=== PATIENT | female | born 1980 | race Caucasian/White ===

== ENCOUNTER 2017-02-05 18:00 | Inpatient (IN) | payer SELFPAY ==
[2017-02-05] MEDS ORDERED: Sodium Chloride 0.9% 1,000 ML PRIMARY IV ONE (18:05)
[2017-02-05] MEDS ORDERED: NORMAL SALINE 10 ML SYRINGE FLUSH IVP PRN (18:05)
[2017-02-05] MEDS ORDERED: ONDANSETRON 4 MG/2 ML VIAL IVP ONE (18:05)
[2017-02-05] MEDS ORDERED: Pantoprazole Inj 40 MG in Normal Saline Flush 10 ML IVP ONE (18:06)
[2017-02-05] MEDS ORDERED: Sodium Chloride 0.9% 1,000 ML, Magnesium Sulfate 2gm (Premix) 50 ML with Multivitamin I... IV ONE ×5 (18:06)
[2017-02-05 18:33] LABS: BASOPHILS # (AUTO) 0.03 10*3/UL; BASOPHILS % (AUTO) 0.7 % (0-1); EOSINOPHILS # (AUTO) 0.06 10*3/UL; EOSINOPHILS % (AUTO) 1.3 % (0-8); HEMATOCRIT 25.8 % (37.0-47.0); HEMOGLOBIN 7.4 g/dL (12.0-16.0); LYMPHOCYTES # (AUTO) 0.35 10*3/uL; MEAN CORPUSCULAR HEMOGLOBIN 22.8 PG (27-31); MEAN CORPUSCULAR HGB CONC 28.7 g/dL (33-37); MEAN CORPUSCULAR VOLUME 79.4 FL (81-99); MEAN PLATELET VOLUME 9.2 FL (7.4-12.2); MONOCYTES % (AUTO) 6.7 % (5-15); NEUTROPHILS # (AUTO) 3.74 10*3/UL; NEUTROPHILS % (AUTO) 83.3 % (50-80); RED BLOOD COUNT 3.25 10^6/uL (4.20-5.40)
[2017-02-05 18:46] LABS: BLOOD UREA NITROGEN 5 mg/dL (7-22); BUN/CREATININE RATIO 7.14 (6-20); CALCIUM 8.8 mg/dL (8.7-10.7); EST GLOMERULAR FILTRATION > 60 (>60 ml/min/1.73m(2)); MAGNESIUM 1.6 mg/dL (1.6-2.4); SERUM ALBUMIN 4.4 g/dL (3.5-4.8)
[2017-02-05 18:48] LABS: PLATELET MORPHOLOGY COMMENT NORMAL MORPHOLOGY (NORM); WBC MORPHOLOGY COMMENT NORMAL MORPHOLOGY (NORM)
[2017-02-05 18:53] LABS: RBC MORPHOLOGY COMMENT SEE COMMENTS (NORM)
[2017-02-05 18:54] LABS: C-REACTIVE PROTEIN < 0.5 mg/dL (0.0-0.9)
[2017-02-05] MEDS ORDERED: LORazepam 2 MG/1 ML VIAL IVP ONE (19:19)
[2017-02-05] MEDS ORDERED: Potassium Chloride 20 mEq 100 ML IV ONE (19:30)
[2017-02-05 19:36] LABS: LIPASE 995 IU/L (23-300)
[2017-02-05] MEDS ORDERED: POTASSIUM CHLORIDE IV ONE (19:44)
--- NOTE | 2017-02-05 20:12 | DI ---
CLINICAL HISTORY: Abdominal pain and rectal bleeding. PREVIOUS EXAM: None available. FINDINGS/TECHNIQUE: Multiple helically acquired CT images are obtained through the abdomen and pelvis following the intravenous administration of contrast media. Images are delayed. There is diffuse fatty infiltration of the liver. Patient is status post cholecystectomy. The appendix is within normal limits. The adrenals, spleen and pancreas are unremarkable. The uterus is within normal limits as are the adnexa, but these are not well evaluated on this exam. The descending colon is within normal limits. There is near complete decompression of the entire colo n. There is no pericolonic fat stranding. IMPRESSION: 1. No findings to explain rectal bleeding. Colon is largely decompressed throughout its entire length .
--- NOTE | 2017-02-05 20:19 | PDOC ---
History and Physical - History of Present Illness Date and Time of Service: 02/05/2017 9:08 PM Chief Complaint: Rectal bleeding of 3-4 days duration, vomiting for the last 3- 4 days also. History of Present Illness: This is a 36 years old female with medical history significant for history of anemia with history of previous transfusion about 7 years ago and no other medical issues who came into the hospital because of rectal bleeding. Symptoms First started with constipation she said she was straining hard to have a bowel movement after that started to have bright red blood which continued over the last 3 days. There is some abdominal discomfort and nausea and vomiting. The pain is mainly in the upper part of the abdomen. She drinks she said 2-3 drinks a day. She came into the ER, and evaluation in the ER showed anemia with hemoglobin of 7.4 , severe hypokalemia, potassium was 1.9, and lipase was also elevated she was given potassium , multivitamins and she was admitted. She did admit to using Naprosyn for some abdominal discomfort the last 3 days she's been taking 3-4 pills a day. There is no chest pain, no shortness of breath but she did report dizziness. She said she is unable to keep anything down and not eating well. Past Medical History Medical History: 1. History of anemia with previous admission to the hospital that was 7 years ago she needed blood transfusion then and she had upper and lower endoscopy she had hemorrhoid at that time. 2. History of agoraphobia Surgical History: History of cholecystectomy Pertinent Family History: Grandfather had bleeding peptic ulcer Past Social History: She drinks to 3 drinks according to her day, sometimes she goes into shakes if she quit drinking No drugs. She smokes half a pack a day she's been smoking since 13 years old. She has agoraphobia so she stays mostly at home. Tobacco Use: Current Some Day Smoker Substance Use Type: None Alcohol Use: Other (She said she drinks 2-3 drinks a day.) Medication / Allergies Home Medications: Home Medications Medication Instructions Recorded Confirmed Type Naproxen [Naprosyn] 250 mg PO BID PRN 02/05/17 02/05/17 History Allergies/Adverse Reactions: Allergies Allergy/AdvReac Type Severity Reaction Status Date / Time aspirin Allergy Severe NOT Verified 02/05/17 18:50 APPLICABLE Review of Systems - Review of Systems All Systems: Reviewed & No Additional Complaints Except as Stated Exam - General General Appearance: POSITIVE: No Acute Distress, Thin - Head Head Exam: POSITIVE: Normal Inspection - Eye Additional Eye Exam Details: Pale conjunctiva - ENT ENT Exam: POSITIVE: Normal Exam - Neck Neck Exam: POSITIVE: Normal Inspection - Respiratory Respiratory Exam: POSITIVE: Clear to Auscultation - Bilaterally - Cardiovascular Cardiovascular Exam: POSITIVE: RRR - GI/Abdominal GI/Abdominal Exam: POSITIVE: Normal Bowel Sounds, Non Distended, Soft Additional GI/Abdominal Exam Details: Minimal tenderness in the epigastrium - Rectal Rectal Exam: POSITIVE: Deferred - External Exam: POSITIVE: Deferred - Extremities Extremities Exam: POSITIVE: Normal Inspection - Back Back Exam: POSITIVE: Normal Inspection Additional Back Exam Details: Tattoos noted - Neurological Neurological Exam: POSITIVE: Alert, Oriented x 3, CN II-XII Intact, Speech Intact / Clear, Moves All Extremities Equally - Psychiatric Psychiatric Exam: POSITIVE: Normal Affect - Integumentary Integumentary Exam: POSITIVE: Pallor Results - Labs CBC and BMP: 02/06/17 06:29 02/06/17 06:29 Labs - Last 24 Hours: Laboratory Results 02/05/17 Range/Units 19:20 Amylase 144 H (30-110) U/L Lipase 995 H (23-300) IU/L - Imaging Status: Report Reviewed by Me (CT abdomen and and pelvis showed diffuse fatty infiltration of the liver, patient is status post cholecystectomy, colon is largely decompressed throughout its entire length. No findings to explain rectal bleeding.) Assessment and Plan - Patient Problems (1) Rectal bleeding Current Visit: Yes Status: Acute Comment: ER did do a rectal examination and Dr. Batres thought that she had an anal fissure. She has symptomatic anemia so we'll give her blood transfusion. Will Repeat her labs in the morning. Will put her also on Protonix as she take Naprosyn and she drinks. Will speak with surgery in the morning and see whether she need have scopes again (2) Hypokalemia Current Visit: Yes Status: Acute Comment: Potassium is very low will give her potassium replacement. And repeat her potassium. This may be secondary to the vomiting and also alcoholism. (3) Pancreatitis Current Visit: Yes Status: Acute Comment: Lipase is elevated and has some abdominal discomfort and vomiting so she may have pancreatitis this may be secondary also to alcohol. We'll try clear liquid if she doesn't tolerate that will puts her on nothing by mouth. Will Put her on fluid , pain medication and antiemetic as needed. (4) Elevated LFTs Current Visit: Yes Status: Acute Comment: Likely secondary to alcohol will check for hepatitis screen in the morning. (5) Alcohol abuse Current Visit: Yes Status: Acute Comment: She drinks daily and maybe more than what she is telling me, will put her on CIWA scale in case she developed a alcohol withdrawal symptoms. Will put her also on multivitamins.
--- NOTE | 2017-02-05 20:28 | PDOC ---
General Adult HPI - General Chief Complaint: GI Bleed / Rectal Pain Stated Complaint: RECTAL BLEEDING, SHAKY,VOMITING Date Seen by Provider: 02/05/17 Time Seen by Provider: 18:05 Source: POSITIVE: Patient Exam Limitations: POSITIVE: No limitations Nurse's Notes Reviewed & Considered: Yes - History of Present Illness Initial Comment: The patient is a 36-year-old female who presents to the emergency department with primary complaint of rectal bleeding. She reports that about 3 days ago she was having some issues with constipation and was straining fairly hard to have a bowel movement. She subsequently developed bright red bleeding from the rectum which has continued over the past 3 days. She states that she has a history of similar bleeding 6 or 7 years ago at which time she actually required a blood transfusion. She states that she had endoscopy both upper and lower at that time and all they ever found was hemorrhoids as a source of the bleeding. She does report some associated abdominal pain and she has had nausea and vomiting. Most of her abdominal pain is upper. She does admit to drinking "3 drinks a day" regularly. She states that she had only a small amount to drink earlier today. She does not have any history of alcohol withdrawal when she has quit drinking in the past. She has had previous cholecystectomy and denies any other intra-abdominal surgeries. Have you received a tetanus shot in the past 10 years?: Unknown - Patient Home Medications Home Medications: Home Medications Naproxen [Naprosyn] 250 mg PO BID PRN 02/05/17 - Patient Allergies Allergies/Adverse Reactions: Allergies Allergy/AdvReac Type Severity Reaction Status Date / Time aspirin Allergy Severe NOT Verified 02/05/17 18:50 APPLICABLE Past Medical History Past Medical History Reviewed: Other (please comment) (Written documentation reviewed) ROS - Limitations ROS Limitations: No Limitations Constitution: DENIES: Chills, Fever Cardiovascular: REPORTS: Denies Cardiac Symptoms Respiratory: REPORTS: Denies Resp Symptoms Neurological: REPORTS: Denies Neuro Symptoms, Other (She does feel shaky) Gastrointestinal: REPORTS: Abdominal Pain, Nausea, Vomitting (No hematemesis), Bloody Stools (Bright red blood per rectum), Constipation. DENIES: Black Stools Musculoskeletal: REPORTS: Denies MS Symptoms Genitourinary: REPORTS: Denies Symptoms Eyes: REPORTS: Denies Symptoms ENT: REPORTS: Denies Symptoms Skin: DENIES: Rash General Adult Exam - General Appearance General Appearance: POSITIVE: Alert, Cooperative, No Acute Distress - HEENT HEENT: POSITIVE: Head Inspection Nml, Eyes Inspection Nml, Ears Inspection Nml, Pharynx Inspect. Nml, Other (Pale mucous membranes) - Neck Neck: POSITIVE: Normal Inspection. NEGATIVE: Lymphadenopathy - Respiratory Respiratory: POSITIVE: No Respiratory Distress, Breath Sounds Normal - Cardiovascular Cardiovascular: POSITIVE: Regular Rate & Rhythm, No Murmur Peripheral Pulses: Dorsalis-pedis (R): 2+, Dorsalis-pedis (L): 2+ - Abdomen Abdomen: Soft: (All Quadrants), Normal Bowel Sounds: (All Quadrants), No Guarding: (All Quadrants), No Rebound: (All Quadrants) Additional Abdominal Details: Some generalized abdominal tenderness, most prominent in the upper quadrants - Rectal Rectal: POSITIVE: Other (Rectal exam reveals external hemorrhoids one of which appears to have an excoriation on it, no active bleeding, she also has a fissure noted, no palpable mass, stool was brownish in color however heme positive) - Back Back: POSITIVE: Other (She does have some bruising noted in the flank region on the left side). NEGATIVE: CVA Tenderness - Skin Skin: POSITIVE: Normal Color, No Rash - Extremities Extremity: Normal ROM: (All Extremities), Normal Inspection: (All Extremities) - Neurological / Psychological Neurological: POSITIVE: Oriented X3, Motor Normal, Sensation Normal General Adult Progress - Results Reviewed by me Xrays/CTs/US Reviewed by me: Yes Discussed with Radiologist: Yes Radiology Findings: CT scan of the abdomen and pelvis reveals no acute intra- abdominal pathology per radiologist. Lab Results Reviewed: Yes Lab Results:: Laboratory Results 02/05/17 02/05/17 Range/Units 18:20 19:05 WBC 4.49 L (4.8-10.8) 10^3/uL RBC 3.25 L (4.20-5.40) 10^6/uL Hgb 7.4 L (12.0-16.0) g/dL Hct 25.8 L (37.0-47.0) % MCV 79.4 L (81-99) FL MCH 22.8 L (27-31) PG MCHC 28.7 L (33-37) g/dL RDW Std Deviation 54.0 H (39-50) fL RDW Coeff of [place]lin 19.6 H (11.5-14.5) % Plt Count 226 (140-350) 10*3/uL MPV 9.2 (7.4-12.2) FL Immature Gran % (Auto) 0.2 (0-5) % Neut % (Auto) 83.3 H (50-80) % Lymph % (Auto) 7.8 L (10-50) % [place] % (Auto) 6.7 (5-15) % Eos % (Auto) 1.3 (0-8) % Baso % (Auto) 0.7 (0-1) % Immature Gran # (Auto) 0.01 10*3/UL Neut # (Auto) 3.74 10*3/UL Lymph # (Auto) 0.35 10*3/uL [place] # (Auto) 0.30 (0.3-0.8) 10*3/UL Eos # (Auto) 0.06 10*3/UL Baso # (Auto) 0.03 10*3/UL WBC Morphology Comment Normal morphology (NORM) Plt Morphology Comment Normal morphology (NORM) RBC Morph Comment See comments (NORM) PT 10.0 (9.7-11.4) secs INR 0.97 (0.00-5.90) N/A Sodium 134 L (135-145) meq/L Potassium 1.9 L* (3.8-5.2) meq/L Chloride 87 L (98-112) meq/L Carbon Dioxide 30 (23-33) meq/L Anion Gap 17 (5-20) BUN 5 L (7-22) mg/dL Creatinine 0.7 (0.50-1.20) mg/dL Estimated GFR > 60 (>60 ml/min/1.73m(2)) BUN/Creatinine Ratio 7.14 (6-20) Glucose 103 (78-110) mg/dL Calculated Osmolality 274.0 (267-292) mOsm/kg Calcium 8.8 (8.7-10.7) mg/dL Magnesium 1.6 (1.6-2.4) mg/dL Total Bilirubin 0.8 (0.3-1.2) mg/dL AST 178 H (8-39) IU/L ALT 75 H (9-52) IU/L Alkaline Phosphatase 175 H (38-126) IU/L C-Reactive Protein < 0.5 (0.0-0.9) mg/dL Total Protein 7.5 (6.1-8.0) g/dL Albumin 4.4 (3.5-4.8) g/dL Globulin 3.1 (2.50-4.10) g/dL Albumin/Globulin Ratio 1.40 (1.3-2.0) mg/g Serum HCG, Qual Negative Serum Alcohol < 10 (0-10) mg/dL Blood Type O POSITIVE Antibody Screen Negative Crossmatch See Detail - Patient's Progress MDM / ED Course: Shortly after arrival an IV was established and the patient received a banana bag as well as Protonix 40 mg IV and Zofran 4 mg IV. Her blood work revealed significant abnormalities including a hemoglobin of 7.4, a potassium of 1.9 and a lipase of over 900. 40 mEq of potassium was added to her banana bag for infusion. She remained hemodynamically stable here in the emergency room. Her blood alcohol is less than 10 and she does appear somewhat shaky and likely has some mild alcohol withdrawal. She was given Ativan 1 mg IV. She was typed and crossed for 2 units of packed red blood cells secondary to her low hemoglobin and rectal bleeding. CT scan of her abdomen and pelvis was done and shows no acute abnormalities. Findings were discussed with the patient and it was recommended that she be admitted to the hospital for treatment. She is in agreement with this plan and Dr. Canchola has agreed to admit the patient. - Consult Counseled: POSITIVE: Patient, Family, RE: Lab Results, RE: Radiology Results, RE : DX Patient Care Time - Estimated PCT Patient Care Time (In Minutes): 40 Vital Signs - VS Reviewed Vital Signs Reviewed: Yes (written documentation reviewed) Discharge Clinical Impression: Rectal hemorrhage, External hemorrhoids, Anal fissure, Anemia, Pancreatitis, Alcohol abuse, Hypokalemia Discharge Disposition: Admit to Inpatient Condition: Stable Date Decision to Admit to Inpatient: 02/05/17 Time Decision to Admit to Inpatient: 20:00
[2017-02-05] MEDS ORDERED: Loperamide Tab 2 MG TABLET PO PRN (20:54)
[2017-02-05] MEDS ORDERED: MAGNESIUM 400 MG/5 ML - 30 ML (MILK OF MAGNESIA) PO PRN (20:54)
[2017-02-05] MEDS ORDERED: LIDOCAINE W/ SODIUM BICARB 0.5 ML SYR SUBD PRN (20:54)
[2017-02-05] MEDS ORDERED: MAG HYDROX/AL HYDROX/SIMETH 30 ML SUSP PO PRN (20:54)
[2017-02-05] MEDS ORDERED: MAGNESIUM OXIDE 400 MG TABLET PO SCH (21:00)
[2017-02-05] MEDS ORDERED: Sodium Chloride 0.9% 500 ML PRIMARY IV ONE (21:01)
[2017-02-05] MEDS: LORazepam Inj(ETOH withdrawal) 2 MG/ML VIAL IVP PRN (21:33)
[2017-02-05] MEDS: MORPHINE SULFATE 2 MG/1 ML IVP PRN (23:12)
[2017-02-05] MEDS: Pantoprazole Inj 40 MG in Normal Saline Flush 10 ML IVP SCH (23:13)
[2017-02-05] MEDS: ONDANSETRON 4 MG/2 ML VIAL IV PRN (23:14)
[2017-02-05] MEDS: POTASSIUM CHLORIDE 20 MEQ TAB PO SCH (23:14)
[2017-02-06] MEDS: LORazepam Inj(ETOH withdrawal) 2 MG/ML VIAL IVP PRN ×2 (00:11→22:14)
[2017-02-06 06:50] LABS: BASOPHILS # (AUTO) 0.02 10*3/UL; BASOPHILS % (AUTO) 0.5 % (0-1); EOSINOPHILS # (AUTO) 0.19 10*3/UL; EOSINOPHILS % (AUTO) 4.9 % (0-8); HEMATOCRIT 28.7 % (37.0-47.0); HEMOGLOBIN 8.7 g/dL (12.0-16.0); LYMPHOCYTES # (AUTO) 0.91 10*3/uL; MEAN CORPUSCULAR HGB CONC 30.3 g/dL (33-37); MEAN CORPUSCULAR VOLUME 82.5 FL (81-99); MEAN PLATELET VOLUME 9.9 FL (7.4-12.2); MONOCYTES # (AUTO) 0.28 10*3/UL (0.3-0.8); MONOCYTES % (AUTO) 7.2 % (5-15); NEUTROPHILS # (AUTO) 2.47 10*3/UL; NEUTROPHILS % (AUTO) 63.6 % (50-80); RED BLOOD COUNT 3.48 10^6/uL (4.20-5.40)
[2017-02-06 06:51] LABS: PLATELET MORPHOLOGY COMMENT NORMAL MORPHOLOGY (NORM); RBC MORPHOLOGY COMMENT NORMAL MORPHOLOGY (NORM); WBC MORPHOLOGY COMMENT NORMAL MORPHOLOGY (NORM)
[2017-02-06] MEDS: POTASSIUM CHLORIDE 20 MEQ TAB PO SCH ×3 (06:53→16:59)
[2017-02-06 06:59] LABS: BLOOD UREA NITROGEN 4 mg/dL (7-22); BUN/CREATININE RATIO 6.66 (6-20); CALCIUM 7.1 mg/dL (8.7-10.7); EST GLOMERULAR FILTRATION > 60 (>60 ml/min/1.73m(2)); LIPASE 576 IU/L (23-300); MAGNESIUM 2.5 mg/dL (1.6-2.4); SERUM ALBUMIN 3.4 g/dL (3.5-4.8)
[2017-02-06] MEDS ORDERED: Potassium Chloride 20 mEq 20 MEQ in Premix 1 BAG IV ONE (07:46)
--- NOTE | 2017-02-06 07:49 | PDOC(PROG) ---
Date and Time of Service: 02/06/2017 7:51 AM Interval History: Subjective She said she did not sleep well, she didn't vomit though since she's been here and she is tolerating clear liquid. She had minimal rectal bleed at 3 AM she said. Abdominal pain is improving. Still sometimes feel lightheaded or dizzy when she turns her head. Objective : Data - Labs CBC and BMP: 02/06/17 06:29 02/06/17 06:29 Labs - Last 24 Hours: Laboratory Results 02/05/17 02/06/17 Range/Units 19:20 06:29 WBC 3.88 L (4.8-10.8) 10^3/uL RBC 3.48 L (4.20-5.40) 10^6/uL Hgb 8.7 L (12.0-16.0) g/dL Hct 28.7 L (37.0-47.0) % MCV 82.5 (81-99) FL MCH 25.0 L (27-31) PG MCHC 30.3 L (33-37) g/dL RDW Std Deviation 53.5 H (39-50) fL RDW Coeff of Kaylin 18.5 H (11.5-14.5) % Plt Count 160 (140-350) 10*3/uL MPV 9.9 (7.4-12.2) FL Immature Gran % (Auto) 0.3 (0-5) % Neut % (Auto) 63.6 (50-80) % Lymph % (Auto) 23.5 (10-50) % [place] % (Auto) 7.2 (5-15) % Eos % (Auto) 4.9 (0-8) % Baso % (Auto) 0.5 (0-1) % Immature Gran # (Auto) 0.01 10*3/UL Neut # (Auto) 2.47 10*3/UL Lymph # (Auto) 0.91 10*3/uL [place] # (Auto) 0.28 L (0.3-0.8) 10*3/UL Eos # (Auto) 0.19 10*3/UL Baso # (Auto) 0.02 10*3/UL WBC Morphology Comment Normal morphology (NORM) Plt Morphology Comment Normal morphology (NORM) RBC Morph Comment Normal morphology (NORM) Sodium 138 (135-145) meq/L Potassium 2.8 L (3.8-5.2) meq/L Chloride 100 (98-112) meq/L Carbon Dioxide 26 (23-33) meq/L Anion Gap 12 (5-20) BUN 4 L (7-22) mg/dL Creatinine 0.6 (0.50-1.20) mg/dL Estimated GFR > 60 (>60 ml/min/1.73m(2)) BUN/Creatinine Ratio 6.66 (6-20) Glucose 64 L (78-110) mg/dL Calculated Osmolality 280.0 (267-292) mOsm/kg Calcium 7.1 L (8.7-10.7) mg/dL Magnesium 2.5 H (1.6-2.4) mg/dL Total Bilirubin 0.8 (0.3-1.2) mg/dL AST 116 H (8-39) IU/L ALT 60 H (9-52) IU/L Alkaline Phosphatase 123 (38-126) IU/L Total Protein 5.8 L (6.1-8.0) g/dL Albumin 3.4 L (3.5-4.8) g/dL Globulin 2.4 L (2.50-4.10) g/dL Albumin/Globulin Ratio 1.40 (1.3-2.0) mg/g Amylase 144 H (30-110) U/L Lipase 995 H 576 H (23-300) IU/L Objective : Exam - General General Appearance: No Acute Distress, Cooperative - Head Head Exam: Normal Inspection, Atraumatic - Eye Eye Exam: Normal Appearance - ENT ENT Exam: Normal Exam - Neck Neck Exam: Normal Inspection - Respiratory Respiratory Exam: Clear to Auscultation - Bilaterally - Cardiovascular Cardiovascular Exam: RRR, Systolic Murmur - GI/Abdominal GI/Abdominal Exam: Normal Bowel Sounds, Non Distended, Soft Additional GI/Abdominal Exam Details: Minimal tenderness in the epigastrium was then yesterday - Rectal Rectal Exam: Deferred - External Exam: Deferred - Extremities Extremities Exam: Normal Inspection - Back Back Exam: Normal Inspection - Neurological Neurological Exam: Alert, Oriented x 3, CN II-XII Intact, No Facial Droop, Speech Intact / Clear - Psychiatric Psychiatric Exam: Flat Affect - Integumentary Integumentary Exam: Pallor Assessment and Plan - Patient Problems (1) Rectal bleeding Current Visit: Yes Status: Acute Comment: Seem to be resolving, she is status post 2 units of blood her hemoglobin is 8.7 I think will watch it put her on some iron. Anemia is iron deficiency anemia as expected. (2) Hypokalemia Current Visit: Yes Status: Acute Comment: Potassium is coming up but still low will give her more IV and oral potassium. (3) Pancreatitis Current Visit: Yes Status: Acute Comment: Lipase is down continue clear liquid consider advancing it if no scopes. (4) Elevated LFTs Current Visit: Yes Status: Acute Comment: likely secondary to alcohol. Improving (5) Alcohol abuse Current Visit: Yes Status: Acute Comment: She is on CIWA scale continue. She is on multivitamins continue. Talked to her about referral for [facility] she is not interested. She is not committed fully yet to quitting alcohol per my discussion with her.
[2017-02-06] MEDS: FOLIC ACID 1 MG TABLET PO SCH (08:51)
[2017-02-06] MEDS: FERROUS SULFATE 325 MG TABLET PO SCH (08:51)
[2017-02-06] MEDS: Pantoprazole Inj 40 MG in Normal Saline Flush 10 ML IVP SCH ×2 (08:51→20:16)
[2017-02-06] MEDS ORDERED: Sodium Chloride 0.9% 100 ML IV ONE (08:57)
--- NOTE | 2017-02-06 13:02 | CONSULT ---
Consult Note - Consult Consult Date: 02/06/17 Reason for Consult: PreOp Consulation : General Surgery Requesting Physician: Dr. Canchola Primary Care Provider: NONE NONE - History of Present Illness History of Present Illness: Patient is a 36-year-old female who was admitted last night with a history of some bright red blood per rectum and mild pancreatitis. She drinks a moderate amount of alcohol by report had been on Naprosyn. She also has reflux. I'm asked to see her in consultation. Patient's story seems to change quite a bit. At any rate she reports for the last several days she's had some bright red blood per rectum. She was constipated and straining at the stool when the blood started. She reports for the last several days has been a significant amount of bright red blood per rectum. It's on the toilet paper and in the water. It is not mixed in with the stool. She has not had melanotic stools. She's had small amounts since admission to the hospital. She had some at 3 AM and some at 9 AM. Patiently is chronically anemic. On admission her hemoglobin was 7.4 and her hematocrit was 25.8. Her coagulation studies were normal. Her lipase was elevated but is decreasing. Her potassium was quite low but is being replaced. She got 2 units of blood and her hemoglobin increased to 8.7 and her hematocrit to 28.7. Patient admits to 3-4 drinks a day. She was taking Naprosyn and excess regularly. She does report heartburn and indigestion. She is status post cholecystectomy. CT scan was done which is unremarkable. No evidence of pancreatitis. Patient reports she had upper and lower endoscopy about 7 years ago. I can find no record of that in the hospital or in the office records. Her AST and ALT are elevated. Her alkaline phosphatase and bilirubin are normal. She reports some abdominal throbbing. She feels like her heart is beating in her stomach. She denies any abdominal pain. Review of Systems - Gastrointestinal Gastrointestinal / Abdominal: REPORTS: Constipation, Heartburn, Bright Red Blood Per Rectum, See HPI Past Medical History Medical History: 1. History of anemia with previous admission to the hospital that was 7 years ago she needed blood transfusion then and she had upper and lower endoscopy she had hemorrhoid at that time. 2. History of agoraphobia Surgical History: History of cholecystectomy Pertinent Family History: Grandfather had bleeding peptic ulcer Past Social History: She drinks to 3 drinks according to her day, sometimes she goes into shakes if she quit drinking No drugs. She smokes half a pack a day she's been smoking since 13 years old. She has agoraphobia so she stays mostly at home. Tobacco Use: Current Some Day Smoker Do you dip or chew tobacco: No Substance Use Type: None Alcohol Use: Other (She said she drinks 2-3 drinks a day.) Medication / Allergies Home Medications: Home Medications Medication Instructions Recorded Confirmed Type Naproxen [Naprosyn] 250 mg PO BID PRN 02/05/17 02/05/17 History Allergies/Adverse Reactions: Allergies Allergy/AdvReac Type Severity Reaction Status Date / Time aspirin Allergy Severe NOT Verified 02/05/17 18:50 APPLICABLE Exam - Vitals Vital Signs: Vital Signs Temperature 97.9 F Temperature Source Temporal Artery Scan Pulse Rate [Pulse Oximeter] 91 Pulse Rate [Apical] 114 Pulse Rate 86 Respiratory Rate 20 Blood Pressure [Left Arm] 101/67 Blood Pressure [Right Arm] 114/77 Blood Pressure 110/69 Pulse Ox 95 Oxygen Delivery Method Room Air Height 5 ft 5 in Weight 59.33 kg - General General Appearance: POSITIVE: No Acute Distress, Cooperative - Respiratory Respiratory Exam: POSITIVE: Clear to Auscultation - Bilaterally, Breathing Non Labored - Cardiovascular Cardiovascular Exam: POSITIVE: RRR, No Murmur - GI/Abdominal GI/Abdominal Exam: POSITIVE: Non Tender, Non Distended, Soft - Rectal Rectal Exam: POSITIVE: Normal Inspection (Externally. Digital rectal exam not performed. I do not see evidence of a fissure.) Results - Labs CBC and BMP: 02/06/17 06:29 02/06/17 06:29 Labs - Last 24 Hours: Laboratory Results 02/05/17 02/06/17 Range/Units 19:20 06:29 WBC 3.88 L (4.8-10.8) 10^3/uL RBC 3.48 L (4.20-5.40) 10^6/uL Hgb 8.7 L (12.0-16.0) g/dL Hct 28.7 L (37.0-47.0) % MCV 82.5 (81-99) FL MCH 25.0 L (27-31) PG MCHC 30.3 L (33-37) g/dL RDW Std Deviation 53.5 H (39-50) fL RDW Coeff of Kaylin 18.5 H (11.5-14.5) % Plt Count 160 (140-350) 10*3/uL MPV 9.9 (7.4-12.2) FL Immature Gran % (Auto) 0.3 (0-5) % Neut % (Auto) 63.6 (50-80) % Lymph % (Auto) 23.5 (10-50) % [place] % (Auto) 7.2 (5-15) % Eos % (Auto) 4.9 (0-8) % Baso % (Auto) 0.5 (0-1) % Immature Gran # (Auto) 0.01 10*3/UL Neut # (Auto) 2.47 10*3/UL Lymph # (Auto) 0.91 10*3/uL [place] # (Auto) 0.28 L (0.3-0.8) 10*3/UL Eos # (Auto) 0.19 10*3/UL Baso # (Auto) 0.02 10*3/UL WBC Morphology Comment Normal morphology (NORM) Plt Morphology Comment Normal morphology (NORM) RBC Morph Comment Normal morphology (NORM) Sodium 138 (135-145) meq/L Potassium 2.8 L (3.8-5.2) meq/L Chloride 100 (98-112) meq/L Carbon Dioxide 26 (23-33) meq/L Anion Gap 12 (5-20) BUN 4 L (7-22) mg/dL Creatinine 0.6 (0.50-1.20) mg/dL Estimated GFR > 60 (>60 ml/min/1.73m(2)) BUN/Creatinine Ratio 6.66 (6-20) Glucose 64 L (78-110) mg/dL Calculated Osmolality 280.0 (267-292) mOsm/kg Calcium 7.1 L (8.7-10.7) mg/dL Magnesium 2.5 H (1.6-2.4) mg/dL Total Bilirubin 0.8 (0.3-1.2) mg/dL AST 116 H (8-39) IU/L ALT 60 H (9-52) IU/L Alkaline Phosphatase 123 (38-126) IU/L Total Protein 5.8 L (6.1-8.0) g/dL Albumin 3.4 L (3.5-4.8) g/dL Globulin 2.4 L (2.50-4.10) g/dL Albumin/Globulin Ratio 1.40 (1.3-2.0) mg/g Amylase 144 H (30-110) U/L Lipase 995 H 576 H (23-300) IU/L Assessment and Plan - Patient Problems (1) BRBPR (bright red blood per rectum) Current Visit: Yes Status: Acute Priority: Medium Diagnosis Date: 02/05/17 Comment: This is been going on for several days. Does not sound like it's upper GI. Sounds like to bleeding is from the distal colon and most likely hemorrhoids which she has a history of. I think is most appropriate to stabilize her medical problems. She can then be seen in the office in about a week and we can schedule her for upper and lower endoscopy. Should she continue to bleed please call and we'll make arrangements for upper and lower endoscopy while in the hospital. Her potassium will need to be corrected prior to proceeding. It would be best to let her pancreatitis resolves prior to proceeding. Please call if I can be of further assistance this admission. Otherwise we'll plan to see her in the office post discharge to schedule upper and lower endoscopy.
[2017-02-06] MEDS: MORPHINE SULFATE 2 MG/1 ML IVP PRN (19:07)
[2017-02-06] MEDS: NORMAL SALINE 10 ML SYRINGE FLUSH IVP PRN (20:17)
[2017-02-06 21:21] LABS: CALCIUM 7.3 mg/dL (8.7-10.7); EST GLOMERULAR FILTRATION > 60 (>60 ml/min/1.73m(2))
[2017-02-06 21:24] LABS: BLOOD UREA NITROGEN 2 mg/dL (7-22)
[2017-02-07] MEDS: LORazepam Inj(ETOH withdrawal) 2 MG/ML VIAL IVP PRN ×2 (00:35→07:46)
[2017-02-07] MEDS: LORazepam 1 mg tab (ETOH withdrawal) PO PRN ×2 (04:29→19:26)
[2017-02-07 05:19] LABS: BASOPHILS # (AUTO) 0.03 10*3/UL; EOSINOPHILS # (AUTO) 0.17 10*3/UL; EOSINOPHILS % (AUTO) 5.9 % (0-8); HEMATOCRIT 26.8 % (37.0-47.0); LYMPHOCYTES # (AUTO) 0.99 10*3/uL; MEAN CORPUSCULAR HGB CONC 29.9 g/dL (33-37); MEAN CORPUSCULAR VOLUME 83.8 FL (81-99); MEAN PLATELET VOLUME 10.1 FL (7.4-12.2); MONOCYTES # (AUTO) 0.22 10*3/UL (0.3-0.8); MONOCYTES % (AUTO) 7.6 % (5-15); NEUTROPHILS # (AUTO) 1.47 10*3/UL; NEUTROPHILS % (AUTO) 50.9 % (50-80)
[2017-02-07 05:33] LABS: CALCIUM 7.4 mg/dL (8.7-10.7); EST GLOMERULAR FILTRATION > 60 (>60 ml/min/1.73m(2)); SERUM ALBUMIN 2.9 g/dL (3.5-4.8)
[2017-02-07 05:34] LABS: PLATELET MORPHOLOGY COMMENT NORMAL MORPHOLOGY (NORM); RBC MORPHOLOGY COMMENT SEE COMMENTS (NORM); WBC MORPHOLOGY COMMENT NORMAL MORPHOLOGY (NORM)
[2017-02-07 05:35] LABS: BLOOD UREA NITROGEN 2 mg/dL (7-22)
[2017-02-07] MEDS: POTASSIUM CHLORIDE 20 MEQ TAB PO SCH ×3 (07:31→17:47)
[2017-02-07] MEDS: MORPHINE SULFATE 2 MG/1 ML IVP PRN ×3 (07:46→19:26)
--- NOTE | 2017-02-07 08:07 | PDOC(PROG) ---
Date and Time of Service: 02/07/2017 8:11 AM Interval History: Subjective She said she continued to have some rectal bleed last time was this morning. Last night she wanted to go home apparently was hallucinating but she was convinced to stay in by the nursing staff she was giving Ativan and that's helping with her withdrawal. Objective : Data - Labs CBC and BMP: 02/07/17 04:29 02/07/17 04:29 Labs - Last 24 Hours: Laboratory Results 02/06/17 02/07/17 Range/Units 21:07 04:29 WBC 2.89 L (4.8-10.8) 10^3/uL RBC 3.20 L (4.20-5.40) 10^6/uL Hgb 8.0 L (12.0-16.0) g/dL Hct 26.8 L (37.0-47.0) % MCV 83.8 (81-99) FL MCH 25.0 L (27-31) PG MCHC 29.9 L (33-37) g/dL RDW Std Deviation 56.1 H (39-50) fL RDW Coeff of Kaylin 18.7 H (11.5-14.5) % Plt Count 135 L (140-350) 10*3/uL MPV 10.1 (7.4-12.2) FL Immature Gran % (Auto) 0.3 (0-5) % Neut % (Auto) 50.9 (50-80) % Lymph % (Auto) 34.3 (10-50) % [place] % (Auto) 7.6 (5-15) % Eos % (Auto) 5.9 (0-8) % Baso % (Auto) 1.0 (0-1) % Immature Gran # (Auto) 0.01 10*3/UL Neut # (Auto) 1.47 10*3/UL Lymph # (Auto) 0.99 10*3/uL [place] # (Auto) 0.22 L (0.3-0.8) 10*3/UL Eos # (Auto) 0.17 10*3/UL Baso # (Auto) 0.03 10*3/UL WBC Morphology Comment Normal morphology (NORM) Plt Morphology Comment Normal morphology (NORM) RBC Morph Comment See comments (NORM) Sodium 135 139 (135-145) meq/L Potassium 3.6 L 3.7 L (3.8-5.2) meq/L Chloride 104 108 (98-112) meq/L Carbon Dioxide 25 23 (23-33) meq/L Anion Gap 6 8 (5-20) BUN 2 L 2 L (7-22) mg/dL Creatinine 0.5 0.5 (0.50-1.20) mg/dL Estimated GFR > 60 > 60 (>60 ml/min/1.73m(2)) BUN/Creatinine Ratio 4.00 L 4.00 L (6-20) Glucose 85 66 L (78-110) mg/dL Calculated Osmolality 274.0 281.0 (267-292) mOsm/kg Calcium 7.3 L 7.4 L (8.7-10.7) mg/dL Total Bilirubin 0.5 (0.3-1.2) mg/dL AST 110 H (8-39) IU/L ALT 52 (9-52) IU/L Alkaline Phosphatase 103 (38-126) IU/L Total Protein 5.1 L (6.1-8.0) g/dL Albumin 2.9 L (3.5-4.8) g/dL Globulin 2.2 L (2.50-4.10) g/dL Albumin/Globulin Ratio 1.30 (1.3-2.0) mg/g Lipase 313 H (23-300) IU/L Objective : Exam - General General Appearance: No Acute Distress, Cooperative Additional General Exam Details: conti facies - Head Head Exam: Normal Inspection - Eye Eye Exam: Normal Appearance - ENT ENT Exam: Normal Exam - Neck Neck Exam: Normal Inspection - Respiratory Respiratory Exam: Clear to Auscultation - Bilaterally - Cardiovascular Cardiovascular Exam: RRR - GI/Abdominal GI/Abdominal Exam: Normal Bowel Sounds, Non Tender, Non Distended, Soft - Rectal Rectal Exam: Deferred - External Exam: Deferred - Extremities Extremities Exam: Normal Inspection - Back Back Exam: Normal Inspection - Neurological Neurological Exam: Alert, Oriented x 3, CN II-XII Intact - Integumentary Integumentary Exam: Pallor Assessment and Plan - Patient Problems (1) Rectal bleeding Current Visit: Yes Status: Acute Comment: Her hemoglobin dropped a total keep her another day in the hospital, she continued to have bleeding will speak with Dr. Urena again as she may need to have an inpatient scopes instead of outpatient. (2) Hypokalemia Current Visit: Yes Status: Acute Comment: This is the much improved continue replacement (3) Pancreatitis Current Visit: Yes Status: Acute Comment: This is also improving I think we'll advance her diet (4) Elevated LFTs Current Visit: Yes Status: Acute Comment: Likely secondary to alcohol improving (5) Alcohol abuse Current Visit: Yes Status: Acute Comment: She is on CIWA scale and she is requiring more Ativan now. Of note is her facial features is cushingoid I think maybe secondary to alcohol. I think at one point in time an outpatient to have a 24-hour urine cortisol measurement or dexamethasone suppression test, she may have the pseudo-cushingoid features as a result of the alcohol.
[2017-02-07] MEDS: Calcium/Vit D 600mg/400u Tab 1 TAB TABLET PO SCH (10:06)
[2017-02-07] MEDS: FOLIC ACID 1 MG TABLET PO SCH (10:06)
[2017-02-07] MEDS: FERROUS SULFATE 325 MG TABLET PO SCH (10:06)
[2017-02-07] MEDS ORDERED: Fleet Enema 133ml RECTAL ONE ×2 (11:04→12:00)
[2017-02-07] MEDS: Pantoprazole Inj 40 MG in Normal Saline Flush 10 ML IVP SCH ×3 (11:10→20:34)
--- NOTE | 2017-02-07 12:43 | PDOC(PROG) ---
Date and Time of Service: 02/07/2017 12:30 PM Interval History: Had some more bloody stools yesterday afternoon and a little bit during the night. Has started her menstrual cycle. Hemoglobin dropped slightly to 8. Complains of no significant abdominal pain other than some thumping. She has gotten 2 fleets enemas this morning per my instructions. We will proceed with esophagogastroduodenoscopy with biopsy and sigmoidoscopy/ colonoscopy as possible. Patient's potassium has been corrected. Her amylase is almost back to normal. Objective : Data - Labs CBC and BMP: 02/07/17 04:29 02/07/17 04:29 Labs - Last 24 Hours: Laboratory Results 02/06/17 02/07/17 Range/Units 21:07 04:29 WBC 2.89 L (4.8-10.8) 10^3/uL RBC 3.20 L (4.20-5.40) 10^6/uL Hgb 8.0 L (12.0-16.0) g/dL Hct 26.8 L (37.0-47.0) % MCV 83.8 (81-99) FL MCH 25.0 L (27-31) PG MCHC 29.9 L (33-37) g/dL RDW Std Deviation 56.1 H (39-50) fL RDW Coeff of Kaylin 18.7 H (11.5-14.5) % Plt Count 135 L (140-350) 10*3/uL MPV 10.1 (7.4-12.2) FL Immature Gran % (Auto) 0.3 (0-5) % Neut % (Auto) 50.9 (50-80) % Lymph % (Auto) 34.3 (10-50) % [place] % (Auto) 7.6 (5-15) % Eos % (Auto) 5.9 (0-8) % Baso % (Auto) 1.0 (0-1) % Immature Gran # (Auto) 0.01 10*3/UL Neut # (Auto) 1.47 10*3/UL Lymph # (Auto) 0.99 10*3/uL [place] # (Auto) 0.22 L (0.3-0.8) 10*3/UL Eos # (Auto) 0.17 10*3/UL Baso # (Auto) 0.03 10*3/UL WBC Morphology Comment Normal morphology (NORM) Plt Morphology Comment Normal morphology (NORM) RBC Morph Comment See comments (NORM) Sodium 135 139 (135-145) meq/L Potassium 3.6 L 3.7 L (3.8-5.2) meq/L Chloride 104 108 (98-112) meq/L Carbon Dioxide 25 23 (23-33) meq/L Anion Gap 6 8 (5-20) BUN 2 L 2 L (7-22) mg/dL Creatinine 0.5 0.5 (0.50-1.20) mg/dL Estimated GFR > 60 > 60 (>60 ml/min/1.73m(2)) BUN/Creatinine Ratio 4.00 L 4.00 L (6-20) Glucose 85 66 L (78-110) mg/dL Calculated Osmolality 274.0 281.0 (267-292) mOsm/kg Calcium 7.3 L 7.4 L (8.7-10.7) mg/dL Total Bilirubin 0.5 (0.3-1.2) mg/dL AST 110 H (8-39) IU/L ALT 52 (9-52) IU/L Alkaline Phosphatase 103 (38-126) IU/L Total Protein 5.1 L (6.1-8.0) g/dL Albumin 2.9 L (3.5-4.8) g/dL Globulin 2.2 L (2.50-4.10) g/dL Albumin/Globulin Ratio 1.30 (1.3-2.0) mg/g Lipase 313 H (23-300) IU/L - Vital Signs Vital Signs and I&O: Vital Signs - Last Taken Temperature 97.8 F 02/07/17 12:23 Pulse Rate 90 02/07/17 12:23 Respiratory Rate 20 02/07/17 12:23 Blood Pressure 113/72 02/07/17 12:23 Pulse Ox 96 02/07/17 12:23 Intake and Output (24hr x 4 totals) 02/05/17 02/06/17 02/07/17 02/08/17 05:59 05:59 05:59 05:59 Intake Total 3804 5192 480 Output Total 750 1900 550 Balance 3054 3292 -70 Objective : Exam - General General Appearance: No Acute Distress, Cooperative - Respiratory Respiratory Exam: Clear to Auscultation - Bilaterally, Breathing Non Labored - Cardiovascular Cardiovascular Exam: RRR, No Murmur - GI/Abdominal GI/Abdominal Exam: Normal Bowel Sounds, Non Tender, Non Distended, Soft - Rectal Rectal Exam: Deferred Assessment and Plan - Patient Problems (1) BRBPR (bright red blood per rectum) Current Visit: Yes Status: Acute Priority: Medium Diagnosis Date: 02/05/17 Comment: As she has had continued bright red blood per rectum we will proceed with upper endoscopy with biopsies and with sigmoidoscopy/colonoscopy as possible.The procedure has been discussed with the patient in complete yet simple terms including benefits, risks, and alternatives. All questions have been answered. Informed consent has been obtained. The possibility of local treatment of hemorrhoids has also been discussed.
[2017-02-07] MEDS ORDERED: Lactated Ringers 1,000 ML PRIMARY IV ONE (13:04)
[2017-02-07] MEDS ORDERED: fentaNYL Inj 100 MCG/2 ML VIAL ONE (13:10)
[2017-02-07] MEDS ORDERED: LIDOCAINE 2% VISCOUS(20 MG/1 ML) - 15 ML UD CUP PO ONE (13:10)
--- NOTE | 2017-02-07 14:09 | GEN.OPNOTE ---
EGD / Colonoscopy Report Surgery Date: 02/07/17 Preoperative Diagnosis: GERD. Bright red blood per rectum. Anemia. Postoperative Diagnosis: Same. Bleeding internal hemorrhoids. Procedure: #1 esophagogastroduodenoscopy with biopsy. #2 complete colonoscopy including intubation of the terminal ileum. #3 infrared coagulation of internal hemorrhoids. Surgeon: Ceasar Urena MD Anesthesia Provider: Raman Deutsch CRNA Anesthesia Type: MAC Indications: See preoperative diagnosis. EGD Findings: Esophagus: [Normal] GE Junction : [Mild inflammation] Fundus : [Normal] Body : [Normal] Prepyloric : [Erythema and mild inflammation] Small Intestine : [Normal] A lubricated flexible upper endoscope was inserted and passed through the esophagus and stomach into the duodenum. The duodenum and duodenal bulb were inspected. I was unable to pass the scope into the second portion of the duodenum. The pyloric channel was widely patent. The scope was withdrawn into the stomach. There was antral erythema. Multiple biopsies were taken. Hemostasis was assured. The scope was retroflexed. The upper body and fundus of the stomach were unremarkable. The scope was withdrawn into the distal esophagus. There was mild inflammation at the Z line. Multiple biopsies were taken. Hemostasis was assured. The scope was withdrawn through the remainder of a normal-appearing esophagus and brought through the hypopharynx under suction completing that portion of the procedure. Colonoscopy Findings: Prep : [Adequate] Cecum : [Some retained stool on the wall of the colon] Ascending : [Normal] Transverse : [Normal] Sigmoid : [Normal] Rectum : [Normal] Digital Rectal Exam : [Combined internal and external hemorrhoids] Anoscopy:[Bleeding internal hemorrhoids] Terminal ileum:[Normal visually] A lubricated flexible colonoscope was inserted and passed to the blind end of the cecum. The terminal ileum was intubated and the mucosa was normal. The scope was withdrawn into the cecum. Air was aspirated as the scope was withdrawn. The entire colonoscopy was normal without polyp, tumor, neoplastic mass, infectious or inflammatory process. The scope was withdrawn completing that portion of the procedure. A bivalved anoscope was inserted. There was some bleeding from an anterior internal hemorrhoid. Infrared were coagulation was used to cauterize that. Several other friable internal hemorrhoids were cauterized with infrared chief engineer research as well. The bivalved anoscope was withdrawn completing the procedure. Patient tolerated the entire procedure well without complication. She was taken back to the [facility] unit in stable condition. We will call the results of the stomach biopsies when available. We'll start patient on either Proctofoam or hydrocortisone suppositories depending on what' s available. Patient does not need to follow-up in my office and let us problems occur.
[2017-02-07] MEDS: ONDANSETRON 4 MG/2 ML VIAL IV PRN (16:55)
[2017-02-07] MEDS: NORMAL SALINE 10 ML SYRINGE FLUSH IVP PRN (16:57)
[2017-02-07] MEDS: HYDROCORTISONE 25 MG SUPPOSITORY RECTAL SCH ×2 (19:26→20:33)
[2017-02-08] MEDS: LORazepam 1 mg tab (ETOH withdrawal) PO PRN ×2 (00:24→05:18)
[2017-02-08 05:04] VITALS: RESP 18
[2017-02-08 05:08] LABS: BASOPHILS # (AUTO) 0.02 10*3/UL; BASOPHILS % (AUTO) 0.6 % (0-1); EOSINOPHILS # (AUTO) 0.11 10*3/UL; EOSINOPHILS % (AUTO) 3.4 % (0-8); HEMATOCRIT 26.9 % (37.0-47.0); LYMPHOCYTES # (AUTO) 0.84 10*3/uL; MEAN CORPUSCULAR HEMOGLOBIN 25.2 PG (27-31); MEAN CORPUSCULAR HGB CONC 29.7 g/dL (33-37); MEAN CORPUSCULAR VOLUME 84.6 FL (81-99); MEAN PLATELET VOLUME 9.8 FL (7.4-12.2); MONOCYTES # (AUTO) 0.24 10*3/UL (0.3-0.8); MONOCYTES % (AUTO) 7.4 % (5-15); NEUTROPHILS # (AUTO) 2.05 10*3/UL; NEUTROPHILS % (AUTO) 62.8 % (50-80); RED BLOOD COUNT 3.18 10^6/uL (4.20-5.40)
[2017-02-08 05:09] LABS: PLATELET MORPHOLOGY COMMENT NORMAL MORPHOLOGY (NORM); RBC MORPHOLOGY COMMENT NORMAL MORPHOLOGY (NORM); WBC MORPHOLOGY COMMENT NORMAL MORPHOLOGY (NORM)
[2017-02-08 05:16] LABS: CALCIUM 7.6 mg/dL (8.7-10.7); EST GLOMERULAR FILTRATION > 60 (>60 ml/min/1.73m(2))
[2017-02-08 05:17] LABS: BLOOD UREA NITROGEN 2 mg/dL (7-22)
[2017-02-08] MEDS: ONDANSETRON 4 MG/2 ML VIAL IV PRN (05:19)
[2017-02-08] MEDS: POTASSIUM CHLORIDE 20 MEQ TAB PO SCH (08:05)
[2017-02-08] MEDS: Calcium/Vit D 600mg/400u Tab 1 TAB TABLET PO SCH (08:05)
[2017-02-08] MEDS: FERROUS SULFATE 325 MG TABLET PO SCH (08:05)
[2017-02-08] MEDS: HYDROCORTISONE 25 MG SUPPOSITORY RECTAL SCH (08:05)
[2017-02-08] MEDS: FOLIC ACID 1 MG TABLET PO SCH (08:05)
[2017-02-08 08:07] VITALS: TEMP 97.5
[2017-02-08] MEDS: Pantoprazole Inj 40 MG in Normal Saline Flush 10 ML IVP SCH (08:15)
[2017-02-08] MEDS ORDERED: Multivitamin Tab 1 TAB PO SCH (09:00)
[2017-02-08] MEDS: MORPHINE SULFATE 2 MG/1 ML IVP PRN (09:30)
[2017-02-08] MEDS: NORMAL SALINE 10 ML SYRINGE FLUSH IVP PRN (09:30)
--- NOTE | 2017-02-08 11:35 | DCSUMMARY ---
Hospitalization Summary Hospital Course: Final Discharge Diagnosis: Current Visit Problems Problem Status Priority Diagnosed Code BRBPR (bright red blood per rectum) Acute Medium 02/05/17 K62.5 Alcohol abuse Acute F10.10 Anal fissure Acute K60.2 Anemia Acute D64.9 Elevated LFTs Acute R94.5 External hemorrhoids Acute K64.4 Hypokalemia Acute E87.6 Pancreatitis Acute K85.90 Rectal bleeding Acute K62.5 Diagnostic Data, Laboratory Data, and Procedures of Signifigance: Laboratory Results 02/05/17 02/05/17 02/05/17 Range/Units 18:10 18:20 19:05 WBC 4.49 L (4.8-10.8) 10^3/uL RBC 3.25 L (4.20-5.40) 10^6/uL Hgb 7.4 L (12.0-16.0) g/dL Hct 25.8 L (37.0-47.0) % MCV 79.4 L (81-99) FL MCH 22.8 L (27-31) PG MCHC 28.7 L (33-37) g/dL RDW Std Deviation 54.0 H (39-50) fL RDW Coeff of Kaylin 19.6 H (11.5-14.5) % Plt Count 226 (140-350) 10*3/uL MPV 9.2 (7.4-12.2) FL Immature Gran % (Auto) 0.2 (0-5) % Neut % (Auto) 83.3 H (50-80) % Lymph % (Auto) 7.8 L (10-50) % [place] % (Auto) 6.7 (5-15) % Eos % (Auto) 1.3 (0-8) % Baso % (Auto) 0.7 (0-1) % Immature Gran # (Auto) 0.01 10*3/UL Neut # (Auto) 3.74 10*3/UL Lymph # (Auto) 0.35 10*3/uL [place] # (Auto) 0.30 (0.3-0.8) 10*3/UL Eos # (Auto) 0.06 10*3/UL Baso # (Auto) 0.03 10*3/UL WBC Morphology Comment Normal morphology (NORM) Plt Morphology Comment Normal morphology (NORM) RBC Morph Comment See comments (NORM) PT 10.0 (9.7-11.4) secs INR 0.97 (0.00-5.90) N/A Sodium 134 L (135-145) meq/L Potassium 1.9 L* (3.8-5.2) meq/L Chloride 87 L (98-112) meq/L Carbon Dioxide 30 (23-33) meq/L Anion Gap 17 (5-20) BUN 5 L (7-22) mg/dL Creatinine 0.7 (0.50-1.20) mg/dL Estimated GFR > 60 (>60 ml/min/1.73m(2)) BUN/Creatinine Ratio 7.14 (6-20) Glucose 103 (78-110) mg/dL Calculated Osmolality 274.0 (267-292) mOsm/kg Calcium 8.8 (8.7-10.7) mg/dL Magnesium 1.6 (1.6-2.4) mg/dL Iron 16 L (37-170) UG/DL TIBC 338 (265-497) ug/dL % Saturation 4.73 L (14-50) % Ferritin 9.76 L (12.00-336.70) ng/mL Total Bilirubin 0.8 (0.3-1.2) mg/dL AST 178 H (8-39) IU/L ALT 75 H (9-52) IU/L Alkaline Phosphatase 175 H (38-126) IU/L C-Reactive Protein < 0.5 (0.0-0.9) mg/dL Total Protein 7.5 (6.1-8.0) g/dL Albumin 4.4 (3.5-4.8) g/dL Globulin 3.1 (2.50-4.10) g/dL Albumin/Globulin Ratio 1.40 (1.3-2.0) mg/g Amylase (30-110) U/L Lipase (23-300) IU/L Vitamin B12 > 1000 H (239-931) pg/mL Serum Folate 5.07 (2.76-20.0) NG/ML Serum HCG, Qual Negative Serum Alcohol < 10 (0-10) mg/dL Hepatitis C Ab Screen (Negative) HCV RNA Quant (PCR) Blood Type O POSITIVE Antibody Screen Negative Crossmatch See Detail 02/05/17 02/06/17 02/06/17 Range/Units 19:20 06:29 21:07 WBC 3.88 L (4.8-10.8) 10^3/uL RBC 3.48 L (4.20-5.40) 10^6/uL Hgb 8.7 L (12.0-16.0) g/dL Hct 28.7 L (37.0-47.0) % MCV 82.5 (81-99) FL MCH 25.0 L (27-31) PG MCHC 30.3 L (33-37) g/dL RDW Std Deviation 53.5 H (39-50) fL RDW Coeff of Kaylin 18.5 H (11.5-14.5) % Plt Count 160 (140-350) 10*3/uL MPV 9.9 (7.4-12.2) FL Immature Gran % (Auto) 0.3 (0-5) % Neut % (Auto) 63.6 (50-80) % Lymph % (Auto) 23.5 (10-50) % [place] % (Auto) 7.2 (5-15) % Eos % (Auto) 4.9 (0-8) % Baso % (Auto) 0.5 (0-1) % Immature Gran # (Auto) 0.01 10*3/UL Neut # (Auto) 2.47 10*3/UL Lymph # (Auto) 0.91 10*3/uL [place] # (Auto) 0.28 L (0.3-0.8) 10*3/UL Eos # (Auto) 0.19 10*3/UL Baso # (Auto) 0.02 10*3/UL WBC Morphology Comment Normal morphology (NORM) Plt Morphology Comment Normal morphology (NORM) RBC Morph Comment Normal morphology (NORM) PT (9.7-11.4) secs INR (0.00-5.90) N/A Sodium 138 135 (135-145) meq/L Potassium 2.8 L 3.6 L (3.8-5.2) meq/L Chloride 100 104 (98-112) meq/L Carbon Dioxide 26 25 (23-33) meq/L Anion Gap 12 6 (5-20) BUN 4 L 2 L (7-22) mg/dL Creatinine 0.6 0.5 (0.50-1.20) mg/dL Estimated GFR > 60 > 60 (>60 ml/min/1.73m(2)) BUN/Creatinine Ratio 6.66 4.00 L (6-20) Glucose 64 L 85 (78-110) mg/dL Calculated Osmolality 280.0 274.0 (267-292) mOsm/kg Calcium 7.1 L 7.3 L (8.7-10.7) mg/dL Magnesium 2.5 H (1.6-2.4) mg/dL Iron (37-170) UG/DL TIBC (265-497) ug/dL % Saturation (14-50) % Ferritin (12.00-336.70) ng/mL Total Bilirubin 0.8 (0.3-1.2) mg/dL AST 116 H (8-39) IU/L ALT 60 H (9-52) IU/L Alkaline Phosphatase 123 (38-126) IU/L C-Reactive Protein (0.0-0.9) mg/dL Total Protein 5.8 L (6.1-8.0) g/dL Albumin 3.4 L (3.5-4.8) g/dL Globulin 2.4 L (2.50-4.10) g/dL Albumin/Globulin Ratio 1.40 (1.3-2.0) mg/g Amylase 144 H (30-110) U/L Lipase 995 H 576 H (23-300) IU/L Vitamin B12 (239-931) pg/mL Serum Folate (2.76-20.0) NG/ML Serum HCG, Qual Serum Alcohol (0-10) mg/dL Hepatitis C Ab Screen Negative (Negative) HCV RNA Quant (PCR) Pending Blood Type Antibody Screen Crossmatch 02/07/17 02/08/17 Range/Units 04:29 05:00 WBC 2.89 L 3.26 L (4.8-10.8) 10^3/uL RBC 3.20 L 3.18 L (4.20-5.40) 10^6/uL Hgb 8.0 L 8.0 L (12.0-16.0) g/dL Hct 26.8 L 26.9 L (37.0-47.0) % MCV 83.8 84.6 (81-99) FL MCH 25.0 L 25.2 L (27-31) PG MCHC 29.9 L 29.7 L (33-37) g/dL RDW Std Deviation 56.1 H 56.6 H (39-50) fL RDW Coeff of Kaylin 18.7 H 18.9 H (11.5-14.5) % Plt Count 135 L 164 (140-350) 10*3/uL MPV 10.1 9.8 (7.4-12.2) FL Immature Gran % (Auto) 0.3 0 (0-5) % Neut % (Auto) 50.9 62.8 (50-80) % Lymph % (Auto) 34.3 25.8 (10-50) % [place] % (Auto) 7.6 7.4 (5-15) % Eos % (Auto) 5.9 3.4 (0-8) % Baso % (Auto) 1.0 0.6 (0-1) % Immature Gran # (Auto) 0.01 0 10*3/UL Neut # (Auto) 1.47 2.05 10*3/UL Lymph # (Auto) 0.99 0.84 10*3/uL [place] # (Auto) 0.22 L 0.24 L (0.3-0.8) 10*3/UL Eos # (Auto) 0.17 0.11 10*3/UL Baso # (Auto) 0.03 0.02 10*3/UL WBC Morphology Comment Normal morphology Normal morphology (NORM) Plt Morphology Comment Normal morphology Normal morphology (NORM) RBC Morph Comment See comments Normal morphology (NORM) PT (9.7-11.4) secs INR (0.00-5.90) N/A Sodium 139 139 (135-145) meq/L Potassium 3.7 L 3.7 L (3.8-5.2) meq/L Chloride 108 110 (98-112) meq/L Carbon Dioxide 23 26 (23-33) meq/L Anion Gap 8 3 L (5-20) BUN 2 L 2 L (7-22) mg/dL Creatinine 0.5 0.5 (0.50-1.20) mg/dL Estimated GFR > 60 > 60 (>60 ml/min/1.73m(2)) BUN/Creatinine Ratio 4.00 L 4.00 L (6-20) Glucose 66 L 91 (78-110) mg/dL Calculated Osmolality 281.0 283.0 (267-292) mOsm/kg Calcium 7.4 L 7.6 L (8.7-10.7) mg/dL Magnesium (1.6-2.4) mg/dL Iron (37-170) UG/DL TIBC (265-497) ug/dL % Saturation (14-50) % Ferritin (12.00-336.70) ng/mL Total Bilirubin 0.5 (0.3-1.2) mg/dL AST 110 H (8-39) IU/L ALT 52 (9-52) IU/L Alkaline Phosphatase 103 (38-126) IU/L C-Reactive Protein (0.0-0.9) mg/dL Total Protein 5.1 L (6.1-8.0) g/dL Albumin 2.9 L (3.5-4.8) g/dL Globulin 2.2 L (2.50-4.10) g/dL Albumin/Globulin Ratio 1.30 (1.3-2.0) mg/g Amylase (30-110) U/L Lipase 313 H (23-300) IU/L Vitamin B12 (239-931) pg/mL Serum Folate (2.76-20.0) NG/ML Serum HCG, Qual Serum Alcohol (0-10) mg/dL Hepatitis C Ab Screen (Negative) HCV RNA Quant (PCR) Blood Type Antibody Screen Crossmatch History and Physical pertinent to Admission: T Medical History: 1. History of anemia with previous admission to the hospital that was 7 years ago she needed blood transfusion then and she had upper and lower endoscopy she had hemorrhoid at that time. 2. History of agoraphobia Surgical History: History of cholecystectomy Pertinent Family History: Grandfather had bleeding peptic ulcer Past Social History: She drinks to 3 drinks according to her day, sometimes she goes into shakes if she quit drinking No drugs. She smokes half a pack a day she's been smoking since 13 years old. She has agoraphobia so she stays mostly at home. Tobacco Use: Current Some Day Smoker Substance Use Type: None Alcohol Use: Other (She said she drinks 2-3 drinks a day.) Course of Hospitalization: This very nice 36-year-old female with the past medical history significant for chronic anemia at previous transfusion about 7 years ago secondary to rectal bleeding. Patient had the same episode this time after straining to have a bowel movement saw some bright red blood for the over the last 2 or 3 days patient also consumes 2-3 drinks of alcohol a day also had some abdominal pain that is now resolved. She has been using then Naprosyn for this pain over the last 3 days about 3 or 4 pills a day. She had an EGD colonoscopy here in the hospital which revealed mild gastritis and internal bleeding hemorrhoids and Dr. Urena general surgery I believe the did some type of intervention on the hemorrhoids. She is free of pain no nausea no vomiting tolerated her food abdomen is benign she says she is ready to be discharged home she is in stable improved condition I told her not to take anymore Naprosyn this could be creating her gastritis. I also gave her a prescription for Protonix 40 mg daily with 1 refill. She also has rectal hemorrhoidal suppositories. If the bleeding continues or resumes at home she will follow up with Dr. Urena for further intervention. I discussed this with her mother at the bedside as well also discussed with nursing in detail. On the date of discharge, the patient was examined: Gen.: No acute distress, alert, nontoxic Heart: Regular rate and rhythm, no murmurs, clicks, gallops, or rubs Lungs: Clear to auscultation bilaterally, breathing is nonlabored Abdomen/GI: Normal tones on auscultation, soft, nontender, nondistended Musculoskeletal/extremities: No clubbing, cyanosis, or edema Vitals reviewed and are listed below Vital Signs (24 hrs) Temp Pulse Pulse Pulse Resp BP BP 02/08/17 08:06 97.5 F 93 18 106/70 02/08/17 05:00 98.4 F 92 18 108/76 02/08/17 03:19 02/08/17 00:00 98.2 F 94 20 107/70 02/07/17 23:42 98.7 F 87 20 105/75 02/07/17 19:23 97.1 F 100 22 100/72 02/07/17 19:00 114 H 02/07/17 17:00 97.5 F 80 20 121/82 02/07/17 15:00 97.1 F 59 L 16 115/77 02/07/17 14:40 97.5 F 61 14 95/57 02/07/17 14:15 97.2 F 64 16 94/61 02/07/17 14:01 97.3 F 82 12 81/48 02/07/17 12:23 97.8 F 90 20 113/72 Pulse Ox 02/08/17 08:06 93 02/08/17 05:00 02/08/17 03:19 95 02/08/17 00:00 02/07/17 23:42 02/07/17 19:23 02/07/17 19:00 02/07/17 17:00 98 02/07/17 15:00 92 02/07/17 14:40 96 02/07/17 14:15 96 02/07/17 14:01 02/07/17 12:23 96 Assessment and Plan: 1. As per discharge assessments above 2. Disposition: 3. Condition on discharge, stable and improved. 4. Diet: regular diet 5. Activities: resume normal activities 6. Follow-Up: 1. PCP 2. 7. Medications at the Time of Discharge: Home Medications Medication Instructions Recorded Confirmed Type Ferrous Sulfate [Feosol] 325 mg PO DAILY #30 tab 02/08/17 Rx Hydrocortisone Acetate Supp 25 mg RECTAL BID #7 supp 02/08/17 Rx [Anucort-HC Supp] Pantoprazole Sodium [Protonix] 40 mg PO DAILY #30 tablet. 02/08/17 Rx 8. Time, care, counseling and coordination of care for this discharge is greater than 30 minutes. Exam - Vitals Vital Signs: Vital Signs Temperature 97.5 F Temperature Source Temporal Artery Scan Pulse Rate [Pulse Oximeter] 93 Pulse Rate [Pulse Oximeter] 80 Pulse Rate [Apical] 114 Pulse Rate 92 Respiratory Rate 18 Blood Pressure [Left Arm] 106/70 Blood Pressure [Right Arm] 115/77 Blood Pressure 108/76 Pulse Ox 93 Oxygen Flow Rate 1 Oxygen Flow Rate 6 Oxygen Delivery Method Room Air Height 5 ft 5 in Weight 60.237 kg
[2017-02-10] MEDS ORDERED: Thiamine Tab 100 MG TAB PO SCH (20:56)
== END 2017-02-08 12:16 | disposition home or self-care (01) | DRG 981 ==
LOC: ER 18:00 → MED/SURG 19:18 → OPS 02-07 12:54 → MED/SURG 02-07 14:05
PROVIDERS: ADMIT Internal Medicine; ATTEND Internal Medicine
PROC: 30233N1 Transfusion of Nonautologous Red Blood Cells into Peripheral Vein, Percutaneous Approach (ICD-10-PCS; principal; 2017-02-05)
PROC: 0DB58ZX Excision of Esophagus, Via Natural or Artificial Opening Endoscopic, Diagnostic (ICD-10-PCS; 2017-02-07)
PROC: 0DB68ZX Excision of Stomach, Via Natural or Artificial Opening Endoscopic, Diagnostic (ICD-10-PCS; 2017-02-07)
PROC: 0DJD8ZZ Inspection of Lower Intestinal Tract, Via Natural or Artificial Opening Endoscopic (ICD-10-PCS; 2017-02-07)
PROC: 3E033TZ Introduction of Destructive Agent into Peripheral Vein, Percutaneous Approach (ICD-10-PCS; 2017-02-07 13:00)
DX: K64.8 Other hemorrhoids (principal); K85.90 Acute pancreatitis without necrosis or infection, unspecified; D64.9 Anemia, unspecified; F10.10 Alcohol abuse, uncomplicated; K60.2 Anal fissure, unspecified; R79.89 Other specified abnormal findings of blood chemistry; E87.6 Hypokalemia
CPT/HCPCS: 36415; 36430; 74177; 80048; 80053; 80320; 82150; 82607; 82728; 82746; 83540; 83550; 83690; 83735; 84703; 85025; 85610; 86140; 86803; 86850; 86900; 86901; 86922; 94761; 96365; 96366; 96375; 99284; J2060; J2270; J2405; J3010; J3411; J3475; J3480; J3490; J7030; J7040; J7050; J7120; P9016

== ENCOUNTER 2017-02-20 05:17 | Inpatient (IN) | payer SELFPAY ==
[2017-02-20] MEDS ORDERED: ONDANSETRON 4 MG/2 ML VIAL IVP ONE (05:45)
[2017-02-20] MEDS ORDERED: NORMAL SALINE 10 ML SYRINGE FLUSH IVP PRN (05:45)
[2017-02-20] MEDS ORDERED: Famotidine Inj 20 MG in Normal Saline Flush 10 ML IVP ONE (05:45)
[2017-02-20] MEDS ORDERED: Sodium Chloride 0.9% 1,000 ML PRIMARY IV ONE (05:45)
[2017-02-20] MEDS ORDERED: LORazepam 2 MG/1 ML VIAL IVP ONE (05:48)
--- NOTE | 2017-02-20 05:50 | EKG ---
[address] [address] Measurements Intervals [place] Rate: 100 P: 65 TX: 130 QRS: 82 QRSD: 82 T: -28 QT: 296 QTc: 353 Interpretive Statements SINUS TACHYCARDIA NONSPECIFIC ST & T-WAVE ABNORMALITY No previous ECG available for comparison Electronically Signed On 02-20-17 10:17:23 MDT by Gabriel Altamirano [email or web address]
[2017-02-20 06:00] LABS: BASOPHILS # (AUTO) 0.07 10*3/UL; BASOPHILS % (AUTO) 1.3 % (0-1); EOSINOPHILS # (AUTO) 0.04 10*3/UL; EOSINOPHILS % (AUTO) 0.7 % (0-8); HEMATOCRIT 31.5 % (37.0-47.0); HEMOGLOBIN 9.7 g/dL (12.0-16.0); MEAN CORPUSCULAR HEMOGLOBIN 25.1 PG (27-31); MEAN CORPUSCULAR HGB CONC 30.8 g/dL (33-37); MEAN CORPUSCULAR VOLUME 81.6 FL (81-99); MEAN PLATELET VOLUME 9.8 FL (7.4-12.2); MONOCYTES # (AUTO) 0.27 10*3/UL (0.3-0.8); NEUTROPHILS % (AUTO) 81.5 % (50-80); RED BLOOD COUNT 3.86 10^6/uL (4.20-5.40)
[2017-02-20 06:01] LABS: PLATELET MORPHOLOGY COMMENT NORMAL MORPHOLOGY (NORM); RBC MORPHOLOGY COMMENT NORMAL MORPHOLOGY (NORM); WBC MORPHOLOGY COMMENT NORMAL MORPHOLOGY (NORM)
[2017-02-20 06:08] LABS: BLOOD UREA NITROGEN 6 mg/dL (7-22); CALCIUM 8.5 mg/dL (8.7-10.7); EST GLOMERULAR FILTRATION > 60 (>60 ml/min/1.73m(2)); LIPASE 785 IU/L (23-300); SERUM ALBUMIN 3.6 g/dL (3.5-4.8)
[2017-02-20 07:03] LABS: BILIRUBIN,URINE NEGATIVE (NEG); CLARITY,URINE CLOUDY (CLEAR); COLOR,URINE YELLOW; GLUCOSE, URINE (UA) NEGATIVE (NEG); NITRATE,URINE NEGATIVE (NEG); OCCULT BLOOD,URINE NEGATIVE (NEG); PH,URINE 7.5 (5.0-8.5); PROTEIN,URINE NEGATIVE (NEG); URINE SAMPLE TYPE CLEAN CATCH URINE; UROBILINOGEN,URINE 0.2 EU/dL (0.2)
[2017-02-20 07:06] LABS: SQUAMOUS EPITHELIAL CELL,UR MANY; URINE CRYSTALS MANY
--- NOTE | 2017-02-20 07:11 | DI ---
HISTORY: Abdominal pain. COMPARISON: None available. FINDINGS: The heart is within normal limits. The lung kc are essentially clear. IMPRESSION: 1. No acute cardiopulmonary abnormalities.
--- NOTE | 2017-02-20 07:53 | DI ---
HISTORY: Abdominal pain. COMPARISON: None available. TECHNIQUE: Serial axial images of the abdomen and pelvis were obtained with coronal and sagittal ref ormats. FINDINGS: The heart size is normal and the lung bases are clear. There is a 1.1 cm stone in the left renal pelvis without significant hydronephrosis. There is a 1cm left renal cyst. There is fatty infiltration in the liver. The liver and spleen are otherwise normal in size and contour and demonstrate no focal abnormalities. Patient is status post gallbladder removal. There is no intra- or extrahepatic biliary ductal dila tation identified. The pancreas and adrenal glands are normal. The kidneys are in anatomic position. The visualized bowel, mesentery and omentum are unremarkable with no evidence of obstruction or perfo ration. IMPRESSION: 1. There is a 1.1 cm stone in the left renal pelvis without significant hydronephrosis. There is a 1 cm left renal cyst. 2. Evidence of fatty infiltration in the liver.
[2017-02-20] MEDS ORDERED: MORPHINE SULFATE 4 MG/1 ML IVP ONE (08:13)
--- NOTE | 2017-02-20 08:44 | PDOC ---
Abdomen/Flank HPI - General Chief Complaint: Abdomen Pain Stated Complaint: MID EPIGASTRIC PAIN THAT STARTED 2 HRS AGO Date Seen by Provider: 02/20/17 Time Seen by Provider: 05:30 Source: POSITIVE: Patient, Other (Mother) Exam Limitations: POSITIVE: No limitations Nurse's Notes Reviewed & Considered: Yes - History of Present Illness Initial Comments: Patient is a 36-year-old female who was brought to the emergency room by her mother. 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 She's also had some vomiting. No fevers. No melena, hematochezia, hematemesis, dysuria or hematuria. Patient has had a cholecystectomy. Patient has a history of GERD and alcohol abuse. She states she has a history of "panic disorder". Body Location Affected: REPORTS: Abdomen Timing: REPORTS: Gradual, Getting Worse Duration: 4-6 hours Severity: Moderate (3-4 hours [employer]Y CLERK) Quality: REPORTS: "Pain" Abdominal Pain Onset Location: REPORTS: RUQ, LUQ, Epigastric Abdominal Pain Radiation: REPORTS: No radiation Context: REPORTS: None Modifying Factors: improves with: Nothing Associated Symptoms: REPORTS: Nausea, Vomiting Similar Symptoms Previously: No Recent Care Received: REPORTS: Denies Any Prior Injuries Related to Current Complaint?: No - Patient Home Medications Home Medications: Home Medications Ferrous Sulfate [Feosol] 325 mg PO DAILY #30 tab 02/08/17 Pantoprazole Sodium 1 tab PO DAILY #90 tab 02/16/17 - Patient Allergies Allergies/Adverse Reactions: Allergies Allergy/AdvReac Type Severity Reaction Status Date / Time aspirin Allergy Severe NOT Verified 02/20/17 05:32 APPLICABLE Past Medical History - heen HEENT History: Denies History Additional HEENT History: Seasonal alleriges Cardiovascular History: Other (please comment) Additional Cardiovasular History: murmur Respiratory History: Denies History Gastrointestinal History: GERD Additional Gastrointestinal History: glabbladder removed in 2009 Genitourinary History: Denies History Endocrine History: Denies History Musculoskeletal History: Denies History Prosthesis or Implant: No Neurological History: Denies History Blood Disorders: Anemia Psychiatric History: Anxiety Disorders, Eating Disorders, Other (please comment) Additional Psychiatric History: Agoraphobia. Anorexia and Bolemia (treated for in 2009) History of Sexually Transmitted Diseases: No Cancer History: Denies History In Past Year Been Physically Harmed or Verbally Threatened: No History of MDRO: No History of Other Communicable Diseases: No Tobacco Use: Current Every Day Smoker Alcohol Use: Heavy Type of alcohol normally used: Hard Liquor How much alcohol do you normally drink a day?: Daily Substance Use Type: None Previous Surgical History: Yes Type / Date of Surgery: 2010 gallbladder removed. EGD Anesthesia Reactions: No Malignant Hyperthermia: No Significant Family History: Cancer, Other (please comment) Additional Family History: Anemia Past Medical History Reviewed: Reviewed - No Changes ROS - Limitations ROS Limitations: No Limitations Constitution: REPORTS: Denies Symptoms Cardiovascular: REPORTS: Denies Cardiac Symptoms Respiratory: REPORTS: Denies Resp Symptoms Neurological: REPORTS: Denies Neuro Symptoms Gastrointestinal: REPORTS: Abdominal Pain, Nausea, Vomitting Endocrine: REPORTS: Denies Symptoms Musculoskeletal: REPORTS: Denies MS Symptoms Genitourinary: REPORTS: Denies Symptoms Eyes: REPORTS: Denies Symptoms ENT: REPORTS: Denies Symptoms Skin: REPORTS: Denies Skin Symptoms Lympathic: REPORTS: Denies Lympathic Symptoms Immunologic: POSITIVE: Denies Symptoms Psychiatric: POSITIVE: Denies Psych Symptoms Abdominal/Flank Pain PE - General Appearance General Appearance: POSITIVE: Alert, Cooperative, No Evidence of Trauma. NEGATIVE: No Acute Distress, Moderate Distress - HEENT HEENT: POSITIVE: Head Inspection Nml, Eyes Inspection Nml, Ears Inspection Nml, Nose Inspection Nml, Oral/Dental Inspect. Nml, Pharynx Inspect. Nml, PERRL, EOMI - Neck Neck: POSITIVE: Normal Inspection, No Apparent Injury - Respiratory Respiratory: POSITIVE: No Respiratory Distress, Breath Sounds Normal, Chest Non- Tender - Cardiovascular Cardiovascular: POSITIVE: Regular Rate and Rhythm, Heart Sounds Normal, Equal Pulses, Strong Pulses Peripheral Pulses: Radial (R): 2+, Radial (L): 2+ - Chest Chest: POSITIVE: Non Tender - Abdomen Abdomen: Soft: (All Quadrants), Normal Bowel Sounds: (All Quadrants), Denies Tenderness: (LLQ), (RLQ), No Splenomegaly: (All Quadrants), No Hepatomegaly: ( All Quadrants), No Guarding: (All Quadrants), No Rebound: (All Quadrants), No Palpable Pulse: (All Quadrants), No Palpabale Mass: (All Quadrants), No Distention: (All Quadrants), No Rigidity: (All Quadrants), Tenderness Noted: ( RUQ), (LUQ) Additional Abdominal Details: Abdominal examination shows bowel sounds be present. Patient has poorly localized abdominal pain on palpation over the upper abdomen, most prominently over the epigastrium. No masses, organomegaly or rebound. - Back Back: POSITIVE: Normal Inspection. NEGATIVE: CVA Tenderness (R), CVA Tenderness (L) - Skin Skin: POSITIVE: Intact, Normal For Race, Warm, Dry, No Rash - Extremities Extremity: Non-Tender: (All Extremities), Normal ROM: (All Extremities), Normal Inspection: (All Extremities) - Neurological Neurological: POSITIVE: Oriented X3, registered nurse cardiac Normal As Tested, Motor Normal, Sensation Normal, 5, 6 - Psychological Psychiatric: POSITIVE: Affect Appropriate, Mood Appropriate Images - Complete Complete: 1 - Pain on palpation Abdomen Progress - Results Reviewed by me Xrays/CTs/US Reviewed by me: Yes Discussed with Radiologist: Yes Radiology Findings: Chest x-ray normal. CT scan abdomen and pelvis read by radiologist as normal. Lab Results Reviewed: Yes (amylase, lipase and liver functions elevated) Lab Results:: Laboratory Results 02/20/17 02/20/17 Range/Units 05:40 06:55 WBC 5.40 (4.8-10.8) 10^3/uL RBC 3.86 L (4.20-5.40) 10^6/uL Hgb 9.7 L (12.0-16.0) g/dL Hct 31.5 L (37.0-47.0) % MCV 81.6 (81-99) FL MCH 25.1 L (27-31) PG MCHC 30.8 L (33-37) g/dL RDW Std Deviation 59.3 H (39-50) fL RDW Coeff of Kaylin 21.1 H (11.5-14.5) % Plt Count 298 (140-350) 10*3/uL MPV 9.8 (7.4-12.2) FL Immature Gran % (Auto) 0.4 (0-5) % Neut % (Auto) 81.5 H (50-80) % Lymph % (Auto) 11.1 (10-50) % [place] % (Auto) 5.0 (5-15) % Eos % (Auto) 0.7 (0-8) % Baso % (Auto) 1.3 H (0-1) % Immature Gran # (Auto) 0.02 10*3/UL Neut # (Auto) 4.40 10*3/UL Lymph # (Auto) 0.60 10*3/uL [place] # (Auto) 0.27 L (0.3-0.8) 10*3/UL Eos # (Auto) 0.04 10*3/UL Baso # (Auto) 0.07 10*3/UL WBC Morphology Comment Normal morphology (NORM) Plt Morphology Comment Normal morphology (NORM) RBC Morph Comment Normal morphology (NORM) Sodium 143 (135-145) meq/L Potassium 2.8 L (3.8-5.2) meq/L Chloride 103 (98-112) meq/L Carbon Dioxide 20 L (23-33) meq/L Anion Gap 20 (5-20) BUN 6 L (7-22) mg/dL Creatinine 0.6 (0.50-1.20) mg/dL Estimated GFR > 60 (>60 ml/min/1.73m(2)) BUN/Creatinine Ratio 10.00 (6-20) Glucose 81 (78-110) mg/dL Calculated Osmolality 292.0 (267-292) mOsm/kg Calcium 8.5 L (8.7-10.7) mg/dL Total Bilirubin 0.6 (0.3-1.2) mg/dL AST 432 H (8-39) IU/L ALT 92 H (9-52) IU/L Alkaline Phosphatase 179 H (38-126) IU/L Total Protein 6.6 (6.1-8.0) g/dL Albumin 3.6 (3.5-4.8) g/dL Globulin 3.0 (2.50-4.10) g/dL Albumin/Globulin Ratio 1.20 L (1.3-2.0) mg/g Amylase 146 H (30-110) U/L Lipase 785 H (23-300) IU/L Serum HCG, Qual Negative Ur Collection Type Clean catch urine Urine Color Yellow Urine Clarity Cloudy (CLEAR) Urine pH 7.5 (5.0-8.5) Ur Specific [place] 1.010 (1.005-1.030) Urine Protein Negative (NEG) mg/dl Urine Glucose (UA) Negative (NEG) mg/dL Urine Ketones 80 (NEG) Urine Occult Blood Negative (NEG) Urine Nitrate Negative (NEG) Urine Bilirubin Negative (NEG) Urine Urobilinogen 0.2 (0.2) EU/dL Ur Leukocyte Esterase Negative (NEG) Urine RBC None (NONE) /hpf Urine WBC None (NONE) Ur Squamous Epith Cells Many (NONE) Ur Renal Epithelial Cell None (NONE) Urine Crystals Many Urine Bacteria None (NONE) Urine Casts None (NONE) Urine Mucus None (NONE) Urine Trichomonas None (NONE) Urine Yeast None (NONE) Ur Culture Indicated? Culture not set Serum Alcohol 108 H (0-10) mg/dL EKG Interpreted/Reviewed By Me:: Yes EKG Interpretation:: POSITIVE: Normal Sinus Rhythm, Normal Intervals, Normal [place], Normal QRS, Normal ST/T (Sinus tachycardia the 100/m). NEGATIVE: Normal Rate - Patient's Progress Pain Medication Addressed: POSITIVE: Yes (Morphine sulfate, 2 mg IV) School/Work Release Addressed: POSITIVE: Not Applicable Re-examine Time: 08:30 Re-Examine Comment: Diagnosis discussed with patient and her mother. Patient given a liter of normal saline, 4 mg morphine sulfate and Zofran 4 mg IV. Patient states her nausea is less than she's not had any further vomiting; still has abdominal pain. Status: POSITIVE: Improved, Re-Examined - Consult Consult (If Yes, Name of Consulting MD & Time Called): Yes (Dr. Canchola, hospitalist, 8:35 AM) Consulting MD will see pt:: POSITIVE: [facility] [place]mit Counseled: POSITIVE: Patient, Family, RE: Lab Results, RE: Radiology Results, RE : DX, RE: Need for F/U Patient Care Time - Estimated PCT Patient Care Time (In Minutes): 55 Vital Signs - Recent Vital Signs Vital Signs: Vital Signs (Last 8 hours) Temp Pulse Resp BP BP Pulse Ox 02/20/17 08:08 91 16 107/66 92 02/20/17 05:19 96.9 F 111 H 18 99/77 117/81 96 - VS Reviewed Vital Signs Reviewed: Yes Discharge Clinical Impression: Nausea and vomiting, Alcohol-induced acute pancreatitis Discharge Disposition: Admit to Inpatient Condition: Good Date Decision to Admit to Inpatient: 02/20/17 Time Decision to Admit to Inpatient: 08:00
--- NOTE | 2017-02-20 09:28 | PDOC ---
History and Physical - History of Present Illness Date and Time of Service: 02/20/2017 10:15 AM Chief Complaint: Abdominal pain and vomiting that started today History of Present Illness: This is a 36 years old female with medical history significant for recent admission to our hospital for anemia that was secondary to bleeding from hemorrhoid, alcoholism and agoraphobia who presented to the hospital because of abdominal pain and vomiting that started this morning around 4 AM. She says she woke up feeling nauseated and she vomited once. She felt more like a pressure sensation in the epigastric area that went to the back pain was severe initially because of that they brought her to the hospital evaluation revealed pancreatitis secondary to alcoholism and hence the admission. The pain in her abdomen is gone but she still feels nauseated. Still have some pain in her back she rated it 4 out of 10. She said the bleeding from a hemorrhoid is much improved compared to what it was before. She has a history of reflux and she takes Protonix. She continued to drinks but she said less than before the last time she had a drink was according to her 7 PM yesterday. Past Medical History Medical History: 1. History of anemia with previous admission to the hospital that was 7 years ago she needed blood transfusion then and she had upper and lower endoscopy she had hemorrhoid at that time. 2. History of agoraphobia Surgical History: History of cholecystectomy Pertinent Family History: Grandfather had bleeding peptic ulcer Past Social History: She drinks to 3 drinks according to her day, sometimes she goes into shakes if she quit drinking No drugs. She smokes half a pack a day she's been smoking since 13 years old. She has agoraphobia so she stays mostly at home. Tobacco Use: Current Every Day Smoker Substance Use Type: None Alcohol Use: Other (She drinks every day last time she has a regular last night. She said that she is taking less than before.) Medication / Allergies Home Medications: Home Medications Medication Instructions Recorded Confirmed Type Ferrous Sulfate [Feosol] 325 mg PO DAILY #30 tab 02/08/17 02/20/17 Rx Pantoprazole Sodium 1 tab PO DAILY #90 tab 02/16/17 02/20/17 Clinic Allergies/Adverse Reactions: Allergies Allergy/AdvReac Type Severity Reaction Status Date / Time aspirin Allergy Severe NOT Verified 02/20/17 05:32 APPLICABLE Review of Systems - Review of Systems All Systems: Reviewed & No Additional Complaints Except as Stated Exam - General General Appearance: POSITIVE: No Acute Distress, Cooperative Additional General Exam Details: Cushingoid features - Head Head Exam: POSITIVE: Normal Inspection - Eye Eye Exam: POSITIVE: Normal Appearance - ENT ENT Exam: POSITIVE: Normal Exam - Neck Neck Exam: POSITIVE: Normal Inspection - Respiratory Respiratory Exam: POSITIVE: Clear to Auscultation - Bilaterally - Cardiovascular Cardiovascular Exam: POSITIVE: RRR - GI/Abdominal GI/Abdominal Exam: POSITIVE: Normal Bowel Sounds, Non Distended, Soft, No Organomegaly Additional GI/Abdominal Exam Details: Some tenderness in the epigastrium noted - Rectal Rectal Exam: POSITIVE: Deferred - External Exam: POSITIVE: Deferred Exam: POSITIVE: Deferred - Extremities Extremities Exam: POSITIVE: Normal Inspection - Back Back Exam: POSITIVE: Normal Inspection - Neurological Neurological Exam: POSITIVE: Alert, Oriented x 3, CN II-XII Intact, Moves All Extremities Equally - Psychiatric Psychiatric Exam: POSITIVE: Normal Affect - Integumentary Integumentary Exam: POSITIVE: Normal Color Results - Labs CBC and BMP: 02/20/17 05:40 02/20/17 05:40 - EKG Data -: EKG Interpreted by Me Rate: Tachycardia - EKG Data Additional EKG Details: Nonspecific ST changes noted - Imaging Status: Report Reviewed by Me (CT of the abdomen showed 1.1 cm stone in the left renal pelvis without significant hydronephrosis there is fatty infiltration of the liver. The pancreas looks normal Chest x-ray was normal) Assessment and Plan - Patient Problems (1) Pancreatitis, alcoholic, acute Current Visit: Yes Status: Acute Comment: Seems to be mild we'll put her on pain medication, fluids and antiemetics. Will put also on Protonix. This is secondary to alcohol. She said she plan to quit alcohol. will Repeat her labs tomorrow, I think we can try clear liquid in her case if she doesn't tolerate that and start vomiting will put her on nothing by mouth. (2) Alcohol abuse Current Visit: No Status: Acute Comment: We'll put her on multivitamins and CIWA scale (3) Elevated LFTs Current Visit: No Status: Acute Comment: This is secondary to alcohol will repeat it tomorrow. (4) Hypokalemia Current Visit: No Status: Acute Comment: Will puts her on potassium replacement
[2017-02-20] MEDS ORDERED: LORazepam Inj(ETOH withdrawal) 2 MG/ML VIAL IVP PRN (09:59)
[2017-02-20] MEDS ORDERED: Loperamide Tab 2 MG TABLET PO PRN (09:59)
[2017-02-20] MEDS ORDERED: LIDOCAINE W/ SODIUM BICARB 0.5 ML SYR SUBD PRN (09:59)
[2017-02-20] MEDS ORDERED: MAG HYDROX/AL HYDROX/SIMETH 30 ML SUSP PO PRN (09:59)
[2017-02-20] MEDS ORDERED: MAGNESIUM 400 MG/5 ML - 30 ML (MILK OF MAGNESIA) PO PRN (09:59)
[2017-02-20] MEDS ORDERED: Potassium Chloride 20 mEq 20 MEQ in Premix 1 BAG IV ONE (10:04)
[2017-02-20] MEDS: ONDANSETRON 4 MG/2 ML VIAL IV PRN (14:03)
[2017-02-20] MEDS: MORPHINE SULFATE 2 MG/1 ML IVP PRN ×3 (14:04→22:39)
[2017-02-21] MEDS: MORPHINE SULFATE 2 MG/1 ML IVP PRN ×3 (03:24→17:09)
[2017-02-21 05:03] LABS: BASOPHILS # (AUTO) 0.03 10*3/UL; EOSINOPHILS # (AUTO) 0.11 10*3/UL; EOSINOPHILS % (AUTO) 3.6 % (0-8); HEMATOCRIT 27.8 % (37.0-47.0); HEMOGLOBIN 8.2 g/dL (12.0-16.0); LYMPHOCYTES # (AUTO) 0.74 10*3/uL; MEAN CORPUSCULAR HEMOGLOBIN 24.6 PG (27-31); MEAN CORPUSCULAR HGB CONC 29.5 g/dL (33-37); MEAN CORPUSCULAR VOLUME 83.5 FL (81-99); MEAN PLATELET VOLUME 10.4 FL (7.4-12.2); MONOCYTES # (AUTO) 0.13 10*3/UL (0.3-0.8); MONOCYTES % (AUTO) 4.2 % (5-15); NEUTROPHILS # (AUTO) 2.07 10*3/UL; NEUTROPHILS % (AUTO) 67.2 % (50-80); RED BLOOD COUNT 3.33 10^6/uL (4.20-5.40)
[2017-02-21 05:08] LABS: BLOOD UREA NITROGEN 3 mg/dL (7-22); CALCIUM 8.1 mg/dL (8.7-10.7); EST GLOMERULAR FILTRATION > 60 (>60 ml/min/1.73m(2)); SERUM ALBUMIN 2.9 g/dL (3.5-4.8)
[2017-02-21 05:11] LABS: PLATELET MORPHOLOGY COMMENT NORMAL MORPHOLOGY (NORM); RBC MORPHOLOGY COMMENT NORMAL MORPHOLOGY (NORM); WBC MORPHOLOGY COMMENT NORMAL MORPHOLOGY (NORM)
[2017-02-21] MEDS: ONDANSETRON 4 MG/2 ML VIAL IV PRN (08:09)
[2017-02-21] MEDS: NORMAL SALINE 10 ML SYRINGE FLUSH IVP PRN (08:09)
--- NOTE | 2017-02-21 08:34 | PDOC(PROG) ---
Date and Time of Service: 02/21/2017 8:32 AM Interval History: Subjective Patient feels better compared to yesterday. Pain in her abdomen is controlled with the pain medication she is getting. No other symptoms. Objective : Data - Labs CBC and BMP: 02/21/17 04:53 02/21/17 04:53 Labs - Last 24 Hours: Laboratory Results 02/21/17 Range/Units 04:53 WBC 3.08 L (4.8-10.8) 10^3/uL RBC 3.33 L (4.20-5.40) 10^6/uL Hgb 8.2 L (12.0-16.0) g/dL Hct 27.8 L (37.0-47.0) % MCV 83.5 (81-99) FL MCH 24.6 L (27-31) PG MCHC 29.5 L (33-37) g/dL RDW Std Deviation 61.6 H (39-50) fL RDW Coeff of Kaylin 21.2 H (11.5-14.5) % Plt Count 225 (140-350) 10*3/uL MPV 10.4 (7.4-12.2) FL Immature Gran % (Auto) 0 (0-5) % Neut % (Auto) 67.2 (50-80) % Lymph % (Auto) 24.0 (10-50) % [place] % (Auto) 4.2 L (5-15) % Eos % (Auto) 3.6 (0-8) % Baso % (Auto) 1.0 (0-1) % Immature Gran # (Auto) 0 10*3/UL Neut # (Auto) 2.07 10*3/UL Lymph # (Auto) 0.74 10*3/uL [place] # (Auto) 0.13 L (0.3-0.8) 10*3/UL Eos # (Auto) 0.11 10*3/UL Baso # (Auto) 0.03 10*3/UL WBC Morphology Comment Normal morphology (NORM) Plt Morphology Comment Normal morphology (NORM) RBC Morph Comment Normal morphology (NORM) Sodium 134 L D (135-145) meq/L Potassium 3.4 L (3.8-5.2) meq/L Chloride 104 (98-112) meq/L Carbon Dioxide 23 (23-33) meq/L Anion Gap 7 (5-20) BUN 3 L (7-22) mg/dL Creatinine 0.5 (0.50-1.20) mg/dL Estimated GFR > 60 (>60 ml/min/1.73m(2)) BUN/Creatinine Ratio 6.00 (6-20) Glucose 74 L (78-110) mg/dL Calculated Osmolality 273.0 (267-292) mOsm/kg Calcium 8.1 L (8.7-10.7) mg/dL Total Bilirubin 1.1 D (0.3-1.2) mg/dL AST 596 H (8-39) IU/L ALT 108 H (9-52) IU/L Alkaline Phosphatase 171 H (38-126) IU/L Total Protein 5.5 L (6.1-8.0) g/dL Albumin 2.9 L (3.5-4.8) g/dL Globulin 2.6 (2.50-4.10) g/dL Albumin/Globulin Ratio 1.10 L (1.3-2.0) mg/g Lipase 650 H (23-300) IU/L Objective : Exam - General General Appearance: No Acute Distress, Cooperative - Head Head Exam: Normal Inspection, Atraumatic - Eye Eye Exam: Normal Appearance - ENT ENT Exam: Normal Exam - Neck Neck Exam: Normal Inspection - Respiratory Respiratory Exam: Clear to Auscultation - Bilaterally - Cardiovascular Cardiovascular Exam: RRR - GI/Abdominal GI/Abdominal Exam: Normal Bowel Sounds, Non Distended, Soft Additional GI/Abdominal Exam Details: Tenderness in the epigastrium still present. - Rectal Rectal Exam: Deferred - External Exam: Deferred Exam: Deferred - Extremities Extremities Exam: Normal Inspection - Back Back Exam: Normal Inspection - Neurological Neurological Exam: Alert, Oriented x 3, CN II-XII Intact, Moves All Extremities Equally - Psychiatric Psychiatric Exam: Normal Affect Assessment and Plan - Patient Problems (1) Pancreatitis, alcoholic, acute Current Visit: Yes Status: Acute Comment: She is tolerating clear liquid I think we will advance her diet to low fat liquid diet. We'll cut back on her fluid. Will add oxycodone to see whether we can control her pain only with pills. (2) Alcohol abuse Current Visit: No Status: Acute Comment: She is on multivitamin. she plans on quitting alcohol. (3) Elevated LFTs Current Visit: No Status: Acute Comment: Her LFTs are worse today compared to yesterday will repeat it tomorrow. (4) Hypokalemia Current Visit: No Status: Acute Comment: Potassium is better continue replacement
[2017-02-21] MEDS: Pantoprazole Inj 40 MG in Normal Saline Flush 10 ML IVP SCH (09:25)
[2017-02-21] MEDS: FERROUS SULFATE 325 MG TABLET PO SCH (10:43)
[2017-02-21] MEDS: Potassium Chloride Tab 10 MEQ TAB PO SCH ×2 (10:44→20:48)
[2017-02-21] MEDS: oxyCODONE IR Tab 5 MG TAB PO PRN ×2 (10:44→15:20)
[2017-02-21] MEDS: NICOTINE 14 MG /DAY PATCH TRANSDERM SCH (11:09)
[2017-02-21] MEDS: LORazepam 1 mg tab (ETOH withdrawal) PO PRN ×2 (17:08→20:47)
[2017-02-22] MEDS: oxyCODONE IR Tab 5 MG TAB PO PRN ×2 (03:51→07:40)
[2017-02-22] MEDS: NORMAL SALINE 10 ML SYRINGE FLUSH IVP PRN (04:31)
[2017-02-22] MEDS: ONDANSETRON 4 MG/2 ML VIAL IV PRN (04:31)
[2017-02-22 05:38] LABS: BASOPHILS # (AUTO) 0.02 10*3/UL; BASOPHILS % (AUTO) 0.6 % (0-1); EOSINOPHILS # (AUTO) 0.17 10*3/UL; EOSINOPHILS % (AUTO) 5.2 % (0-8); HEMATOCRIT 28.5 % (37.0-47.0); HEMOGLOBIN 8.3 g/dL (12.0-16.0); MEAN CORPUSCULAR HEMOGLOBIN 24.7 PG (27-31); MEAN CORPUSCULAR HGB CONC 29.1 g/dL (33-37); MEAN CORPUSCULAR VOLUME 84.8 FL (81-99); MEAN PLATELET VOLUME 11.1 FL (7.4-12.2); MONOCYTES # (AUTO) 0.14 10*3/UL (0.3-0.8); MONOCYTES % (AUTO) 4.3 % (5-15); NEUTROPHILS # (AUTO) 2.33 10*3/UL; NEUTROPHILS % (AUTO) 71.3 % (50-80); RED BLOOD COUNT 3.36 10^6/uL (4.20-5.40)
[2017-02-22 05:47] LABS: CALCIUM 7.9 mg/dL (8.7-10.7); EST GLOMERULAR FILTRATION > 60 (>60 ml/min/1.73m(2)); LIPASE 481 IU/L (23-300); SERUM ALBUMIN 2.8 g/dL (3.5-4.8)
[2017-02-22 05:54] LABS: BLOOD UREA NITROGEN < 2 mg/dL (7-22)
[2017-02-22 07:09] LABS: PLATELET MORPHOLOGY COMMENT NORMAL MORPHOLOGY (NORM); RBC MORPHOLOGY COMMENT NORMAL MORPHOLOGY (NORM); WBC MORPHOLOGY COMMENT NORMAL MORPHOLOGY (NORM)
[2017-02-22] MEDS: LORazepam 1 mg tab (ETOH withdrawal) PO PRN (07:44)
[2017-02-22 07:59] VITALS: RESP 16; TEMP 97.8
--- NOTE | 2017-02-22 09:14 | PDOC(PROG) ---
Date and Time of Service: 02/22/2017 9:11 AM Interval History: Subjective She feels better, she tolerated diet no more vomiting. Pain seemed to be improved. Objective : Data - Labs CBC and BMP: 02/22/17 05:32 02/22/17 05:32 Labs - Last 24 Hours: Laboratory Results 02/22/17 Range/Units 05:32 WBC 3.27 L (4.8-10.8) 10^3/uL RBC 3.36 L (4.20-5.40) 10^6/uL Hgb 8.3 L (12.0-16.0) g/dL Hct 28.5 L (37.0-47.0) % MCV 84.8 (81-99) FL MCH 24.7 L (27-31) PG MCHC 29.1 L (33-37) g/dL RDW Std Deviation 62.5 H (39-50) fL RDW Coeff of Kaylin 21.3 H (11.5-14.5) % Plt Count 198 (140-350) 10*3/uL MPV 11.1 (7.4-12.2) FL Immature Gran % (Auto) 0.3 (0-5) % Neut % (Auto) 71.3 (50-80) % Lymph % (Auto) 18.3 (10-50) % [place] % (Auto) 4.3 L (5-15) % Eos % (Auto) 5.2 (0-8) % Baso % (Auto) 0.6 (0-1) % Immature Gran # (Auto) 0.01 10*3/UL Neut # (Auto) 2.33 10*3/UL Lymph # (Auto) 0.60 10*3/uL [place] # (Auto) 0.14 L (0.3-0.8) 10*3/UL Eos # (Auto) 0.17 10*3/UL Baso # (Auto) 0.02 10*3/UL WBC Morphology Comment Normal morphology (NORM) Plt Morphology Comment Normal morphology (NORM) RBC Morph Comment Normal morphology (NORM) Sodium 137 (135-145) meq/L Potassium 4.0 (3.8-5.2) meq/L Chloride 107 (98-112) meq/L Carbon Dioxide 22 L (23-33) meq/L Anion Gap 8 (5-20) BUN < 2 L (7-22) mg/dL Creatinine 0.5 (0.50-1.20) mg/dL Estimated GFR > 60 (>60 ml/min/1.73m(2)) BUN/Creatinine Ratio 4.00 L (6-20) Glucose 83 (78-110) mg/dL Calculated Osmolality 278.7142 (267-292) mOsm/kg Calcium 7.9 L (8.7-10.7) mg/dL Total Bilirubin 1.1 (0.3-1.2) mg/dL AST 198 H (8-39) IU/L ALT 73 H (9-52) IU/L Alkaline Phosphatase 148 H (38-126) IU/L Total Protein 5.5 L (6.1-8.0) g/dL Albumin 2.8 L (3.5-4.8) g/dL Globulin 2.7 (2.50-4.10) g/dL Albumin/Globulin Ratio 1.00 L (1.3-2.0) mg/g Lipase 481 H (23-300) IU/L Objective : Exam - General General Appearance: No Acute Distress, Cooperative, Thin - Head Head Exam: Normal Inspection, Atraumatic - Eye Eye Exam: Normal Appearance - ENT ENT Exam: Normal Exam - Neck Neck Exam: Normal Inspection - Respiratory Respiratory Exam: Clear to Auscultation - Bilaterally - Cardiovascular Cardiovascular Exam: RRR - GI/Abdominal GI/Abdominal Exam: Normal Bowel Sounds, Non Distended, Soft Additional GI/Abdominal Exam Details: There is minimal tenderness in the epigastrium - External Exam: Deferred - Extremities Extremities Exam: Normal Inspection - Back Back Exam: Normal Inspection - Neurological Neurological Exam: Alert, Oriented x 3, CN II-XII Intact, Moves All Extremities Equally - Psychiatric Psychiatric Exam: Anxious - Integumentary Integumentary Exam: Pallor Assessment and Plan - Patient Problems (1) Pancreatitis, alcoholic, acute Current Visit: Yes Status: Acute Comment: I think she improved, she is tolerating diet pain seemed to be improved. No more vomiting I think we can send her home. She is planning on quitting alcohol. (2) Alcohol abuse Current Visit: No Status: Acute Comment: Continue multivitamins, her plan is to quit alcohol. (3) Elevated LFTs Current Visit: No Status: Acute Comment: Those are improving likely secondary to alcohol (4) Hypokalemia Current Visit: No Status: Acute Comment: Resolved (5) Anxiety Current Visit: Yes Status: Acute Comment: She is requesting some medication for her anxiety she thinks the Ativan is helping her. I told her we discharge her on a few pills of Xanax which she will need follow-up with her physician as an outpatient. I did warn her about mixing alcohol with Xanax as this may lead to respiratory depression and . She said she tried Paxil and Zoloft in the past but found the Klonopin helped most. I told her to follow-up with a primary post discharge then he can take over her care. She plans follow-up with Dr. Reaves as an outpatient.
[2017-02-22] MEDS: FERROUS SULFATE 325 MG TABLET PO SCH (09:33)
[2017-02-22] MEDS: Potassium Chloride Tab 10 MEQ TAB PO SCH (09:33)
--- NOTE | 2017-02-22 09:47 | DCSUMMARY ---
Hospitalization Summary Admit Date: 02/20/17 Discharge Date: 02/22/17 Hospital Course: Discharge diagnoses 1. Acute alcoholic pancreatitis 2. Anxiety 3. History of agoraphobia 4. Anemia secondary secondary to the recent bleed from hemorrhoid 5. Alcohol abuse 6. Fatty infiltration of the liver 7. 1.1 cm stone in the left renal pelvis without significant hydronephrosis. 8. There is 1 cm left renal cyst 9. Hypokalemia improved Hospital course This is a 36 years old female with medical history significant for history of recent admission to our hospital for anemia that was secondary to bleeding from hemorrhoid, alcoholism and agoraphobia who presented to the hospital because of abdominal pain and vomiting that started the morning of admission around 4 AM. She said she woke up feeling nauseated and she vomited once. She felt more like a pressure sensation in the epigastric area that went to the back. The pain was severe initially because of that she came into the ER, evaluation there revealed pancreatitis secondary to alcoholism and hence the admission. Her lipase was more than 700. By time I saw her , the pain in the abdomen was mostly gone but she was still feeling nauseated. Still had some pain in her back which she rated about 4 out of 10. Exam was remarkable for cushingoid facies, hilar and abdominal tenderness in the epigastrium. CT of the abdomen did not show abnormalities in the pancreas but did show 1.1 cm on the left renal pelvis without significant hydronephrosis there was also left renal cyst and there is evidence of fatty infiltration of the liver. Patient was admitted to the hospital she was put on CIWA protocol, fluids, initially on clear liquid and pain medication and Protonix. Gradually with treatment her pain seem to be better controlled and her lipase came down she had a low potassium when she came in and that's was replaced. on the day of discharge she was tolerating diet and her LFTs came down and also her lipase came down we thought that she could be discharged home and follow-up with her primary as an outpatient. She did give a history of anxiety and agoraphobia and found the Ativan that she was getting for CIWA protocol helping her anxiety symptoms. We Did discharge her on some Xanax until she follow-up with her primary as an outpatient. I did warn her not to mix it with alcohol. As this may lead to her from respiratory depression. She understand that and Her plan is to quit drinking alcohol. Laboratory Results 02/20/17 02/20/17 02/21/17 Range/Units 05:40 06:55 04:53 WBC 5.40 3.08 L (4.8-10.8) 10^3/uL RBC 3.86 L 3.33 L (4.20-5.40) 10^6/uL Hgb 9.7 L 8.2 L (12.0-16.0) g/dL Hct 31.5 L 27.8 L (37.0-47.0) % MCV 81.6 83.5 (81-99) FL MCH 25.1 L 24.6 L (27-31) PG MCHC 30.8 L 29.5 L (33-37) g/dL RDW Std Deviation 59.3 H 61.6 H (39-50) fL RDW Coeff of Kaylin 21.1 H 21.2 H (11.5-14.5) % Plt Count 298 225 (140-350) 10*3/uL MPV 9.8 10.4 (7.4-12.2) FL Immature Gran % (Auto) 0.4 0 (0-5) % Neut % (Auto) 81.5 H 67.2 (50-80) % Lymph % (Auto) 11.1 24.0 (10-50) % Milam % (Auto) 5.0 4.2 L (5-15) % Eos % (Auto) 0.7 3.6 (0-8) % Baso % (Auto) 1.3 H 1.0 (0-1) % Immature Gran # (Auto) 0.02 0 10*3/UL Neut # (Auto) 4.40 2.07 10*3/UL Lymph # (Auto) 0.60 0.74 10*3/uL Milam # (Auto) 0.27 L 0.13 L (0.3-0.8) 10*3/UL Eos # (Auto) 0.04 0.11 10*3/UL Baso # (Auto) 0.07 0.03 10*3/UL WBC Morphology Comment Normal morphology Normal morphology (NORM) Plt Morphology Comment Normal morphology Normal morphology (NORM) RBC Morph Comment Normal morphology Normal morphology (NORM) Sodium 143 134 L D (135-145) meq/L Potassium 2.8 L 3.4 L (3.8-5.2) meq/L Chloride 103 104 (98-112) meq/L Carbon Dioxide 20 L 23 (23-33) meq/L Anion Gap 20 7 (5-20) BUN 6 L 3 L (7-22) mg/dL Creatinine 0.6 0.5 (0.50-1.20) mg/dL Estimated GFR > 60 > 60 (>60 ml/min/1.73m(2)) BUN/Creatinine Ratio 10.00 6.00 (6-20) Glucose 81 74 L (78-110) mg/dL Calculated Osmolality 292.0 273.0 (267-292) mOsm/kg Calcium 8.5 L 8.1 L (8.7-10.7) mg/dL Total Bilirubin 0.6 1.1 D (0.3-1.2) mg/dL AST 432 H 596 H (8-39) IU/L ALT 92 H 108 H (9-52) IU/L Alkaline Phosphatase 179 H 171 H (38-126) IU/L Total Protein 6.6 5.5 L (6.1-8.0) g/dL Albumin 3.6 2.9 L (3.5-4.8) g/dL Globulin 3.0 2.6 (2.50-4.10) g/dL Albumin/Globulin Ratio 1.20 L 1.10 L (1.3-2.0) mg/g Amylase 146 H (30-110) U/L Lipase 785 H 650 H (23-300) IU/L Serum HCG, Qual Negative Ur Collection Type Clean catch urine Urine Color Yellow Urine Clarity Cloudy (CLEAR) Urine pH 7.5 (5.0-8.5) Ur Specific [place] 1.010 (1.005-1.030) Urine Protein Negative (NEG) mg/dl Urine Glucose (UA) Negative (NEG) mg/dL Urine Ketones 80 (NEG) Urine Occult Blood Negative (NEG) Urine Nitrate Negative (NEG) Urine Bilirubin Negative (NEG) Urine Urobilinogen 0.2 (0.2) EU/dL Ur Leukocyte Esterase Negative (NEG) Urine RBC None (NONE) /hpf Urine WBC None (NONE) Ur Squamous Epith Cells Many (NONE) Ur Renal Epithelial Cell None (NONE) Urine Crystals Many Urine Bacteria None (NONE) Urine Casts None (NONE) Urine Mucus None (NONE) Urine Trichomonas None (NONE) Urine Yeast None (NONE) Ur Culture Indicated? Culture not set Serum Alcohol 108 H (0-10) mg/dL 02/22/17 Range/Units 05:32 WBC 3.27 L (4.8-10.8) 10^3/uL RBC 3.36 L (4.20-5.40) 10^6/uL Hgb 8.3 L (12.0-16.0) g/dL Hct 28.5 L (37.0-47.0) % MCV 84.8 (81-99) FL MCH 24.7 L (27-31) PG MCHC 29.1 L (33-37) g/dL RDW Std Deviation 62.5 H (39-50) fL RDW Coeff of Kaylin 21.3 H (11.5-14.5) % Plt Count 198 (140-350) 10*3/uL MPV 11.1 (7.4-12.2) FL Immature Gran % (Auto) 0.3 (0-5) % Neut % (Auto) 71.3 (50-80) % Lymph % (Auto) 18.3 (10-50) % Milam % (Auto) 4.3 L (5-15) % Eos % (Auto) 5.2 (0-8) % Baso % (Auto) 0.6 (0-1) % Immature Gran # (Auto) 0.01 10*3/UL Neut # (Auto) 2.33 10*3/UL Lymph # (Auto) 0.60 10*3/uL Milam # (Auto) 0.14 L (0.3-0.8) 10*3/UL Eos # (Auto) 0.17 10*3/UL Baso # (Auto) 0.02 10*3/UL WBC Morphology Comment Normal morphology (NORM) Plt Morphology Comment Normal morphology (NORM) RBC Morph Comment Normal morphology (NORM) Sodium 137 (135-145) meq/L Potassium 4.0 (3.8-5.2) meq/L Chloride 107 (98-112) meq/L Carbon Dioxide 22 L (23-33) meq/L Anion Gap 8 (5-20) BUN < 2 L (7-22) mg/dL Creatinine 0.5 (0.50-1.20) mg/dL Estimated GFR > 60 (>60 ml/min/1.73m(2)) BUN/Creatinine Ratio 4.00 L (6-20) Glucose 83 (78-110) mg/dL Calculated Osmolality 278.7142 (267-292) mOsm/kg Calcium 7.9 L (8.7-10.7) mg/dL Total Bilirubin 1.1 (0.3-1.2) mg/dL AST 198 H (8-39) IU/L ALT 73 H (9-52) IU/L Alkaline Phosphatase 148 H (38-126) IU/L Total Protein 5.5 L (6.1-8.0) g/dL Albumin 2.8 L (3.5-4.8) g/dL Globulin 2.7 (2.50-4.10) g/dL Albumin/Globulin Ratio 1.00 L (1.3-2.0) mg/g Amylase (30-110) U/L Lipase 481 H (23-300) IU/L Serum HCG, Qual Ur Collection Type Urine Color Urine Clarity (CLEAR) Urine pH (5.0-8.5) Ur Specific [place] (1.005-1.030) Urine Protein (NEG) mg/dl Urine Glucose (UA) (NEG) mg/dL Urine Ketones (NEG) Urine Occult Blood (NEG) Urine Nitrate (NEG) Urine Bilirubin (NEG) Urine Urobilinogen (0.2) EU/dL Ur Leukocyte Esterase (NEG) Urine RBC (NONE) /hpf Urine WBC (NONE) Ur Squamous Epith Cells (NONE) Ur Renal Epithelial Cell (NONE) Urine Crystals Urine Bacteria (NONE) Urine Casts (NONE) Urine Mucus (NONE) Urine Trichomonas (NONE) Urine Yeast (NONE) Ur Culture Indicated? Serum Alcohol (0-10) mg/dL Discharge instruction Diet regular Activity as started Medications Home Medications Pantoprazole Sodium 1 tab PO DAILY #90 tab 02/16/17 [Clinic Confirmed 02/20/17] ALPRAZolam Tab [Xanax Tab] 0.25 mg PO BID #20 tab 02/22/17 [Rx] Ferrous Sulfate [Feosol] 325 mg PO DAILY #30 tab 02/22/17 [Rx] Multivitamin Tab [Thera Tab] 1 tab PO DAILY tab 02/22/17 [Rx] Follow-up with PCP in 1-2 weeks Condition at discharge was stable for discharge Exam - Vitals Vital Signs: Vital Signs Temperature 97.8 F Temperature Source Temporal Artery Scan Pulse Rate [Apical] 92 Pulse Rate [Pulse Oximeter] 83 Pulse Rate 83 Respiratory Rate 16 Blood Pressure [Left Arm] 109/83 Blood Pressure [Right Arm] 100/76 Blood Pressure 100/76 Pulse Ox 98 Oxygen Delivery Method Room Air Height 5 ft 5 in Weight 123 lb 12.8 oz Patient Problems - Patient Problem List (1) Pancreatitis, alcoholic, acute Status: Acute (2) Alcohol abuse Status: Acute (3) Elevated LFTs Status: Acute (4) Hypokalemia Status: Acute (5) Anxiety Status: Acute
[2017-02-22] MEDS: NICOTINE 14 MG /DAY PATCH TRANSDERM SCH (09:52)
[2017-02-22] MEDS: Pantoprazole Inj 40 MG in Normal Saline Flush 10 ML IVP SCH (09:52)
[2017-02-23] MEDS ORDERED: Multivitamin Tab 1 TAB PO SCH (09:00)
== END 2017-02-22 09:52 | disposition home or self-care (01) | DRG 440 ==
LOC: ER 05:17 → MED/SURG 08:38
PROVIDERS: ADMIT Internal Medicine; ATTEND Internal Medicine
DX: K85.20 Alcohol induced acute pancreatitis without necrosis or infection (principal); F41.9 Anxiety disorder, unspecified; K64.8 Other hemorrhoids; D64.9 Anemia, unspecified; K76.0 Fatty (change of) liver, not elsewhere classified; N20.0 Calculus of kidney; E87.6 Hypokalemia
CPT/HCPCS: 36415; 71020; 74177; 80053; 80320; 81001; 81003; 82150; 82948; 83690; 84703; 85025; 93005; 93010; 94761; 96361; 96374; 96375; 99285; J2060; J2270; J2405; J3480; J3490; J7030

== ENCOUNTER 2017-09-16 11:40 | Inpatient (IN) ==
[2017-09-16] MEDS ORDERED: LIDOCAINE W/ SODIUM BICARB 0.5 ML SYR SUBD PRN (12:15)
[2017-09-16] MEDS ORDERED: CALCIUM CARBONATE 500 MG (TUMS) CHEWABLE TABLET PO PRN (12:15)
[2017-09-16] MEDS ORDERED: DOCUSATE 100 MG CAPSULE PO PRN (12:15)
[2017-09-16] MEDS ORDERED: ONDANSETRON 4 MG/2 ML VIAL IVP PRN (12:15)
[2017-09-16] MEDS ORDERED: ACETAMINOPHEN 325 MG TABLET PO PRN (12:15)
[2017-09-16] MEDS ORDERED: CLONAZEPAM 0.5 MG PO PRN (12:17)
--- NOTE | 2017-09-16 12:21 | EKG ---
[address] [place] [address] Measurements Intervals [place] Rate: 88 P: 64 SC: 125 QRS: 85 QRSD: 81 T: -78 QT: 373 QTc: 418 Interpretive Statements SINUS RHYTHM WITH OCCASIONAL SUPRAVENTRICULAR PREMATURE COMPLEXES ST DEVIATION AND MODERATE T-WAVE ABNORMALITY, CONSIDER INFERIOR ISCHEMIA Compared to ECG 02/20/2017 05:24:07 Possible ischemia now present Sinus tachycardia no longer present T-wave abnormality still present Electronically Signed On 09-17-17 15:00:46 [facility] by Gabriel Altamirano [email or web address]
--- NOTE | 2017-09-16 14:44 | PDOC ---
HPI - History of Present Illness Date of Service: 09/16/17 Time of Service: 18:40 Chief Complaint: Pain from rash History of Present Illness: This very pleasant 37-year-old female with agoraphobia, recent acute alcoholic hepatitis, chronic alcohol abuse although now abstinent for 6 weeks, tobacco abuse, malnutrition, hypokalemia, and recent skin rash, who presents with her mother today after seeing Dr. May in the clinic. He saw that the patient was jaundiced and felt that she needed further workup and evaluation. We admitted her directly here. The patient's story started back at the end of July and first part of August. She developed total body rash of unclear etiology, was deemed as eczema at [facility] in [place] in my review of their medical records. The patient went to [facility], and was placed on steroids for this rash. Ultimately, the skin sloughed off and she eats per the patient and she developed several ulcers all over her body, including her extremities, buttocks and sacral area, and upper extremities. She denies any fevers or chills. She states that the rash is very painful, but ultimately there is no erythema or surrounding signs of infection. She's been using some vitamin D and vitamin E lotion on them. She has not been on any systemic therapy for the rash. To my knowledge no biopsy and she's never had any rash like this before. This all started prior to Lasix and spironolactone that were administered for what appears to be ascites diagnosed at [facility]. She is jaundice, and she does have pruritus. Several lab abnormalities were noted today in the clinic that revealed that her liver function is worse. She has no IV access and despite multiple times we have not been able to place it. I felt the first thing to do in setting of her jaundice was to rule out any sort of common bile duct obstruction and although she had a cholecystectomy in the past I still felt that that was the best thing to do. An MRCP thus far is negative for any common bile duct blockage. She has worsening ascites and diffuse fatty infiltration of the liver although I suspect ultimately, based on her labs and presentation that this is beyond acute alcoholic hepatitis and is truly a cirrhotic liver. Probably alcoholic related. She's not had any autoimmune liver workup to my knowledge. Past Medical History Medical History: 1. Chronic anemia, probably related to cirrhosis and malnutrition. Status post EGD and colonoscopy in the past with infrared treatment of her hemorrhoids. 2. History of agoraphobia. 3. Ascites. 4. Skin rash of unclear etiology. 5. Tobacco abuse Surgical History: 1. History of cholecystectomy. 2. EGD and colonoscopy as mentioned above she had some inflammatory changes on EGD but no ulcers, and had hemorrhoids on her colonoscopy. Pertinent Family History: Mother describes herself as healthy. Grandfather had peptic ulcer. Father may have had some thyroid problems Past Social History: Patient stopped drinking in the first part of August. She smokes about a cigarette per day. She has agoraphobia so she stays mostly at home. She had one son but gave him up for adoption. Tobacco Use: Current Some Day Smoker In the Past 12 Months, Have Used or Abuse Any of the Following Substance: None Alcohol Use: Other (Quit about 6 weeks ago) Medication / Allergies Home Medications: Home Medications Medication Instructions Recorded Confirmed Type Pantoprazole Sodium 1 tab PO DAILY #90 tab 02/16/17 09/16/17 Rx Multivitamin Tab [Thera Tab] 1 tab PO DAILY tab 02/22/17 09/16/17 Rx Cholecalciferol [Vitamin D] 1,000 unit PO DAILY 08/07/17 09/16/17 History Docusate Sodium [Stool Softener] 50 mg PO DAILY 08/07/17 09/16/17 History clonazepam 0.5 mg tablet 0.5 mg PO QID PRN #120 tab 08/18/17 09/16/17 Rx furosemide 20 mg tablet 20 mg PO BID #60 tab 08/18/17 09/16/17 Rx oxycodone 5 mg tablet 5 mg PO Q6H PRN #120 tab 08/18/17 09/16/17 Rx spironolactone 50 mg tablet 50 mg PO BID #60 tab 08/18/17 09/16/17 Rx Allergies/Adverse Reactions: Allergies 3 Allergy/AdvReac Type Severity Reaction Status Date / Time aspirin Allergy Severe NOT Verified 08/18/17 15:05 APPLICABLE Penicillins AdvReac RASH Verified 09/16/17 12:25 Review of Systems - Review of Systems All Systems: Reviewed & No Additional Complaints Except as Stated (I did a 12 point review systems and it is negative other than that discussed in history present illness and that noted below.) - Constitutional Constitutional: REPORTS: Weight Loss (Lost 5 pounds in the last 6 weeks), Fever / Chills (Chills but no fever), Malaise - Respiratory Respiratory: REPORTS: Negative System Review - Cardiovascular Cardiovascular: REPORTS: Negative System Review - Gastrointestinal Gastrointestinal / Abdominal: REPORTS: Nausea, Vomiting - Genitourinary Genitourinary: REPORTS: Negative System Review - Musculoskeletal Musculoskeletal: REPORTS: Negative System Review - Hematlogic / Lymphatic Hematologic / Lymphatic: REPORTS: Easy Bleeding/Bruising - Neurological Neurologic: REPORTS: Negative System Review - Psychiatric Psychiatric: REPORTS: Anxiety, Depressed Exam - Vitals Vital Signs: Vital Signs Temperature 96.8 F Pulse Rate [Pulse Oximeter] 98 Respiratory Rate 16 Blood Pressure [Left Arm] 81/52 Pulse Ox 97 Oxygen Delivery Method Room Air Height 5 ft 6 in Weight 109 lb 12.8 oz - General General Appearance: No Acute Distress, Cooperative - Head Head Exam: Normal Inspection, Normocephalic, Atraumatic Additional Head Exam Details: temporal wasting - Eye Eye Exam: POSITIVE: Scleral Icterus - ENT ENT Exam: POSITIVE: Mucous Membranes Dry - Neck Neck Exam: Normal Inspection, No Tenderness, No Lymphadenopathy, No Thyromegaly - Respiratory Respiratory Exam: POSITIVE: Clear to Auscultation - Bilaterally, Breathing Non Labored, Normal to Percussion and Palpation - Cardiovascular Cardiovascular Exam: POSITIVE: RRR, No Murmur, No Clicks, No Gallops, No Rubs, No JVD - GI/Abdominal GI/Abdominal Exam: POSITIVE: Normal Bowel Sounds, Non Tender, Soft, Positive for Ascites Additional GI/Abdominal Exam Details: rogers on skin from chronic heating pad use - Rectal Rectal Exam: POSITIVE: Deferred - External Exam: POSITIVE: Deferred Exam: POSITIVE: Deferred - Extremities Extremities Exam: POSITIVE: No Clubbing Present, No Edema Present, No Cyanosis Present Additional Extremities Exam Details: weak - Back Back Exam: POSITIVE: No CVA Tenderness - Neurological Neurological Exam: POSITIVE: Alert, Oriented x 3, No Facial Droop, Speech Intact / Clear, Moves All Extremities Equally - Psychiatric Psychiatric Exam: POSITIVE: Flat Affect, Anxious - Integumentary Additional Integumentary Exam Details: multiple stage 3 ulcers, no surrounding erythemas, on flexor surface, buttocks, arms and legs no sign of infection - Central Line Examination Central Line Present on Admission: No Results - Labs Additional Lab Results: 02/05/17 02/06/17 02/06/17 18:10 06:29 06:29 WBC RBC Hgb Hct MCV MCH MCHC RDW Std Deviation RDW Coeff of Kaylin Plt Count Sodium Potassium Chloride Carbon Dioxide Anion Gap BUN Creatinine Estimated GFR BUN/Creatinine Ratio Glucose Calculated Osmolality Calcium Iron 16 L % Saturation 4.73 L Total Bilirubin AST ALT Alkaline Phosphatase Ammonia Hep Bs Antigen < 1.0 H Hepatitis C Ab Screen Negative HCV RNA Quant (PCR) Not Reportable 09/16/17 09/16/17 09/16/17 11:23 11:23 11:23 WBC 9.74 RBC 2.33 L Hgb 7.6 L Hct 24.9 L MCV 106.9 H MCH 32.6 H MCHC 30.5 L RDW Std Deviation 57.9 H RDW Coeff of Kaylin 15.7 H Plt Count 107 L Sodium 140 Potassium 2.6 L Chloride 106 Carbon Dioxide 20 L Anion Gap 14 BUN 8 Creatinine 2.0 H Estimated GFR 28 BUN/Creatinine Ratio 4.00 L Glucose 100 Calculated Osmolality 287.0 Calcium 7.7 L Iron % Saturation Total Bilirubin 7.0 H AST 50 H ALT 42 Alkaline Phosphatase 185 H Ammonia 53 H Hep Bs Antigen Hepatitis C Ab Screen HCV RNA Quant (PCR) 09/16/17 09/16/17 11:23 11:23 Total Bilirubin 7.0 H Alkaline Phosphatase 185 H Ammonia 53 H Total Protein 5.1 L Albumin 2.2 L Globulin 2.9 Albumin/Globulin Ratio 0.70 L Lipase 21 L - EKG Data -: EKG Interpreted by Me Rate: Normal EKG Shows Normal: Sinus Rhythm - EKG Data EKG Interpretation: Nonspecific ST-T Wave Changes (T-wave inversions in V2 and V3.) - Imaging Status: Report Reviewed by Me (MRCP reporte negative for CBD obstruction.) Assessment and Plan - Patient Problems (1) Cirrhosis Current Visit: Yes Status: Acute Code(s): K74.60 - Unspecified cirrhosis of liver Qualifiers: Hepatic cirrhosis type: alcoholic cirrhosis Ascites presence: with ascites Qualified Code(s): K70.31 - Alcoholic cirrhosis of liver with ascites (2) Hypokalemia Current Visit: Yes Status: Acute Code(s): E87.6 - Hypokalemia (3) Iron deficiency anemia Current Visit: Yes Status: Acute Code(s): D50.9 - Iron deficiency anemia, unspecified Qualifiers: Iron deficiency anemia type: chronic blood loss Qualified Code(s): D50.0 - Iron deficiency anemia secondary to blood loss (chronic) (4) Failure to thrive Current Visit: Yes Status: Acute (5) Jaundice Current Visit: Yes Status: Acute Code(s): R17 - Unspecified jaundice (6) Ascites Current Visit: Yes Status: Acute Code(s): R18.8 - Other ascites Qualifiers: Ascites type: due to alcoholic cirrhosis Qualified Code(s): K70.31 - Alcoholic cirrhosis of liver with ascites (7) Decubitus ulcer Current Visit: Yes Status: Acute Code(s): L89.90 - Pressure ulcer of unspecified site, unspecified stage Qualifiers: Pressure ulcer location: sacral region Pressure ulcer stage: unstageable Qualified Code(s): L89.150 - Pressure ulcer of sacral region, unstageable - Assessment / Plan Additional Assessment/Plan Details: Ultimately, I think this patient is cirrhotic. Her acute renal failure could be a hepatorenal syndrome, and she really needs IV fluids, hold off on any further diuretic therapy, and given hydration to see how this kidney function looks. Will need IV access and we tried multiple times peripherally here. Probably needs a central line, and I have offered that. In terms of her ascites, she could have spontaneous bacterial peritonitis, although afebrile, and given that reality that could certainly make liver function and kidney function worse. She probably would benefit from a diagnostic paracentesis. I offered her that. Nutrition is initiated, and ultimately she may benefit from a PEG tube long- term. I do not believe this patient will be able to sustain oral calories giving her multiple eating disorders of the past. In terms of her skin, it may be helpful to do a skin biopsy, discussed surgery and they may take a look at the patient and the next day or 2 to do a punch biopsy if necessary. They've also recommended consideration for sales CT scanning based on failure to thrive. I'm not opposed to just cannot use contrast at this time. If we can stabilize acute issues of renal failure, hypokalemia, malaise, and see how she responds to initial therapy, she may benefit from evaluation at a tertiary center such as [facility]. Overall her meld score is 23, and her overall prognosis is extremely poor for 6 months survival. I discussed this with the patient and her mother, present at bedside, and we will have to see where Darlin feels these initial therapy scope. She is willing to consent to a central line for IV access, blood draws, fluid administration, probable albumin administration, paracentesis, workup of potential SBP, and see where she is by tomorrow. She is not sure how aggressive she wants to get beyond this. She wants to think things over from that perspective. Continue alcohol cessation, I'm happy that she's been without alcohol for 6 weeks, but we'll have to see how this helps in terms of liver improvement overall. I put in scores for her acute alcoholic hepatitis, and I do not believe that she would've been a good candidate for prednisolone, and her prognosis from acute alcoholic hepatitis of 30 days has already been noted. She is not a candidate for prednisolone therapy at this time. Check labs tomorrow Full code. Gradual replacement of electrolytes. Dietary consult and evaluation. Again prognosis very guarded.
[2017-09-16] MEDS ORDERED: oxyCODONE ER 10 MG TAB PO ONE (15:33)
[2017-09-16] MEDS ORDERED: oxyCODONE IR Tab 5 MG TAB PO ONE (15:38)
--- NOTE | 2017-09-16 17:41 | DI ---
MRI CHOLANGIOPANCREATOGRAM, 09/16/2017 12:18 PM: Clinical History: Jaundice. Previous Exam: None at this facility. MRCP T1 breath hold in phase and out of phase axial images are supplemented with breath-hold 3D HR T2 weighted volume acquired coronal scans through the region of the biliary tree and the pancreas. Axia l T2 weighted and T2 fat saturated breath-hold and coronal breath hold T2 weighted fat saturated sequ ences are performed. The patient did not hold her breath optimally during several sequences. There is moderate ascites. Th ere is hepatomegaly and the liver appears hypointense on the fat-saturated sequences consistent with diffuse fatty infiltration. There is no intrahepatic biliary dilatation. The common hepatic duct and the common bile duct measure 3 mm. There are no common duct stones seen. The pancreas and the pancre atic duct are normal. Both adrenal glands, both kidneys, and the spleen are also normal. Readin. There is hepatomegaly with diffuse fatty infiltration and without evidence of intrahepatic or ext rahepatic biliary dilatation. No gallstones are seen in the bladder or common duct. 2. Ascites. The study is compared with a CT scan of the abdomen and pelvis from 08/07/2017, at which time a small amount of ascites was present. 3. The pancreas, adrenal glands, kidneys, and the spleen are normal.
[2017-09-16] MEDS ORDERED: HEPARIN 500 UNIT/5 ML SYRINGE FOR CENTRAL LINE IVP ONE (18:42)
[2017-09-16] MEDS ORDERED: Albumin Human Soln 25% 50 GM/200 ML IV.SOLN IV ONE (19:59)
--- NOTE | 2017-09-16 20:13 | DI ---
EXAM: XR Chest, 1 View CLINICAL HISTORY: Central line placement. TECHNIQUE: Frontal view of the chest. COMPARISON: Chest x-ray 02/20/17 FINDINGS: Lungs: No consolidation. Pleural space: Right IJ central line in the SVC. No pneumothorax. Heart: Unremarkable. No cardiomegaly. Mediastinum: Unremarkable. Bones/joints: No acute fracture. IMPRESSION: Right IJ central line in the SVC. No pneumothorax.
[2017-09-16] MEDS ORDERED: LIDOCAINE HCL 2 % 10 ML JELLY URO-JECT TOPICAL PRN (20:14)
--- NOTE | 2017-09-16 20:21 | PROCEDURE1 ---
Procedure - - Procedure Performed: Central Line : Non Tunneled (Right internal jugular central venous catheter placement) Procedure Note: Procedure performed: Right Internal jugular central venous catheter placement Indication for procedure: cirrhosis with renal failure, hypokalemia, no venous access despite multiple attempts, with risks discussed as possible arterial puncture, pneumothorax, and localized pain. Benefits for medication administration, blood draws, hemodynamic monitoring, and management of clinical condition. Description of procedure: The patient was prepped and draped in the usual fashion with a full body drape. Ultrasound guidance was used to identify the right IJ vein. The area was cleansed with chlorhexidine. Lidocaine was used for local anesthesia. Using an introducer needle attached to a 5 mL syringe, this was inserted and angled towards the ipsilateral nipple, with ultrasound guidance as well. There was a flash of venous blood as the internal jugular vein was cannulated via the introducer needle. A guidewire was inserted through the needle into the internal jugular vein and the needle was removed over the wire. A 10 blade was then used to perform a small dermatotomy at the needle insertion site. The venous dilator was then placed over the guidewire using Seldinger technique, and then removed. 4 port central venous catheter was then placed over the guidewire inserted into the internal jugular vein to 15 cm and the guidewire was removed. All ports were flushed with normal saline. All ports had draw back. The catheter was sutured into place, and the skin was cleansed with chlorhexidine and the catheter was dressed. A postprocedure x-ray showed central venous catheter in the SVC, correct location, and no pneumothorax on my view. I personally reviewed the chest X-ray. Complications: none Disposition: remains admitted for work up of cirrhosis, renal failure, electrolyte replacement. On medical floor.
[2017-09-16] MEDS ORDERED: Magnesium Sulfate 2gm (Premix) 2 GM/50 ML BAG IV ONE (20:33)
[2017-09-16] MEDS: oxyCODONE IR Tab 5 MG TAB PO PRN (20:57)
[2017-09-16] MEDS: Sodium Chloride 0.9% 1,000 ML PRIMARY IV SCH ×2 (22:17→22:21)
[2017-09-16] MEDS ORDERED: ClonazePAM Tab 1 MG TABLET PO ONE (22:50)
[2017-09-16] MEDS: ClonazePAM Tab 1 MG TABLET PO PRN (22:50)
[2017-09-16 23:08] LABS: BILIRUBIN,URINE MODERATE (NEG); CLARITY,URINE CLOUDY (CLEAR); COLOR,URINE BROWN (Y); GLUCOSE, URINE (UA) NEGATIVE (NEG); OCCULT BLOOD,URINE LARGE (NEG); PROTEIN,URINE 100 mg/dl (NEG)
[2017-09-16 23:17] LABS: BACTERIA,URINE RARE; RBC,URINE 80-100 /hpf; URINE CRYSTALS MODERATE; WBC,URINE 80-100
[2017-09-16 23:18] LABS: URINE CASTS MANY
[2017-09-17] MEDS: oxyCODONE IR Tab 5 MG TAB PO PRN ×6 (00:11→23:00)
[2017-09-17] MEDS ORDERED: HEPARIN 500 UNIT/5 ML SYRINGE FOR CENTRAL LINE IVP PRN (00:50)
[2017-09-17] MEDS ORDERED: LIDOCAINE HCL 1%/EPI 1:100,000 - 20 ML VIAL SUBCUT ONE (00:50)
[2017-09-17] MEDS ORDERED: Sodium Chloride 0.9% 1,000 ML IV ONE ×2 (01:01→04:34)
[2017-09-17] MEDS: NORMAL SALINE 10 ML SYRINGE FLUSH IVP PRN ×2 (01:11→08:21)
--- NOTE | 2017-09-17 01:15 | EKG ---
[address] [place] [address] [place] [address] Measurements Intervals [place] Rate: 86 P: 54 AL: 140 QRS: 81 QRSD: 90 T: -65 QT: 392 QTc: 435 Interpretive Statements SINUS RHYTHM WITH SINUS ARRHYTHMIA] NONSPECIFIC ST-T WAVE CHANGES, CONSIDER MYOCARDIAL ISCHEMIA Compared to ECG 09/16/2017 11:16:59 No significant changes Electronically Signed On 09-17-17 14:57:18 MST by Gabriel Altamirano [email or web address]
[2017-09-17] MEDS ORDERED: LIDOCAINE HCL 1%/EPI 1:100,000 - 20 ML VIAL ONE (01:35)
[2017-09-17 06:21] LABS: BASOPHILS # (AUTO) 0.03 10*3/UL; BASOPHILS % (AUTO) 0.4 % (0-1); EOSINOPHILS # (AUTO) 0.13 10*3/UL; EOSINOPHILS % (AUTO) 1.7 % (0-8); LYMPHOCYTES # (AUTO) 2.35 10*3/uL; MEAN CORPUSCULAR HEMOGLOBIN 32.1 PG (27-31); MEAN CORPUSCULAR HGB CONC 29.9 g/dL (33-37); MEAN CORPUSCULAR VOLUME 107.3 FL (81-99); MONOCYTES # (AUTO) 0.54 10*3/UL (0.3-0.8); NEUTROPHILS # (AUTO) 4.62 10*3/UL; RED BLOOD COUNT 1.37 10^6/uL (4.20-5.40)
[2017-09-17 06:31] LABS: BUN/CREATININE RATIO 4.66 (6-20); Hematocrit [HCT] 14.7 % (37.0-47.0); Hemoglobin [HGB] 4.4 g/dL (12.0-16.0); PLATELET MORPHOLOGY COMMENT NORMAL MORPHOLOGY (NORM); RBC MORPHOLOGY COMMENT NORMAL MORPHOLOGY (NORM); SERUM ALBUMIN 2.2 g/dL (3.5-4.8); WBC MORPHOLOGY COMMENT NORMAL MORPHOLOGY (NORM)
[2017-09-17] MEDS ORDERED: Sodium Chloride 0.9% 500 ML PRIMARY IV ONE ×2 (06:31→14:03)
--- NOTE | 2017-09-17 07:50 | PDOC(PROG) ---
Date and Time of Service: 09/17/2017 7:30 AM Interval History: Subjective Patient was sent yesterday from the clinic for direct admission. Patient said back in August she developed a rash, she was having nausea and vomiting was sent to [facility] [place] stayed for 3 days was discharged home. She started to have those lesions in addition she is being very weak and not eating well she said she quit drinking 4 months ago. she went to the clinic to get her medications refilled and was sent directly to the hospital. Yesterday they had difficulty finding a peripheral line and she had a central line. He said she having reflux, she is short of breath, she is very weak. No abdominal pain. Objective : Data - Labs CBC and BMP: 09/17/17 04:30 09/17/17 04:30 Objective : Exam - General Additional General Exam Details: Looks chronically ill. jaundiced. Pale. - Eye Additional Eye Exam Details: Jaundice noted. Conjunctiva. - Neck Neck Exam: Normal Inspection - Respiratory Respiratory Exam: Clear to Auscultation - Bilaterally - Cardiovascular Cardiovascular Exam: RRR, Systolic Murmur - GI/Abdominal GI/Abdominal Exam: Normal Bowel Sounds, Non Tender, Non Distended, Soft - Rectal Rectal Exam: Deferred - External Exam: Deferred - Extremities Additional Extremities Exam Details: Multiple bedsores noted predominantly on the right side where pressure points. The hip area also on the knee area. But there is also a lesion on the punched- out lesion in the left elbow on the flexor surface. - Neurological Neurological Exam: Alert, Oriented x 3, No Facial Droop, Speech Intact / Clear - Psychiatric Psychiatric Exam: Flat Affect - Integumentary Integumentary Exam: Pallor Assessment and Plan - Patient Problems (1) Decubitus ulcer Current Visit: Yes Status: Acute Comment: Will ask for wound care by PT. She is malnourished will put her on multivitamins. Will speak with pharmacy about maybe starting TPN. We'll ask also for dietitian evaluation. Code(s): L89.90 - Pressure ulcer of unspecified site, unspecified stage Qualifiers: Pressure ulcer location: sacral region Pressure ulcer stage: unstageable Qualified Code(s): L89.150 - Pressure ulcer of sacral region, unstageable (2) Cirrhosis Current Visit: Yes Status: Acute Comment: There may be also alcoholic hepatitis. Her bilirubin is lower her discrimnation score is lower will repeat her INR tomorrow. Code(s): K74.60 - Unspecified cirrhosis of liver Qualifiers: Hepatic cirrhosis type: alcoholic cirrhosis Ascites presence: with ascites Qualified Code(s): K70.31 - Alcoholic cirrhosis of liver with ascites (3) Hypokalemia Current Visit: Yes Status: Acute Comment: will Give her more IV and oral potassium. Code(s): E87.6 - Hypokalemia (4) Failure to thrive Current Visit: Yes Status: Acute Comment: We'll ask for dietitian evaluation and will discuss with pharmacy about starting TPN (5) Jaundice Current Visit: Yes Status: Acute Comment: Secondary to liver disease. Code(s): R17 - Unspecified jaundice (6) Ascites Current Visit: Yes Status: Acute Comment: The amounts is too small for a tap. This is secondary to her liver disease. Code(s): R18.8 - Other ascites Qualifiers: Ascites type: due to alcoholic cirrhosis Qualified Code(s): K70.31 - Alcoholic cirrhosis of liver with ascites (7) Abnormal urinalysis Current Visit: Yes Status: Acute Comment: Her UA is abnormal, I think will start on antibiotics until we have culture results including blood culture result. Code(s): R82.90 - Unspecified abnormal findings in urine (8) Anemia Current Visit: Yes Status: Acute Comment: Severe anemia, not sure whether she has some fresh blood per rectum or not but will give her blood transfusion. Code(s): D64.9 - Anemia, unspecified
[2017-09-17] MEDS: Pantoprazole Inj 40 MG in Normal Saline Flush 10 ML IVP SCH (08:21)
[2017-09-17] MEDS: ClonazePAM Tab 1 MG TABLET PO PRN ×2 (08:58→18:11)
[2017-09-17] MEDS: Calcium/Vit D 600mg/400u Tab 1 TAB TABLET PO SCH ×3 (09:58→20:30)
[2017-09-17] MEDS: Thiamine Tab 100 MG TAB PO SCH ×2 (09:58→10:12)
[2017-09-17] MEDS: Multivitamin Tab 1 TAB PO SCH ×2 (09:58→10:11)
[2017-09-17] MEDS: POTASSIUM CHLORIDE 20 MEQ TAB PO SCH ×2 (09:58→10:11)
[2017-09-17] MEDS: CHOLECALCIFEROL 1000 IU TABLET PO SCH ×2 (09:58→10:12)
[2017-09-17] MEDS: Ertapenem Inj 1 GM in Sodium Chloride 0.9% 100 ML IV SCH (10:06)
[2017-09-17] MEDS: Potassium Chloride 20mEq Packet PO SCH ×2 (12:57→20:30)
[2017-09-17 13:04] LABS: BASOPHILS # (AUTO) 0.03 10*3/UL; BASOPHILS % (AUTO) 0.4 % (0-1); EOSINOPHILS # (AUTO) 0.11 10*3/UL; EOSINOPHILS % (AUTO) 1.3 % (0-8); Hematocrit [HCT] 25.5 % (37.0-47.0); Hemoglobin [HGB] 8.2 g/dL (12.0-16.0); LYMPHOCYTES # (AUTO) 1.49 10*3/uL; MEAN CORPUSCULAR HEMOGLOBIN 31.4 PG (27-31); MEAN CORPUSCULAR HGB CONC 32.2 g/dL (33-37); MEAN CORPUSCULAR VOLUME 97.7 FL (81-99); MONOCYTES # (AUTO) 0.54 10*3/UL (0.3-0.8); MONOCYTES % (AUTO) 6.3 % (5-15); NEUTROPHILS # (AUTO) 6.34 10*3/UL; NEUTROPHILS % (AUTO) 73.9 % (50-80); RED BLOOD COUNT 2.61 10^6/uL (4.20-5.40)
[2017-09-17 13:07] LABS: PLATELET MORPHOLOGY COMMENT NORMAL MORPHOLOGY (NORM); RBC MORPHOLOGY COMMENT NORMAL MORPHOLOGY (NORM); WBC MORPHOLOGY COMMENT NORMAL MORPHOLOGY (NORM)
--- NOTE | 2017-09-17 13:11 | DI ---
QUE, 09/17/2017 11:39 AM: Clinical History: Malnourished. Ascites. Previous Exam: 08/07/2017. There is anasarca. The patient is quite thin and yet the abdomen is dense and the loops of bowel in t he stomach are centrally located consistent with ascites. There is hepatomegaly. The nasogastric tube is coiled in the fundus of the stomach. There is no free air or fluid. There is a 6 mm calcification that was present on the last film and this is located in a lower pole calyx consistent with a renal calculus. There is left lower lobe atelectasis versus early pneumonia. Readin. Ascites. Anasarca. 2. Hepatomegaly. 3. Left lower lobe atelectasis versus an early pneumonia.
[2017-09-17 13:14] LABS: BUN/CREATININE RATIO 4.61 (6-20)
[2017-09-17] MEDS: ASCORBIC ACID 500 MG TABLET PO SCH (15:04)
[2017-09-17] MEDS ORDERED: Levofloxacin (Premix) 750 MG/150 ML PIGGYBACK IV SCH (15:30)
[2017-09-18] MEDS: ClonazePAM Tab 1 MG TABLET PO PRN ×3 (02:48→15:59)
[2017-09-18] MEDS: oxyCODONE IR Tab 5 MG TAB PO PRN ×3 (02:49→15:58)
[2017-09-18 05:00] LABS: BASOPHILS # (AUTO) 0.05 10*3/UL; BASOPHILS % (AUTO) 0.5 % (0-1); EOSINOPHILS # (AUTO) 0.11 10*3/UL; Hematocrit [HCT] 28.5 % (37.0-47.0); Hemoglobin [HGB] 9.3 g/dL (12.0-16.0); LYMPHOCYTES # (AUTO) 1.59 10*3/uL; MEAN CORPUSCULAR HEMOGLOBIN 31.1 PG (27-31); MEAN CORPUSCULAR HGB CONC 32.6 g/dL (33-37); MEAN CORPUSCULAR VOLUME 95.3 FL (81-99); MONOCYTES # (AUTO) 0.66 10*3/UL (0.3-0.8); MONOCYTES % (AUTO) 6.1 % (5-15); NEUTROPHILS # (AUTO) 8.42 10*3/UL; NEUTROPHILS % (AUTO) 77.2 % (50-80); RED BLOOD COUNT 2.99 10^6/uL (4.20-5.40)
[2017-09-18 06:02] LABS: BUN/CREATININE RATIO 4.54 (6-20)
[2017-09-18 06:09] LABS: PLATELET MORPHOLOGY COMMENT SEE COMMENTS (NORM); RBC MORPHOLOGY COMMENT NORMAL MORPHOLOGY (NORM); WBC MORPHOLOGY COMMENT NORMAL MORPHOLOGY (NORM)
[2017-09-18 06:33] LABS: HIV ANTIBODY NEGATIVE (N); HIV-1 P24 ANTIGEN NEGATIVE (N)
[2017-09-18] MEDS: ASCORBIC ACID 500 MG TABLET PO SCH (08:53)
[2017-09-18] MEDS: Calcium/Vit D 600mg/400u Tab 1 TAB TABLET PO SCH (08:53)
[2017-09-18] MEDS: Multivitamin Tab 1 TAB PO SCH (08:53)
[2017-09-18] MEDS: Pantoprazole Inj 40 MG in Normal Saline Flush 10 ML IVP SCH (08:54)
[2017-09-18] MEDS: Potassium Chloride 20mEq Packet PO SCH (08:54)
[2017-09-18] MEDS: Ertapenem Inj 1 GM in Sodium Chloride 0.9% 100 ML IV SCH (09:48)
[2017-09-18] MEDS ORDERED: Albumin Human Soln 25% 25 GM/100 ML IV.SOLN IV ONE (10:55)
--- NOTE | 2017-09-18 11:03 | PDOC(PROG) ---
Date and Time of Service: 09/18/2017 12 PM Interval History: Subjective She is coughing now. She is irritated by the NG tube in place. Some shortness of breath. She is still very weak. She said she wants to be comfortable. Objective : Data - Labs CBC and BMP: 09/18/17 04:40 09/18/17 04:40 Objective : Exam - General Additional General Exam Details: Looks chronically ill. - Head Additional Head Exam Details: Jaundice noted - Eye Additional Eye Exam Details: Jaundice noted. - ENT Additonal ENT Exam Details: NG in place - Neck Neck Exam: Normal Inspection - Respiratory Additional Respiratory Exam Details: Crackles heard mostly on the left side anteriorly - Cardiovascular Cardiovascular Exam: RRR - GI/Abdominal GI/Abdominal Exam: Normal Bowel Sounds, Non Tender, Soft, Hepatomegaly Additional GI/Abdominal Exam Details: Abdomen is more distended today compared to yesterday. I think there is hepatomegaly and ascites present - Rectal Rectal Exam: Deferred - External Exam: Deferred - Extremities Additional Extremities Exam Details: Some edema noted. - Neurological Neurological Exam: Alert, Oriented x 3, CN II-XII Intact, Speech Intact / Clear , Moves All Extremities Equally - Psychiatric Psychiatric Exam: Flat Affect - Integumentary Additional Integumentary Exam Details: Jaundice. Dressing applied to the sores that she had in different places that included elbow on the left and left popliteal Assessment and Plan - Patient Problems (1) Decubitus ulcer Current Visit: Yes Status: Acute Comment: Continue PT and OT. Code(s): L89.90 - Pressure ulcer of unspecified site, unspecified stage Qualifiers: Pressure ulcer location: sacral region Pressure ulcer stage: unstageable Qualified Code(s): L89.150 - Pressure ulcer of sacral region, unstageable (2) Cirrhosis Current Visit: Yes Status: Acute Comment: Continue supportive care. Code(s): K74.60 - Unspecified cirrhosis of liver Qualifiers: Hepatic cirrhosis type: alcoholic cirrhosis Ascites presence: with ascites Qualified Code(s): K70.31 - Alcoholic cirrhosis of liver with ascites (3) Hypokalemia Current Visit: Yes Status: Acute Comment: This is being replaced Code(s): E87.6 - Hypokalemia (4) Failure to thrive Current Visit: Yes Status: Acute Comment: After discussion with her yesterday she accepted NG placement restart her on enteral feeding. (5) Jaundice Current Visit: Yes Status: Acute Comment: Her bilirubin is down to 4 today. Her hepatitis discriminatory function is 31. Code(s): R17 - Unspecified jaundice (6) Ascites Current Visit: Yes Status: Acute Comment: We'll do a repeat of her abdominal CT as there more ascites at think clinically. The problem is the blood pressure is borderline so I'm not sure able to start her on the diuretics yet. I think I'll try to stop the fluid and use albumin as a resuscitation as needed. If blood pressure remains low may move her to the ICU. Code(s): R18.8 - Other ascites Qualifiers: Ascites type: due to alcoholic cirrhosis Qualified Code(s): K70.31 - Alcoholic cirrhosis of liver with ascites (7) Abnormal urinalysis Current Visit: Yes Status: Acute Comment: She is covered with antibiotics Code(s): R82.90 - Unspecified abnormal findings in urine (8) Anemia Current Visit: Yes Status: Acute Comment: She status post 3 units of blood transfusions Code(s): D64.9 - Anemia, unspecified (9) Pneumonia Current Visit: Yes Status: Acute Comment: Yesterday after we put an NG the x-ray suggested maybe early pneumonia so I put her on antibiotics with Invanz and Levaquin. Today I hear more crackles that I did not hear yesterday so I will repeat a CT of the chest. I did discuss with her and her mother the gravity of her disease currently I offered them transfer elsewhere they wanted to stay here. I did discuss with them resuscitation status I told them that there is a possibility of respiratory failure and she may need to be on a ventilator and they agreed on being on a ventilator. I did tell them the prognosis is grim. If she is intubated then I did tell them that she will be transferred somewhere else they agreed. For now they want to stay here. Code(s): J18.9 - Pneumonia, unspecified organism (10) Acute renal failure Current Visit: Yes Status: Acute Comment: Kidney function seemed to be improved. Code(s): N17.9 - Acute kidney failure, unspecified (11) Thrombocytopenia Current Visit: Yes Status: Acute Comment: Likely secondary to bone marrow toxicity from alcohol Code(s): D69.6 - Thrombocytopenia, unspecified
[2017-09-18] MEDS ORDERED: Levofloxacin (Premix) 750 MG/150 ML PIGGYBACK IV SCH (13:45)
--- NOTE | 2017-09-18 15:00 | DI ---
CT CHEST SCAN WITHOUT IV CONTRAST, 09/18/2017 10:03 AM : Clinical History: Crackles in the left lung. Low-grade fever. This history was confirmed to me by the attending hospitalist. Previous Exam: None at this facility. Comparison is made with the most recent chest x-ray from 018. Scans are performed from the base of the neck to the lower lung bases without IV contrast. Sagittal a nd coronal images using non MIPS and MIPS technique are generated. The base of the neck and thoracic inlet are normal. There are no abnormal axillary, supraclavicular, mediastinal, or hilar nodes. The heart is normal. The patient has developed small to moderate size bi lateral pleural effusions that are new since the recent chest x-ray. Bilateral lower lobe atelectasis versus pneumonia is present. In the left upper lobe as well as the right upper lobe and right middle lobe are multiple almost spherical infiltrates some of which extend to the pleural surfaces. These a re not the typical appearance of pulmonary infarcts secondary to pulmonary embolism, but are more rem iniscent of "cotton-wool" infiltrates typically associated with septic emboli secondary to right-side d subacute bacterial endocarditis. What is somewhat unusual is that the lower lobes are almost spared of these infiltrates that have developed since the chest x-ray from 09/16/2017. The right internal ju gular catheter is in the distal superior vena cava. There is diffuse fatty infiltration of the liver with hepatomegaly. READIN. Interval development of small to moderate bilateral pleural effusions and either bilateral lower lobe atelectasis or early pneumonia. 2. There are bilateral patchy infiltrates involving the left upper lobe and lingular segment as well as the right upper lobe and right middle lobe. The pattern and appearance are suggestive for right-s ided SBE. 3. Hepatomegaly and diffuse fatty infiltration.
--- NOTE | 2017-09-18 15:05 | DI ---
CT ABDOMEN SCAN WITHOUT IV CONTRAST, 09/18/2017 10:04 AM : Clinical History: Abdominal distention. Liver disease. Previous Exam: 08/07/2017. Comparison is also made with the MRCP study performed on 06/14/2018. Scans are performed from the lower lung bases through the liver and kidneys without IV contrast. Sagi ttal and coronal reformatted images are generated. Moderate bilateral pleural effusions with bilateral lower lobe atelectasis versus pneumonia are prese nt. There is marked hepatomegaly with severe diffuse fatty infiltration. The patient is status post c holecystectomy. The common bile duct cannot be identified but there is no evidence of intrahepatic bi liary dilatation. There is no abnormality of the spleen, pancreas, and adrenal glands. Both kidneys a re normal in size, shape, position and contour. There is no hydronephrosis or hydroureter. No right r enal or ureteral calculi are present. There is a 10 mm nonobstructing left renal calculus in a lower pole calyx. No left ureteral calculus is seen. There are no abnormal retrocrural or periaortic nodes. There is ascites, approximately the same amount seen on the recent MRCP study. Diffuse anasarca is p resent. READIN. Hepatomegaly with diffuse fatty infiltration and moderate ascites. 2. 10 mm nonobstructing lower pole left renal calculus. 3. Diffuse anasarca. CT PELVIS SCAN WITHOUT IV CONTRAST, 09/18/2017 10:04 AM : Clinical History: See above. Previous Exam: None. Scans are performed from the inferior margin of the liver and kidneys to the symphysis pubis without IV contrast. There is no free fluid collection and there is no adenopathy. The appendix is normal. The small bowel , terminal ileum, and ileocecal valve are normal. The colon is also normal. There are no hernias. READING: Normal CT pelvis scan.
[2017-09-18] MEDS ORDERED: Vancomycin-PHA to Dose IV PRN (15:06)
[2017-09-18] MEDS: NORMAL SALINE 10 ML SYRINGE FLUSH IVP PRN (15:59)
[2017-09-18] MEDS ORDERED: Lactated Ringers 1,000 ML PRIMARY IV SCH (16:00)
--- NOTE | 2017-09-18 16:12 | OTI REPORT ---
Thank you for the referral of Darlin Orona. She was seen on 09/17/17 for an occupational therapy inpatient evaluation. SUBJECTIVE: The patient is a 37-year-old female who is being seen secondary to multiple issues. The patient lives at home with her mom. She suffers from agoraphobia. She has multiple wounds all over her body. She has a lot of liver issues from alcoholism. The patient reports over the last six weeks she has not had a drink of alcohol; however, per nursing reports, her levels are not looking well for her liver function and they are very concerned for her at this point in time. The patient states she just wants to work on her basic skills and getting slightly stronger. PAST MEDICAL HISTORY: Past medical history can be found in the patient's medical record. OBJECTIVE FINDINGS: General observations: Today the patient was laying in bed upon the therapist's arrival. Her mom was present during the session. The patient did refuse to get out of bed because her wounds were sticking to all of the bed padding. This is going to be further addressed with her doctor as well as with physical therapy. Activities of daily living: Per the patient's report as well as her mom's, the patient requires max assist for getting dressed. She is needing assistance to get up and to move around her home. The patient recently had a massive decline in her ability to care for herself. The patient requires max assist for lower and upper extremity dressing. Transfers: The patient requires max assist for functional transfers. Range of motion: Upper extremity range of motion is within normal limits for the shoulders and elbows; however, she is not able to extend her wrist past neutral. Strength: Strength in the shoulders was 3+/5 for shoulder flexion, 3/5 for shoulder abduction, elbow flexion/extension was 3/5, wrist extension was 2+/5, and wrist flexion was 3/5. Endurance: The patient demonstrates a lot of fatigue and weakness. She needs frequent rest breaks. ASSESSMENT: Psychologically the patient is having a lot of difficulties with coping. A couple times throughout the session the patient reported she felt very overwhelmed and needed a minute to think about the questions that were being asked. The patient is having a lot of medical difficulties at this point in time as well as physical and psychological difficulties. Nursing staff asked that we report to them before we attempt any therapy type activities as they are very concerned about her liver function and levels. Problem List: Decreased strength Short-Term Goals: To be met by discharge from inpatient: Patient will be able to sit edge of bed x5 minutes to complete simple ADL tasks. Patient will be able to participate in simple ADLs while sitting in bed with min assist. Patient will be able to shower with mod assist. Patient will be able to transfer to the commode with min assist. Patient will be able to dress self with min assist. Long-Term Goals: To be met following discharge from inpatient: Patient will be able to return home with her mom. TREATMENT PLAN: Patient will be seen PRN for the time being. At this time nursing is asking us to perform treatment as the patient is able to tolerate. They would like to get her more medically stable before we push her too much. INITIAL TREATMENT: Treatment today consisted of the initial evaluation. We worked on active range of motion of her upper extremities x10 repetitions for shoulder flexion, elbow flexion/extension, and wrist flexion/extension. The patient was very fatigued just completing these activities today. SHANELL
--- NOTE | 2017-09-18 16:17 | PT.PROG ---
Progress Note Progress Note: s. Patient agreed to have her wounds redresses. O. Patients wounds were cleaned with wound cleanser and gauze, her right knee, right foot and left elbow were dressed with medi honey, adaptic, kirlex and jerson-tube. Her hip was dressed with medi honey, adaptic and mepilex. Patient was left in bed with alarm and call light. A. patient's wounds have a serosanguineous drainage, punched out with clear borders. P. continue POC.
[2017-09-18 16:24] VITALS: RESP 24
--- NOTE | 2017-09-18 16:31 | PTI REPORT ---
Thank you for the referral of Darlin Orona. She was seen on 09/17/17 for an inpatient evaluation for wound care. SUBJECTIVE: The patient is a 37-year-old female. At the time of the evaluation the patient was very hesitant to speak with the physical therapist. According to the nursing staff, she feels very uncomfortable around people she does not know. They state she went to a doctor's appointment yesterday to fruit or nut picker a prescription and from the doctor's office she was sent to the emergency room to be admitted. The patient presented hardly being able to ambulate with an antalgic un-uniformed gait. According to the patient, she states her wounds started about a month ago with an insidious onset and burn consistently. PAST MEDICAL HISTORY: Past medical history can be found in the patient's medical record. OBJECTIVE FINDINGS: The patient was seen in her room in her hospital bed. The patient was unwilling to attempt to get up or stand due to the sores on her feet. Please refer to nursing notes for photographic evidence of all the wounds that she has. The wounds that were addressed by physical therapy were on her right hip, right popliteal fossa, and left elbow. Upon inspection, they almost appear self inflicted by the therapist's observation due to scratching and picking. They are all with irregular borders and difficult to measure. Again, please refer to nursing notes. The patient reports she has pain but was unable to rate it on the verbal analog scale (0=no pain, 10=worst pain). ASSESSMENT: Problem List: Open sores Risk of infection Physical Therapy Goals: To be met by discharge from inpatient: Patient will promote clean wound healing. TREATMENT PLAN: Patient will be seen on a PRN basis for wound care as needed. INITIAL TREATMENT: Treatment today consisted of the initial evaluation followed by cleansing the areas on her right hip, right popliteal fossa, and left elbow with wound cleanser and 4X4s and dressing the right knee and left elbow with Multidex on Adaptec over the wound site followed by wrapping with Kerlix and holding that in place with Surginet. On the right hip, Multidex was placed on an Adaptec and held in place with a Mepilex. The patient's observable sores on her sacrum and between her gluteal folds were not addressed at this time due to the patient wearing a brief and for fear of placing bandages in this area, promoting further skin irritation. SHANELL
[2017-09-18] MEDS ORDERED: Sodium Chloride 0.9% 250 ML IV ONE (16:32)
[2017-09-18 17:05] VITALS: BP 90/57; TEMP 98.7; O2SAT 97
[2017-09-18] MEDS ORDERED: Sodium Chloride 0.9% 1,000 ML ONE (17:06)
--- NOTE | 2017-09-18 17:13 | DCSUMMARY ---
Hospitalization Summary Admit Date: 09/16/2017 Discharge Date: 09/18/17 Hospital Course: Transfer diagnoses 1. Respiratory failure secondary to pneumonia 2. Bilateral pulmonary infiltrates 3. Alcoholic hepatitis 4. Agoraphobia 5. Anemia status post post 3 units of blood transfusion 6. Hypokalemia improved 7. Thrombocytopenia probably secondary to alcohol toxicity 8. Multiple skin ulcers some look like decubiti 9. Ascites 10. Bilateral pleural effusions 11. Chronic malnourishment 12. Acute renal failure improved 13. Gram-negative bacilli growing in the urine ID to follow. Hospital course This is a 37 years old female with medical history significant for history of alcoholic hepatitis, chronic alcohol abuse, history of previous anemia that needed blood transfusion in the past, who presented to Dr. [facility] to fill prescription she looked ill she was jaundice she had multiple sores of the skin and because of that she was referred directly to the hospital to be admitted. She was admitted by Dr. Rivera please see his notes. Because of the jaundice she did have an MRI to look for obstruction and there was no evidence of obstruction. She did have hypokalemia, renal failure, thrombocytopenia, and anemia. Because of a difficult IV access she had a central line. She was started on IV fluids and potassium replacement. Overnight her blood pressure dropped and she was given multiple fluid boluses her hemoglobin the next day was 4.4. I saw her and at that time we started blood transfusion she got 3 units of blood. We continued with potassium replacement. Because of her chronic malnourished state we started enteral feeding. Because of the hypotension blood culture was taken and I did start her on the Invanz. As we checked the position of the NG there was suggestion of early infiltrate or atelectasis at the left lower lobe so we added Levaquin. She needed 4 L of oxygen and her blood pressure did improve but stayed low in the low 90s. Today it was noted that she had more crackles than yesterday. So I did a CT of the chest and abdomen. That showed bilateral infiltrates. In addition to hepatomegaly I did speak with the tax professional at [facility] and he suggested to continue current treatment consider adding Vancomycin.. I did talk to the patient about transfer earlier today and also after the CT she wanted to stay here. later on her oxygen need did increase she needed to be on a BiPAP. In addition her blood pressure did drop again, we gave her fluid boluses. Because of the worsening respiratory failure, hypotension I did speak again with the [facility] [place] spoke with the hospitalist with Dr. Buck and also spoke with the ER physician Dr. Bar they both accepted the patient and patient will be transferred at one point. I did speak with the patient and her mother and they're agreeable to transfer now. Laboratory Results 09/18/17 09/18/17 09/18/17 Range/Units 04:40 04:40 04:40 WBC 10.90 H (4.8-10.8) 10^3/uL RBC 2.99 L (4.20-5.40) 10^6/uL Hgb 9.3 L (12.0-16.0) g/dL Hct 28.5 L (37.0-47.0) % MCV 95.3 (81-99) FL MCH 31.1 H (27-31) PG MCHC 32.6 L (33-37) g/dL RDW Std Deviation 61.5 H (39-50) fL RDW Coeff of Kaylin 19.6 H (11.5-14.5) % Plt Count 50 L (140-350) 10*3/uL Immature Gran % (Auto) 0.6 (0-5) % Neut % (Auto) 77.2 (50-80) % Lymph % (Auto) 14.6 (10-50) % Tillman % (Auto) 6.1 (5-15) % Eos % (Auto) 1.0 (0-8) % Baso % (Auto) 0.5 (0-1) % Immature Gran # (Auto) 0.07 10*3/UL Neut # (Auto) 8.42 10*3/UL Lymph # (Auto) 1.59 10*3/uL Tillman # (Auto) 0.66 (0.3-0.8) 10*3/UL Eos # (Auto) 0.11 10*3/UL Baso # (Auto) 0.05 10*3/UL WBC Morphology Comment Normal morphology (NORM) Plt Morphology Comment See comments (NORM) RBC Morph Comment Normal morphology (NORM) PT (9.7-11.4) secs INR (0.00-5.90) N/A ABG pH (7.35-7.45) ABG pCO2 (34-38) MMHG ABG pO2 (65-75) MMHG ABG HCO3 (22-26) ABG Total CO2 (23-27) MMOL/L ABG O2 Saturation (90-100) % ABG Base Excess (-2-2) MMOL/L Cade Test FiO2 Sodium 145 (135-145) meq/L Potassium 3.7 L (3.8-5.2) meq/L Chloride 115 H (98-112) meq/L Carbon Dioxide 18 L (23-33) meq/L Anion Gap 12 (5-20) BUN 5 L (7-22) mg/dL Creatinine 1.1 (0.50-1.20) mg/dL Estimated GFR 56 (>60 ml/min/1.73m(2)) BUN/Creatinine Ratio 4.54 L (6-20) Glucose 94 (78-110) mg/dL Calculated Osmolality 296.0 H (267-292) mOsm/kg Calcium 7.3 L (8.7-10.7) mg/dL Total Bilirubin 4.0 H (0.3-1.2) mg/dL AST 39 (8-39) IU/L ALT 25 (9-52) IU/L Alkaline Phosphatase 117 (38-126) IU/L Total Protein 4.4 L (6.1-8.0) g/dL Albumin 2.0 L (3.5-4.8) g/dL Globulin 2.4 L (2.50-4.10) g/dL Albumin/Globulin Ratio 0.80 L (1.3-2.0) mg/g HIV 1&2 Antibody Rapid Negative (N) HIV P24 Antigen Negative (N) 09/18/17 09/18/17 Range/Units 04:40 17:04 WBC (4.8-10.8) 10^3/uL RBC (4.20-5.40) 10^6/uL Hgb (12.0-16.0) g/dL Hct (37.0-47.0) % MCV (81-99) FL MCH (27-31) PG MCHC (33-37) g/dL RDW Std Deviation (39-50) fL RDW Coeff of Kaylin (11.5-14.5) % Plt Count (140-350) 10*3/uL Immature Gran % (Auto) (0-5) % Neut % (Auto) (50-80) % Lymph % (Auto) (10-50) % Tillman % (Auto) (5-15) % Eos % (Auto) (0-8) % Baso % (Auto) (0-1) % Immature Gran # (Auto) 10*3/UL Neut # (Auto) 10*3/UL Lymph # (Auto) 10*3/uL Tillman # (Auto) (0.3-0.8) 10*3/UL Eos # (Auto) 10*3/UL Baso # (Auto) 10*3/UL WBC Morphology Comment (NORM) Plt Morphology Comment (NORM) RBC Morph Comment (NORM) PT 17.8 H (9.7-11.4) secs INR 1.67 (0.00-5.90) N/A ABG pH 7.33 L (7.35-7.45) ABG pCO2 34 (34-38) MMHG ABG pO2 94 H (65-75) MMHG ABG HCO3 18 L (22-26) ABG Total CO2 19 L (23-27) MMOL/L ABG O2 Saturation 97 (90-100) % ABG Base Excess -8 L (-2-2) MMOL/L Cade Test Yes FiO2 100% bipap Sodium (135-145) meq/L Potassium (3.8-5.2) meq/L Chloride (98-112) meq/L Carbon Dioxide (23-33) meq/L Anion Gap (5-20) BUN (7-22) mg/dL Creatinine (0.50-1.20) mg/dL Estimated GFR (>60 ml/min/1.73m(2)) BUN/Creatinine Ratio (6-20) Glucose (78-110) mg/dL Calculated Osmolality (267-292) mOsm/kg Calcium (8.7-10.7) mg/dL Total Bilirubin (0.3-1.2) mg/dL AST (8-39) IU/L ALT (9-52) IU/L Alkaline Phosphatase (38-126) IU/L Total Protein (6.1-8.0) g/dL Albumin (3.5-4.8) g/dL Globulin (2.50-4.10) g/dL Albumin/Globulin Ratio (1.3-2.0) mg/g HIV 1&2 Antibody Rapid (N) HIV P24 Antigen (N) Exam - Vitals Vital Signs: Vital Signs Temperature 98.7 F Temperature Source Temporal Artery Scan Pulse Rate [Apical] 111 Pulse Rate [Pulse Oximeter] 93 Pulse Rate 107 Respiratory Rate 24 Blood Pressure [Right Arm] 90/57 Blood Pressure [Left Arm] 81/49 Blood Pressure 96/62 Pulse Ox 97 Oxygen Flow Rate 15 Oxygen Delivery Method Bi-PAP Height 5 ft 6 in Weight 109 lb 12.784 oz Patient Problems - Patient Problem List (1) Decubitus ulcer Status: Acute Code(s): L89.90 - Pressure ulcer of unspecified site, unspecified stage Qualifiers: Pressure ulcer location: sacral region Pressure ulcer stage: unstageable Qualified Code(s): L89.150 - Pressure ulcer of sacral region, unstageable Category: Medical (2) Cirrhosis Status: Acute Code(s): K74.60 - Unspecified cirrhosis of liver Qualifiers: Hepatic cirrhosis type: alcoholic cirrhosis Ascites presence: with ascites Qualified Code(s): K70.31 - Alcoholic cirrhosis of liver with ascites Category: Medical (3) Hypokalemia Status: Acute Code(s): E87.6 - Hypokalemia Category: Medical (4) Failure to thrive Status: Acute Category: Medical (5) Jaundice Status: Acute Code(s): R17 - Unspecified jaundice Category: Medical (6) Ascites Status: Acute Code(s): R18.8 - Other ascites Qualifiers: Ascites type: due to alcoholic cirrhosis Qualified Code(s): K70.31 - Alcoholic cirrhosis of liver with ascites Category: Medical (7) Abnormal urinalysis Status: Acute Code(s): R82.90 - Unspecified abnormal findings in urine Category: Medical (8) Anemia Status: Acute Code(s): D64.9 - Anemia, unspecified Category: Medical (9) Pneumonia Status: Acute Code(s): J18.9 - Pneumonia, unspecified organism Category: Medical (10) Acute renal failure Status: Acute Code(s): N17.9 - Acute kidney failure, unspecified Category: Medical (11) Thrombocytopenia Status: Acute Code(s): D69.6 - Thrombocytopenia, unspecified Category: Medical
[2017-09-18 17:15] LABS: ABG BASE EXCESS -8 MMOL/L (-2-2); ABG OXYGEN SATURATION 97 % (90-100); ABG PCO2 34 MMHG (34-38); ABG PH 7.33 (7.35-7.45); ABG PO2 94 MMHG (65-75); COLLECTION SITE LEFT RADIAL
[2017-09-18 17:16] LABS: ALLEN TEST YES
[2017-09-18 22:11] LABS: URINE SAMPLE TYPE CATH SPECIMEN
== END 2017-09-18 18:05 | disposition short-term general hospital (02) | DRG 193 ==
LOC: MED/SURG 12:09
PROVIDERS: ADMIT Family Medicine; ATTEND Family Medicine

== ENCOUNTER 2018-07-13 11:58 | Inpatient (IN) ==
[2018-07-13] MEDS ORDERED: LORazepam 2 MG/1 ML VIAL IVP ONE (12:04)
[2018-07-13] MEDS ORDERED: Sodium Chloride 0.9% 1,000 ML PRIMARY IV ONE (12:04)
[2018-07-13] MEDS ORDERED: ONDANSETRON 4 MG/2 ML VIAL IVP ONE (12:04)
--- NOTE | 2018-07-13 12:08 | PDOC ---
Abdomen/Flank HPI - General Chief Complaint: Neck / Back Complaint Stated Complaint: ASCITES Date Seen by Provider: 07/13/18 Time Seen by Provider: 11:55 Source: POSITIVE: Patient, EMS Exam Limitations: POSITIVE: No limitations Nurse's Notes Reviewed & Considered: Yes EMS Report Reviewed & Considered: Verbal - History of Present Illness Initial Comments: This is a well-developed, malnourished and cachectic appearing 37-year-old female who presents with left upper quadrant abdominal pain, abdominal distention, a fluid wave, and malnutrition. Patient was seen by her primary care provider's nurse at home yesterday, directed to the provider's office this morning. Primary care provider then directed her to the emergency room. Patient has been recently hospitalized at [facility] for approximately a week for TPN and was discharged after 6 days. Patient states she is here today so that she can get healthy. Timing: REPORTS: Unknown Duration: Unknown Severity: Severe Quality: REPORTS: "Pain" Abdominal Pain Onset Location: REPORTS: LUQ Abdominal Pain Radiation: REPORTS: LUQ Context: REPORTS: Other (Severe malnutrition) Modifying Factors: improves with: Nothing Associated Symptoms: REPORTS: Fatigue Similar Symptoms Previously: Yes Recent Care Received: REPORTS: Hospitalized Any Prior Injuries Related to Current Complaint?: No - Patient Home Medications Home Medications: Home Medications Multivitamin Tab [Thera Tab] 1 tab PO DAILY tab 02/22/17 Cholecalciferol [Vitamin D] 1,000 unit PO DAILY 08/07/17 pantoprazole 40 mg tablet,delayed release 40 mg PO DAILY #90 tab 02/12/18 hydrocortisone 2.5 % topical cream 1 applic TOPICAL BID #453.6 g 05/17/18 clonazepam 0.5 mg tablet 0.5 mg PO TID PRN #90 tab 06/29/18 oxycodone 10 mg tablet 10 mg PO TID PRN tab 06/29/18 cholecalciferol (vitamin D3) 400 unit capsule 400 unit PO QDAY #30 cap 06/30/18 docusate sodium 100 mg capsule 100 mg PO QDAY #30 cap 06/30/18 hydroxyzine HCl 25 mg tablet 25 mg PO BID #60 tab 06/30/18 mirtazapine 15 mg tablet 15 mg PO QHS #30 tab 06/30/18 ondansetron 4 mg disintegrating tablet 4 mg SL PRN PRN #30 tab 06/30/18 polyethylene glycol 3350 17 gram/dose oral powder 238 g PO ONCE #119 g 06/30/18 thiamine HCl (vitamin B1) 100 mg tablet 100 mg PO QDAY #30 tab 06/30/18 zinc oxide (bulk) powder 1 ea PO DAILY #500 g 06/30/18 spironolactone 50 mg tablet 50 mg PO DAILY #30 tab 07/02/18 Furosemide [Lasix] 10 mg PO BID 07/13/18 - Patient Allergies Allergies/Adverse Reactions: Allergies 3 Allergy/AdvReac Type Severity Reaction Status Date / Time aspirin Allergy Severe NOT Verified 07/13/18 12:09 APPLICABLE Penicillins AdvReac RASH Verified 07/13/18 12:09 Past Medical History - heen HEENT History: Other (please comment) Additional HEENT History: Seasonal alleriges, blurred vision and gets "cross- eyed" a lot. Cardiovascular History: Other (please comment) Additional Cardiovasular History: HEART MURMUR Respiratory History: Denies History Gastrointestinal History: GERD, Peptic Ulcer Disease, Pancreatitis Additional Gastrointestinal History: glabbladder removed in 2009 Genitourinary History: Denies History Endocrine History: Denies History Musculoskeletal History: Muscle Weakness Prosthesis or Implant: No Additional Musculoskeletal History: Increasing weakness in the last month. Neurological History: Denies History Blood Disorders: Anemia Psychiatric History: Anxiety Disorders, Eating Disorders, Other (please comment) Additional Psychiatric History: Agoraphobia. Anorexia and Bolemia (treated for in 2009) History of Sexually Transmitted Diseases: No Cancer History: Denies History History of MDRO: No History of Other Communicable Diseases: No Alcohol Use: Heavy In the Past 12 Months, Have Used or Abuse Any Substance: None Previous Surgical History: Yes Type / Date of Surgery: 2009 gallbladder removed. EGD Anesthesia Reactions: No Malignant Hyperthermia: No Significant Family History: Cancer, Other (please comment) Additional Family History: Anemia ROS - Limitations ROS Limitations: No Limitations Constitution: REPORTS: Chills Cardiovascular: REPORTS: Denies Cardiac Symptoms Respiratory: REPORTS: Denies Resp Symptoms Neurological: REPORTS: Denies Neuro Symptoms Gastrointestinal: REPORTS: Abdominal Pain Endocrine: REPORTS: Denies Symptoms Musculoskeletal: REPORTS: Denies MS Symptoms Genitourinary: REPORTS: Denies Symptoms Eyes: REPORTS: Denies Symptoms ENT: REPORTS: Denies Symptoms Skin: REPORTS: Denies Skin Symptoms Lympathic: REPORTS: Denies Lympathic Symptoms Immunologic: POSITIVE: Denies Symptoms Psychiatric: POSITIVE: Denies Psych Symptoms Abdominal/Flank Pain PE - General Appearance General Appearance: POSITIVE: Alert, Cooperative, No Acute Distress, No Evidence of Trauma - HEENT HEENT: POSITIVE: Head Inspection Nml, Eyes Inspection Nml, Ears Inspection Nml, Nose Inspection Nml, Oral/Dental Inspect. Nml, Pharynx Inspect. Nml, PERRL, EOMI - Neck Neck: POSITIVE: Normal Inspection, No Apparent Injury - Respiratory Respiratory: POSITIVE: No Respiratory Distress, Breath Sounds Normal, Chest Non- Tender - Cardiovascular Cardiovascular: POSITIVE: Regular Rate and Rhythm, Heart Sounds Normal, Strong Pulses Peripheral Pulses: Radial (L): 4+ - Chest Chest: POSITIVE: Non Tender - Abdomen Abdomen: Normal Bowel Sounds: (All Quadrants), Denies Tenderness: (RLQ), (RUQ), No Splenomegaly: (All Quadrants), No Hepatomegaly: (All Quadrants), No Guarding : (RLQ), (RUQ), No Rebound: (All Quadrants), No Palpable Pulse: (All Quadrants) , No Palpabale Mass: (All Quadrants), Tenderness Noted: (LUQ), (LLQ), Distention : (All Quadrants) - Back Back: POSITIVE: Normal Inspection - Skin Skin: POSITIVE: Intact, Normal For Race, Warm, Dry, No Rash - Extremities Extremity: Non-Tender: (All Extremities), Normal ROM: (All Extremities), Normal Inspection: (All Extremities), Pelvis Stable: (All Extremities) - Neurological Neurological: POSITIVE: Affect Apporpriate, Oriented X3, Motor Normal, Sensation Normal - Psychological Psychiatric: POSITIVE: Affect Appropriate, Mood Appropriate Abdomen Progress - Results Reviewed by me Xrays/CTs/US Reviewed by me: Yes Discussed with Radiologist: Yes Lab Results Reviewed by Me: Yes CBC and BMP: 07/13/18 12:57 07/13/18 12:57 - Patient's Progress Pain Medication Addressed: POSITIVE: Not Applicable Re-examine Time: 16:35 Status: POSITIVE: Improved - Consult Consult (If Yes, Name of Consulting MD & Time Called): Yes (Dr. Hoyt, 1630 hrs) Counseled: POSITIVE: Patient, Family, RE: Lab Results, RE: Radiology Results, RE : DX, RE: Need for F/U Patient Care Time - Estimated PCT Patient Care Time (In Minutes): 45 Vital Signs - VS Reviewed Vital Signs Reviewed: Yes Discharge Clinical Impression: Anemia, Ascites, Hypokalemia, Abdominal pain, Hypocalcemia Discharge Disposition: Admit to Inpatient Condition: Stable Patient Instructions Given at Discharge: Abdominal Pain (ED) Follow Up With: ROXANA GOMEZ [Primary Care Provider] - Date Decision to Admit to Inpatient: 07/13/18 Time Decision to Admit to Inpatient: 16:38
[2018-07-13 13:03] LABS: BASOPHILS # (AUTO) 0.02 10*3/UL; BASOPHILS % (AUTO) 0.3 % (0-1); EOSINOPHILS # (AUTO) 0.04 10*3/UL; EOSINOPHILS % (AUTO) 0.7 % (0-8); Hematocrit [HCT] 29.2 % (37.0-47.0); Hemoglobin [HGB] 10.2 g/dL (12.0-16.0); LYMPHOCYTES # (AUTO) 1.09 10*3/uL; MEAN CORPUSCULAR HEMOGLOBIN 37.5 PG (27-31); MEAN CORPUSCULAR HGB CONC 34.9 g/dL (33-37); MEAN CORPUSCULAR VOLUME 107.4 FL (81-99); MEAN PLATELET VOLUME 11.9 FL (7.4-12.2); MONOCYTES # (AUTO) 0.59 10*3/UL (0.3-0.8); MONOCYTES % (AUTO) 9.6 % (5-15); NEUTROPHILS % (AUTO) 71.5 % (50-80); RED BLOOD COUNT 2.72 10^6/uL (4.20-5.40)
[2018-07-13 13:21] LABS: PLATELET MORPHOLOGY COMMENT NORMAL MORPHOLOGY (NORM); RBC MORPHOLOGY COMMENT NORMAL MORPHOLOGY (NORM); WBC MORPHOLOGY COMMENT NORMAL MORPHOLOGY (NORM)
[2018-07-13 13:26] LABS: BUN/CREATININE RATIO 9.16 (6-20); SERUM ALBUMIN 2.1 g/dL (3.5-4.8)
[2018-07-13] MEDS ORDERED: D5-1/2NS + 40mEq KCL 1,000 ML, Magnesium Sulfate 2gm (Premix) 50 ML with Multivitamin I... IV ONE ×10 (13:37→16:56)
[2018-07-13] MEDS: Sodium Chloride 0.9% 1,000 ML with Multivitamin Inj 10 ML, Thiamine Inj 100 MG, Folic A... IV ONE ×12 (14:30→15:10)
--- NOTE | 2018-07-13 15:12 | DI ---
CT ABDOMEN SCAN WITHOUT IV CONTRAST, 07/13/2018 12:04 PM : Clinical History: Left upper quadrant pain. Abdominal distention with a fluid wave. Previous Exam: 09/18/2017. Scans are performed from the lower lung bases through the liver and kidneys without IV contrast. Sagi ttal and coronal reformatted images are generated. No oral or rectal contrast was ordered. There is discoid atelectasis in the right lower lobe. The patient is markedly cachectic and has lost substantial subcutaneous fat when compared to the previous study. There is hepatomegaly with diffuse fatty infiltration. The liver density is almost isodense with the surrounding ascites making assessme nt of nodularity of the liver capsule impossible. The patient is status post cholecystectomy and the common bile duct is isodense with respect to the surrounding tissues still very measurement is not po ssible. Both adrenal glands and the spleen are normal. The pancreas is atrophic but normal. Both kidn eys are normal in size, shape, position and contour. There is no hydronephrosis or hydroureter. There is mild pelviectasis of the left kidney without true hydronephrosis. There is a 10 mm nonobstructing left lower pole renal calculus. There is no calculus in the right kidney or in either ureter. There are no abnormal retrocrural or periaortic nodes. Massive ascites is present. READIN. Massive ascites. 2. Diffuse fatty infiltration of the liver with hepatomegaly. The spleen is normal in size. 3. Nonobstructing 10 mm left lower pole renal calculus. 4. Marked cachexia. The patient has lost extensive subcutaneous fat since the previous CT scan. CT PELVIS SCAN WITHOUT IV CONTRAST, 07/13/2018 12:04 PM : Clinical History: See above. Previous Exam: 09/18/2017. Scans are performed from the inferior margin of the liver and kidneys to the symphysis pubis without IV contrast. Scans through the lower abdomen and pelvis show massive ascites. No pelvic mass is present. There is no adenopathy. The appendix is not visualized. The colon from the cecum to the distal descending colo n shows marked thickening of the mucosa , and this may represent colitis. The redundant sigmoid colon and rectum are normal. The uterus and both ovaries are suspended in the ascites and/or diminutive in size but are otherwise normal. There are no hernias. READIN. Massive ascites. 2. Mucosal thickening of the colon from the cecum to the distal descending colon probably representi ng colitis.
[2018-07-13 16:59] LABS: BILIRUBIN,URINE MODERATE (NEG); CLARITY,URINE CLEAR (CLEAR); COLOR,URINE YELLOW (Y); GLUCOSE, URINE (UA) NEGATIVE (NEG); OCCULT BLOOD,URINE NEGATIVE (NEG); PH,URINE 6.5 (5.0-8.5); PROTEIN,URINE NEGATIVE (NEG)
[2018-07-13 17:03] LABS: URINE SAMPLE TYPE CLEAN CATCH URINE
[2018-07-13] MEDS ORDERED: MAGNESIUM SULFATE IV ONE (17:08)
[2018-07-13] MEDS ORDERED: LIDOCAINE HCL 2 % 10 ML JELLY URO-JECT TOPICAL PRN (17:08)
[2018-07-13] MEDS ORDERED: SODIUM CHLORIDE 0.9% IV ONE (17:08)
[2018-07-13] MEDS ORDERED: MORPHINE SULFATE 2 MG/1 ML IVP PRN (17:08)
[2018-07-13] MEDS ORDERED: LIDOCAINE W/ SODIUM BICARB 0.5 ML SYR SUBD PRN (17:08)
--- NOTE | 2018-07-13 17:10 | PDOC ---
HPI - History of Present Illness History of Present Illness: This very nice 37-year-old female with a history of cirrhosis alcohol abuse and anorexia very malnourished and cachectic was sent to the ER from by her primary care physician. Patient has been recently hospitalized in [facility] for week for TPN and after 6-7 days. Apparently according to the primary care physician patient has a bed in the hospital in [place] for her CR and anorexia but she does not have apayer source so they will not take her there. Family glasses involved trying to help her with the enrolling her in the [place] Medicaid. In the meanwhile I was asked to admit her here I did talk to the family and her mother and the patient and the primary care physician I recommended as well as the ER doctor did David Coughlin that she will belong to the [facility] patient does not want to go there once to be kept here in [place] with the understanding that I will do the best I can with my expertise and resources. They both understand. We need a critical-care gastroenterology which we do not have here and they both understand with that my best effort and therapy patient could still have a negative alcohol, and could result in . I talked to the patient and her mother with Dr. Ewing present ER physician and the nurse in the ER. Central line was placed in the ER I did discuss the case with the eICU which rapidly with this case we will be replacing potassium and magnesium calcium and nutrition I don't think I'm able to get TPN until tomorrow Past Medical History Medical History: 1. Chronic anemia, probably related to cirrhosis and malnutrition. Status post EGD and colonoscopy in the past with infrared treatment of her hemorrhoids. 2. History of agoraphobia. 3. Ascites. 4. Skin rash of unclear etiology. 5. Tobacco abuse Surgical History: 1. History of cholecystectomy. 2. EGD and colonoscopy as mentioned above she had some inflammatory changes on EGD but no ulcers, and had hemorrhoids on her colonoscopy. Pertinent Family History: Mother describes herself as healthy. Grandfather had peptic ulcer. Father may have had some thyroid problems Past Social History: Patient stopped drinking in the first part of August. She smokes about a cigarette per day. She has agoraphobia so she stays mostly at home. She had one son but gave him up for adoption. Tobacco Use: Current Every Day Smoker Do you dip or chew tobacco: No In the Past 12 Months, Have Used or Abuse Any of the Following Substance: None Medication / Allergies Home Medications: Home Medications 3 Medication Instructions Recorded Confirmed Type Multivitamin Tab [Thera Tab] 1 tab PO DAILY tab 02/22/17 07/13/18 Rx Cholecalciferol [Vitamin D] 1,000 unit PO DAILY 08/07/17 07/13/18 History pantoprazole 40 mg tablet,delayed 40 mg PO DAILY #90 tab 02/12/18 07/13/18 Rx release hydrocortisone 2.5 % topical cream 1 applic TOPICAL BID #453.6 g 05/17/18 Rx clonazepam 0.5 mg tablet 0.5 mg PO TID PRN #90 tab 06/29/18 07/13/18 Rx oxycodone 10 mg tablet 10 mg PO TID PRN tab 06/29/18 07/13/18 History cholecalciferol (vitamin D3) 400 400 unit PO QDAY #30 cap 06/30/18 07/13/18 Rx unit capsule docusate sodium 100 mg capsule 100 mg PO QDAY #30 cap 06/30/18 07/13/18 Rx hydroxyzine HCl 25 mg tablet 25 mg PO BID #60 tab 06/30/18 07/13/18 Rx mirtazapine 15 mg tablet 15 mg PO QHS #30 tab 06/30/18 07/13/18 Rx ondansetron 4 mg disintegrating 4 mg SL PRN PRN #30 tab 06/30/18 07/13/18 Rx tablet polyethylene glycol 3350 17 238 g PO ONCE #119 g 06/30/18 07/13/18 Rx gram/dose oral powder thiamine HCl (vitamin B1) 100 mg 100 mg PO QDAY #30 tab 06/30/18 07/13/18 Rx tablet zinc oxide (bulk) powder 1 ea PO DAILY #500 g 06/30/18 07/13/18 Rx spironolactone 50 mg tablet 50 mg PO DAILY #30 tab 07/02/18 07/13/18 Rx Furosemide [Lasix] 10 mg PO BID 07/13/18 07/13/18 History Allergies/Adverse Reactions: Allergies 3 Allergy/AdvReac Type Severity Reaction Status Date / Time aspirin Allergy Severe NOT Verified 07/13/18 12:09 APPLICABLE Penicillins AdvReac RASH Verified 07/13/18 12:09 Review of Systems - Review of Systems All Systems: Reviewed & No Additional Complaints Except as Stated - Respiratory Respiratory: DENIES: Negative System Review, Cough, Sputum, Dyspnea At Rest, Dyspnea with Exertion, Pleuritic Pain, Hemoptysis, Wheezing, Other, See HPI - Cardiovascular Cardiovascular: DENIES: Negative System Review, Chest Pain, Edema, Syncope, Palpitations, Orthopnea, Paroxysmal Nocturnal Dyspnea, Other, See HPI - Gastrointestinal Gastrointestinal / Abdominal: REPORTS: Nausea, Bloating Exam - Vitals Vital Signs: Vital Signs Temperature 97.0 F Temperature Source Temporal Artery Scan Pulse Rate [Pulse Oximeter 99 Right] Respiratory Rate 14 Blood Pressure [Left Arm] 81/60 Pulse Ox 96 Oxygen Delivery Method Room Air Height 5 ft 6 in Weight 97 lb - General General Appearance: No Acute Distress, Cooperative - Eye Eye Exam: POSITIVE: Normal Appearance, PERRL, EOMI, No Scleral Icterus - Neck Neck Exam: Normal Inspection, Full ROM, No Tenderness, No Lymphadenopathy, No Thyromegaly, JVP is not Raised - Respiratory Respiratory Exam: POSITIVE: Clear to Auscultation - Bilaterally, Breathing Non Labored, Normal To Percussion, Normal to Percussion and Palpation - Cardiovascular Cardiovascular Exam: POSITIVE: RRR, No Murmur, No Clicks, No Gallops, No Rubs, PMI Non-Displaced - GI/Abdominal GI/Abdominal Exam: POSITIVE: Positive for Ascites - Extremities Extremities Exam: POSITIVE: No Clubbing Present, No Edema Present Results - Labs CBC and BMP: 07/13/18 12:57 07/13/18 12:57 Assessment and Plan - Patient Problems (1) Anemia Current Visit: Yes Status: Acute Code(s): D64.9 - Anemia, unspecified (2) Ascites Current Visit: Yes Status: Acute Code(s): R18.8 - Other ascites Qualifiers: (3) Hypocalcemia Current Visit: Yes Status: Acute Code(s): E83.51 - Hypocalcemia (4) Hypokalemia Current Visit: Yes Status: Acute Code(s): E87.6 - Hypokalemia (5) Alcohol abuse Current Visit: No Status: Acute Code(s): F10.10 - Alcohol abuse, uncomplicated (6) Cirrhosis Current Visit: No Status: Acute Code(s): K74.60 - Unspecified cirrhosis of liver Qualifiers: Hepatic cirrhosis type: alcoholic cirrhosis Ascites presence: with ascites Qualified Code(s): K70.31 - Alcoholic cirrhosis of liver with ascites (7) Elevated LFTs Current Visit: No Status: Acute Code(s): R94.5 - Abnormal results of liver function studies (8) Iron deficiency anemia Current Visit: No Status: Acute Code(s): D50.9 - Iron deficiency anemia, unspecified Qualifiers: Iron deficiency anemia type: chronic blood loss Qualified Code(s): D50.0 - Iron deficiency anemia secondary to blood loss (chronic) (9) Malnourished Current Visit: No Status: Chronic Code(s): E46 - Unspecified protein- calorie malnutrition Qualifiers: - Assessment / Plan Additional Assessment/Plan Details: Patient is admitted to the ICU initiate electrolyte replacement and IV fluids with banana bags potassium riders magnesium infusions calcium patient might need to be tapped tomorrow morning we will determine that later stress case with nursing and ER physician
[2018-07-13] MEDS ORDERED: Magnesium Sulfate 2gm (Premix) 2 GM/50 ML BAG IV ONE (17:15)
[2018-07-13] MEDS ORDERED: MORPHINE SULFATE 2 MG/1 ML IV PRN (17:17)
[2018-07-13] MEDS ORDERED: MORPHINE SULFATE 4 MG/1 ML IV PRN (17:17)
[2018-07-13] MEDS ORDERED: MORPHINE SULFATE 10 MG/1 ML IV PRN (17:17)
[2018-07-13] MEDS ORDERED: Calcium Gluconate Inj 1,000 MG in Sodium Chloride 0.9% 100 ML IV ONE (17:45)
[2018-07-13] MEDS: Spironolactone Tab 50 MG TAB PO SCH (17:54)
[2018-07-13] MEDS ORDERED: Magnesium Sulfate 4gm (Premix) 4 GM/100 ML BAG IV ONE (17:55)
[2018-07-13] MEDS ORDERED: PHYTONADIONE 10 MG/1 ML AMPULE PO ONE (17:57)
[2018-07-13] MEDS ORDERED: CALCIUM CHLORIDE 10% (100 MG/1 ML) - 10 ML SYRINGE IVP ONE (17:57)
[2018-07-13] MEDS ORDERED: CYANOCOBALAMIN 1000 MCG/1 ML VIAL IM ONE (17:58)
[2018-07-13] MEDS ORDERED: Fat Emulsions Inj 20% 250 ML IV SCH (18:00)
--- NOTE | 2018-07-13 18:10 | DI ---
AP CHEST X-RAY, 07/13/2018 4:10 PM : Clinical History: Marked cachexia. The patient will require hyperalimentation. Verification of cathet er tip location. Previous Exam: 06/15/2018. Soft Tissues: No acute soft tissue or bony abnormality. The patient is markedly cachectic and actuall y has lost weight since the prior exam. Heart: Normal heart. Lungs: No infiltrate or effusion. The catheter is inserted from the left internal jugular approach an d the catheter tip is in the distal superior vena cava. There is no pneumothorax. Left lower lobe ate lectasis is present. Mediastinum: Normal mediastinum. Nodules: No pulmonary nodules. Readin. Left lower lobe atelectasis. There is no pneumothorax. 2. Catheter tip is in the distal superior vena cava.
[2018-07-13 18:32] LABS: SERUM ALBUMIN 1.9 g/dL (3.5-4.8)
[2018-07-13] MEDS: oxyCODONE IR Tab 5 MG TAB PO PRN (18:40)
[2018-07-13] MEDS: ClonazePAM Tab 1 MG TABLET PO PRN (18:40)
[2018-07-13] MEDS: HEPARIN 5000 UNIT/1 ML SUBCUT SCH (18:41)
[2018-07-13] MEDS: POTASSIUM CHLORIDE 20 MEQ TAB PO SCH (19:11)
[2018-07-13] MEDS ORDERED: Aa 3%/Electrolyte-Tpn/Gly 1,000 ML PRIMARY IV SCH (20:00)
[2018-07-13] MEDS: Mirtazapine Tab 15 MG TAB PO SCH (20:55)
[2018-07-13] MEDS: NICOTINE 21 MG /DAY PATCH TRANSDERM SCH (20:55)
[2018-07-13] MEDS: FUROSEMIDE 20 MG TABLET PO SCH (20:55)
[2018-07-13 22:39] LABS: BUN/CREATININE RATIO 7.85 (6-20)
[2018-07-14] MEDS: HEPARIN 5000 UNIT/1 ML SUBCUT SCH ×3 (01:58→16:30)
[2018-07-14] MEDS: oxyCODONE IR Tab 5 MG TAB PO PRN ×3 (02:14→18:23)
[2018-07-14 02:56] LABS: BUN/CREATININE RATIO 7.85 (6-20)
[2018-07-14 05:29] LABS: BUN/CREATININE RATIO 7.85 (6-20); SERUM ALBUMIN 1.9 g/dL (3.5-4.8)
[2018-07-14 05:32] LABS: BASOPHILS # (AUTO) 0.02 10*3/UL; BASOPHILS % (AUTO) 0.4 % (0-1); EOSINOPHILS # (AUTO) 0.04 10*3/UL; EOSINOPHILS % (AUTO) 0.7 % (0-8); Hematocrit [HCT] 24.2 % (37.0-47.0); Hemoglobin [HGB] 8.3 g/dL (12.0-16.0); LYMPHOCYTES # (AUTO) 1.32 10*3/uL; MEAN CORPUSCULAR HEMOGLOBIN 37.2 PG (27-31); MEAN CORPUSCULAR HGB CONC 34.3 g/dL (33-37); MEAN CORPUSCULAR VOLUME 108.5 FL (81-99); MEAN PLATELET VOLUME 12.3 FL (7.4-12.2); MONOCYTES # (AUTO) 0.55 10*3/UL (0.3-0.8); NEUTROPHILS # (AUTO) 3.59 10*3/UL; RED BLOOD COUNT 2.23 10^6/uL (4.20-5.40)
[2018-07-14 06:00] LABS: PLATELET MORPHOLOGY COMMENT NORMAL MORPHOLOGY (NORM); WBC MORPHOLOGY COMMENT NORMAL MORPHOLOGY (NORM)
[2018-07-14 06:01] LABS: RBC MORPHOLOGY COMMENT SEE COMMENTS (NORM)
[2018-07-14] MEDS: ClonazePAM Tab 1 MG TABLET PO PRN ×2 (07:33→17:29)
[2018-07-14] MEDS: MAGNESIUM OXIDE 400 MG TABLET PO SCH (07:33)
[2018-07-14] MEDS: ONDANSETRON 4 MG/2 ML VIAL IV PRN ×2 (07:47→16:30)
[2018-07-14] MEDS: PANTOPRAZOLE IV 40 MG VIAL IVP SCH (08:45)
[2018-07-14] MEDS: CHOLECALCIFEROL 1000 IU TABLET PO SCH (08:45)
[2018-07-14] MEDS: Thiamine Tab 100 MG TAB PO SCH (08:45)
[2018-07-14] MEDS: Spironolactone Tab 50 MG TAB PO SCH (08:45)
[2018-07-14] MEDS: FUROSEMIDE 20 MG TABLET PO SCH (08:46)
[2018-07-14] MEDS: POTASSIUM CHLORIDE 20 MEQ TAB PO SCH ×3 (08:46→20:06)
[2018-07-14] MEDS ORDERED: MINERAL OIL TOPICAL PRN (10:15)
[2018-07-14] MEDS ORDERED: PETROLATUM TOPICAL PRN (10:15)
[2018-07-14] MEDS: HYDROXYZINE PAMOATE 25 MG CAPSULE PO SCH ×2 (10:25→20:04)
[2018-07-14] MEDS: DOCUSATE 100 MG CAPSULE PO SCH (10:26)
[2018-07-14] MEDS: AA-Dext 5%-20%/Calcium/Lytes 1,000 ML PRIMARY IV SCH (10:27)
--- NOTE | 2018-07-14 11:04 | PDOC(PROG) ---
Interval History: Patient feels a little better less tired. No chest pain nausea or vomiting no fever continue TPN and electrolyte replacement Objective : Data - Labs CBC and BMP: 07/14/18 05:02 07/14/18 05:02 Objective : Exam - General General Appearance: Cooperative - Respiratory Respiratory Exam: Clear to Auscultation - Bilaterally, Breathing Non Labored, Normal To Percussion, Normal to Percussion and Palpation - Cardiovascular Cardiovascular Exam: RRR, No Murmur, No Clicks, No Gallops, No Rubs, PMI Non- Displaced - GI/Abdominal GI/Abdominal Exam: Normal Bowel Sounds, Non Tender, Soft, Positive for Ascites - Extremities Extremities Exam: No Clubbing Present, No Edema Present Assessment and Plan - Patient Problems (1) Anemia Current Visit: Yes Status: Acute Comment: Chronic malnourished continue TPN Code(s): D64.9 - Anemia, unspecified Qualifiers: Anemia type: iron deficiency (2) Ascites Current Visit: Yes Status: Acute Comment: No fever or pain abdominal pain at present time continue TPN and nutrition IV Lasix and Aldactone Code(s): R18.8 - Other ascites Qualifiers: (3) Hypocalcemia Current Visit: Yes Status: Acute Comment: Continue to replenish Code(s): E83.51 - Hypocalcemia (4) Hypokalemia Current Visit: Yes Status: Acute Comment: Being replaced Code(s): E87.6 - Hypokalemia (5) Alcohol abuse Current Visit: No Status: Acute Code(s): F10.10 - Alcohol abuse, uncomplicated (6) Cirrhosis Current Visit: No Status: Acute Code(s): K74.60 - Unspecified cirrhosis of liver Qualifiers: Hepatic cirrhosis type: alcoholic cirrhosis Ascites presence: with ascites Qualified Code(s): K70.31 - Alcoholic cirrhosis of liver with ascites (7) Elevated LFTs Current Visit: No Status: Acute Code(s): R94.5 - Abnormal results of liver function studies (8) Iron deficiency anemia Current Visit: No Status: Acute Code(s): D50.9 - Iron deficiency anemia, unspecified Qualifiers: Iron deficiency anemia type: chronic blood loss Qualified Code(s): D50.0 - Iron deficiency anemia secondary to blood loss (chronic) (9) Malnourished Current Visit: No Status: Chronic Code(s): E46 - Unspecified protein- calorie malnutrition Qualifiers:
[2018-07-14 13:16] LABS: BUN/CREATININE RATIO 8.46 (6-20); SERUM ALBUMIN 1.8 g/dL (3.5-4.8)
[2018-07-14] MEDS ORDERED: Fat Emulsions Inj 20% 250 ML IV SCH (16:15)
[2018-07-14 16:25] LABS: BUN/CREATININE RATIO 7.14 (6-20); SERUM ALBUMIN 1.9 g/dL (3.5-4.8)
[2018-07-14] MEDS ORDERED: ONDANSETRON 4 MG/2 ML VIAL IVP ONE (17:44)
[2018-07-14] MEDS ORDERED: Albumin Human Soln 25% 25 GM/100 ML IV.SOLN IV ONE ×2 (17:53→21:36)
[2018-07-14] MEDS: Mirtazapine Tab 15 MG TAB PO SCH (20:03)
[2018-07-14] MEDS: NICOTINE 21 MG /DAY PATCH TRANSDERM SCH (20:04)
[2018-07-14 20:14] LABS: BUN/CREATININE RATIO 7.14 (6-20); SERUM ALBUMIN 2.4 g/dL (3.5-4.8)
[2018-07-14 21:47] LABS: Hematocrit [HCT] 23.9 % (37.0-47.0); Hemoglobin [HGB] 7.5 g/dL (12.0-16.0)
[2018-07-15] MEDS: HEPARIN 5000 UNIT/1 ML SUBCUT SCH ×4 (00:05→17:06)
[2018-07-15 00:10] LABS: BUN/CREATININE RATIO 7.14 (6-20); SERUM ALBUMIN 2.8 g/dL (3.5-4.8)
[2018-07-15 05:18] LABS: BASOPHILS # (AUTO) 0.02 10*3/UL; BASOPHILS % (AUTO) 0.4 % (0-1); EOSINOPHILS # (AUTO) 0.01 10*3/UL; EOSINOPHILS % (AUTO) 0.2 % (0-8); LYMPHOCYTES # (AUTO) 1.84 10*3/uL; MEAN CORPUSCULAR HEMOGLOBIN 35.5 PG (27-31); MEAN CORPUSCULAR HGB CONC 31.7 g/dL (33-37); MEAN CORPUSCULAR VOLUME 111.8 FL (81-99); MEAN PLATELET VOLUME 12.2 FL (7.4-12.2); MONOCYTES # (AUTO) 0.57 10*3/UL (0.3-0.8); MONOCYTES % (AUTO) 11.9 % (5-15); NEUTROPHILS # (AUTO) 2.35 10*3/UL; RED BLOOD COUNT 1.86 10^6/uL (4.20-5.40)
[2018-07-15 05:21] LABS: BUN/CREATININE RATIO 7.85 (6-20); SERUM ALBUMIN 2.4 g/dL (3.5-4.8)
[2018-07-15 05:31] LABS: Hemoglobin [HGB] 6.6 g/dL (12.0-16.0)
[2018-07-15 05:32] LABS: Hematocrit [HCT] 20.8 % (37.0-47.0); PLATELET MORPHOLOGY COMMENT NORMAL MORPHOLOGY (NORM); RBC MORPHOLOGY COMMENT SEE COMMENTS (NORM); WBC MORPHOLOGY COMMENT NORMAL MORPHOLOGY (NORM)
[2018-07-15] MEDS ORDERED: Sodium Chloride 0.9% 500 ML PRIMARY IV ONE (05:42)
--- NOTE | 2018-07-15 06:58 | DI ---
EXAM: CT Abdomen and Pelvis Without Intravenous Contrast CLINICAL HISTORY: ITS.REASON eval for bleeding Physician Notes: Tech Comments: TECHNIQUE: Axial computed tomography images of the abdomen and pelvis without intravenous contrast. COMPARISON: 07/13/18 FINDINGS: Lung bases: Interval worsening bibasilar airspace disease/atelectasis. Pleural space: Interval development of small bilateral pleural effusions, left greater than right. ABDOMEN: Liver: Enlarged liver. Gallbladder and bile ducts: Status post cholecystectomy. No ductal dilation. Pancreas: Unremarkable. No ductal dilation. Spleen: Unremarkable. No splenomegaly. Adrenals: Unremarkable. No mass. Kidneys and ureters: Left renal calcification, unchanged. No hydronephrosis. Stomach and bowel: Redemonstration of diffuse thickening of the colonic wall. Scattered air-fluid levels within small bowel loops, worse compared to the prior study which may reflect ileus. No obstruction. PELVIS: Appendix: No findings to suggest acute appendicitis. Bladder: Unremarkable. No stones. Reproductive: Unremarkable as visualized. ABDOMEN and PELVIS: Intraperitoneal space: Redemonstration of large volume ascites, slightly increased. No free air. Streaky density in the intra-abdominal fat and along the mesentery, unchanged. Retroperitoneal space: No retroperitoneal hemorrhage. Bones/joints: No acute fracture. No dislocation. Soft tissues: Unremarkable. Vasculature: Unremarkable. No abdominal aortic aneurysm. Lymph nodes: Unremarkable. No enlarged lymph nodes. IMPRESSION: No retroperitoneal hematoma. Redemonstration of large ascites, slightly increased. Interval development of small bilateral pleural effusions and worsening bibasilar airspace disease/atelectasis. Redemonstration of colitis. Diffuse ileus, slightly worse.
[2018-07-15] MEDS: MIDODRINE 10 MG PO SCH ×3 (08:01→16:26)
[2018-07-15] MEDS: MAGNESIUM OXIDE 400 MG TABLET PO SCH (08:01)
[2018-07-15] MEDS ORDERED: LIDOCAINE 2% 20 MG/ML - 20 ML VIAL SUBCUT PRN (08:27)
[2018-07-15] MEDS ORDERED: Lidocaine 1% 10 MG/ML - 20 ML VIAL SUBCUT PRN (08:27)
[2018-07-15 08:31] LABS: BUN/CREATININE RATIO 7.14 (6-20); SERUM ALBUMIN 2.3 g/dL (3.5-4.8)
[2018-07-15] MEDS: HYDROXYZINE PAMOATE 25 MG CAPSULE PO SCH ×2 (09:07→20:21)
[2018-07-15] MEDS: PANTOPRAZOLE IV 40 MG VIAL IVP SCH (09:08)
[2018-07-15] MEDS: POTASSIUM CHLORIDE 20 MEQ TAB PO SCH ×2 (09:08→20:20)
[2018-07-15] MEDS: Thiamine Tab 100 MG TAB PO SCH (09:08)
[2018-07-15] MEDS: DOCUSATE 100 MG CAPSULE PO SCH (09:08)
[2018-07-15] MEDS: Spironolactone Tab 50 MG TAB PO SCH (09:08)
[2018-07-15] MEDS: CHOLECALCIFEROL 1000 IU TABLET PO SCH (09:08)
[2018-07-15] MEDS: oxyCODONE IR Tab 5 MG TAB PO PRN ×3 (09:17→18:18)
[2018-07-15] MEDS: HEPARIN 500 UNIT/5 ML SYRINGE FOR CENTRAL LINE IVP PRN (09:18)
[2018-07-15] MEDS: ClonazePAM Tab 1 MG TABLET PO PRN ×2 (09:36→18:18)
[2018-07-15] MEDS: ONDANSETRON 4 MG/2 ML VIAL IV PRN ×2 (09:38→18:26)
[2018-07-15] MEDS: AA-Dext 5%-20%/Calcium/Lytes 1,000 ML PRIMARY IV SCH (11:48)
--- NOTE | 2018-07-15 12:10 | DI ---
AP CHEST X-RAY, 07/15/2018 8:27 AM : Clinical History: Anemia. Malnutrition. Needs long-term IV access for hyperalimentation. Verification of PICC line catheter position. Previous Exam: 07/13/2018. Soft Tissues: No acute soft tissue or bony abnormality. Marked cachexia. Heart: Normal heart. Lungs: No infiltrate or effusion. Mediastinum: Normal mediastinum. Nodules: No pulmonary nodules. Catheter Tip: The final film shows the PICC line to be in the distal superior vena cava. Reading: Normal chest x-ray. PICC line catheter tip is in the distal superior vena cava.
--- NOTE | 2018-07-15 12:12 | DI ---
ULTRASOUND GUIDED VENOUS ACCESS, 07/15/2018 8:27 AM Clinical History: Anemia. Malnutrition. The patient requires long-term IV access for hyperalimentatio n. Previous Exam: None at this facility. 2D ultrasound was used to identify the right brachial vein for venous access to place a PICC line. Th e puncture site was prepped with ChloraPrep with Tint and draped in the usual sterile fashion. This v ein was successfully cannulated using realtime ultrasound guidance. The introducer sheath was advance d and positioned without difficulty. Reading: Successful and uncomplicated cannulation of the right brachial vein.
--- NOTE | 2018-07-15 12:14 | DI ---
INSERTION OF PICC LINE, 07/15/2018 8:27 AM: Clinical History: Anemia. Malnutrition. The patient requires long-term IV access for hyperalimentatio n. Technique: A "time out" session was performed to verify the patient's name and date of prior to obtaining informed signed consent prior for this procedure. The right arm was prepped with ChloraPre p with Tint. Venipuncture was achieved under sterile conditions as already described in the ultrasoun d report. A 5 [place] double lumen Bard Power Picc Solo PICC catheter was inserted without difficulty. The tip position was initially identified with an AP portable chest x-ray and then adjusted as polo herbert. The standard dry sterile dressing kit was used to secure the catheter. The patient tolerated th e procedure well and was discharged in stable condition. Standard orders for wound care and dressing changes were written. Financial Coach: Christian Schneider MD Nurse Coordinator: None. Complications/Medications: None. Reading: PICC line placement as above.
[2018-07-15 12:43] LABS: Hematocrit [HCT] 22.9 % (37.0-47.0); Hemoglobin [HGB] 7.3 g/dL (12.0-16.0)
[2018-07-15 12:54] LABS: BUN/CREATININE RATIO 6.66 (6-20); SERUM ALBUMIN 2.5 g/dL (3.5-4.8)
[2018-07-15] MEDS ORDERED: LIDOCAINE 2% 20 MG/ML - 20 ML VIAL ONE (13:59)
[2018-07-15] MEDS ORDERED: Albumin Human Soln 25% 25 GM/100 ML IV.SOLN IV ONE (16:02)
[2018-07-15 16:19] LABS: WBC, BODY FLUID 2.667 10*3/uL
[2018-07-15] MEDS ORDERED: cefTRIAXone Inj 2 GM in Sodium Chloride 0.9% 100 ML IV SCH (18:00)
--- NOTE | 2018-07-15 18:05 | PDOC(PROG) ---
Date of Service: 07/15/18 Time of Service: 18:00 Interval History: Patient seen throughout day. Had some abdominal tenderness on exam. Could not sit up very well because ascites. Not short of breath. Denied chest pain. States she is eating, but apparently only chicken broths and my discussion with dietary. Minimal urine output today very concerning given known ascites and cirrhosis from alcohol use. Objective : Data - Labs CBC and BMP: 07/15/18 12:00 07/15/18 12:00 Additional Lab Results: 07/15/18 07/15/18 07/15/18 04:18 12:00 15:44 Hgb 6.6 L* Hct 20.8 L* Calcium 7.1 L Total Bilirubin 3.6 H AST 37 ALT 35 Alkaline Phosphatase 250 H Total Protein 5.6 L Albumin 2.5 L Globulin 3.1 Albumin/Globulin Ratio 0.80 L Fluid WBC 2.667 Fluid RBC 0.001 Fluid Polynuclear WBCs 78.9 Fluid Mononuclear WBCs 21.1 Peritoneal Color Yellow Peritoneal Appearance Cloudy Peritoneal Volume 10 Objective : Exam - General General Appearance: No Acute Distress, Cooperative, Thin Additional General Exam Details: Vital Signs - Last Taken Temperature 98.4 F 07/15/18 17:00 Pulse Rate 94 07/15/18 17:58 Respiratory Rate 16 07/15/18 17:58 Blood Pressure 83/61 07/15/18 17:58 Pulse Ox 94 07/15/18 17:58 Patient and mother state to me that they normally note hypotension at home with systolics ranging in the 70s to 80s. Patient appears ill, nontoxic - Head Head Exam: Atraumatic Additional Head Exam Details: Temporal wasting - Eye Eye Exam: Scleral Icterus (Mild) - Respiratory Respiratory Exam: Clear to Auscultation - Bilaterally, Breathing Non Labored - Cardiovascular Cardiovascular Exam: RRR, No Murmur, No Clicks, No Gallops, No Rubs, No JVD - GI/Abdominal GI/Abdominal Exam: Normal Bowel Sounds, Positive for Ascites (Tense ascites noted) Additional GI/Abdominal Exam Details: Mild tenderness to palpation significantly improved post paracentesis - Extremities Extremities Exam: No Clubbing Present, No Cyanosis Present, +2 Edema (2+ pedal and ankle edema) - Neurological Neurological Exam: Alert, Oriented x 3, No Facial Droop, Speech Intact / Clear, Moves All Extremities Equally - Psychiatric Psychiatric Exam: Flat Affect - Integumentary Integumentary Exam: Rash (Mild rash present but not overly erythematous.) Assessment and Plan - Patient Problems (1) Spontaneous bacterial peritonitis Current Visit: Yes Status: Acute Code(s): K65.2 - Spontaneous bacterial peritonitis (2) Cirrhosis Current Visit: No Status: Acute Code(s): K74.60 - Unspecified cirrhosis of liver Qualifiers: Hepatic cirrhosis type: alcoholic cirrhosis Ascites presence: with ascites Qualified Code(s): K70.31 - Alcoholic cirrhosis of liver with ascites (3) Hypokalemia Current Visit: Yes Status: Acute Code(s): E87.6 - Hypokalemia (4) Iron deficiency anemia Current Visit: Yes Status: Acute Code(s): D50.9 - Iron deficiency anemia, unspecified Qualifiers: Iron deficiency anemia type: inadequate dietary iron intake Qualified Code( s): D50.8 - Other iron deficiency anemias (5) Ascites Current Visit: Yes Status: Acute Code(s): R18.8 - Other ascites Qualifiers: Ascites type: due to alcoholic cirrhosis (6) Anemia Current Visit: Yes Status: Acute Code(s): D64.9 - Anemia, unspecified Qualifiers: Anemia type: iron deficiency (7) Malnourished Current Visit: Yes Status: Chronic Code(s): E46 - Unspecified protein- calorie malnutrition Qualifiers: Malnutrition type: protein-calorie malnutrition Protein-calorie malnutrition severity: severe Qualified Code(s): E43 - Unspecified severe protein-calorie malnutrition (8) Hypocalcemia Current Visit: Yes Status: Acute Code(s): E83.51 - Hypocalcemia (9) Acute renal failure Current Visit: Yes Status: Acute Code(s): N17.9 - Acute kidney failure, unspecified Qualifiers: Acute renal failure type: unspecified Qualified Code(s): N17.9 - Acute kidney failure, unspecified - Assessment / Plan Additional Assessment/Plan Details: Overall, with tense ascites, increasing creatinine, I felt that paracentesis was in order to make sure that there was no evidence of spontaneous bacterial peritonitis. The patient was consented, agreed to the procedure, felt better afterwards, see the procedure note separately this dictation. Unfortunately, the studies duplicate that the patient has spontaneous bacterial peritonitis. This needs to be treated and all start Rocephin tonight. Check labs tomorrow. Hopefully, the creatinine will improve and urine output will improve. If it does not despite treatment of spontaneous bacterial peritonitis it could be that we are seeing this patient developed pedal renal syndrome which could prove to me significantly high mortality for this patient. Place PICC line today and we'll continue her IV nutrition with TPN. Discussed with patient and mother at bedside with RN present that patient may be in a very bad situation from a health perspective and we will know more tomorrow seeing labs, particularly now in the setting of possible SBP. Given that the patient does have SBP, again , this does not farooq well for her overall outcome and prognosis. MELD-Na score is 23, 14-15% 90 day mortality. strict I and O's again, prognosis guarded. greatly appreciate e-ICU support.
--- NOTE | 2018-07-15 18:16 | PROCEDURE1 ---
Procedure - - Procedure Performed: Paracentesis : With Imaging Procedure Note: Procedure performed: Paracentesis Consent was obtained from the patien. Indication for procedure was the following: Indication for procedure: Ascites/cirrhosis comments, concern for SBP Description of procedure: The patient was prepped and draped in the usual fashion after ultrasound guidance helped us isolate the largest ascites pocket we could find. In this case it was located at left lower quadrant region. Exiting was used to cleanse the skin. Lidocaine was used for local anesthesia. A #10 blade was then used perform a small dermatotomy. A fenestrated catheter with a surrounding large- bore blunt tipped needle was then inserted using a Z-line approach with a 60 mL syringe then attached. A total of 60 mL was drawn up and then removed along with the large bore blunt tipped needle. The catheter was left in peritoneal space. Peritoneal fluid in the syringe was sent for analysis in a purple top, green top, and red top tube. The fluid appeared cloudy and yellow greenish on my view. A total of or thousand 750 mL was withdrawn via Vacutainer bottles. The catheter was then withdrawn. The insertion site was dressed with gauze and Tegaderm, with no evidence of peritoneal leak or blood loss. Anesthesia: Local with lidocaine. Estimated blood loss: None Disposition: Patient is admitted to the hospital in serious condition.[id number] Complications: None apparent at time of procedure.
[2018-07-15] MEDS: NICOTINE 21 MG /DAY PATCH TRANSDERM SCH (20:21)
[2018-07-15] MEDS: Mirtazapine Tab 15 MG TAB PO SCH (20:23)
[2018-07-15] MEDS ORDERED: Fat Emulsions Inj 20% 250 ML IV SCH (21:00)
[2018-07-16] MEDS: HEPARIN 5000 UNIT/1 ML SUBCUT SCH ×3 (01:11→19:15)
[2018-07-16 05:10] LABS: BASOPHILS # (AUTO) 0.02 10*3/UL; BASOPHILS % (AUTO) 0.3 % (0-1); EOSINOPHILS # (AUTO) 0.06 10*3/UL; Hematocrit [HCT] 29.8 % (37.0-47.0); Hemoglobin [HGB] 9.9 g/dL (12.0-16.0); LYMPHOCYTES # (AUTO) 1.83 10*3/uL; MEAN CORPUSCULAR HEMOGLOBIN 33.4 PG (27-31); MEAN CORPUSCULAR HGB CONC 33.2 g/dL (33-37); MEAN CORPUSCULAR VOLUME 100.7 FL (81-99); MEAN PLATELET VOLUME 12.8 FL (7.4-12.2); MONOCYTES # (AUTO) 0.65 10*3/UL (0.3-0.8); MONOCYTES % (AUTO) 10.8 % (5-15); NEUTROPHILS # (AUTO) 3.44 10*3/UL; NEUTROPHILS % (AUTO) 57.3 % (50-80); RED BLOOD COUNT 2.96 10^6/uL (4.20-5.40)
[2018-07-16 05:36] LABS: SERUM ALBUMIN 2.5 g/dL (3.5-4.8)
[2018-07-16 06:00] LABS: WBC MORPHOLOGY COMMENT NORMAL MORPHOLOGY (NORM)
[2018-07-16 06:01] LABS: RBC MORPHOLOGY COMMENT SEE COMMENTS (NORM)
[2018-07-16 06:15] LABS: PLATELET MORPHOLOGY COMMENT SEE COMMENTS (NORM)
[2018-07-16] MEDS: MIDODRINE 10 MG PO SCH ×3 (07:10→15:52)
[2018-07-16] MEDS: MAGNESIUM OXIDE 400 MG TABLET PO SCH (07:10)
[2018-07-16] MEDS: oxyCODONE IR Tab 5 MG TAB PO PRN ×3 (07:20→19:14)
[2018-07-16] MEDS: ClonazePAM Tab 1 MG TABLET PO PRN ×3 (07:21→19:14)
[2018-07-16] MEDS: POTASSIUM CHLORIDE 20 MEQ TAB PO SCH ×2 (08:44→20:36)
[2018-07-16] MEDS: Thiamine Tab 100 MG TAB PO SCH (08:44)
[2018-07-16] MEDS: HEPARIN 500 UNIT/5 ML SYRINGE FOR CENTRAL LINE IVP PRN (08:44)
[2018-07-16] MEDS: HYDROXYZINE PAMOATE 25 MG CAPSULE PO SCH ×2 (08:44→20:36)
[2018-07-16] MEDS: Spironolactone Tab 50 MG TAB PO SCH (08:44)
[2018-07-16] MEDS: CHOLECALCIFEROL 1000 IU TABLET PO SCH (08:44)
[2018-07-16] MEDS: PANTOPRAZOLE IV 40 MG VIAL IVP SCH (08:44)
[2018-07-16] MEDS: ONDANSETRON 4 MG/2 ML VIAL IV PRN (08:55)
[2018-07-16] MEDS: DOCUSATE 100 MG CAPSULE PO SCH (09:04)
[2018-07-16] MEDS: AA-Dext 5%-20%/Calcium/Lytes 1,000 ML PRIMARY IV SCH ×2 (10:22→11:15)
[2018-07-16] MEDS ORDERED: Multivitamin Tab 1 TAB PO ONE ×2 (12:34→13:34)
[2018-07-16] MEDS ORDERED: Albumin Human Soln 25% 25 GM/100 ML IV.SOLN IV SCH ×2 (12:36→13:36)
[2018-07-16] MEDS ORDERED: POTASSIUM PHOSHATE IV ONE (12:40)
[2018-07-16] MEDS ORDERED: D5W IV ONE (12:40)
[2018-07-16] MEDS ORDERED: AA-Dext 5%-20%/Calcium/Lytes 1,000 ML PRIMARY IV SCH (13:00)
--- NOTE | 2018-07-16 13:17 | PDOC(PROG) ---
Date of Service: 07/16/18 Time of Service: 13:11 (over 90 minutes spent in direct and indirect care) Interval History: no complaints of chest pain no shortness of breath no nausea or vomiting. [employer] reported diarrhea today. Objective : Data - Labs CBC and BMP: 07/16/18 04:30 07/16/18 04:30 Additional Lab Results: 07/16/18 07/16/18 07/16/18 04:30 04:30 10:16 PT 13.4 H INR 1.30 Calcium 7.3 L Phosphorus 2.2 L Magnesium 2.7 H Total Bilirubin 2.6 H AST 29 ALT 31 Alkaline Phosphatase 200 H Total Protein 5.3 L Albumin 2.5 L Globulin 2.8 Albumin/Globulin Ratio 0.80 L Objective : Exam - General General Appearance: No Acute Distress, Cooperative Additional General Exam Details: Vital Signs - Last Taken Temperature 97.9 F 07/16/18 12:00 Pulse Rate 87 07/16/18 13:00 Respiratory Rate 18 07/16/18 13:00 Blood Pressure 84/60 07/16/18 13:00 Pulse Ox 97 07/16/18 13:00 - Eye Eye Exam: No Scleral Icterus - ENT ENT Exam: Mucous Membranes Moist - Neck Neck Exam: JVP is not Raised - Respiratory Respiratory Exam: Clear to Auscultation - Bilaterally, Breathing Non Labored - Cardiovascular Cardiovascular Exam: RRR, No Murmur, No Clicks, No Gallops, No Rubs, No JVD - GI/Abdominal GI/Abdominal Exam: Normal Bowel Sounds, Non Tender, Positive for Ascites - Extremities Extremities Exam: No Clubbing Present, No Cyanosis Present, Pedal Edema, +2 Edema - Neurological Neurological Exam: Alert, Oriented x 3, No Facial Droop, Speech Intact / Clear, Moves All Extremities Equally - Psychiatric Psychiatric Exam: Flat Affect - Central Line Examination Central Line Present on Admission: Yes Central Line Type: PICC Line (no erythema.) Assessment and Plan - Patient Problems (1) Kwashiorkor Current Visit: Yes Status: Acute Code(s): E40 - [place] (2) Spontaneous bacterial peritonitis Current Visit: Yes Status: Acute Code(s): K65.2 - Spontaneous bacterial peritonitis (3) Hypokalemia Current Visit: Yes Status: Acute Code(s): E87.6 - Hypokalemia (4) Iron deficiency anemia Current Visit: Yes Status: Acute Code(s): D50.9 - Iron deficiency anemia, unspecified Qualifiers: Iron deficiency anemia type: inadequate dietary iron intake Qualified Code( s): D50.8 - Other iron deficiency anemias (5) Ascites Current Visit: Yes Status: Acute Code(s): R18.8 - Other ascites Qualifiers: Ascites type: other type Qualified Code(s): R18.8 - Other ascites (6) Malnourished Current Visit: Yes Status: Chronic Code(s): E46 - Unspecified protein- calorie malnutrition Qualifiers: Malnutrition type: protein-calorie malnutrition Protein-calorie malnutrition severity: severe Qualified Code(s): E43 - Unspecified severe protein-calorie malnutrition (7) Electrolyte abnormality Current Visit: Yes Status: Acute Code(s): E87.8 - Other disorders of electrolyte and fluid balance, not elsewhere classified (8) Body dysmorphic disorder Current Visit: Yes Status: Acute Code(s): F45.22 - Body dysmorphic disorder (9) Anorexia Current Visit: Yes Status: Acute Code(s): R63.0 - Anorexia - Assessment / Plan Additional Assessment/Plan Details: after reviewing recent abdominal CT scan, the patient does not have cirrhosis. The patient actually has fatty liver disease from kwashiorkor and severe protein calorie malnutrition. The ascites and pedal and lower extremity edema, skin rash, flat affect, are all related to kwashiorkor. The best plan is to continue replacement of electrolytes, improve nutrition, and get patient to a center for treatment of body dysmorphic disorder and anorexia. trying to explore transfer options. treat SBP, watch cultures, and consider prophylactic therapy. awaiting culture results--reincubated for growth check vitamin levels increase thiamine to BID for at least two weeks, then daily therafter. MVI electrolyte replacement labs in AM try to get fluid albumin for SAAG today vs waiting for send out if possible.
[2018-07-16] MEDS ORDERED: MINERAL OIL TOPICAL PRN (13:34)
[2018-07-16] MEDS ORDERED: PETROLATUM TOPICAL PRN (13:34)
[2018-07-16] MEDS: cefTRIAXone Inj 2 GM in Sodium Chloride 0.9% 100 ML IV SCH (19:15)
[2018-07-16] MEDS: Vancomycin Oral Soln 125 MG/5 ML (7500MG/300ML) BOTTLE PO SCH (19:15)
[2018-07-16] MEDS: NICOTINE 21 MG /DAY PATCH TRANSDERM SCH (19:15)
[2018-07-16] MEDS: Mirtazapine Tab 15 MG TAB PO SCH (20:36)
[2018-07-16] MEDS ORDERED: metroNIDAZOLE Tab 500 MG TAB PO SCH (21:00)
[2018-07-17] MEDS: Vancomycin Oral Soln 125 MG/5 ML (7500MG/300ML) BOTTLE PO SCH ×4 (00:07→19:10)
[2018-07-17] MEDS: HEPARIN 5000 UNIT/1 ML SUBCUT SCH ×3 (03:56→19:10)
[2018-07-17 05:00] LABS: BASOPHILS # (AUTO) 0.04 10*3/UL; BASOPHILS % (AUTO) 0.6 % (0-1); EOSINOPHILS # (AUTO) 0.06 10*3/UL; EOSINOPHILS % (AUTO) 0.9 % (0-8); Hematocrit [HCT] 29.3 % (37.0-47.0); Hemoglobin [HGB] 9.5 g/dL (12.0-16.0); LYMPHOCYTES # (AUTO) 1.68 10*3/uL; MEAN CORPUSCULAR HEMOGLOBIN 33.2 PG (27-31); MEAN CORPUSCULAR HGB CONC 32.4 g/dL (33-37); MEAN CORPUSCULAR VOLUME 102.4 FL (81-99); MEAN PLATELET VOLUME 12.3 FL (7.4-12.2); MONOCYTES # (AUTO) 0.77 10*3/UL (0.3-0.8); MONOCYTES % (AUTO) 12.1 % (5-15); NEUTROPHILS # (AUTO) 3.82 10*3/UL; NEUTROPHILS % (AUTO) 59.9 % (50-80); RED BLOOD COUNT 2.86 10^6/uL (4.20-5.40)
[2018-07-17 05:19] LABS: BUN/CREATININE RATIO 6.92 (6-20); CHOL/HDL RATIO 5.19 RATIO (0-4.0); SERUM ALBUMIN 2.9 g/dL (3.5-4.8)
[2018-07-17 05:56] LABS: PLATELET MORPHOLOGY COMMENT NORMAL MORPHOLOGY (NORM); RBC MORPHOLOGY COMMENT NORMAL MORPHOLOGY (NORM); WBC MORPHOLOGY COMMENT NORMAL MORPHOLOGY (NORM)
[2018-07-17] MEDS: MIDODRINE 10 MG PO SCH ×3 (07:44→15:01)
[2018-07-17] MEDS: MAGNESIUM OXIDE 400 MG TABLET PO SCH (07:44)
[2018-07-17] MEDS: ClonazePAM Tab 1 MG TABLET PO PRN ×2 (07:58→15:01)
[2018-07-17] MEDS: oxyCODONE IR Tab 5 MG TAB PO PRN ×3 (07:58→21:00)
[2018-07-17] MEDS ORDERED: Multivitamin Tab 1 TAB PO SCH (09:00)
[2018-07-17] MEDS: HYDROXYZINE PAMOATE 25 MG CAPSULE PO SCH ×2 (09:38→21:00)
[2018-07-17] MEDS: Multivitamin Tab 1 TAB PO SCH (09:38)
[2018-07-17] MEDS: CHOLECALCIFEROL 1000 IU TABLET PO SCH (09:39)
[2018-07-17] MEDS: Thiamine Tab 100 MG TAB PO SCH (09:39)
[2018-07-17] MEDS ORDERED: Potassium Chloride 20mEq Packet PO SCH (10:45)
--- NOTE | 2018-07-17 10:46 | PDOC(PROG) ---
Date of Service: 07/17/18 Time of Service: 10:41 Interval History: Had a little shoulder pain that is completely resolved now. Complains of some cramping but diarrhea has eased up some. She would like to try probiotic and I think that makes some sense. Sometimes the microbiome in kwashiorkor can cause significant issues with persistent malnutrition. No nausea or vomiting. No chest pain and no shortness of breath. Objective : Data - Labs CBC and BMP: 07/17/18 04:58 07/17/18 04:58 Additional Lab Results: 07/16/18 07/16/18 07/17/18 13:54 13:54 04:58 Calcium 7.9 L Phosphorus 3.2 Magnesium 2.3 Total Bilirubin 2.4 H AST 29 ALT 30 Alkaline Phosphatase 162 H Total Protein 5.7 L Albumin 2.9 L Globulin 2.8 Albumin/Globulin Ratio 1.00 L Triglycerides 138 Cholesterol 109 L LDL Cholesterol, Calc 60.400 VLDL Cholesterol 27 HDL Cholesterol 21 L Cholesterol/HDL Ratio 5.19 H Vitamin B12 > 1000 H Vitamin D 25-Hydroxy 88.2 Objective : Exam - General General Appearance: No Acute Distress, Cooperative - Eye Eye Exam: No Scleral Icterus - ENT ENT Exam: Mucous Membranes Moist - Neck Neck Exam: JVP is not Raised - Respiratory Respiratory Exam: Clear to Auscultation - Bilaterally, Breathing Non Labored - Cardiovascular Cardiovascular Exam: No Murmur, No Clicks, No Gallops, No Rubs, Tachycardia, No JVD - GI/Abdominal GI/Abdominal Exam: Normal Bowel Sounds, Non Tender, Soft, Positive for Ascites - Extremities Extremities Exam: No Clubbing Present, No Cyanosis Present, Pedal Edema - Neurological Neurological Exam: Alert, Oriented x 3, No Facial Droop, Speech Intact / Clear, Moves All Extremities Equally - Psychiatric Psychiatric Exam: Flat Affect Assessment and Plan - Patient Problems (1) [place]or Current Visit: Yes Status: Acute Code(s): E40 - [place] (2) C. difficile diarrhea Current Visit: Yes Status: Acute Code(s): A04.72 - Enterocolitis due to Clostridium difficile, not specified as recurrent (3) Spontaneous bacterial peritonitis Current Visit: Yes Status: Acute Code(s): K65.2 - Spontaneous bacterial peritonitis (4) Hypokalemia Current Visit: Yes Status: Acute Code(s): E87.6 - Hypokalemia (5) Iron deficiency anemia Current Visit: Yes Status: Acute Code(s): D50.9 - Iron deficiency anemia, unspecified Qualifiers: Iron deficiency anemia type: inadequate dietary iron intake Qualified Code( s): D50.8 - Other iron deficiency anemias (6) Ascites Current Visit: Yes Status: Acute Code(s): R18.8 - Other ascites Qualifiers: Ascites type: other type Qualified Code(s): R18.8 - Other ascites (7) Malnourished Current Visit: Yes Status: Chronic Code(s): E46 - Unspecified protein- calorie malnutrition Qualifiers: Malnutrition type: protein-calorie malnutrition Protein-calorie malnutrition severity: severe Qualified Code(s): E43 - Unspecified severe protein-calorie malnutrition (8) Electrolyte abnormality Current Visit: Yes Status: Acute Code(s): E87.8 - Other disorders of electrolyte and fluid balance, not elsewhere classified (9) Body dysmorphic disorder Current Visit: Yes Status: Acute Code(s): F45.22 - Body dysmorphic disorder (10) Anorexia Current Visit: Yes Status: Acute Code(s): R63.0 - Anorexia - Assessment / Plan Additional Assessment/Plan Details: Really encouraged patient to increase some good nutrition content food in her diet. We'll try some beets today and some other vegetables. Continue TPN. Add probiotic. Vancomycin by mouth for C. difficile colitis. Today is day 3 of Rocephin therapy. This is for spontaneous bacterial peritonitis. I like to continue that for at least another 2 days and then potentially go to something prophylactically to prevent spontaneous bacterial peritonitis from recurring. Still awaiting culture results. We should hopefully know this next week on potential for Medicaid, which may play into final disposition. Ultimately, the patient would benefit from a comprehensive treatment Center for severe protein malnutrition, kwashiorkor, body dysmorphic disorder, and anorexia. I'm going to give the patient a lab holiday tomorrow.
[2018-07-17] MEDS: POTASSIUM CHLORIDE 20 MEQ TAB PO SCH (12:12)
[2018-07-17] MEDS: AA-Dext 5%-20%/Calcium/Lytes 1,000 ML PRIMARY IV SCH (12:58)
[2018-07-17] MEDS: ACIDOPHILUS/BULGARICUS 1 EACH GRAN.PACK PO SCH ×2 (15:00→20:59)
[2018-07-17] MEDS: NICOTINE 21 MG /DAY PATCH TRANSDERM SCH (19:10)
[2018-07-17] MEDS: cefTRIAXone Inj 2 GM in Sodium Chloride 0.9% 100 ML IV SCH (19:10)
[2018-07-17] MEDS: Mirtazapine Tab 15 MG TAB PO SCH (21:01)
[2018-07-18] MEDS: Vancomycin Oral Soln 125 MG/5 ML (7500MG/300ML) BOTTLE PO SCH ×4 (00:18→19:15)
[2018-07-18] MEDS: oxyCODONE IR Tab 5 MG TAB PO PRN ×4 (00:29→20:54)
[2018-07-18] MEDS: HEPARIN 5000 UNIT/1 ML SUBCUT SCH ×3 (03:52→19:14)
[2018-07-18] MEDS: MIDODRINE 10 MG PO SCH ×3 (06:48→15:28)
[2018-07-18] MEDS: MAGNESIUM OXIDE 400 MG TABLET PO SCH (06:48)
[2018-07-18] MEDS: ClonazePAM Tab 1 MG TABLET PO PRN ×3 (06:49→20:54)
[2018-07-18] MEDS: ONDANSETRON 4 MG/2 ML VIAL IV PRN (07:08)
[2018-07-18] MEDS: HEPARIN 500 UNIT/5 ML SYRINGE FOR CENTRAL LINE IVP PRN ×3 (07:16→13:59)
[2018-07-18] MEDS: CHOLECALCIFEROL 1000 IU TABLET PO SCH (09:21)
[2018-07-18] MEDS: ACIDOPHILUS/BULGARICUS 1 EACH GRAN.PACK PO SCH ×3 (09:21→20:53)
[2018-07-18] MEDS: Multivitamin Tab 1 TAB PO SCH (09:21)
[2018-07-18] MEDS: Potassium Chloride 20mEq Packet PO SCH (09:21)
[2018-07-18] MEDS: HYDROXYZINE PAMOATE 25 MG CAPSULE PO SCH ×2 (09:21→20:53)
[2018-07-18] MEDS: Thiamine Tab 100 MG TAB PO SCH (09:21)
--- NOTE | 2018-07-18 11:05 | PDOC(PROG) ---
Date of Service: 07/18/18 Time of Service: 11:00 Interval History: No chest pain. No shortness breath. Does complain of some nausea with no vomiting. States that it tends to get a little worse when she challenges her abdomen with more food. Despite diarrhea she's been asking RN for stool softener. Itching is little worse on skin rash today. Objective : Data - Labs CBC and BMP: 07/17/18 04:58 07/17/18 04:58 Objective : Exam - General General Appearance: No Acute Distress, Cooperative, Thin Additional General Exam Details: Vital Signs - Last Taken Temperature 98.3 F 07/18/18 06:27 Pulse Rate 105 H 07/18/18 07:00 Respiratory Rate 18 07/18/18 07:00 Blood Pressure 94/70 07/18/18 06:27 Pulse Ox 90 07/18/18 06:27 Cachectic - Eye Eye Exam: No Scleral Icterus (Scleral icterus is improved this week) - ENT ENT Exam: Mucous Membranes Moist - Respiratory Respiratory Exam: Clear to Auscultation - Bilaterally, Breathing Non Labored - Cardiovascular Cardiovascular Exam: No Murmur, No Clicks, No Gallops, No Rubs, Tachycardia, No JVD - GI/Abdominal GI/Abdominal Exam: Normal Bowel Sounds, Non Tender (Preps minimally improved. Some bruising at paracentesis site but no drainage.), Non Distended, Positive for Ascites - Extremities Extremities Exam: No Clubbing Present, No Edema Present, No Cyanosis Present - Neurological Neurological Exam: Alert, Oriented x 3, No Facial Droop, Speech Intact / Clear, Moves All Extremities Equally - Psychiatric Psychiatric Exam: Flat Affect - Central Line Examination Central Line Type: PICC Line (Right upper extremity, no erythema.) Assessment and Plan - Patient Problems (1) [place] Current Visit: Yes Status: Acute Code(s): E40 - [place] (2) C. difficile diarrhea Current Visit: Yes Status: Acute Code(s): A04.72 - Enterocolitis due to Clostridium difficile, not specified as recurrent (3) Spontaneous bacterial peritonitis Current Visit: Yes Status: Acute Code(s): K65.2 - Spontaneous bacterial peritonitis (4) Hypokalemia Current Visit: Yes Status: Acute Code(s): E87.6 - Hypokalemia (5) Iron deficiency anemia Current Visit: Yes Status: Acute Code(s): D50.9 - Iron deficiency anemia, unspecified Qualifiers: Iron deficiency anemia type: inadequate dietary iron intake Qualified Code( s): D50.8 - Other iron deficiency anemias (6) Ascites Current Visit: Yes Status: Acute Code(s): R18.8 - Other ascites Qualifiers: Ascites type: other type Qualified Code(s): R18.8 - Other ascites (7) Malnourished Current Visit: Yes Status: Chronic Code(s): E46 - Unspecified protein- calorie malnutrition Qualifiers: Malnutrition type: protein-calorie malnutrition Protein-calorie malnutrition severity: severe Qualified Code(s): E43 - Unspecified severe protein-calorie malnutrition (8) Electrolyte abnormality Current Visit: Yes Status: Acute Code(s): E87.8 - Other disorders of electrolyte and fluid balance, not elsewhere classified (9) Body dysmorphic disorder Current Visit: Yes Status: Acute Code(s): F45.22 - Body dysmorphic disorder (10) Anorexia Current Visit: Yes Status: Acute Code(s): R63.0 - Anorexia - Assessment / Plan Additional Assessment/Plan Details: culture-negative neutrocytic ascites (CNNA) this with the patient has. I reviewed the literature and this is a variant of spontaneous bacterial peritonitis. Unfortunately, there is no significant literature speaking to prophylaxis in these patients, but patient would be high risk as she essentially had spontaneous bacterial peritonitis--patients with culture- negative neutrocytic ascites (CNNA) typically have better mortality when being treated for spontaneous bacterial peritonitis and treatment is warranted. We' ll put the patient at risk for recurrent case of culture-negative neutrocytic ascites (CNNA) or SBP would be persistent ascites, low albumin which was less than 1 and she should remain on prophylaxis until ascites resolves. I think the benefit of continuing prophylactic antibiotics and the situation may outweigh the risk. Aquaphor for skin itching seems to work at home so we'll continue that here. Labs in a.m. Awaiting decision on medication. Continue to try and encourage by mouth intake. Treat C. difficile with vancomycin by mouth. Continue probiotic. Replacement of thiamine. Continue vitamin D. Awaiting vitamin levels to see what else we need to replace. Continue multivitamin. With severe malnutrition, long-term outlook is poor, but if we didn't get the patient to a center where there is psychiatric support for body is dysmorphic disorder and anorexia, that may be our best option to help treat this patient. Placement pending.
[2018-07-18] MEDS: AA-Dext 5%-20%/Calcium/Lytes 1,000 ML PRIMARY IV SCH (13:22)
[2018-07-18] MEDS: Petrolatum,White 10 APPLIC/10 GM TUBE TOPICAL SCH (13:51)
[2018-07-18] MEDS: Metoclopramide Inj 10 MG/2 ML VIAL IVP PRN (13:59)
[2018-07-18] MEDS: NICOTINE 21 MG /DAY PATCH TRANSDERM SCH (19:14)
[2018-07-18] MEDS: cefTRIAXone Inj 2 GM in Sodium Chloride 0.9% 100 ML IV SCH (19:14)
[2018-07-18] MEDS: Mirtazapine Tab 15 MG TAB PO SCH (20:53)
[2018-07-19] MEDS: Vancomycin Oral Soln 125 MG/5 ML (7500MG/300ML) BOTTLE PO SCH ×4 (01:07→19:27)
[2018-07-19] MEDS: HEPARIN 5000 UNIT/1 ML SUBCUT SCH ×3 (03:31→19:27)
[2018-07-19 05:15] LABS: BASOPHILS # (AUTO) 0.06 10*3/UL; BASOPHILS % (AUTO) 1.1 % (0-1); EOSINOPHILS # (AUTO) 0.08 10*3/UL; EOSINOPHILS % (AUTO) 1.4 % (0-8); Hematocrit [HCT] 32.1 % (37.0-47.0); Hemoglobin [HGB] 10.1 g/dL (12.0-16.0); MEAN CORPUSCULAR HEMOGLOBIN 33.3 PG (27-31); MEAN CORPUSCULAR HGB CONC 31.5 g/dL (33-37); MEAN CORPUSCULAR VOLUME 105.9 FL (81-99); MEAN PLATELET VOLUME 12.3 FL (7.4-12.2); MONOCYTES # (AUTO) 1.09 10*3/UL (0.3-0.8); MONOCYTES % (AUTO) 19.4 % (5-15); NEUTROPHILS # (AUTO) 2.47 10*3/UL; NEUTROPHILS % (AUTO) 43.9 % (50-80); RED BLOOD COUNT 3.03 10^6/uL (4.20-5.40)
[2018-07-19 05:26] LABS: BUN/CREATININE RATIO 8.18 (6-20); SERUM ALBUMIN 2.8 g/dL (3.5-4.8)
[2018-07-19 06:26] LABS: PLATELET MORPHOLOGY COMMENT NORMAL MORPHOLOGY (NORM); WBC MORPHOLOGY COMMENT NORMAL MORPHOLOGY (NORM)
[2018-07-19 06:27] LABS: RBC MORPHOLOGY COMMENT NORMAL MORPHOLOGY (NORM)
[2018-07-19] MEDS: ClonazePAM Tab 1 MG TABLET PO PRN ×3 (07:04→21:04)
[2018-07-19] MEDS: oxyCODONE IR Tab 5 MG TAB PO PRN ×2 (07:05→19:33)
[2018-07-19] MEDS: MAGNESIUM OXIDE 400 MG TABLET PO SCH (07:06)
[2018-07-19] MEDS: MIDODRINE 10 MG PO SCH ×3 (07:06→14:25)
[2018-07-19] MEDS: ONDANSETRON 4 MG/2 ML VIAL IV PRN ×2 (07:48→18:20)
[2018-07-19] MEDS: Potassium Chloride 20mEq Packet PO SCH (08:44)
[2018-07-19] MEDS: Thiamine Tab 100 MG TAB PO SCH (08:44)
[2018-07-19] MEDS: HYDROXYZINE PAMOATE 25 MG CAPSULE PO SCH ×2 (08:44→21:04)
[2018-07-19] MEDS: ACIDOPHILUS/BULGARICUS 1 EACH GRAN.PACK PO SCH ×3 (08:44→21:04)
[2018-07-19] MEDS: Multivitamin Tab 1 TAB PO SCH (08:50)
[2018-07-19] MEDS: CHOLECALCIFEROL 1000 IU TABLET PO SCH (08:50)
[2018-07-19] MEDS ORDERED: Ciprofloxacin 500 MG TAB PO SCH ×2 (09:00→12:00)
[2018-07-19] MEDS: HEPARIN 500 UNIT/5 ML SYRINGE FOR CENTRAL LINE IVP PRN ×2 (10:12→14:59)
[2018-07-19] MEDS: Petrolatum,White 10 APPLIC/10 GM TUBE TOPICAL SCH (11:14)
[2018-07-19] MEDS ORDERED: SIMETHICONE 80 MG TABLET PO PRN (11:14)
--- NOTE | 2018-07-19 11:55 | PDOC(PROG) ---
Date of Service: 07/19/18 Time of Service: 11:49 Interval History: no chest pain, no nausea or vomiting. diarrhea continues to improve. we discussed prophylaxis for SBP and patient agrees with antibiotics. medicaid status still pending, but mother to follow with [facility] who is assisting. Objective : Data - Labs CBC and BMP: 07/19/18 04:45 07/19/18 04:45 Additional Lab Results: 07/19/18 04:45 Calcium 8.1 L Phosphorus 4.1 Magnesium 1.8 Total Bilirubin 2.2 H AST 46 H ALT 30 Alkaline Phosphatase 169 H Total Protein 5.7 L Albumin 2.8 L Globulin 2.9 Albumin/Globulin Ratio 0.90 L 07/19/18 04:45 PT 11.4 INR 1.11 Objective : Exam - General General Appearance: No Acute Distress, Cooperative Additional General Exam Details: Vital Signs - Last Taken Temperature 99 F 07/19/18 10:55 Pulse Rate 86 07/19/18 10:55 Respiratory Rate 17 07/19/18 10:55 Blood Pressure 95/69 07/19/18 10:55 Pulse Ox 96 07/19/18 10:55 Selected Entries 07/19/18 06:41 Temperature 100.2 F H - Eye Eye Exam: No Scleral Icterus - ENT ENT Exam: Mucous Membranes Moist - Respiratory Respiratory Exam: Clear to Auscultation - Bilaterally, Breathing Non Labored - Cardiovascular Cardiovascular Exam: RRR, No Murmur, No Clicks, No Gallops, No Rubs, No JVD - GI/Abdominal GI/Abdominal Exam: Normal Bowel Sounds, Non Tender, Non Distended, Positive for Ascites - Extremities Extremities Exam: No Clubbing Present, No Cyanosis Present, Pedal Edema - Neurological Neurological Exam: Alert, Oriented x 3, No Facial Droop, Speech Intact / Clear, Moves All Extremities Equally - Psychiatric Psychiatric Exam: Flat Affect Assessment and Plan - Patient Problems (1) [place] Current Visit: Yes Status: Acute Code(s): E40 - [place] (2) C. difficile diarrhea Current Visit: Yes Status: Acute Code(s): A04.72 - Enterocolitis due to Clostridium difficile, not specified as recurrent (3) Spontaneous bacterial peritonitis Current Visit: Yes Status: Acute Code(s): K65.2 - Spontaneous bacterial peritonitis (4) Hypokalemia Current Visit: Yes Status: Acute Code(s): E87.6 - Hypokalemia (5) Iron deficiency anemia Current Visit: Yes Status: Acute Code(s): D50.9 - Iron deficiency anemia, unspecified Qualifiers: Iron deficiency anemia type: inadequate dietary iron intake Qualified Code( s): D50.8 - Other iron deficiency anemias (6) Ascites Current Visit: Yes Status: Acute Code(s): R18.8 - Other ascites Qualifiers: Ascites type: other type Qualified Code(s): R18.8 - Other ascites (7) Malnourished Current Visit: Yes Status: Chronic Code(s): E46 - Unspecified protein- calorie malnutrition Qualifiers: Malnutrition type: protein-calorie malnutrition Protein-calorie malnutrition severity: severe Qualified Code(s): E43 - Unspecified severe protein-calorie malnutrition (8) Electrolyte abnormality Current Visit: Yes Status: Acute Code(s): E87.8 - Other disorders of electrolyte and fluid balance, not elsewhere classified (9) Body dysmorphic disorder Current Visit: Yes Status: Acute Code(s): F45.22 - Body dysmorphic disorder (10) Anorexia Current Visit: Yes Status: Acute Code(s): R63.0 - Anorexia - Assessment / Plan Additional Assessment/Plan Details: replace magnesium, right on edge, 1.8 continue TPN vanco PO for c. diff diarrhea cipro for SBP prophylaxis (evidence suggests even with culture negative ascites with increased WBC and PMN's, high likelihood of SBP to recur until ascites resolves.) Medicaid status pending. Once we know what that is, we should be able to develop a disposition. Patient would benefit greatly from facility that can treat anorexia, body dysmorphic disorder, as well as kwashiorkor. 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 Concerned about fevers. Was not notified of 100.2 fever. I have ordered blood cultures in case it could be a PICC line or bacteremia type picture here. I'm hoping that is not the case and that the fevers are nonspecific and related to malnutrition.
[2018-07-19] MEDS ORDERED: Magnesium Sulfate 2gm (Premix) 2 GM/50 ML BAG IV ONE (11:56)
[2018-07-19] MEDS: AA-Dext 5%-20%/Calcium/Lytes 1,000 ML PRIMARY IV SCH (12:35)
[2018-07-19] MEDS: CIPROFLOXACIN 500 MG TABLET PO SCH (14:25)
[2018-07-19] MEDS: NICOTINE 21 MG /DAY PATCH TRANSDERM SCH (19:27)
[2018-07-19] MEDS: Mirtazapine Tab 15 MG TAB PO SCH (21:07)
[2018-07-20] MEDS: Vancomycin Oral Soln 125 MG/5 ML (7500MG/300ML) BOTTLE PO SCH ×4 (01:57→19:15)
[2018-07-20] MEDS: HEPARIN 5000 UNIT/1 ML SUBCUT SCH ×3 (02:00→19:15)
[2018-07-20 05:20] LABS: BASOPHILS # (AUTO) 0.04 10*3/UL; BASOPHILS % (AUTO) 0.9 % (0-1); EOSINOPHILS % (AUTO) 2.3 % (0-8); Hemoglobin [HGB] 8.9 g/dL (12.0-16.0); LYMPHOCYTES # (AUTO) 1.27 10*3/uL; MEAN CORPUSCULAR HGB CONC 30.7 g/dL (33-37); MEAN CORPUSCULAR VOLUME 107.4 FL (81-99); MEAN PLATELET VOLUME 11.6 FL (7.4-12.2); MONOCYTES # (AUTO) 0.96 10*3/UL (0.3-0.8); MONOCYTES % (AUTO) 22.5 % (5-15); NEUTROPHILS # (AUTO) 1.88 10*3/UL; NEUTROPHILS % (AUTO) 44.1 % (50-80)
[2018-07-20 05:34] LABS: BLOOD UREA NITROGEN 10 mg/dL (7-22); SERUM ALBUMIN 2.5 g/dL (3.5-4.8)
[2018-07-20 05:55] LABS: PLATELET MORPHOLOGY COMMENT NORMAL MORPHOLOGY (NORM); RBC MORPHOLOGY COMMENT NORMAL MORPHOLOGY (NORM); WBC MORPHOLOGY COMMENT NORMAL MORPHOLOGY (NORM)
[2018-07-20] MEDS: oxyCODONE IR Tab 5 MG TAB PO PRN ×2 (07:42→19:15)
[2018-07-20] MEDS: ClonazePAM Tab 1 MG TABLET PO PRN ×3 (07:42→21:20)
[2018-07-20] MEDS: MAGNESIUM OXIDE 400 MG TABLET PO SCH (07:43)
[2018-07-20] MEDS: MIDODRINE 10 MG PO SCH ×3 (07:43→14:38)
[2018-07-20 08:23] LABS: Vitamin C (Ascorbic Acid) 0.3 mg/dL (0.4 - 2.0); Vitamin K 1.38 ng/mL (0.10-2.20)
[2018-07-20] MEDS: CHOLECALCIFEROL 1000 IU TABLET PO SCH (09:10)
[2018-07-20] MEDS: Potassium Chloride 20mEq Packet PO SCH (09:10)
[2018-07-20] MEDS: ACIDOPHILUS/BULGARICUS 1 EACH GRAN.PACK PO SCH ×3 (09:10→21:21)
[2018-07-20] MEDS: Multivitamin Tab 1 TAB PO SCH (09:10)
[2018-07-20] MEDS: HYDROXYZINE PAMOATE 25 MG CAPSULE PO SCH ×2 (09:10→21:20)
[2018-07-20] MEDS: ONDANSETRON 4 MG/2 ML VIAL IV PRN ×3 (09:27→18:49)
[2018-07-20] MEDS: HEPARIN 500 UNIT/5 ML SYRINGE FOR CENTRAL LINE IVP PRN (11:05)
--- NOTE | 2018-07-20 11:22 | PDOC(PROG) ---
Date of Service: 07/20/18 Time of Service: 11:30 Interval History: Subjective Her diarrhea seemed to be improved. Still has small bowel movements. No abdominal pain. Denying new symptoms. Objective : Data - Labs CBC and BMP: 07/20/18 04:45 07/20/18 04:45 Objective : Exam - General General Appearance: No Acute Distress Additional General Exam Details: Cachectic. Sitting in bed flexing her legs. - Head Head Exam: Normal Inspection - Eye Eye Exam: Normal Appearance - ENT ENT Exam: Normal Exam - Neck Neck Exam: Normal Inspection - Respiratory Respiratory Exam: Clear to Auscultation - Bilaterally - Cardiovascular Cardiovascular Exam: RRR - GI/Abdominal GI/Abdominal Exam: Normal Bowel Sounds, Non Tender, Non Distended, Soft, No Organomegaly - Rectal Rectal Exam: Deferred - External Exam: Deferred - Extremities Additional Extremities Exam Details: Has some edema in her feet. - Back Back Exam: Normal Inspection - Neurological Neurological Exam: Alert, Oriented x 3, CN II-XII Intact, No Facial Droop, Speech Intact / Clear - Psychiatric Psychiatric Exam: Flat Affect - Integumentary Integumentary Exam: Dry Assessment and Plan - Patient Problems (1) C. difficile diarrhea Current Visit: Yes Status: Acute Comment: She is on treatment for C. difficile continue with vancomycin. Code(s): A04.72 - Enterocolitis due to Clostridium difficile, not specified as recurrent (2) Hypokalemia Current Visit: Yes Status: Acute Comment: This is replaced Code(s): E87.6 - Hypokalemia (3) Iron deficiency anemia Current Visit: Yes Status: Acute Comment: Continue watching her hemoglobin. She did receive 2 units of blood Code(s): D50.9 - Iron deficiency anemia, unspecified Qualifiers: Iron deficiency anemia type: inadequate dietary iron intake Qualified Code( s): D50.8 - Other iron deficiency anemias (4) Ascites Current Visit: Yes Status: Acute Comment: Status post drainage. Code(s): R18.8 - Other ascites Qualifiers: Ascites type: other type Qualified Code(s): R18.8 - Other ascites (5) Malnourished Current Visit: Yes Status: Chronic Comment: She is on TPN continue. Will speak with the dietitian about maybe adding supplement. She just started eating small apple sauce Code(s): E46 - Unspecified protein-calorie malnutrition Qualifiers: Malnutrition type: protein-calorie malnutrition Protein-calorie malnutrition severity: severe Qualified Code(s): E43 - Unspecified severe protein-calorie malnutrition (6) Spontaneous bacterial peritonitis Current Visit: Yes Status: Acute Comment: This was treated. Was culture-negative. Code(s): K65.2 - Spontaneous bacterial peritonitis (7) [place] Current Visit: Yes Status: Acute Comment: Multifactorial part of it is liver disease and part of it is secondary to her poor intake Code(s): E40 - [place]or (8) Body dysmorphic disorder Current Visit: Yes Status: Acute Comment: We'll consult [facility], and see their recommendation about her needing intensive inpatient treatment. if That is the case then we may think once she gets her Medicaid and if she accepts to contacting the [facility] and see whether they will take her for intensive treatment including medical care and psychiatric care. Code(s): F45.22 - Body dysmorphic disorder
[2018-07-20] MEDS ORDERED: CIPROFLOXACIN 500 MG TABLET PO SCH (12:00)
[2018-07-20] MEDS: Petrolatum,White 10 APPLIC/10 GM TUBE TOPICAL SCH (12:27)
[2018-07-20] MEDS: CIPROFLOXACIN 500 MG TABLET PO SCH (14:38)
[2018-07-20] MEDS: AA-Dext 5%-20%/Calcium/Lytes 1,000 ML PRIMARY IV SCH (14:39)
[2018-07-20] MEDS: NICOTINE 21 MG /DAY PATCH TRANSDERM SCH (19:16)
[2018-07-20] MEDS: Mirtazapine Tab 15 MG TAB PO SCH (21:20)
[2018-07-21] MEDS: Vancomycin Oral Soln 125 MG/5 ML (7500MG/300ML) BOTTLE PO SCH ×4 (01:54→20:33)
[2018-07-21] MEDS: HEPARIN 5000 UNIT/1 ML SUBCUT SCH ×3 (02:00→20:33)
[2018-07-21 05:35] LABS: BASOPHILS # (AUTO) 0.03 10*3/UL; BASOPHILS % (AUTO) 0.8 % (0-1); EOSINOPHILS # (AUTO) 0.08 10*3/UL; EOSINOPHILS % (AUTO) 2.2 % (0-8); Hematocrit [HCT] 28.4 % (37.0-47.0); Hemoglobin [HGB] 8.6 g/dL (12.0-16.0); MEAN CORPUSCULAR HGB CONC 30.3 g/dL (33-37); MEAN CORPUSCULAR VOLUME 108.8 FL (81-99); MEAN PLATELET VOLUME 11.8 FL (7.4-12.2); MONOCYTES # (AUTO) 0.74 10*3/UL (0.3-0.8); NEUTROPHILS # (AUTO) 1.63 10*3/UL; NEUTROPHILS % (AUTO) 44.1 % (50-80); RED BLOOD COUNT 2.61 10^6/uL (4.20-5.40)
[2018-07-21 05:53] LABS: BLOOD UREA NITROGEN 11 mg/dL (7-22); BUN/CREATININE RATIO 12.22 (6-20); SERUM ALBUMIN 2.5 g/dL (3.5-4.8)
[2018-07-21 06:27] LABS: PLATELET MORPHOLOGY COMMENT NORMAL MORPHOLOGY (NORM); RBC MORPHOLOGY COMMENT NORMAL MORPHOLOGY (NORM); WBC MORPHOLOGY COMMENT NORMAL MORPHOLOGY (NORM)
[2018-07-21] MEDS: MAGNESIUM OXIDE 400 MG TABLET PO SCH (07:30)
[2018-07-21] MEDS: MIDODRINE 10 MG PO SCH ×3 (07:30→15:17)
[2018-07-21] MEDS: ACIDOPHILUS/BULGARICUS 1 EACH GRAN.PACK PO SCH ×3 (08:55→20:33)
[2018-07-21] MEDS: Potassium Chloride 20mEq Packet PO SCH (08:56)
[2018-07-21] MEDS: ClonazePAM Tab 1 MG TABLET PO PRN ×3 (08:56→20:37)
[2018-07-21] MEDS: Multivitamin Tab 1 TAB PO SCH (08:57)
[2018-07-21] MEDS: FOLIC ACID 1 MG TABLET PO SCH (08:57)
[2018-07-21] MEDS: oxyCODONE IR Tab 5 MG TAB PO PRN ×3 (08:57→21:12)
[2018-07-21] MEDS: CHOLECALCIFEROL 1000 IU TABLET PO SCH (08:57)
[2018-07-21] MEDS: HYDROXYZINE PAMOATE 25 MG CAPSULE PO SCH ×2 (08:57→20:30)
[2018-07-21 09:06] LABS: Vitamin A (Retinol) 10.9 mcg/dL (32.5-78.0)
--- NOTE | 2018-07-21 09:31 | PDOC(PROG) ---
Date of Service: 07/21/18 Time of Service: 09:15 Interval History: Subjective Patient complaining from pain at the tailbone but otherwise no significant abdominal pain. No nausea. Her intake still minimal. She is on TPN. Denying shortness of breath. Objective : Data - Labs CBC and BMP: 07/21/18 04:45 07/21/18 04:45 Objective : Exam - General General Appearance: Cooperative Additional General Exam Details: Cachectic - Head Head Exam: Normal Inspection - ENT ENT Exam: Normal Exam - Neck Neck Exam: Normal Inspection - Respiratory Respiratory Exam: Clear to Auscultation - Bilaterally - Cardiovascular Cardiovascular Exam: RRR - GI/Abdominal GI/Abdominal Exam: Normal Bowel Sounds, Non Tender, Non Distended, Soft, No Organomegaly - Rectal Rectal Exam: Deferred - External Exam: Deferred - Extremities Additional Extremities Exam Details: No significant edema. - Neurological Neurological Exam: Alert, CN II-XII Intact, No Facial Droop, Speech Intact / Clear, Moves All Extremities Equally - Psychiatric Psychiatric Exam: Flat Affect - Integumentary Integumentary Exam: Dry Assessment and Plan - Patient Problems (1) C. difficile diarrhea Current Visit: Yes Status: Acute Comment: Continue current vancomycin treatment Code(s): A04.72 - Enterocolitis due to Clostridium difficile, not specified as recurrent (2) Hypokalemia Current Visit: Yes Status: Acute Comment: This is replaced Code(s): E87.6 - Hypokalemia (3) Iron deficiency anemia Current Visit: Yes Status: Acute Comment: She status post 2 units of blood. Hemoglobin is dropping we'll keep an eye on it. Code(s): D50.9 - Iron deficiency anemia, unspecified Qualifiers: Iron deficiency anemia type: inadequate dietary iron intake Qualified Code( s): D50.8 - Other iron deficiency anemias (4) Ascites Current Visit: Yes Status: Acute Comment: Status post drainage. Distention is still acceptable. Code(s): R18.8 - Other ascites Qualifiers: Ascites type: other type Qualified Code(s): R18.8 - Other ascites (5) Malnourished Current Visit: Yes Status: Chronic Comment: Continue TPN I'll speak with the dietitian to see whether it need to be increased. Code(s): E46 - Unspecified protein-calorie malnutrition Qualifiers: Malnutrition type: protein-calorie malnutrition Protein-calorie malnutrition severity: severe Qualified Code(s): E43 - Unspecified severe protein-calorie malnutrition (6) Spontaneous bacterial peritonitis Current Visit: Yes Status: Acute Comment: She's been treated for the infection. And she is on prophylaxis also. Code(s): K65.2 - Spontaneous bacterial peritonitis (7) Body dysmorphic disorder Current Visit: Yes Status: Acute Comment: She's been seen by [facility] and they recommended inpatient treatment. This all depends on her application for Medicaid if it is accepted then will see whether [facility] will take her. Code(s): F45.22 - Body dysmorphic disorder (8) Pancytopenia Current Visit: Yes Status: Acute Comment: Probably secondary to her poor nutrition. We'll continue to watch. Code(s): D61.818 - Other pancytopenia
--- NOTE | 2018-07-21 09:49 | PTI REPORT ---
Thank you for the referral of Darlin Orona. She was seen on 07/20/18 for an inpatient evaluation secondary to weakness. SUBJECTIVE: The patient is a 37-year-old female who states that she presented to the hospital secondary to weakness. The patient states she is trying to get on Medicaid for an insurance payment source as she does not have any insurance at this time. The patient states that she does have a wound along her sacral region that is covered with a Mepilex bandage. She states that that has been there since September of this year. The patient also struggles with an eating disorder and alcohol abuse. The patient states that she lives here in [place] with her mom in a bi-level home. She states that she has had one fall over the last six months when she was walking down stairs. Per her mother's report, who was present during the evaluation, she states that the patient has been unsteady on her feet, even just getting up and going to the bathroom. The patient denies any pain and is uncertain about participating in therapy, but is willing to try as long as we stay up in her room. The patient states she is pretty fatigued this afternoon secondary to having an OT evaluation earlier. She also did have a visit with some other people about getting her set up with Medicaid. PAST MEDICAL HISTORY: Past medical history can be found in the patient's medical record. OBJECTIVE FINDINGS: General observations: The patient was alert and oriented to setting upon PT arrival. The patient was laying in bed with head of bed elevated. Bed mobility: The patient was able to independently move from a supine to seated edge of bed position. The patient demonstrated fair seated edge of bed balance. Strength: Manual muscle test was performed in a seated position. The patient demonstrated 3/5 bilateral hip strength and 4/5 bilateral knee and ankle strength. Pain: The patient denied any pain with manual muscle test. Transfers: The patient was able to move from a seated to standing position. The patient demonstrated poor initial standing balance and had a widened base of support. Once she was in a standing position, she was able to stay there for one minute before requiring a rest break. While standing x1 minute there was no swaying noted, but the patient did fatigue within the minute and did need to sit back down. The patient was able to perform a stand to seated transfer. Ambulation: The patient ambulated a short distance to the chair in the room. ASSESSMENT: The patient has fair rehab potential secondary to her medical history and motivation. Problem List: Decreased endurance/activity tolerance Generalized weakness Physical Therapy Goals: To be met by discharge from inpatient: Patient will be able to transfer from bed to stand and on/off toilet safely and independently. Patient will be able to ambulate at least 150 feet in order to maneuver home distances safely and independently. Patient will be able to perform one flight of stairs safely and independently using hand rail in order to be able to perform stairs at home. TREATMENT PLAN: Patient will be seen one time per day during the week and one time per day over the weekend as an inpatient to address the above goals and objectives. INITIAL TREATMENT: Treatment today consisted of the initial evaluation. The patient was instructed on sit to stands x5 and was able to complete these safely with stand by assist x1 in 42 seconds. Following that activity the patient did require a rest break due to her poor endurance and overall weakness. The patient stated that she needed to use the bathroom. She ambulated to the bathroom with stand by assist x1 for safety. She was able to complete toileting activity independently but did require min assist x1 to go from a seated to standing position from the toilet as she was unable to push herself up from the height of the toilet. The patient ambulated back to her bed. The patient was left with [employer] who was in the room. SHANELL
[2018-07-21] MEDS: ONDANSETRON 4 MG/2 ML VIAL IV PRN ×3 (09:53→21:11)
--- NOTE | 2018-07-21 10:12 | OTI REPORT ---
Thank you for the referral of Darlin Orona. She was seen on 07/20/18 for an occupational therapy inpatient evaluation secondary to weakness. SUBJECTIVE: The patient is a 37-year-old female who has multiple medical issues. She has a history of agoraphobia, anorexia, failure to thrive, extreme weight loss, and anxiety. The patient's mom was present during the session today. Mom reports that Darlin has been to [place]; she stayed for six days and then they sent her back home. They are trying to get Darlin on Medicaid as she is trying to get into treatment for her anorexia and other issues. She does have a wound on her bottom area as well as her feet. The patient reports that she does not like to do anything; she just likes to sit in her house. She reports that she does not have a lot of goals at this time, but wants to get back home. PAST MEDICAL HISTORY: Past medical history can be found in the patient's medical record. OBJECTIVE FINDINGS: General observations: The patient was sitting in bed upon the therapist's arrival. She was in a very flexed position with her hips and knees. Bed mobility: The patient was able to come from supine to sit independently. Transfers: The patient requires contact guard to mod assist to transfer from sit to stand, depending on the surface height. Ambulation: The patient was able to ambulate to the bathroom with contact guard to min assist for balance. You can tell she is weak with her ambulation. Activities of daily living: The patient was able to sit on the toilet and complete toilet hygiene independently. She had a very loose stool. The patient refused to wash her hands after toileting. She needed mod assist to come from sit to stand from the toilet. Range of motion: Active range of motion in her upper extremities is within normal limits for shoulder flexion, abduction, elbow flexion/extension, and wrist flexion/extension. Strength: Strength for shoulder flexion was 3+/5, abduction was 3+/5, elbow flexion/extension was 3+/5, and wrist flexion/extension was 3+/5. Endurance: The patient was able to sit upright in a chair for approximately 5 minutes. ASSESSMENT: Problem List: Moderate to severe fatigue Patient is very thin Psychological issues Decreased motivation levels Decreased coping skills Decreased strength Decreased activity tolerance Short-Term Goals: To be met by discharge from inpatient: Patient will participate in and address 2-3 positive coping skills that she can use on a daily basis. Patient will participate in strengthening for 10-15 minutes to improve her overall physical abilities and strength. Patient will be able to dress self independently. Patient will be able to stand x3 minutes while participating in ADLs. Long-Term Goals: To be met following discharge from inpatient: Patient will get on Medicaid and will be able to receive treatment for anorexia. TREATMENT PLAN: Patient will be seen one time per day during the week and one time per day over the weekend as an inpatient to address the above goals and objectives. INITIAL TREATMENT: Treatment today consisted of the initial evaluation followed by a toilet transfer. The patient sat in chair and was able to participate in some active range of motion exercises for her upper extremity and lower extremities. Following treatment the patient was able to get back into bed. [facility] arrived and the patient was left in bed with bed alarms set and call button within reach. SHANELL
[2018-07-21] MEDS: HEPARIN 500 UNIT/5 ML SYRINGE FOR CENTRAL LINE IVP PRN (10:18)
[2018-07-21] MEDS: CIPROFLOXACIN 500 MG TABLET PO SCH (13:10)
[2018-07-21] MEDS: AA-Dext 5%-20%/Calcium/Lytes 1,000 ML PRIMARY IV SCH (13:10)
--- NOTE | 2018-07-21 15:16 | OT AM DAY ---
Diagnosis : Weakness AM - Occupational Therapy S: Nursing reports that the patient has lost another 4 pounds since yesterday and she is down to 91 lbs. O: The therapist tried to get the patient to participate in a functional activity while working on her sitting balance. The patient has been laying in bed besides performing bathroom transfers. The patient's mom did bring Heelbo pads today for her heels. The patient was willing to transfer from supine to sit and then sit in a chair. She sat in the chair for approximately 10 minutes and we worked on upper extremity and lower extremity range of motion exercises including shoulder flexion, elbow flexion/extension, wrist flexion/extension, hip flexion/extension, knee kick outs, and ankle dorsiflexion/plantarflexion, all x10 repetitions. We then had the patient participate in an activity using colored pencils. The patient wrote with the pencils very light; you can tell she has a lot of hand weakness. The therapist had the patient draw four different pictures to keep her upright and participating in an activity. After this the patient did want to go back to bed. The patient was placed in bed with Heelbo pads on her heels. A: The patient is very limited with her participation, but she did participate in what was asked of her. P: Continue seeing patient BID during the week and one time per day over the weekend for upper extremity strengthening, ADLs, and overall functional mobility. SHANELL
--- NOTE | 2018-07-21 15:51 | PT.PROG ---
Progress Note Progress Note: S: Pt states that she has been nauseous this afternoon but willing to participate in PT. O: Tx consisted of: transfer from bed to chair with SBA x 1, instruction in seated ther ex 2 x 5 of the following with ANTONIO barneyQ (w/3 sec hold), resisted hs curl and hip abd. STS transfer with standing x 1 minute and partial rhomberg x 15 sec on each side with CGA x 1 for safety. STAFF RESPIRATORY THERAPIST x 2 with balance grid activity. Pt ambulated to bathroom with SBA x 1 and min A x 1 to transfer from toilet to stand. Pt returned back to her bed and the bed alarm was set and call light was placed within reach. A: Pt tolerated exercises fair. Pt struggled with standing balance activities and was very hesitant to move from her widened JAYCE. P: Continue per POC.
[2018-07-21] MEDS: Mirtazapine Tab 15 MG TAB PO SCH (20:30)
[2018-07-21] MEDS: NICOTINE 21 MG /DAY PATCH TRANSDERM SCH (20:34)
[2018-07-21] MEDS: FAT EMULSIONS 20% IV SCH (20:45)
[2018-07-22] MEDS: Vancomycin Oral Soln 125 MG/5 ML (7500MG/300ML) BOTTLE PO SCH ×4 (02:01→20:34)
[2018-07-22] MEDS: HEPARIN 5000 UNIT/1 ML SUBCUT SCH ×3 (02:02→20:35)
[2018-07-22 05:15] LABS: BASOPHILS # (AUTO) 0.06 10*3/UL; BASOPHILS % (AUTO) 1.6 % (0-1); EOSINOPHILS # (AUTO) 0.07 10*3/UL; EOSINOPHILS % (AUTO) 1.9 % (0-8); Hematocrit [HCT] 30.6 % (37.0-47.0); Hemoglobin [HGB] 9.5 g/dL (12.0-16.0); LYMPHOCYTES # (AUTO) 1.29 10*3/uL; MEAN CORPUSCULAR HEMOGLOBIN 33.8 PG (27-31); MEAN CORPUSCULAR VOLUME 108.9 FL (81-99); MEAN PLATELET VOLUME 11.5 FL (7.4-12.2); MONOCYTES # (AUTO) 0.47 10*3/UL (0.3-0.8); MONOCYTES % (AUTO) 12.6 % (5-15); NEUTROPHILS # (AUTO) 1.82 10*3/UL; NEUTROPHILS % (AUTO) 48.9 % (50-80); RED BLOOD COUNT 2.81 10^6/uL (4.20-5.40)
[2018-07-22 05:32] LABS: BLOOD UREA NITROGEN 11 mg/dL (7-22); BUN/CREATININE RATIO 12.22 (6-20); SERUM ALBUMIN 2.7 g/dL (3.5-4.8)
[2018-07-22 07:10] LABS: PLATELET MORPHOLOGY COMMENT NORMAL MORPHOLOGY (NORM); RBC MORPHOLOGY COMMENT SEE COMMENTS (NORM); WBC MORPHOLOGY COMMENT NORMAL MORPHOLOGY (NORM)
[2018-07-22] MEDS: MIDODRINE 10 MG PO SCH ×3 (07:17→14:09)
[2018-07-22] MEDS: MAGNESIUM OXIDE 400 MG TABLET PO SCH (07:18)
[2018-07-22] MEDS: oxyCODONE IR Tab 5 MG TAB PO PRN ×3 (07:18→20:33)
[2018-07-22] MEDS: ClonazePAM Tab 1 MG TABLET PO PRN ×3 (07:18→20:32)
[2018-07-22] MEDS: ONDANSETRON 4 MG/2 ML VIAL IV PRN ×3 (07:19→21:01)
[2018-07-22] MEDS: HEPARIN 500 UNIT/5 ML SYRINGE FOR CENTRAL LINE IVP PRN ×2 (07:19→14:09)
[2018-07-22] MEDS: Potassium Chloride 20mEq Packet PO SCH (09:28)
[2018-07-22] MEDS: ACIDOPHILUS/BULGARICUS 1 EACH GRAN.PACK PO SCH ×3 (09:28→20:32)
[2018-07-22] MEDS: Multivitamin Tab 1 TAB PO SCH (09:28)
[2018-07-22] MEDS: FOLIC ACID 1 MG TABLET PO SCH (09:29)
[2018-07-22] MEDS: CHOLECALCIFEROL 1000 IU TABLET PO SCH (09:29)
[2018-07-22] MEDS: HYDROXYZINE PAMOATE 25 MG CAPSULE PO SCH ×2 (09:29→20:34)
--- NOTE | 2018-07-22 09:30 | PDOC(PROG) ---
Date of Service: 07/22/18 Time of Service: 09:30 Interval History: Subjective Patient denying new symptoms. Her bowel movements seems to be improved. Diarrhea is less. No significant abdominal pain. Her pain is mainly in the tailbone she said. Objective : Data - Labs CBC and BMP: 07/22/18 04:50 07/22/18 04:50 Objective : Exam - General General Appearance: No Acute Distress, Cooperative Additional General Exam Details: Cachectic - Head Head Exam: Normal Inspection - Eye Eye Exam: Normal Appearance - ENT ENT Exam: Normal Exam - Neck Neck Exam: Normal Inspection - Respiratory Respiratory Exam: Clear to Auscultation - Bilaterally - Cardiovascular Cardiovascular Exam: RRR - GI/Abdominal GI/Abdominal Exam: Normal Bowel Sounds, Non Tender, Non Distended, Soft - Rectal Rectal Exam: Deferred - External Exam: Deferred - Extremities Extremities Exam: Normal Inspection - Back Back Exam: Normal Inspection - Neurological Neurological Exam: Alert, Oriented x 3, CN II-XII Intact, No Facial Droop, Speech Intact / Clear - Psychiatric Psychiatric Exam: Flat Affect Assessment and Plan - Patient Problems (1) C. difficile diarrhea Current Visit: Yes Status: Acute Comment: Continue current treatment for it. Code(s): A04.72 - Enterocolitis due to Clostridium difficile, not specified as recurrent (2) Hypokalemia Current Visit: Yes Status: Acute Comment: This is resolved Code(s): E87.6 - Hypokalemia (3) Iron deficiency anemia Current Visit: Yes Status: Acute Comment: Her blood count is better today. Code(s): D50.9 - Iron deficiency anemia, unspecified Qualifiers: Iron deficiency anemia type: inadequate dietary iron intake Qualified Code( s): D50.8 - Other iron deficiency anemias (4) Ascites Current Visit: Yes Status: Acute Comment: Seem to be controlled. There is no significant recurrence of ascites yet. We did not put her on diuretic because of borderline blood pressure Code(s): R18.8 - Other ascites Qualifiers: Ascites type: other type Qualified Code(s): R18.8 - Other ascites (5) Malnourished Current Visit: Yes Status: Chronic Comment: Continue TPN and this will be increased today. sHe said she is having more oral intake than before. We need though calori count, nurses will do it starting today. Code(s): E46 - Unspecified protein-calorie malnutrition Qualifiers: Malnutrition type: protein-calorie malnutrition Protein-calorie malnutrition severity: severe Qualified Code(s): E43 - Unspecified severe protein-calorie malnutrition (6) Spontaneous bacterial peritonitis Current Visit: Yes Status: Acute Comment: She had treatment for it. Code(s): K65.2 - Spontaneous bacterial peritonitis (7) Body dysmorphic disorder Current Visit: Yes Status: Acute Comment: [facility] treatment. We Have to wait for Medicaid approval before she can be considered. I'm not sure even whethere she will be willing to go elsewhere. Code(s): F45.22 - Body dysmorphic disorder (8) Pancytopenia Current Visit: Yes Status: Acute Comment: folate level was low and she is on replacement Code(s): D61.818 - Other pancytopenia
[2018-07-22 11:29] LABS: SOURCE, BODY FLUID ALBUMIN ABDOMINAL
[2018-07-22] MEDS: AA-Dext 5%-20%/Calcium/Lytes 1,000 ML PRIMARY IV SCH (12:47)
[2018-07-22] MEDS: CIPROFLOXACIN 500 MG TABLET PO SCH (13:50)
--- NOTE | 2018-07-22 16:46 | OT AM DAY ---
Diagnosis : Weakness AM - Occupational Therapy S: The patient reports she is feeling decent today. She was willing to work with therapy. O: Today we worked on a functional transfer from the bed to the toilet. She needed stand by assist for balance. She was able to sit on the toilet independently and completed toilet hygiene independently. She required mod assist to come from sit to stand from the toilet as it was a low surface. The patient refused to wash her hands. We had her sit in a chair and we worked on upper extremity and lower extremity exercises as well as sit to stands including shoulder flexion/extension, biceps flexion, triceps extension, wrist flexion/extension, hip flexion/extension, knee flexion/extension, and ankle plantarflexion/dorsiflexion. She also performed foam block squeezing x1 minute with bilateral hands. We then attempted a functional activity for coping; however, the patient refused to participate. We did discuss some activities that she would like to do, but this was very minimal. The patient did talk about her dogs. A: The patient was very limited with her participation today when trying to discuss coping mechanisms. P: Continue seeing patient BID during the week and one time per day over the weekend for upper extremity strengthening, ADLs, and overall functional mobility. SHANELL
[2018-07-22] MEDS: Mirtazapine Tab 15 MG TAB PO SCH (20:34)
[2018-07-22] MEDS: NICOTINE 21 MG /DAY PATCH TRANSDERM SCH (20:34)
[2018-07-22] MEDS: FAT EMULSIONS 20% IV SCH (20:35)
[2018-07-23] MEDS: HEPARIN 5000 UNIT/1 ML SUBCUT SCH ×3 (02:00→19:38)
[2018-07-23] MEDS: Vancomycin Oral Soln 125 MG/5 ML (7500MG/300ML) BOTTLE PO SCH ×4 (02:01→19:39)
[2018-07-23] MEDS: MAGNESIUM OXIDE 400 MG TABLET PO SCH (07:25)
[2018-07-23] MEDS: MIDODRINE 10 MG PO SCH ×3 (07:25→15:25)
[2018-07-23] MEDS: ClonazePAM Tab 1 MG TABLET PO PRN ×2 (07:28→16:35)
[2018-07-23] MEDS: oxyCODONE IR Tab 5 MG TAB PO PRN ×2 (07:28→16:35)
[2018-07-23] MEDS: HYDROXYZINE PAMOATE 25 MG CAPSULE PO SCH ×2 (09:30→20:53)
[2018-07-23] MEDS: CHOLECALCIFEROL 1000 IU TABLET PO SCH (09:30)
[2018-07-23] MEDS: FOLIC ACID 1 MG TABLET PO SCH (09:30)
[2018-07-23] MEDS: Multivitamin Tab 1 TAB PO SCH (09:30)
[2018-07-23] MEDS: ACIDOPHILUS/BULGARICUS 1 EACH GRAN.PACK PO SCH ×3 (09:30→20:53)
[2018-07-23] MEDS: Thiamine Tab 100 MG TAB PO SCH (09:30)
[2018-07-23] MEDS: Potassium Chloride 20mEq Packet PO SCH (09:30)
--- NOTE | 2018-07-23 09:58 | PDOC(PROG) ---
Date of Service: 07/23/18 Time of Service: 10:00 Interval History: Subjective Patient is denying new symptoms. Her bowels seem to be more formed. No significant pain maybe some cramping she said. She feels she is getting stronger. Objective : Data - Labs CBC and BMP: 07/22/18 04:50 07/22/18 04:50 Objective : Exam - General General Appearance: No Acute Distress, Cooperative Additional General Exam Details: She is cachectic. - Head Head Exam: Normal Inspection - Eye Eye Exam: Normal Appearance - ENT ENT Exam: Normal Exam - Neck Neck Exam: Normal Inspection - Respiratory Respiratory Exam: Clear to Auscultation - Bilaterally - Cardiovascular Cardiovascular Exam: RRR - GI/Abdominal GI/Abdominal Exam: Normal Bowel Sounds, Non Tender, Non Distended, Soft, No Organomegaly - Rectal Rectal Exam: Deferred - External Exam: Deferred Exam: Deferred - Extremities Extremities Exam: Normal Inspection - Back Back Exam: Normal Inspection - Neurological Neurological Exam: Alert, Oriented x 3, CN II-XII Intact, No Facial Droop, Speech Intact / Clear - Psychiatric Psychiatric Exam: Flat Affect - Integumentary Additional Integumentary Exam Details: Dressing applied to decubitus ulcer that she had when she came in Assessment and Plan - Patient Problems (1) C. difficile diarrhea Current Visit: Yes Status: Acute Comment: Continue vancomycin. will give her 2 weeks. Code(s): A04.72 - Enterocolitis due to Clostridium difficile, not specified as recurrent (2) Hypokalemia Current Visit: Yes Status: Acute Comment: We'll recheck her potassium tomorrow Code(s): E87.6 - Hypokalemia (3) Iron deficiency anemia Current Visit: Yes Status: Acute Comment: We'll recheck her hemoglobin tomorrow. Code(s): D50.9 - Iron deficiency anemia, unspecified Qualifiers: Iron deficiency anemia type: inadequate dietary iron intake Qualified Code( s): D50.8 - Other iron deficiency anemias (4) Ascites Current Visit: Yes Status: Acute Comment: She status post drainage. Clinically I don't see there is significant recurrence of the ascites. Code(s): R18.8 - Other ascites Qualifiers: Ascites type: other type Qualified Code(s): R18.8 - Other ascites (5) Malnourished Current Visit: Yes Status: Chronic Comment: Continue TPN continue to encourage oral intake. The nurses started doing calorie counts. We'll see her intake and then will decide at what point we can switch to completely oral intake. Did talk with the conference planner Lorrie about maybe checking with Medicaid and see if she gets covererd by Medicaid do they cover her treatment in an [id number] facility. Code(s): E46 - Unspecified protein-calorie malnutrition Qualifiers: Malnutrition type: protein-calorie malnutrition Protein-calorie malnutrition severity: severe Qualified Code(s): E43 - Unspecified severe protein-calorie malnutrition (6) Spontaneous bacterial peritonitis Current Visit: Yes Status: Acute Comment: She finished the course of treatment Code(s): K65.2 - Spontaneous bacterial peritonitis (7) Body dysmorphic disorder Current Visit: Yes Status: Acute Comment: [facility] recommended inpatient treatment. However we still waiting for her to get an insurance. Code(s): F45.22 - Body dysmorphic disorder (8) Pancytopenia Current Visit: Yes Status: Acute Comment: We'll recheck a CBC tomorrow. She is on folate replacement and multivitamin. Code(s): D61.818 - Other pancytopenia (9) Vitamin C deficiency Current Visit: Yes Status: Acute Comment: Her vitamin C level is low, I did check with pharmacy about the amount of vitamin C in multivitamin still not the pharmacological replacement dosage, so will add some vitamin C maybe for 4 weeks. Code(s): E54 - Ascorbic acid deficiency
--- NOTE | 2018-07-23 12:12 | PT PM DAY ---
Diagnosis : Weakness PM - Physical Therapy S: The patient states she is very tired this afternoon and does not want to participate in much activity. She states she is willing to do a few things. O: Treatment today consisted of the patient transferring from bed to chair with stand by assist x1 for safety. The patient was instructed in therapeutic exercises consisting of 10x each of the following: resisted marching on the right and the left, long arc quads with 3 second holds x5 bilaterally, resisted hamstring curls bilaterally, resisted hip abduction, and pillow squeezes. The patient then performed three sit to stand transfers and then transferred back into her bed with call light within reach and bed alarm set. A: The patient tolerated exercises fair. She stated at the start of treatment that she was fatigued and not willing to participate in much. She did participate with seated lower extremity strengthening and 3 sit to stand transfers but would not do any further exercises from that point. The patient states that she understands the importance of doing the exercises, but states that due to her fatigue level she is unable to complete anymore exercises for today. P: Continue seeing patient BID during the week and one time per day over the weekend for transfers, ambulation, and range of motion/strengthening exercises. MTDD
--- NOTE | 2018-07-23 12:52 | OT AM DAY ---
Diagnosis : Weakness AM - Occupational Therapy S: The patient reports that she had high anxiety levels this morning. She did not really want to participate with therapy in the beginning, but eventually agreed to. She reports that she was very anxious because the program advocate was in there talking about her diet. O: The patient did sit edge of bed. The patient then sat in a chair and we worked on shoulder, elbow, wrist, and finger range of motion. We also worked on hip, knee, and ankle range of motion followed by heel lifts x10 repetitions each. We then played some balloon volleyball and she was able to hit the ball x10. The patient did some finger squeezing with the foam block x1 minute with bilateral hands and did 5 sit to stands. The patient stated this was enough exercise and she went back to bed. The patient became very teary eyed when talking about trying to eat a few bites of her yogurt. She said that her anxiety level was too high and the only thing that was going to help her right now was Xanax. She stated she typically does not take Xanax. The therapist did talk to nursing and they did state she became very anxious after talking to the program advocate. A: The patient's anxiety levels were a little higher today, but she still participated with therapy. P: Continue seeing patient BID during the week and one time per day over the weekend for upper extremity strengthening, ADLs, and overall functional mobility. SHANELL
[2018-07-23] MEDS: AA-Dext 5%-20%/Calcium/Lytes 1,000 ML PRIMARY IV SCH (13:04)
[2018-07-23] MEDS: CIPROFLOXACIN 500 MG TABLET PO SCH (13:04)
[2018-07-23] MEDS: ONDANSETRON 4 MG/2 ML VIAL IV PRN ×2 (13:05→18:03)
[2018-07-23] MEDS: NICOTINE 21 MG /DAY PATCH TRANSDERM SCH (19:38)
[2018-07-23] MEDS: Mirtazapine Tab 15 MG TAB PO SCH (20:53)
[2018-07-23] MEDS: FAT EMULSIONS 20% IV SCH (20:53)
[2018-07-24] MEDS: Vancomycin Oral Soln 125 MG/5 ML (7500MG/300ML) BOTTLE PO SCH ×4 (00:47→19:08)
[2018-07-24] MEDS: oxyCODONE IR Tab 5 MG TAB PO PRN ×4 (00:47→19:12)
[2018-07-24] MEDS: ClonazePAM Tab 1 MG TABLET PO PRN ×4 (00:48→22:12)
[2018-07-24] MEDS: HEPARIN 5000 UNIT/1 ML SUBCUT SCH ×3 (02:44→19:09)
[2018-07-24] MEDS: Metoclopramide Inj 10 MG/2 ML VIAL IVP PRN ×2 (02:44→08:56)
[2018-07-24 04:49] LABS: BASOPHILS # (AUTO) 0.04 10*3/UL; BASOPHILS % (AUTO) 0.7 % (0-1); EOSINOPHILS # (AUTO) 0.09 10*3/UL; EOSINOPHILS % (AUTO) 1.5 % (0-8); Hematocrit [HCT] 33.1 % (37.0-47.0); Hemoglobin [HGB] 10.4 g/dL (12.0-16.0); LYMPHOCYTES # (AUTO) 1.24 10*3/uL; MEAN CORPUSCULAR HEMOGLOBIN 33.5 PG (27-31); MEAN CORPUSCULAR HGB CONC 31.4 g/dL (33-37); MEAN CORPUSCULAR VOLUME 106.8 FL (81-99); MEAN PLATELET VOLUME 11.5 FL (7.4-12.2); MONOCYTES # (AUTO) 0.63 10*3/UL (0.3-0.8); MONOCYTES % (AUTO) 10.8 % (5-15); NEUTROPHILS # (AUTO) 3.79 10*3/UL; NEUTROPHILS % (AUTO) 65.4 % (50-80)
[2018-07-24 04:57] LABS: BLOOD UREA NITROGEN 15 mg/dL (7-22); SERUM ALBUMIN 3.7 g/dL (3.5-4.8)
[2018-07-24 05:05] LABS: PLATELET MORPHOLOGY COMMENT NORMAL MORPHOLOGY (NORM); RBC MORPHOLOGY COMMENT SEE COMMENTS (NORM); WBC MORPHOLOGY COMMENT NORMAL MORPHOLOGY (NORM)
[2018-07-24] MEDS: MIDODRINE 10 MG PO SCH ×3 (06:55→15:07)
[2018-07-24] MEDS: MAGNESIUM OXIDE 400 MG TABLET PO SCH (06:55)
[2018-07-24] MEDS: HEPARIN 500 UNIT/5 ML SYRINGE FOR CENTRAL LINE IVP PRN (06:56)
[2018-07-24] MEDS: Potassium Chloride 20mEq Packet PO SCH ×2 (08:46→10:58)
[2018-07-24] MEDS: CHOLECALCIFEROL 1000 IU TABLET PO SCH (08:47)
[2018-07-24] MEDS: Thiamine Tab 100 MG TAB PO SCH (08:47)
[2018-07-24] MEDS: ACIDOPHILUS/BULGARICUS 1 EACH GRAN.PACK PO SCH ×3 (08:47→21:51)
[2018-07-24] MEDS: ASCORBIC ACID Chewable 500 MG TABLET PO SCH (08:48)
[2018-07-24] MEDS: HYDROXYZINE PAMOATE 25 MG CAPSULE PO SCH ×2 (08:48→21:50)
[2018-07-24] MEDS: Multivitamin Tab 1 TAB PO SCH (08:48)
[2018-07-24] MEDS: FOLIC ACID 1 MG TABLET PO SCH (09:11)
--- NOTE | 2018-07-24 10:26 | PDOC(PROG) ---
Interval History: Patient is doing much better since the last time I've seen her ascites is virtually disappeared I believe her nutrition is improved including her oral intake she be feels much better about her image does not see herself overweight anymore and she is working and increased oral intake her stools are more formed. Patient was seen with Griselda Posadas and Objective : Data - Labs CBC and BMP: 07/24/18 04:23 07/24/18 04:23 Objective : Exam - General General Appearance: Cooperative - Respiratory Respiratory Exam: Clear to Auscultation - Bilaterally, Breathing Non Labored, Normal To Percussion, Normal to Percussion and Palpation - Cardiovascular Cardiovascular Exam: RRR, No Murmur, No Clicks, No Gallops, No Rubs, PMI Non- Displaced - GI/Abdominal GI/Abdominal Exam: Normal Bowel Sounds, Non Tender, Non Distended, Soft, No Masses, No Hepatomegaly, No Splenomegaly, No Organomegaly - Extremities Extremities Exam: No Clubbing Present, No Edema Present Assessment and Plan - Patient Problems (1) Hypokalemia Current Visit: Yes Status: Acute Comment: Continue to replace will increase to 40 mEq daily Code(s): E87.6 - Hypokalemia (2) Iron deficiency anemia Current Visit: Yes Status: Acute Comment: Continue replacement continue TPN Code(s): D50.9 - Iron deficiency anemia, unspecified Qualifiers: Iron deficiency anemia type: inadequate dietary iron intake Qualified Code( s): D50.8 - Other iron deficiency anemias (3) Ascites Current Visit: Yes Status: Acute Comment: Improved resolved with better nutrition Code(s): R18.8 - Other ascites Qualifiers: Ascites type: other type Qualified Code(s): R18.8 - Other ascites (4) Malnourished Current Visit: Yes Status: Chronic Comment: Continue TPN encourage oral intake continue vitamin replacements and potassium Code(s): E46 - Unspecified protein-calorie malnutrition Qualifiers: Malnutrition type: protein-calorie malnutrition Protein-calorie malnutrition severity: severe Qualified Code(s): E43 - Unspecified severe protein-calorie malnutrition (5) Spontaneous bacterial peritonitis Current Visit: Yes Status: Acute Comment: Patient is on vancomycin for her C. difficile and Cipro as prophylaxis Code(s): K65.2 - Spontaneous bacterial peritonitis (6) Body dysmorphic disorder Current Visit: Yes Status: Acute Code(s): F45.22 - Body dysmorphic disorder (7) C. difficile diarrhea Current Visit: Yes Status: Acute Comment: Continue vancomycin Code(s): A04.72 - Enterocolitis due to Clostridium difficile, not specified as recurrent (8) Pancytopenia Current Visit: Yes Status: Acute Code(s): D61.818 - Other pancytopenia (9) Vitamin C deficiency Current Visit: Yes Status: Acute Comment: Patient on 500 daily Code(s): E54 - Ascorbic acid deficiency
--- NOTE | 2018-07-24 10:37 | PT.PROG ---
Progress Note Progress Note: S: Pt states that she threw up this morning but willing to participate in PT. O: Tx consisted of: transfer from supine to seated EOB with SBA x 1, instruction in seated ther ex 10 repc of the following with red tband - marching , LAQ (w/3 sec hold), resisted hs curl and hip abd. STS transfer with standing x 1 minute and partial rhomberg x 15 sec on each side with CGA x 1 for safety. pt instructed in ATCs x10 reps RTB, scapular retractions w RTB x 10 reps, w's x 10 reps RTB. Pt ambulated to bathroom with SBA x 1 and min A x 1 to transfer from toilet to stand. Pt returned back to her bed and the bed alarm was set and call light was placed within reach. A: Pt tolerated exercises fair. Pt struggled with standing balance activities and was very hesitant to try new exercises and more activity. P: Continue per POC.
[2018-07-24] MEDS ORDERED: MORPHINE SULFATE 2 MG/1 ML IVP ONE (11:02)
[2018-07-24] MEDS: AA-Dext 5%-20%/Calcium/Lytes 1,000 ML PRIMARY IV SCH (12:39)
[2018-07-24] MEDS: CIPROFLOXACIN 500 MG TABLET PO SCH (15:06)
[2018-07-24] MEDS: ONDANSETRON 4 MG/2 ML VIAL IV PRN ×2 (19:09→23:11)
[2018-07-24] MEDS: NICOTINE 21 MG /DAY PATCH TRANSDERM SCH (19:09)
[2018-07-24] MEDS: Mirtazapine Tab 15 MG TAB PO SCH (21:50)
[2018-07-24] MEDS: FAT EMULSIONS 20% IV SCH (21:55)
[2018-07-25] MEDS: Vancomycin Oral Soln 125 MG/5 ML (7500MG/300ML) BOTTLE PO SCH ×4 (01:35→19:02)
[2018-07-25] MEDS: oxyCODONE IR Tab 5 MG TAB PO PRN ×3 (03:21→15:26)
[2018-07-25] MEDS: HEPARIN 5000 UNIT/1 ML SUBCUT SCH ×3 (03:25→19:00)
[2018-07-25 04:43] LABS: SERUM ALBUMIN 4.1 g/dL (3.5-4.8)
[2018-07-25] MEDS: ClonazePAM Tab 1 MG TABLET PO PRN ×2 (07:47→15:25)
[2018-07-25] MEDS: MIDODRINE 10 MG PO SCH ×3 (07:48→15:25)
[2018-07-25] MEDS: MAGNESIUM OXIDE 400 MG TABLET PO SCH (07:48)
[2018-07-25] MEDS: HEPARIN 500 UNIT/5 ML SYRINGE FOR CENTRAL LINE IVP PRN ×2 (08:24→13:20)
[2018-07-25] MEDS: Metoclopramide Inj 10 MG/2 ML VIAL IVP PRN ×2 (09:22→21:48)
[2018-07-25] MEDS: Thiamine Tab 100 MG TAB PO SCH (09:24)
[2018-07-25] MEDS: HYDROXYZINE PAMOATE 25 MG CAPSULE PO SCH ×2 (09:24→21:41)
[2018-07-25] MEDS: ACIDOPHILUS/BULGARICUS 1 EACH GRAN.PACK PO SCH ×3 (09:24→21:41)
[2018-07-25] MEDS: Multivitamin Tab 1 TAB PO SCH (09:24)
[2018-07-25] MEDS: FOLIC ACID 1 MG TABLET PO SCH (09:25)
[2018-07-25] MEDS: CHOLECALCIFEROL 1000 IU TABLET PO SCH (09:25)
[2018-07-25] MEDS: Potassium Chloride 20mEq Packet PO SCH (09:25)
[2018-07-25] MEDS: ASCORBIC ACID Chewable 500 MG TABLET PO SCH (09:25)
--- NOTE | 2018-07-25 09:37 | PDOC(PROG) ---
Interval History: Patient is improving daily her albumin now is 4.2 did have an episode of vomiting she did throw up her pain medication we supplemented with 1 mg of morphine which worked very well for her she says. Objective : Data - Labs CBC and BMP: 07/24/18 04:23 07/25/18 04:15 Objective : Exam - General General Appearance: Cooperative - Respiratory Respiratory Exam: Clear to Auscultation - Bilaterally, Breathing Non Labored, Normal To Percussion, Normal to Percussion and Palpation - Cardiovascular Cardiovascular Exam: RRR, No Murmur, No Clicks, No Gallops, No Rubs, PMI Non- Displaced - GI/Abdominal GI/Abdominal Exam: Normal Bowel Sounds, Non Tender, Non Distended, Soft, No Masses, No Hepatomegaly, No Splenomegaly, No Organomegaly - Extremities Extremities Exam: No Clubbing Present, No Edema Present, No Cyanosis Present Assessment and Plan - Patient Problems (1) Hypokalemia Current Visit: Yes Status: Acute Comment: Continue to replace it is improving Code(s): E87.6 - Hypokalemia (2) Iron deficiency anemia Current Visit: Yes Status: Acute Comment: Continue to replace Code(s): D50.9 - Iron deficiency anemia, unspecified Qualifiers: Iron deficiency anemia type: inadequate dietary iron intake Qualified Code( s): D50.8 - Other iron deficiency anemias (3) Ascites Current Visit: Yes Status: Acute Comment: Improved no evidence on physical exam most likely because of her improved nutrition Code(s): R18.8 - Other ascites Qualifiers: Ascites type: other type Qualified Code(s): R18.8 - Other ascites (4) Malnourished Current Visit: Yes Status: Chronic Comment: Patient on TPN managed by pharmacy and dietary patient will need the daily CMP discussed with nursing Code(s): E46 - Unspecified protein-calorie malnutrition Qualifiers: Malnutrition type: protein-calorie malnutrition Protein-calorie malnutrition severity: severe Qualified Code(s): E43 - Unspecified severe protein-calorie malnutrition (5) Spontaneous bacterial peritonitis Current Visit: Yes Status: Acute Comment: Patient on Cipro for prophylaxis Code(s): K65.2 - Spontaneous bacterial peritonitis (6) Body dysmorphic disorder Current Visit: Yes Status: Acute Comment: Awaiting placement [facility] recommended inpatient treatment Code(s): F45.22 - Body dysmorphic disorder (7) C. difficile diarrhea Current Visit: Yes Status: Acute Comment: Continue Vanco as scheduled this is improving Code(s): A04.72 - Enterocolitis due to Clostridium difficile, not specified as recurrent (8) Pancytopenia Current Visit: Yes Status: Acute Code(s): D61.818 - Other pancytopenia (9) Vitamin C deficiency Current Visit: Yes Status: Acute Comment: Continue to replace Code(s): E54 - Ascorbic acid deficiency
--- NOTE | 2018-07-25 10:10 | PT.PROG ---
Progress Note Progress Note: S: pt reports she is agreeable to participate in " a little" exercises O: nsg okay'd prior to PT. all exercises were performed in pt's room per precautions. pt instructed in seated LAQs RTB x 10 reps bilaterally, seated hamstring curls RTB x 10 reps bilaterally,seated clams x 10 reps RTB, seated hip adduction x 10 reps w 5 second holds. seated UE RTB x 10 reps all the following: IR, ER, rows, lat pull downs, tricep extensions. sit to stand x 5 reps with CGA x 1 for safety. pt instructed in 1 x balance grid w CGA and EARTH MOVER x 1 for safety. pt fatigued post balance grid. pt refused to perform any further exercises today. pt left in her bed with her bed alarm activated and call light within reach. A: pt tolerated therapy fair, very poor activity tolerance and pt refused to participate in any further exercises today due to fatigue. pt continues to benefit from skilled therapy to meet estabilished goals. P: cont per POC
[2018-07-25] MEDS: AA-Dext 5%-20%/Calcium/Lytes 1,000 ML PRIMARY IV SCH (13:06)
[2018-07-25] MEDS: ONDANSETRON 4 MG/2 ML VIAL IV PRN (15:25)
[2018-07-25] MEDS: CIPROFLOXACIN 500 MG TABLET PO SCH (15:25)
[2018-07-25] MEDS: NICOTINE 21 MG /DAY PATCH TRANSDERM SCH (19:01)
[2018-07-25] MEDS: Mirtazapine Tab 15 MG TAB PO SCH (21:41)
[2018-07-25] MEDS: FAT EMULSIONS 20% IV SCH (21:42)
[2018-07-26] MEDS: Vancomycin Oral Soln 125 MG/5 ML (7500MG/300ML) BOTTLE PO SCH ×5 (00:35→20:24)
[2018-07-26] MEDS: ClonazePAM Tab 1 MG TABLET PO PRN ×3 (00:35→17:01)
[2018-07-26] MEDS: oxyCODONE IR Tab 5 MG TAB PO PRN ×3 (00:36→17:01)
[2018-07-26] MEDS: HEPARIN 5000 UNIT/1 ML SUBCUT SCH ×3 (03:56→18:42)
[2018-07-26] MEDS: MAGNESIUM OXIDE 400 MG TABLET PO SCH (07:50)
[2018-07-26] MEDS: MIDODRINE 10 MG PO SCH ×3 (07:50→15:08)
[2018-07-26] MEDS: Multivitamin Tab 1 TAB PO SCH (08:24)
[2018-07-26] MEDS: FOLIC ACID 1 MG TABLET PO SCH (08:24)
[2018-07-26] MEDS: ACIDOPHILUS/BULGARICUS 1 EACH GRAN.PACK PO SCH ×3 (08:24→20:46)
[2018-07-26] MEDS: HYDROXYZINE PAMOATE 25 MG CAPSULE PO SCH ×2 (08:25→20:46)
[2018-07-26] MEDS: ASCORBIC ACID Chewable 500 MG TABLET PO SCH (08:25)
[2018-07-26] MEDS: CHOLECALCIFEROL 1000 IU TABLET PO SCH (08:25)
[2018-07-26] MEDS: Metoclopramide Inj 10 MG/2 ML VIAL IVP PRN (08:25)
[2018-07-26] MEDS: Thiamine Tab 100 MG TAB PO SCH (08:25)
--- NOTE | 2018-07-26 09:25 | PDOC(PROG) ---
Interval History: Patient feels great still has loose stools no other complaint. Objective : Data - Labs CBC and BMP: 07/24/18 04:23 07/25/18 04:15 Objective : Exam - General General Appearance: Cooperative - Respiratory Respiratory Exam: Clear to Auscultation - Bilaterally, Breathing Non Labored, Normal To Percussion, Normal to Percussion and Palpation - Cardiovascular Cardiovascular Exam: RRR, No Murmur, No Clicks, No Gallops, No Rubs, PMI Non- Displaced - GI/Abdominal GI/Abdominal Exam: Normal Bowel Sounds, Non Tender, Non Distended, Soft, No Masses, No Hepatomegaly, No Splenomegaly, No Organomegaly - Extremities Extremities Exam: No Clubbing Present, No Edema Present, No Cyanosis Present - Neurological Neurological Exam: Alert, Oriented x 3, Reflexes Normal, No Facial Droop, Moves All Extremities Equally - Central Line Examination Central Line Present on Admission: Yes Central Line Location: Internal jugular (L) Central Line Site Observations: Asymptomatic, Intact, Patent Assessment and Plan - Patient Problems (1) Hypokalemia Current Visit: Yes Status: Acute Comment: Continue replacement 3.4 today IV patient does not tolerate by mouth as nausea Code(s): E87.6 - Hypokalemia (2) Iron deficiency anemia Current Visit: Yes Status: Acute Code(s): D50.9 - Iron deficiency anemia, unspecified Qualifiers: Iron deficiency anemia type: inadequate dietary iron intake Qualified Code( s): D50.8 - Other iron deficiency anemias (3) Ascites Current Visit: Yes Status: Acute Comment: Resolved Code(s): R18.8 - Other ascites Qualifiers: Ascites type: other type Qualified Code(s): R18.8 - Other ascites (4) Malnourished Current Visit: Yes Status: Chronic Comment: Continue TPN monitor labs and lites Code(s): E46 - Unspecified protein-calorie malnutrition Qualifiers: Malnutrition type: protein-calorie malnutrition Protein-calorie malnutrition severity: severe Qualified Code(s): E43 - Unspecified severe protein-calorie malnutrition (5) Spontaneous bacterial peritonitis Current Visit: Yes Status: Acute Comment: Patient now on Cipro developed C. difficile on vancomycin now we'll stop the Cipro Code(s): K65.2 - Spontaneous bacterial peritonitis (6) Body dysmorphic disorder Current Visit: Yes Status: Acute Comment: Had a meeting with jose jaime in the room patient for update apparently [facility] is recommending inpatient treatment there are also working on appear source and placement not the social economist but [facility] is doing all this patient understands and agrees Code(s): F45.22 - Body dysmorphic disorder (7) C. difficile diarrhea Current Visit: Yes Status: Acute Comment: Continue vancomycin Code(s): A04.72 - Enterocolitis due to Clostridium difficile, not specified as recurrent (8) Pancytopenia Current Visit: Yes Status: Acute Code(s): D61.818 - Other pancytopenia (9) Vitamin C deficiency Current Visit: Yes Status: Acute Code(s): E54 - Ascorbic acid deficiency
--- NOTE | 2018-07-26 09:38 | PT PM DAY ---
Diagnosis : Weakness PM - Physical Therapy S: The patient states she is fatigued this afternoon but is willing to participate in therapy. O: Treatment consisted of the patient transferring from bed to chair with stand by assist x1 for safety. The patient was then instructed in lower extremity strengthening consisting of glut squeezes x10, resisted marching x10, long arc quads x5 with three second hold, resisted hamstring curls x10, resisted hip abduction x10, and pillow squeezes x10. All activities were performed with bilateral lower extremities. The patient then performed sit to stand transfer and she stood within a narrow base of support with stand by assist x1 for 30 seconds. The patient performed balance grid activity to work on weight shifting for bilateral lower extremities with hand hold assist x2. The patient required frequent rest breaks during activities due to her fatigue level. After we were through with her exercises, the patient ambulated to the bathroom. She was able to perform toileting activities independently but did require min assist x1 to stand up from the toilet. The patient then returned to bed where the alarm was set and call light was placed within reach. A: The patient tolerated exercises fair. She did require more frequent rest breaks with our standing activities and she did complain of right sided back pain with prolonged sitting. The patient will continue to benefit from skilled therapy to improve her endurance and strength. P: Continue seeing patient BID during the week and one time per day over the weekend for transfers, ambulation, and range of motion/strengthening exercises. MTDD
[2018-07-26] MEDS: HEPARIN 500 UNIT/5 ML SYRINGE FOR CENTRAL LINE IVP PRN (10:22)
[2018-07-26] MEDS: AA-Dext 5%-20%/Calcium/Lytes 1,000 ML PRIMARY IV SCH (12:45)
[2018-07-26] MEDS: ONDANSETRON 4 MG/2 ML VIAL IV PRN ×2 (15:08→18:51)
--- NOTE | 2018-07-26 15:53 | OT.PROG ---
Progress Note Progress Note: Occupational Therapy: S: Pt. reports that she feels very tired today. She is willing to participate in therapy session, however she does not want to get out out bed. O: Pt. was seen at 0830 for skilled occupational therapy session with a focus on active UE exercise. Pt. completed bilateral hand strengthening for gross grasp 2 X 10 with moderate resistance. Pt. also completed active motion for biceps curls, triceps extension, shoulder flexion, shoulder shrugs, scap. squeezes and shoulder abduction 2 X 10 each. Pt. required a rest break of approximately 30 seconds between sets. Following OT session pt. was left in bed with call light in place. A: Pt. had a flat affect today, however was very friendly. She participated in UE activity with minimal limitations and more rest breaks. Continue to progress with strength and functional skills to meet goals and objectives. P: Continue POC. NETTIE Stewart/Robby
--- NOTE | 2018-07-26 16:19 | PT.PROG ---
Progress Note Progress Note: Patient refused therapy this afternoon, due to having diarrhea and not feeling well.
[2018-07-26] MEDS: NICOTINE 21 MG /DAY PATCH TRANSDERM SCH (18:42)
[2018-07-26] MEDS: ALPRAZolam Tab 0.25 MG TABLET PO PRN (18:43)
[2018-07-26] MEDS: Mirtazapine Tab 15 MG TAB PO SCH (20:46)
[2018-07-26] MEDS: FAT EMULSIONS 20% IV SCH (20:48)
[2018-07-27] MEDS: HEPARIN 5000 UNIT/1 ML SUBCUT SCH ×3 (02:53→18:54)
[2018-07-27] MEDS: ACIDOPHILUS/BULGARICUS 1 EACH GRAN.PACK PO SCH ×3 (09:06→20:15)
[2018-07-27] MEDS: HEPARIN 500 UNIT/5 ML SYRINGE FOR CENTRAL LINE IVP PRN (09:06)
[2018-07-27] MEDS: MAGNESIUM OXIDE 400 MG TABLET PO SCH (09:08)
[2018-07-27] MEDS: ALPRAZolam Tab 0.25 MG TABLET PO PRN ×2 (09:08→14:21)
[2018-07-27] MEDS: HYDROXYZINE PAMOATE 25 MG CAPSULE PO SCH ×2 (09:17→20:16)
[2018-07-27] MEDS: CHOLECALCIFEROL 1000 IU TABLET PO SCH (09:17)
[2018-07-27] MEDS: ASCORBIC ACID Chewable 500 MG TABLET PO SCH (09:17)
[2018-07-27] MEDS: oxyCODONE IR Tab 5 MG TAB PO PRN ×2 (09:17→14:21)
[2018-07-27] MEDS: FOLIC ACID 1 MG TABLET PO SCH (09:17)
[2018-07-27] MEDS: Multivitamin Tab 1 TAB PO SCH (09:18)
[2018-07-27] MEDS: MIDODRINE 10 MG PO SCH ×3 (09:18→14:23)
[2018-07-27] MEDS: Thiamine Tab 100 MG TAB PO SCH (09:18)
[2018-07-27] MEDS: Metoclopramide Inj 10 MG/2 ML VIAL IVP PRN ×2 (09:19→19:18)
[2018-07-27 09:23] LABS: BUN/CREATININE RATIO 24.28 (6-20)
[2018-07-27] MEDS: Vancomycin Oral Soln 125 MG/5 ML (7500MG/300ML) BOTTLE PO SCH ×2 (09:55→20:16)
--- NOTE | 2018-07-27 10:04 | PDOC(PROG) ---
Interval History: Patient has no complaints she states her diarrhea is a little less. Nurse says that she had 3 episodes yesterday. I did tell her that she is having complications from her TPN including dehydration some liver failure and hypokalemia from refeeding syndrome. She will does not like the idea of a NG tube but is open to the idea of a PEG tube while she works in getting inpatient treatment for her anorexia nervosa she is trying to eat a little more. She also has lost 8 pounds in the last 4 days. Objective : Data - Labs CBC and BMP: 07/24/18 04:23 07/27/18 08:45 Objective : Exam - General General Appearance: Cooperative - Respiratory Respiratory Exam: Clear to Auscultation - Bilaterally, Breathing Non Labored, Normal To Percussion, Normal to Percussion and Palpation - Cardiovascular Cardiovascular Exam: RRR, No Murmur, No Clicks, No Gallops, No Rubs, PMI Non- Displaced - GI/Abdominal GI/Abdominal Exam: Normal Bowel Sounds, Non Tender, Non Distended, Soft, No Masses, No Hepatomegaly, No Splenomegaly, No Organomegaly - Extremities Extremities Exam: No Clubbing Present, No Edema Present Assessment and Plan - Patient Problems (1) Malnourished Current Visit: Yes Status: Chronic Comment: Patient is on TPN her LFTs are increasing as well as a BUN and creatinine. Most these are all complications of TPN with dehydration liver failure and hypokalemia. I will start normal saline solution with 20 K to rehydrate the patient. We also had a conversation on possible PEG tube which she is open to while she awaits inpatient placement and treatment from [facility] with her payer source. Nurse Jas is in the room with me, will check labs tomorrow if not improving discussed with pharmacy probably start cutting back on TPN consult surgery for possible PEG tube Code(s): E46 - Unspecified protein-calorie malnutrition Qualifiers: Malnutrition type: protein-calorie malnutrition Protein-calorie malnutrition severity: severe Qualified Code(s): E43 - Unspecified severe protein-calorie malnutrition (2) Hypokalemia Current Visit: Yes Status: Acute Code(s): E87.6 - Hypokalemia (3) Iron deficiency anemia Current Visit: Yes Status: Acute Code(s): D50.9 - Iron deficiency anemia, unspecified Qualifiers: Iron deficiency anemia type: inadequate dietary iron intake Qualified Code( s): D50.8 - Other iron deficiency anemias (4) Ascites Current Visit: Yes Status: Acute Code(s): R18.8 - Other ascites Qualifiers: Ascites type: other type Qualified Code(s): R18.8 - Other ascites (5) Spontaneous bacterial peritonitis Current Visit: Yes Status: Acute Code(s): K65.2 - Spontaneous bacterial peritonitis (6) Body dysmorphic disorder Current Visit: Yes Status: Acute Code(s): F45.22 - Body dysmorphic disorder (7) C. difficile diarrhea Current Visit: Yes Status: Acute Comment: Continue vancomycin I believe she is about to go to twice a day today Code(s): A04.72 - Enterocolitis due to Clostridium difficile, not specified as recurrent (8) Pancytopenia Current Visit: Yes Status: Acute Code(s): D61.818 - Other pancytopenia (9) Vitamin C deficiency Current Visit: Yes Status: Acute Code(s): E54 - Ascorbic acid deficiency
[2018-07-27] MEDS: AA-Dext 5%-20%/Calcium/Lytes 1,000 ML PRIMARY IV SCH (14:31)
[2018-07-27] MEDS: ONDANSETRON 4 MG/2 ML VIAL IV PRN (14:32)
--- NOTE | 2018-07-27 15:47 | PT.PROG ---
Progress Note Progress Note: Attempted to see patient for physical therapy this afternoon. Pt refused to participate with therapy stating that she did not feel well. Discussed with pt about trying therapy in about an hour and once again she refused. Pt did agree to participate with therapy tomorrow.
[2018-07-27] MEDS: NICOTINE 21 MG /DAY PATCH TRANSDERM SCH (20:15)
[2018-07-27] MEDS: Mirtazapine Tab 15 MG TAB PO SCH (20:16)
[2018-07-27] MEDS: FAT EMULSIONS 20% IV SCH (20:17)
[2018-07-28] MEDS: ALPRAZolam Tab 0.25 MG TABLET PO PRN ×4 (00:31→20:31)
[2018-07-28] MEDS: oxyCODONE IR Tab 5 MG TAB PO PRN ×4 (00:31→20:31)
[2018-07-28] MEDS: ONDANSETRON 4 MG/2 ML VIAL IV PRN ×3 (00:31→20:31)
[2018-07-28] MEDS: HEPARIN 5000 UNIT/1 ML SUBCUT SCH ×3 (02:28→20:13)
[2018-07-28] MEDS: Metoclopramide Inj 10 MG/2 ML VIAL IVP PRN ×2 (02:48→08:53)
[2018-07-28 05:01] LABS: BUN/CREATININE RATIO 27.22 (6-20); CHOL/HDL RATIO 5.36 RATIO (0-4.0); SERUM ALBUMIN 3.4 g/dL (3.5-4.8)
[2018-07-28] MEDS: HEPARIN 500 UNIT/5 ML SYRINGE FOR CENTRAL LINE IVP PRN (07:07)
[2018-07-28] MEDS: MIDODRINE 10 MG PO SCH ×3 (07:07→14:54)
[2018-07-28] MEDS: MAGNESIUM OXIDE 400 MG TABLET PO SCH (07:07)
[2018-07-28] MEDS: ACIDOPHILUS/BULGARICUS 1 EACH GRAN.PACK PO SCH ×3 (08:50→20:12)
[2018-07-28] MEDS: ASCORBIC ACID Chewable 500 MG TABLET PO SCH (08:50)
[2018-07-28] MEDS: Vancomycin Oral Soln 125 MG/5 ML (7500MG/300ML) BOTTLE PO SCH ×2 (08:50→20:12)
[2018-07-28] MEDS: CHOLECALCIFEROL 1000 IU TABLET PO SCH (08:51)
[2018-07-28] MEDS: Thiamine Tab 100 MG TAB PO SCH (08:51)
[2018-07-28] MEDS: Multivitamin Tab 1 TAB PO SCH (08:52)
[2018-07-28] MEDS: FOLIC ACID 1 MG TABLET PO SCH (08:53)
[2018-07-28] MEDS: HYDROXYZINE PAMOATE 25 MG CAPSULE PO SCH ×2 (08:54→20:13)
--- NOTE | 2018-07-28 09:31 | PDOC(PROG) ---
Interval History: Patient in good spirits today is her birthday we discussed that I would talk with the Dr. huseyin Damian for possible feeding tube since we are getting into some complications of TPN with the dehydration, hypokalemia, elevated LFTs. And weight loss Patient is almost taken no by mouth intake Objective : Data - Labs CBC and BMP: 07/24/18 04:23 07/28/18 04:25 Objective : Exam - General General Appearance: Cooperative - Respiratory Respiratory Exam: Clear to Auscultation - Bilaterally, Breathing Non Labored, Normal To Percussion, Normal to Percussion and Palpation - Cardiovascular Cardiovascular Exam: RRR, No Murmur, No Clicks, No Gallops, No Rubs, PMI Non- Displaced - GI/Abdominal GI/Abdominal Exam: Normal Bowel Sounds, Non Tender, Non Distended, Soft, No Masses, No Hepatomegaly, No Splenomegaly, No Organomegaly - Extremities Extremities Exam: No Clubbing Present, No Edema Present Assessment and Plan - Patient Problems (1) Malnourished Current Visit: Yes Status: Chronic Comment: I have consulted with Dr. villanueva. He actually dictated this piece into the note himself"The patient needs to be at a higher level of care than we can provide here at [facility] [place] would recommend that the hospitalist transferred to a larger facility therefore they can take care of her with proper nutrition's i.e. PEG tube with tube feedings.". Dr. villanueva. I will let the patient in no Dr. Roa's recommendation. I agree with Dr. huseyin Damian patient needs to be at a higher level of care where they can manage her underlying disease state. [facility] Code(s): E46 - Unspecified protein-calorie malnutrition Qualifiers: Malnutrition type: protein-calorie malnutrition Protein-calorie malnutrition severity: severe Qualified Code(s): E43 - Unspecified severe protein-calorie malnutrition (2) Hypokalemia Current Visit: Yes Status: Acute Comment: Continue replacement Code(s): E87.6 - Hypokalemia (3) Iron deficiency anemia Current Visit: Yes Status: Acute Code(s): D50.9 - Iron deficiency anemia, unspecified Qualifiers: Iron deficiency anemia type: inadequate dietary iron intake Qualified Code( s): D50.8 - Other iron deficiency anemias (4) Ascites Current Visit: Yes Status: Acute Code(s): R18.8 - Other ascites Qualifiers: Ascites type: other type Qualified Code(s): R18.8 - Other ascites (5) Spontaneous bacterial peritonitis Current Visit: Yes Status: Acute Comment: We have stopped the Cipro for now until C. difficile is resolved she still having 5-6 bowel movements per day Code(s): K65.2 - Spontaneous bacterial peritonitis (6) Body dysmorphic disorder Current Visit: Yes Status: Acute Comment: [facility] working on insurance and inpatient treatment facility. Apparently they'll have refused therapy because she has no prior source Code(s): F45.22 - Body dysmorphic disorder (7) C. difficile diarrhea Current Visit: Yes Status: Acute Comment: Continue vancomycin Code(s): A04.72 - Enterocolitis due to Clostridium difficile, not specified as recurrent (8) Vitamin C deficiency Current Visit: Yes Status: Acute Code(s): E54 - Ascorbic acid deficiency
--- NOTE | 2018-07-28 09:51 | OT.PROG ---
Progress Note Progress Note: pt refused skilled OT services today due to back pain and wanting to talk to [facility]. PT will attempt services this afternoon.
[2018-07-28] MEDS: AA-Dext 5%-20%/Calcium/Lytes 1,000 ML PRIMARY IV SCH (13:36)
--- NOTE | 2018-07-28 16:05 | OT AM DAY ---
Diagnosis : Weakness AM - Occupational Therapy S: The patient reports today is her birthday. She did have a few smiles today. The patient also reported that her back was too painful to sit up. O: Today we laid the patient completely supine to stretch her spine. She pushed spine into extension while laying on her back. She performed scapular retraction exercises, shoulder flexion, bridges, short arc quads, straight leg raises, and ankle pumps, x10 repetitions. The patient was instructed to try to do this a couple of times a day to stretch out her spine. A: The patient has little motivation but does participate. P: Continue seeing patient BID during the week and one time per day over the weekend for upper extremity strengthening, ADLs, and overall functional mobility. SHANELL
--- NOTE | 2018-07-28 16:15 | PT.PROG ---
Progress Note Progress Note: S: Pt states that she is unable to sit secondary to pain at her wound site on her backside. Pt is willing to participate in bed exercises and states that she will try to do what she is able. O: Tx consisted of: 10 x glute squeezes, 10 x bilateral heel slides/quad sets, 10 x double knee to chest, 10 x bilateral SAQ, 10 x pillow squeezes. A: Pt was willing to perform 15 minutes of exercise as long as she was in bed. Struggling with pain which is limiting her ability to tolerate sitting. P: Continue per POC.
[2018-07-28] MEDS: NICOTINE 21 MG /DAY PATCH TRANSDERM SCH (20:12)
[2018-07-28] MEDS: Mirtazapine Tab 15 MG TAB PO SCH (20:13)
[2018-07-29] MEDS: HEPARIN 5000 UNIT/1 ML SUBCUT SCH ×3 (02:03→20:50)
[2018-07-29] MEDS: ONDANSETRON 4 MG/2 ML VIAL IV PRN ×3 (02:03→12:46)
[2018-07-29] MEDS: Metoclopramide Inj 10 MG/2 ML VIAL IVP PRN ×2 (04:32→12:59)
[2018-07-29 04:37] LABS: BUN/CREATININE RATIO 25.33 (6-20); SERUM ALBUMIN 3.4 g/dL (3.5-4.8)
[2018-07-29] MEDS: ALPRAZolam Tab 0.25 MG TABLET PO PRN ×3 (04:45→20:49)
[2018-07-29] MEDS: MAGNESIUM OXIDE 400 MG TABLET PO SCH (07:24)
[2018-07-29] MEDS: oxyCODONE IR Tab 5 MG TAB PO PRN ×3 (07:24→20:49)
[2018-07-29] MEDS: MIDODRINE 10 MG PO SCH ×3 (07:24→15:43)
[2018-07-29] MEDS: Vancomycin Oral Soln 125 MG/5 ML (7500MG/300ML) BOTTLE PO SCH ×2 (09:33→20:47)
[2018-07-29] MEDS: Thiamine Tab 100 MG TAB PO SCH (09:34)
[2018-07-29] MEDS: FOLIC ACID 1 MG TABLET PO SCH (09:34)
[2018-07-29] MEDS: HYDROXYZINE PAMOATE 25 MG CAPSULE PO SCH ×2 (09:34→20:49)
[2018-07-29] MEDS: ASCORBIC ACID Chewable 500 MG TABLET PO SCH (09:34)
[2018-07-29] MEDS: Multivitamin Tab 1 TAB PO SCH (09:34)
[2018-07-29] MEDS: ACIDOPHILUS/BULGARICUS 1 EACH GRAN.PACK PO SCH ×3 (09:34→20:50)
[2018-07-29] MEDS: CHOLECALCIFEROL 1000 IU TABLET PO SCH (09:34)
--- NOTE | 2018-07-29 11:00 | PDOC(PROG) ---
Date of Service: 07/29/18 Time of Service: 11:00 Interval History: Subjective She did have diarrhea like 3 times she said. She did vomit twice earlier. Objective : Data - Labs CBC and BMP: 07/24/18 04:23 07/29/18 03:55 Objective : Exam - General General Appearance: No Acute Distress, Cooperative, Thin Additional General Exam Details: cachectic - Head Head Exam: Normal Inspection - Eye Eye Exam: Normal Appearance - ENT ENT Exam: Normal Exam - Neck Neck Exam: Normal Inspection - Respiratory Respiratory Exam: Clear to Auscultation - Bilaterally - Cardiovascular Cardiovascular Exam: RRR - GI/Abdominal GI/Abdominal Exam: Normal Bowel Sounds, Non Distended, Soft, No Organomegaly Additional GI/Abdominal Exam Details: There is minimal tenderness in the midepigastrium. Unchanged from before. - Rectal Rectal Exam: Deferred - External Exam: Deferred - Extremities Extremities Exam: Normal Inspection - Back Back Exam: Normal Inspection - Neurological Neurological Exam: Alert, Oriented x 3, CN II-XII Intact, No Facial Droop - Psychiatric Psychiatric Exam: Normal Affect Assessment and Plan - Patient Problems (1) Hypokalemia Current Visit: Yes Status: Acute Comment: This is replaced. Secondary to the diarrhea. Code(s): E87.6 - Hypokalemia (2) Ascites Current Visit: Yes Status: Acute Comment: Seems to be much improved than before. Code(s): R18.8 - Other ascites Qualifiers: Ascites type: other type Qualified Code(s): R18.8 - Other ascites (3) Malnourished Current Visit: Yes Status: Chronic Comment: Continue TPN. Dr. Crowder recommended against Peg tube here. Suggested transfer somewhere else. Code(s): E46 - Unspecified protein-calorie malnutrition Qualifiers: Malnutrition type: protein-calorie malnutrition Protein-calorie malnutrition severity: severe Qualified Code(s): E43 - Unspecified severe protein-calorie malnutrition (4) Spontaneous bacterial peritonitis Current Visit: Yes Status: Acute Comment: This was treated Code(s): K65.2 - Spontaneous bacterial peritonitis (5) Body dysmorphic disorder Current Visit: Yes Status: Acute Comment: [facility] recommendation was inpatient treatment, still waiting for insurance Code(s): F45.22 - Body dysmorphic disorder (6) C. difficile diarrhea Current Visit: Yes Status: Acute Comment: Continue vancomycin. Code(s): A04.72 - Enterocolitis due to Clostridium difficile, not specified as recurrent (7) Vitamin C deficiency Current Visit: Yes Status: Acute Comment: Continue vitamin C Code(s): E54 - Ascorbic acid deficiency (8) Acute renal failure Current Visit: Yes Status: Acute Comment: May be secondary to dehydration. There is normal anion gap metabolic acidosis may be secondary to the dirrhea but will switch the fluid to lactate see it that would help too. Code(s): N17.9 - Acute kidney failure, unspecified Qualifiers: Acute renal failure type: unspecified Qualified Code(s): N17.9 - Acute kidney failure, unspecified
[2018-07-29] MEDS: Lactated Ringers 1,000 ML PRIMARY IV SCH ×2 (11:26→23:11)
[2018-07-29] MEDS: PANTOPRAZOLE IV 40 MG VIAL IVP SCH (13:30)
[2018-07-29] MEDS: AA-Dext 5%-20%/Calcium/Lytes 1,000 ML PRIMARY IV SCH (13:31)
--- NOTE | 2018-07-29 16:12 | DI ---
EXAM: CT ABDOMEN PELVIS WITHOUT CONTRAST INDICATION: Vomiting TECHNIQUE: Multiple, contiguous 3 mm axial cuts of the abdomen and pelvis are obtained from the lung bases to the ischial tuberosities. Sagittal and coronal reformatted images are available. COMPARISON: CT abdomen pelvis 07/15/18 FINDINGS: Left effusion has resolved. There is a small right pleural effusion slightly increased since prior exam. There is mild compressive atelectasis right lung base. Left lung bases clear. Liver: Hepatomegaly otherwise liver is unremarkable.. Spleen: Unenhanced spleen is unremarkable. Pancreas: Unenhanced pancreas is unremarkable. Gallbladder: Cholecystectomy. No biliary ductal dilatation. Adrenal glands: Unenhanced adrenal glands are unremarkable. Kidneys: Stable 10 mm nonobstructing stone left kidney otherwise unenhanced kidneys are unremarkable. No hydronephrosis or perinephric inflammatory changes. No other urinary tract stones.. GI tract: No bowel obstruction. There are mild to moderate prominent air and fluid-filled loops of small bowel without a transition point compatible with a mild to moderate ileus pattern. There is marked decrease in ascites since prior examination with minimal to mild residual ascites remaining. No free air. No abscess collection. Liquefied stool throughout the colon present. Appendix: Appendix normal caliber. Urinary bladder: Unopacified urinary bladder is unremarkable. Abdominal aorta: Abdominal aorta normal caliber. Retroperitoneum. No adenopathy. Osseous structures: No acute osseous abnormality. Uterus is present unremarkable by CT. No dominant adnexal lesion. IMPRESSION: 1. Resolution of previous left small effusion. There is a minimal to mild right pleural effusion. There is mild right basilar compressive atelectasis. 2. Marked decrease in the previous ascites. There is a residual minimal to mild ascites remaining. No free air or abscess. 3. Mild to moderate ileus pattern of the small bowel. No bowel obstruction picture. Liquefied stool throughout the colon and rectum. 4. 1 cm nonobstructing stone left kidney again noted. Otherwise kidneys are unremarkable. 5. Hepatomegaly. 6. Cholecystectomy. 7. Appendix normal caliber.
[2018-07-29 18:17] LABS: BASOPHILS # (AUTO) 0.04 10*3/UL; BASOPHILS % (AUTO) 0.4 % (0-1); EOSINOPHILS # (AUTO) 0.11 10*3/UL; EOSINOPHILS % (AUTO) 1.2 % (0-8); Hematocrit [HCT] 26.6 % (37.0-47.0); Hemoglobin [HGB] 8.4 g/dL (12.0-16.0); LYMPHOCYTES # (AUTO) 1.14 10*3/uL; MEAN CORPUSCULAR HEMOGLOBIN 33.7 PG (27-31); MEAN CORPUSCULAR HGB CONC 31.6 g/dL (33-37); MEAN CORPUSCULAR VOLUME 106.8 FL (81-99); MEAN PLATELET VOLUME 10.4 FL (7.4-12.2); MONOCYTES # (AUTO) 0.61 10*3/UL (0.3-0.8); MONOCYTES % (AUTO) 6.8 % (5-15); NEUTROPHILS # (AUTO) 7.07 10*3/UL; NEUTROPHILS % (AUTO) 78.4 % (50-80); RED BLOOD COUNT 2.49 10^6/uL (4.20-5.40)
[2018-07-29 18:34] LABS: PLATELET MORPHOLOGY COMMENT NORMAL MORPHOLOGY (NORM); WBC MORPHOLOGY COMMENT NORMAL MORPHOLOGY (NORM)
[2018-07-29 18:35] LABS: RBC MORPHOLOGY COMMENT SEE COMMENTS (NORM)
[2018-07-29 18:42] LABS: BUN/CREATININE RATIO 27.5 (6-20)
[2018-07-29] MEDS: Mirtazapine Tab 15 MG TAB PO SCH (20:48)
[2018-07-29] MEDS: NICOTINE 21 MG /DAY PATCH TRANSDERM SCH (20:49)
[2018-07-29] MEDS: Metoclopramide Inj 10 MG/2 ML VIAL IVP SCH (20:50)
[2018-07-30] MEDS: Metoclopramide Inj 10 MG/2 ML VIAL IVP SCH ×4 (02:04→20:17)
[2018-07-30] MEDS: HEPARIN 5000 UNIT/1 ML SUBCUT SCH ×3 (02:04→20:17)
[2018-07-30 06:15] LABS: BASOPHILS # (AUTO) 0.04 10*3/UL; BASOPHILS % (AUTO) 0.6 % (0-1); EOSINOPHILS # (AUTO) 0.15 10*3/UL; EOSINOPHILS % (AUTO) 2.2 % (0-8); Hemoglobin [HGB] 8.2 g/dL (12.0-16.0); LYMPHOCYTES # (AUTO) 0.98 10*3/uL; MEAN CORPUSCULAR HEMOGLOBIN 33.5 PG (27-31); MEAN CORPUSCULAR HGB CONC 31.5 g/dL (33-37); MEAN CORPUSCULAR VOLUME 106.1 FL (81-99); MEAN PLATELET VOLUME 10.4 FL (7.4-12.2); MONOCYTES # (AUTO) 0.38 10*3/UL (0.3-0.8); MONOCYTES % (AUTO) 5.5 % (5-15); NEUTROPHILS # (AUTO) 5.32 10*3/UL; NEUTROPHILS % (AUTO) 77.4 % (50-80); RED BLOOD COUNT 2.45 10^6/uL (4.20-5.40)
[2018-07-30 06:27] LABS: SERUM ALBUMIN 2.7 g/dL (3.5-4.8)
[2018-07-30 06:28] LABS: PLATELET MORPHOLOGY COMMENT NORMAL MORPHOLOGY (NORM); RBC MORPHOLOGY COMMENT SEE COMMENTS (NORM); WBC MORPHOLOGY COMMENT NORMAL MORPHOLOGY (NORM)
[2018-07-30] MEDS ORDERED: LANSOPRAZOLE 30 MG SOLUTAB PO SCH (07:00)
[2018-07-30] MEDS: MAGNESIUM OXIDE 400 MG TABLET PO SCH (07:17)
[2018-07-30] MEDS: ALPRAZolam Tab 0.25 MG TABLET PO PRN ×3 (07:17→20:15)
[2018-07-30] MEDS: Lactated Ringers 1,000 ML PRIMARY IV SCH ×2 (07:17→21:57)
[2018-07-30] MEDS: MIDODRINE 10 MG PO SCH ×3 (07:18→16:37)
[2018-07-30] MEDS: oxyCODONE IR Tab 5 MG TAB PO PRN ×3 (07:18→20:14)
[2018-07-30] MEDS: HYDROXYZINE PAMOATE 25 MG CAPSULE PO SCH ×2 (09:00→20:16)
[2018-07-30] MEDS: Vancomycin Oral Soln 125 MG/5 ML (7500MG/300ML) BOTTLE PO SCH ×2 (09:00→20:14)
[2018-07-30] MEDS: ASCORBIC ACID Chewable 500 MG TABLET PO SCH (09:00)
[2018-07-30] MEDS: PANTOPRAZOLE IV 40 MG VIAL IVP SCH (09:00)
[2018-07-30] MEDS: CHOLECALCIFEROL 1000 IU TABLET PO SCH (09:01)
[2018-07-30] MEDS: FOLIC ACID 1 MG TABLET PO SCH (09:01)
[2018-07-30] MEDS: Multivitamin Tab 1 TAB PO SCH (09:01)
[2018-07-30] MEDS: ACIDOPHILUS/BULGARICUS 1 EACH GRAN.PACK PO SCH ×3 (09:01→20:13)
[2018-07-30] MEDS: Thiamine Tab 100 MG TAB PO SCH (09:01)
--- NOTE | 2018-07-30 10:41 | OT AM DAY ---
Diagnosis : Weakness AM - Occupational Therapy S: The patient reports she is doing okay. She states she still has a lot of low back pain. O: Today we laid the patient completely supine and performed activities including a back press and shoulder press into the bed. We did horizontal abduction with scapular squeezes, shoulder flexion while supine x10, shoulder retraction/protraction x10, and bench press activities without weight. She also performed short arc quads, long arc quads, and heel pumps while in bed. A: The patient was a good participant. She does not tolerate a lot of activity, but she did participate and was instructed to try to get into more extension to relieve pressure off of her back. She wanted to stay in the supine position when the therapist left. Typically she is always in a hunched over position when the therapist arrived, so it was good to get more stretching on her back. The patient still is not eating much per nursing's reports. P: Continue seeing patient BID during the week and one time per day over the weekend for upper extremity strengthening, ADLs, and overall functional mobility. SHANELL
--- NOTE | 2018-07-30 11:19 | PDOC(PROG) ---
Date of Service: 07/30/18 Time of Service: 11:20 Interval History: Subjective More vomiting since yesterday afternoon. She had one bowel movement this morning and was soft. No abdominal pain. Objective : Data - Labs CBC and BMP: 07/30/18 06:16 07/30/18 06:16 Objective : Exam - General General Appearance: No Acute Distress, Cooperative Additional General Exam Details: Cachectic - Head Head Exam: Normal Inspection - Eye Eye Exam: Normal Appearance - ENT ENT Exam: Normal Exam - Neck Neck Exam: Normal Inspection - Respiratory Respiratory Exam: Clear to Auscultation - Bilaterally - Cardiovascular Cardiovascular Exam: RRR - GI/Abdominal GI/Abdominal Exam: Normal Bowel Sounds, Non Tender, Non Distended, Soft, No Organomegaly - Rectal Rectal Exam: Deferred - External Exam: Deferred Exam: Deferred - Extremities Extremities Exam: Normal Inspection - Back Back Exam: Normal Inspection - Neurological Neurological Exam: Alert, Oriented x 3, CN II-XII Intact, No Facial Droop, Moves All Extremities Equally - Psychiatric Psychiatric Exam: Flat Affect Assessment and Plan - Patient Problems (1) Hypokalemia Current Visit: Yes Status: Acute Comment: This is improved. Continue following the labs Code(s): E87.6 - Hypokalemia (2) Ascites Current Visit: Yes Status: Acute Comment: Much improved based on the CT. Code(s): R18.8 - Other ascites Qualifiers: Ascites type: other type Qualified Code(s): R18.8 - Other ascites (3) Malnourished Current Visit: Yes Status: Chronic Comment: Continue TPN the target is at 50 and will be increased today to 50 mg hour. Code(s): E46 - Unspecified protein-calorie malnutrition Qualifiers: Malnutrition type: protein-calorie malnutrition Protein-calorie malnutrition severity: severe Qualified Code(s): E43 - Unspecified severe protein-calorie malnutrition (4) Spontaneous bacterial peritonitis Current Visit: Yes Status: Acute Comment: This is was treated Code(s): K65.2 - Spontaneous bacterial peritonitis (5) Body dysmorphic disorder Current Visit: Yes Status: Acute Comment: Need inpatient treatment at one point in time. Code(s): F45.22 - Body dysmorphic disorder (6) C. difficile diarrhea Current Visit: Yes Status: Acute Comment: Continue vancomycin. Because of the continuous diarrhea I think will give her additional few days of vancomycin. [facility] Code(s): A04.72 - Enterocolitis due to Clostridium difficile, not specified as recurrent (7) Vitamin C deficiency Current Visit: Yes Status: Acute Comment: Continue vitamin replacement Code(s): E54 - Ascorbic acid deficiency (8) Acute renal failure Current Visit: Yes Status: Acute Comment: This is resolved with hydration will start cutting back on the fluid. Code(s): N17.9 - Acute kidney failure, unspecified Qualifiers: Acute renal failure type: unspecified Qualified Code(s): N17.9 - Acute kidney failure, unspecified (9) Ileus Current Visit: Yes Status: Acute Comment: Probably secondary to electrolyte abnormality that include hypokalemia and she had normal anion gap metabolic acidosis probably secondary to diarrhea and secondary to the normal saline. We switched her to lactate and her chloride is down and bicarbonate is up. Continue scheduled Reglan. Code(s): K56.7 - Ileus, unspecified
[2018-07-30] MEDS: AA-Dext 5%-20%/Calcium/Lytes 1,000 ML PRIMARY IV SCH (12:26)
[2018-07-30] MEDS: CHOLESTYRAMINE/SUCROSE 4 GM PACKET PO SCH (12:27)
[2018-07-30] MEDS: VITAMIN D3 PO SCH (20:13)
[2018-07-30] MEDS: NICOTINE 21 MG /DAY PATCH TRANSDERM SCH (20:14)
[2018-07-30] MEDS: Mirtazapine Tab 15 MG TAB PO SCH (20:14)
[2018-07-30] MEDS: [UNRECOGNIZED DRUG - OTHER] PO SCH (20:14)
[2018-07-31] MEDS: HEPARIN 5000 UNIT/1 ML SUBCUT SCH ×4 (01:47→19:26)
[2018-07-31] MEDS: Metoclopramide Inj 10 MG/2 ML VIAL IVP SCH ×4 (01:48→19:26)
[2018-07-31 05:31] LABS: BLOOD UREA NITROGEN 34 mg/dL (7-22); BUN/CREATININE RATIO 37.77 (6-20); SERUM ALBUMIN 2.4 g/dL (3.5-4.8)
[2018-07-31] MEDS: MIDODRINE 10 MG PO SCH ×3 (07:34→16:30)
[2018-07-31] MEDS: MAGNESIUM OXIDE 400 MG TABLET PO SCH (07:34)
[2018-07-31] MEDS: PANTOPRAZOLE IV 40 MG VIAL IVP SCH (09:16)
[2018-07-31] MEDS: ACIDOPHILUS/BULGARICUS 1 EACH GRAN.PACK PO SCH ×3 (09:16→20:24)
[2018-07-31] MEDS: AA-Dext 5%-20%/Calcium/Lytes 1,000 ML PRIMARY IV SCH (09:16)
[2018-07-31] MEDS: Vancomycin Oral Soln 125 MG/5 ML (7500MG/300ML) BOTTLE PO SCH ×2 (09:17→20:23)
[2018-07-31] MEDS: CHOLECALCIFEROL 1000 IU TABLET PO SCH (09:18)
[2018-07-31] MEDS: Multivitamin Tab 1 TAB PO SCH (09:18)
[2018-07-31] MEDS: ALPRAZolam Tab 0.25 MG TABLET PO PRN ×2 (09:18→16:50)
[2018-07-31] MEDS: HYDROXYZINE PAMOATE 25 MG CAPSULE PO SCH ×2 (09:18→20:24)
[2018-07-31] MEDS: Thiamine Tab 100 MG TAB PO SCH (09:18)
[2018-07-31] MEDS: ASCORBIC ACID Chewable 500 MG TABLET PO SCH (09:19)
[2018-07-31] MEDS: FOLIC ACID 1 MG TABLET PO SCH (09:19)
[2018-07-31] MEDS: oxyCODONE IR Tab 5 MG TAB PO PRN ×2 (09:19→16:50)
[2018-07-31] MEDS: CHOLESTYRAMINE/SUCROSE 4 GM PACKET PO SCH (09:20)
--- NOTE | 2018-07-31 09:22 | PDOC(PROG) ---
Date of Service: 07/31/18 Time of Service: 09:30 Interval History: Subjective Patient feels better. No vomiting today. Although she said she vomited once yesterday after she took the [employer] the nurses are disputing this. Last time she had a bowel movement was yesterday and was more formed. Objective : Data - Labs CBC and BMP: 07/30/18 06:16 07/31/18 04:20 Objective : Exam - General General Appearance: No Acute Distress, Cooperative Additional General Exam Details: Cachectic - Head Head Exam: Normal Inspection - Eye Eye Exam: Normal Appearance - ENT ENT Exam: Normal Exam - Neck Neck Exam: Normal Inspection - Respiratory Respiratory Exam: Clear to Auscultation - Bilaterally - Cardiovascular Cardiovascular Exam: RRR - GI/Abdominal GI/Abdominal Exam: Normal Bowel Sounds, Non Tender, Non Distended, Soft, No Organomegaly - Rectal Rectal Exam: Deferred - External Exam: Deferred Exam: Deferred - Extremities Extremities Exam: Normal Inspection - Neurological Neurological Exam: Alert, Oriented x 3, CN II-XII Intact, No Facial Droop, Speech Intact / Clear, Moves All Extremities Equally - Psychiatric Psychiatric Exam: Flat Affect Assessment and Plan - Patient Problems (1) Hypokalemia Current Visit: Yes Status: Acute Comment: This is normalized Code(s): E87.6 - Hypokalemia (2) Ascites Current Visit: Yes Status: Acute Comment: The CT showed less amount of fluid compared to when she came in. Clinically it looks less than before. Code(s): R18.8 - Other ascites Qualifiers: Ascites type: other type Qualified Code(s): R18.8 - Other ascites (3) Malnourished Current Visit: Yes Status: Chronic Comment: Continue TPN, she is at 50 miles an hour now. Consider restarting the lipid tomorrow. Code(s): E46 - Unspecified protein-calorie malnutrition Qualifiers: Malnutrition type: protein-calorie malnutrition Protein-calorie malnutrition severity: severe Qualified Code(s): E43 - Unspecified severe protein-calorie malnutrition (4) Spontaneous bacterial peritonitis Current Visit: Yes Status: Acute Comment: This was treated Code(s): K65.2 - Spontaneous bacterial peritonitis (5) Body dysmorphic disorder Current Visit: Yes Status: Acute Comment: Need inpatient treatment once she gets insurance. Code(s): F45.22 - Body dysmorphic disorder (6) C. difficile diarrhea Current Visit: Yes Status: Acute Comment: Probably will give her a Week of vancomycin at twice a day dosage. Code(s): A04.72 - Enterocolitis due to Clostridium difficile, not specified as recurrent (7) Vitamin C deficiency Current Visit: Yes Status: Acute Comment: Continue placement Code(s): E54 - Ascorbic acid deficiency (8) Acute renal failure Current Visit: Yes Status: Acute Comment: Kidney function improved I think will stop the fluid. Code(s): N17.9 - Acute kidney failure, unspecified Qualifiers: Acute renal failure type: unspecified Qualified Code(s): N17.9 - Acute kidney failure, unspecified (9) Ileus Current Visit: Yes Status: Acute Comment: Seems to be resolved. I think will put her back on the regular diet. We'll stop the IV fluids. We'll continue though the Reglan for another day or 2 and I would say. The normal and gap acidosis is improving. Chloride is coming down and bicarbonate is up. Code(s): K56.7 - Ileus, unspecified
[2018-07-31] MEDS: Lactated Ringers 1,000 ML PRIMARY IV SCH (09:34)
--- NOTE | 2018-07-31 09:37 | OT.PROG ---
Progress Note Progress Note: Attempted to see pt for skilled Occupational Therapy services today. pt refused therapy services today. Discussed with nursing staff and nursing said she has been refusing just about everything in the last 24 hours or so. will attempt therapy services again tomorrow
[2018-07-31] MEDS: HEPARIN 500 UNIT/5 ML SYRINGE FOR CENTRAL LINE IVP PRN (09:39)
[2018-07-31] MEDS: NICOTINE 21 MG /DAY PATCH TRANSDERM SCH (19:26)
[2018-07-31] MEDS: VITAMIN D3 PO SCH (20:23)
[2018-07-31] MEDS: Mirtazapine Tab 15 MG TAB PO SCH (20:23)
[2018-07-31] MEDS: [UNRECOGNIZED DRUG - OTHER] PO SCH (20:23)
[2018-08-01] MEDS: oxyCODONE IR Tab 5 MG TAB PO PRN ×3 (01:58→15:05)
[2018-08-01] MEDS: Metoclopramide Inj 10 MG/2 ML VIAL IVP SCH ×4 (01:58→19:39)
[2018-08-01] MEDS: HEPARIN 5000 UNIT/1 ML SUBCUT SCH ×3 (01:59→19:39)
[2018-08-01] MEDS: ALPRAZolam Tab 1 MG TABLET PO PRN ×3 (02:25→15:05)
[2018-08-01] MEDS: AA-Dext 5%-20%/Calcium/Lytes 1,000 ML PRIMARY IV SCH (04:18)
[2018-08-01 04:51] LABS: BASOPHILS # (AUTO) 0.04 10*3/UL; BASOPHILS % (AUTO) 0.6 % (0-1); EOSINOPHILS # (AUTO) 0.11 10*3/UL; EOSINOPHILS % (AUTO) 1.7 % (0-8); Hematocrit [HCT] 25.9 % (37.0-47.0); Hemoglobin [HGB] 8.5 g/dL (12.0-16.0); MEAN CORPUSCULAR HEMOGLOBIN 34.1 PG (27-31); MEAN CORPUSCULAR HGB CONC 32.8 g/dL (33-37); MEAN PLATELET VOLUME 10.7 FL (7.4-12.2); MONOCYTES # (AUTO) 0.64 10*3/UL (0.3-0.8); MONOCYTES % (AUTO) 9.9 % (5-15); NEUTROPHILS # (AUTO) 4.48 10*3/UL; NEUTROPHILS % (AUTO) 69.1 % (50-80); RED BLOOD COUNT 2.49 10^6/uL (4.20-5.40)
[2018-08-01 05:03] LABS: BLOOD UREA NITROGEN 33 mg/dL (7-22); BUN/CREATININE RATIO 41.25 (6-20)
[2018-08-01 06:05] LABS: PLATELET MORPHOLOGY COMMENT NORMAL MORPHOLOGY (NORM); RBC MORPHOLOGY COMMENT SEE COMMENTS (NORM); WBC MORPHOLOGY COMMENT NORMAL MORPHOLOGY (NORM)
[2018-08-01] MEDS: MAGNESIUM OXIDE 400 MG TABLET PO SCH (06:39)
[2018-08-01] MEDS: MIDODRINE 10 MG PO SCH ×3 (06:39→15:05)
--- NOTE | 2018-08-01 08:02 | PDOC(PROG) ---
Date of Service: 08/01/18 Time of Service: 08:00 Interval History: Subjective Had some liquid diarrhea this morning according the to nursing staff. No more vomiting. Denying abdominal pain. Objective : Data - Labs CBC and BMP: 08/01/18 04:20 08/01/18 04:20 Objective : Exam - General General Appearance: No Acute Distress Additional General Exam Details: Cachectic - Head Head Exam: Normal Inspection - Eye Eye Exam: Normal Appearance - ENT ENT Exam: Normal Exam - Neck Neck Exam: Normal Inspection - Respiratory Respiratory Exam: Clear to Auscultation - Bilaterally - Cardiovascular Cardiovascular Exam: RRR - GI/Abdominal GI/Abdominal Exam: Normal Bowel Sounds, Non Tender, Non Distended, Soft, No Organomegaly - Rectal Rectal Exam: Deferred - External Exam: Deferred Exam: Deferred - Extremities Extremities Exam: Normal Inspection - Back Back Exam: Normal Inspection - Neurological Neurological Exam: Alert, Oriented x 3, CN II-XII Intact, No Facial Droop, Speech Intact / Clear, Moves All Extremities Equally - Psychiatric Psychiatric Exam: Normal Affect Assessment and Plan - Patient Problems (1) Hypokalemia Current Visit: Yes Status: Acute Comment: Potassium is borderline today will put her on potassium replacement Code(s): E87.6 - Hypokalemia (2) Ascites Current Visit: Yes Status: Acute Comment: As I said this seemed to be stable Code(s): R18.8 - Other ascites Qualifiers: Ascites type: other type Qualified Code(s): R18.8 - Other ascites (3) Malnourished Current Visit: Yes Status: Chronic Comment: Continue TPN. Probably restart the lipids tomorrow. I did tell her that she need to start eating and will make a plan for her every day and write it down stating this is how much she is going to eat and every day should be more than the day before. She expressed understanding reluctantly but not sure whether she will follow-up on it. Code(s): E46 - Unspecified protein-calorie malnutrition Qualifiers: Malnutrition type: protein-calorie malnutrition Protein-calorie malnutrition severity: severe Qualified Code(s): E43 - Unspecified severe protein-calorie malnutrition (4) Spontaneous bacterial peritonitis Current Visit: Yes Status: Acute Comment: This was treated Code(s): K65.2 - Spontaneous bacterial peritonitis (5) Body dysmorphic disorder Current Visit: Yes Status: Acute Comment: She will need inpatient treatment but not sure when and if it can happen with her not having insurance. Code(s): F45.22 - Body dysmorphic disorder (6) C. difficile diarrhea Current Visit: Yes Status: Acute Comment: Continue vancomycin for now. Code(s): A04.72 - Enterocolitis due to Clostridium difficile, not specified as recurrent (7) Vitamin C deficiency Current Visit: Yes Status: Acute Comment: She is on replacement Code(s): E54 - Ascorbic acid deficiency (8) Acute renal failure Current Visit: Yes Status: Acute Comment: This is resolved Code(s): N17.9 - Acute kidney failure, unspecified Qualifiers: Acute renal failure type: unspecified Qualified Code(s): N17.9 - Acute kidney failure, unspecified (9) Ileus Current Visit: Yes Status: Acute Comment: I think it's resolved we'll continue Reglan for another day Code(s): K56.7 - Ileus, unspecified
[2018-08-01] MEDS ORDERED: CHOLESTYRAMINE/SUCROSE 4 GM PACKET PO SCH (09:00)
[2018-08-01] MEDS ORDERED: Potassium Chloride 20mEq Packet PO SCH (09:00)
[2018-08-01] MEDS: ACIDOPHILUS/BULGARICUS 1 EACH GRAN.PACK PO SCH ×3 (09:02→20:36)
[2018-08-01] MEDS: Vancomycin Oral Soln 125 MG/5 ML (7500MG/300ML) BOTTLE PO SCH ×2 (09:02→20:36)
[2018-08-01] MEDS: PANTOPRAZOLE IV 40 MG VIAL IVP SCH (09:02)
[2018-08-01] MEDS: Thiamine Tab 100 MG TAB PO SCH (09:04)
[2018-08-01] MEDS: CHOLECALCIFEROL 1000 IU TABLET PO SCH (09:04)
[2018-08-01] MEDS: Multivitamin Tab 1 TAB PO SCH (09:04)
[2018-08-01] MEDS: HYDROXYZINE PAMOATE 25 MG CAPSULE PO SCH ×2 (09:04→20:37)
[2018-08-01] MEDS: FOLIC ACID 1 MG TABLET PO SCH (09:04)
[2018-08-01] MEDS: ASCORBIC ACID Chewable 500 MG TABLET PO SCH (09:05)
--- NOTE | 2018-08-01 10:27 | OT.PROG ---
Progress Note Progress Note: S: pt agreed to therapy services today. O: tx consisted of AROM exercises in all planes of motion x 10 each, ankle pumps x10, knee flexion and extension x 10 each, bridges x5 each. A: pt tolerated session well. pts activity tolerance is low today and pt c/o back pain and fatigue. P: continue POC
[2018-08-01] MEDS: NICOTINE 21 MG /DAY PATCH TRANSDERM SCH (19:38)
[2018-08-01] MEDS: [UNRECOGNIZED DRUG - OTHER] PO SCH (20:36)
[2018-08-01] MEDS: VITAMIN D3 PO SCH (20:36)
[2018-08-01] MEDS: Mirtazapine Tab 15 MG TAB PO SCH (20:37)
[2018-08-02] MEDS: oxyCODONE IR Tab 5 MG TAB PO PRN ×4 (00:10→20:20)
[2018-08-02] MEDS: AA-Dext 5%-20%/Calcium/Lytes 1,000 ML PRIMARY IV SCH ×2 (00:10→20:21)
[2018-08-02] MEDS: ALPRAZolam Tab 1 MG TABLET PO PRN ×4 (00:10→20:20)
[2018-08-02] MEDS: HEPARIN 5000 UNIT/1 ML SUBCUT SCH ×3 (02:06→20:20)
[2018-08-02] MEDS: Metoclopramide Inj 10 MG/2 ML VIAL IVP SCH ×3 (02:06→14:18)
[2018-08-02] MEDS: MIDODRINE 10 MG PO SCH ×3 (06:35→14:19)
[2018-08-02] MEDS: MAGNESIUM OXIDE 400 MG TABLET PO SCH (06:35)
--- NOTE | 2018-08-02 07:55 | PDOC(PROG) ---
Date of Service: 08/02/18 Time of Service: 07:30 Interval History: Subjective Patient had one bowel movement yesterday and was formed. No vomiting. Objective : Data - Labs CBC and BMP: 08/01/18 04:20 08/01/18 04:20 Objective : Exam - General General Appearance: No Acute Distress Additional General Exam Details: Cachectic - Head Head Exam: Normal Inspection - Eye Eye Exam: Normal Appearance - ENT ENT Exam: Normal Exam - Neck Neck Exam: Normal Inspection - Respiratory Respiratory Exam: Clear to Auscultation - Bilaterally - Cardiovascular Cardiovascular Exam: RRR - GI/Abdominal GI/Abdominal Exam: Normal Bowel Sounds, Non Tender, Non Distended, Soft, No Organomegaly - Rectal Rectal Exam: Deferred - External Exam: Deferred Exam: Deferred - Extremities Extremities Exam: Normal Inspection - Back Back Exam: Normal Inspection - Neurological Neurological Exam: Alert, Oriented x 3, CN II-XII Intact, No Facial Droop, Speech Intact / Clear, Moves All Extremities Equally - Psychiatric Psychiatric Exam: Flat Affect - Integumentary Integumentary Exam: Pallor Assessment and Plan - Patient Problems (1) Hypokalemia Current Visit: Yes Status: Acute Comment: We'll recheck her potassium tomorrow. Hopefully it will be better. She doesn't like the by mouth so we stopped it. Code(s): E87.6 - Hypokalemia (2) Ascites Current Visit: Yes Status: Acute Comment: Seem to be stabilized. Code(s): R18.8 - Other ascites Qualifiers: Ascites type: other type Qualified Code(s): R18.8 - Other ascites (3) Malnourished Current Visit: Yes Status: Chronic Comment: Continue TPN. We'll restart her lipids. She was very close to the goal that we established for her to have in terms of her by mouth intake yesterday. We established another goal for her today. I think we need to work on her having a goal every day to increase her by mouth intake. Code(s): E46 - Unspecified protein-calorie malnutrition Qualifiers: Malnutrition type: protein-calorie malnutrition Protein-calorie malnutrition severity: severe Qualified Code(s): E43 - Unspecified severe protein-calorie malnutrition (4) Spontaneous bacterial peritonitis Current Visit: Yes Status: Acute Comment: This was treated Code(s): K65.2 - Spontaneous bacterial peritonitis (5) Body dysmorphic disorder Current Visit: Yes Status: Acute Comment: May need inpatient treatment but so far with no payment source it's not clear if it's ever goning to happen. So I think that's why we should work on her increasing her intake by mouth while she is here. Code(s): F45.22 - Body dysmorphic disorder (6) C. difficile diarrhea Current Visit: Yes Status: Acute Comment: I think I'll stop the vancomycin tomorrow. Code(s): A04.72 - Enterocolitis due to Clostridium difficile, not specified as recurrent (7) Vitamin C deficiency Current Visit: Yes Status: Acute Comment: Continue vitamin replacement Code(s): E54 - Ascorbic acid deficiency (8) Acute renal failure Current Visit: Yes Status: Acute Comment: This is resolved Code(s): N17.9 - Acute kidney failure, unspecified Qualifiers: Acute renal failure type: unspecified Qualified Code(s): N17.9 - Acute kidney failure, unspecified (9) Ileus Current Visit: Yes Status: Acute Comment: Seem to be resolved. I'll start cutting back on the Reglan gradually. Code(s): K56.7 - Ileus, unspecified
[2018-08-02] MEDS: ACIDOPHILUS/BULGARICUS 1 EACH GRAN.PACK PO SCH ×3 (08:35→20:19)
[2018-08-02] MEDS: Vancomycin Oral Soln 125 MG/5 ML (7500MG/300ML) BOTTLE PO SCH ×2 (08:35→20:19)
[2018-08-02] MEDS: CHOLECALCIFEROL 1000 IU TABLET PO SCH (08:36)
[2018-08-02] MEDS: ASCORBIC ACID Chewable 500 MG TABLET PO SCH (08:36)
[2018-08-02] MEDS: HYDROXYZINE PAMOATE 25 MG CAPSULE PO SCH ×2 (08:36→20:20)
[2018-08-02] MEDS: Multivitamin Tab 1 TAB PO SCH (08:36)
[2018-08-02] MEDS: FOLIC ACID 1 MG TABLET PO SCH (08:36)
[2018-08-02] MEDS: Thiamine Tab 100 MG TAB PO SCH (08:36)
--- NOTE | 2018-08-02 10:22 | OT PM DAY ---
Diagnosis : Weakness PM - Occupational Therapy S: The patient reports she is kind of tired, but she was willing to do exercises in bed. O: Today we worked on scapular retraction, shoulder flexion, back extension , retraction/protraction in a supine position, short arc quads, long arc quads, heel slides, ankle pumps, and bridges x4. A: The patient participated but would only do bed exercises. P: Continue seeing patient BID during the week and one time per day over the weekend for upper extremity strengthening, ADLs, and overall functional mobility. SHANELL
[2018-08-02] MEDS: HEPARIN 500 UNIT/5 ML SYRINGE FOR CENTRAL LINE IVP PRN (14:31)
--- NOTE | 2018-08-02 15:01 | OT AM DAY ---
Diagnosis : Weakness AM - Occupational Therapy S: The patient reports she is willing to do some bed exercises. O: Today the patient laid supine in bed and performed scapular mobilization , shoulder flexion, scapular retraction while her arms were at 90 degrees, bench press motion, bridges x5, hip abduction/adduction with resistance, knee flexion, ankle flexion/extension, heel slides, and quad contractions. A: The patient participated in therapy this morning; however, she is very limited in what she will do. She stated that she was tired and fatigued after today's session. P: Continue seeing patient BID during the week and one time per day over the weekend for upper extremity strengthening, ADLs, and overall functional mobility. SHANELL
--- NOTE | 2018-08-02 16:51 | PT.PROG ---
Progress Note Progress Note: S. Patient stated that she is very tired this afternoon and doesn't feel up to doing much. O. patient performed exercises in bed in the form of; heel slides, quad sets, ankle pumps, short arc quads all x 10 bilaterally, Patient then ambulated 15 feet to the restroom and 15 feet back to her bed where she was left with alarm and call light. A. patient tolerated therapy well, she continues to be very frail and weak, she would continue to benefit from skilled therapy to increase strength and endurance. P. Continue POC.
[2018-08-02] MEDS: [UNRECOGNIZED DRUG - OTHER] PO SCH (20:19)
[2018-08-02] MEDS: NICOTINE 21 MG /DAY PATCH TRANSDERM SCH (20:19)
[2018-08-02] MEDS: VITAMIN D3 PO SCH (20:19)
[2018-08-02] MEDS: Mirtazapine Tab 15 MG TAB PO SCH (20:20)
[2018-08-02] MEDS: FAT EMULSIONS 20% IV SCH (20:21)
[2018-08-03] MEDS: Metoclopramide Inj 10 MG/2 ML VIAL IVP SCH ×2 (00:58→07:10)
[2018-08-03] MEDS: HEPARIN 5000 UNIT/1 ML SUBCUT SCH ×3 (02:04→19:57)
[2018-08-03 04:44] LABS: BASOPHILS # (AUTO) 0.03 10*3/UL; BASOPHILS % (AUTO) 0.5 % (0-1); EOSINOPHILS # (AUTO) 0.16 10*3/UL; EOSINOPHILS % (AUTO) 2.5 % (0-8); Hematocrit [HCT] 26.1 % (37.0-47.0); Hemoglobin [HGB] 8.5 g/dL (12.0-16.0); LYMPHOCYTES # (AUTO) 1.36 10*3/uL; MEAN CORPUSCULAR HEMOGLOBIN 33.6 PG (27-31); MEAN CORPUSCULAR HGB CONC 32.6 g/dL (33-37); MEAN CORPUSCULAR VOLUME 103.2 FL (81-99); MEAN PLATELET VOLUME 10.1 FL (7.4-12.2); MONOCYTES # (AUTO) 0.52 10*3/UL (0.3-0.8); MONOCYTES % (AUTO) 8.2 % (5-15); NEUTROPHILS # (AUTO) 4.27 10*3/UL; NEUTROPHILS % (AUTO) 67.2 % (50-80); RED BLOOD COUNT 2.53 10^6/uL (4.20-5.40)
[2018-08-03 05:47] LABS: BLOOD UREA NITROGEN 29 mg/dL (7-22); BUN/CREATININE RATIO 41.42 (6-20); SERUM ALBUMIN 2.6 g/dL (3.5-4.8)
[2018-08-03 06:28] LABS: PLATELET MORPHOLOGY COMMENT NORMAL MORPHOLOGY (NORM); RBC MORPHOLOGY COMMENT NORMAL MORPHOLOGY (NORM); WBC MORPHOLOGY COMMENT NORMAL MORPHOLOGY (NORM)
[2018-08-03] MEDS: MAGNESIUM OXIDE 400 MG TABLET PO SCH (07:10)
[2018-08-03] MEDS: MIDODRINE 10 MG PO SCH ×3 (07:10→16:40)
[2018-08-03] MEDS: LANSOPRAZOLE 30 MG SOLUTAB PO SCH (07:10)
[2018-08-03] MEDS: HEPARIN 500 UNIT/5 ML SYRINGE FOR CENTRAL LINE IVP PRN (07:11)
[2018-08-03] MEDS: ASCORBIC ACID Chewable 500 MG TABLET PO SCH (09:22)
[2018-08-03] MEDS: FOLIC ACID 1 MG TABLET PO SCH (09:22)
[2018-08-03] MEDS: HYDROXYZINE PAMOATE 25 MG CAPSULE PO SCH ×2 (09:22→20:16)
[2018-08-03] MEDS: oxyCODONE IR Tab 5 MG TAB PO PRN ×2 (09:23→16:40)
[2018-08-03] MEDS: CHOLECALCIFEROL 1000 IU TABLET PO SCH (09:23)
[2018-08-03] MEDS: Thiamine Tab 100 MG TAB PO SCH (09:24)
[2018-08-03] MEDS: Multivitamin Tab 1 TAB PO SCH (09:24)
[2018-08-03] MEDS: ACIDOPHILUS/BULGARICUS 1 EACH GRAN.PACK PO SCH ×3 (09:24→20:17)
[2018-08-03] MEDS: ALPRAZolam Tab 1 MG TABLET PO PRN ×2 (09:24→16:39)
[2018-08-03] MEDS: Vancomycin Oral Soln 125 MG/5 ML (7500MG/300ML) BOTTLE PO SCH (09:24)
[2018-08-03] MEDS ORDERED: FUROSEMIDE 20 MG TABLET PO ONE (11:54)
[2018-08-03] MEDS ORDERED: Spironolactone Tab 50 MG TAB PO ONE (11:54)
--- NOTE | 2018-08-03 15:07 | PDOC(PROG) ---
Date of Service: 08/03/18 Time of Service: 11:45 Interval History: No chest pain, shortness breath, or vomiting. Patient states that she feels like she's having an increase in ascites, but not quite as bad as on admission. When presented with options, risks and benefits of diuretic therapy including potential renal failure, she still wants to try diuretics prior to paracentesis. Continue TPN for now. I really encouraged patient to go to protein as much as possible as I think she needs significant amounts of protein and overcome this ascites and malnutrition. TPN is definite help and in her skin condition from her kwashiorkor is improved. 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 Start diuretics with Lasix at 20 and spironolactone at 50 a day Complex IV medication management Objective : Data - Labs CBC and BMP: 08/03/18 04:35 08/03/18 04:35 Assessment and Plan - Patient Problems (1) Hypokalemia Current Visit: Yes Status: Acute Code(s): E87.6 - Hypokalemia (2) Ascites Current Visit: Yes Status: Acute Code(s): R18.8 - Other ascites Qualifiers: Ascites type: other type Qualified Code(s): R18.8 - Other ascites (3) Malnourished Current Visit: Yes Status: Chronic Code(s): E46 - Unspecified protein- calorie malnutrition Qualifiers: Malnutrition type: protein-calorie malnutrition Protein-calorie malnutrition severity: severe Qualified Code(s): E43 - Unspecified severe protein-calorie malnutrition (4) Spontaneous bacterial peritonitis Current Visit: Yes Status: Acute Code(s): K65.2 - Spontaneous bacterial peritonitis (5) Acute renal failure Current Visit: Yes Status: Acute Code(s): N17.9 - Acute kidney failure, unspecified Qualifiers: Acute renal failure type: unspecified Qualified Code(s): N17.9 - Acute kidney failure, unspecified (6) Body dysmorphic disorder Current Visit: Yes Status: Acute Code(s): F45.22 - Body dysmorphic disorder (7) C. difficile diarrhea Current Visit: Yes Status: Acute Code(s): A04.72 - Enterocolitis due to Clostridium difficile, not specified as recurrent (8) Vitamin C deficiency Current Visit: Yes Status: Acute Code(s): E54 - Ascorbic acid deficiency (9) Ileus Current Visit: Yes Status: Acute Code(s): K56.7 - Ileus, unspecified
[2018-08-03] MEDS: AA-Dext 5%-20%/Calcium/Lytes 1,000 ML PRIMARY IV SCH (16:41)
--- NOTE | 2018-08-03 16:56 | PT.PROG ---
Progress Note Progress Note: S. Patient stated that she is tired this afternoon, however agreed to do exercises in bed. O. Patient performed heel slides, quad sets, short arc quads, straight leg raises, pillow squeezes, ankle pumps, all x 10 bilaterally, Patient ambulated 10 feet to the restroom and 10 feet back to her bed where she was left with call light. A. patient tolerated exercise fair, she continues to be very weak and would continue to benefit from skilled therapy to increase strength and endurance. P. Continue POC.
[2018-08-03] MEDS: NICOTINE 21 MG /DAY PATCH TRANSDERM SCH (20:05)
[2018-08-03] MEDS: Mirtazapine Tab 15 MG TAB PO SCH (20:16)
[2018-08-03] MEDS: [UNRECOGNIZED DRUG - OTHER] PO SCH (20:17)
[2018-08-03] MEDS: VITAMIN D3 PO SCH (20:17)
[2018-08-03] MEDS: FAT EMULSIONS 20% IV SCH (20:22)
[2018-08-04] MEDS: oxyCODONE IR Tab 5 MG TAB PO PRN ×4 (00:37→22:29)
[2018-08-04] MEDS: ALPRAZolam Tab 1 MG TABLET PO PRN ×4 (00:37→22:29)
[2018-08-04] MEDS: HEPARIN 5000 UNIT/1 ML SUBCUT SCH ×3 (03:48→19:08)
[2018-08-04 05:08] LABS: BLOOD UREA NITROGEN 26 mg/dL (7-22); BUN/CREATININE RATIO 37.14 (6-20)
[2018-08-04] MEDS: LANSOPRAZOLE 30 MG SOLUTAB PO SCH (06:55)
[2018-08-04] MEDS: MIDODRINE 10 MG PO SCH ×3 (06:55→14:21)
[2018-08-04] MEDS: Metoclopramide Inj 10 MG/2 ML VIAL IVP PRN (06:57)
[2018-08-04] MEDS: HEPARIN 500 UNIT/5 ML SYRINGE FOR CENTRAL LINE IVP PRN ×2 (06:57→15:34)
[2018-08-04] MEDS: MAGNESIUM OXIDE 400 MG TABLET PO SCH (06:58)
[2018-08-04] MEDS ORDERED: Spironolactone Tab 50 MG TAB PO SCH (07:00)
[2018-08-04] MEDS ORDERED: FUROSEMIDE 20 MG TABLET PO SCH (07:00)
[2018-08-04] MEDS: FOLIC ACID 1 MG TABLET PO SCH (09:51)
[2018-08-04] MEDS: HYDROXYZINE PAMOATE 25 MG CAPSULE PO SCH (09:51)
[2018-08-04] MEDS: ASCORBIC ACID Chewable 500 MG TABLET PO SCH (09:51)
[2018-08-04] MEDS: Thiamine Tab 100 MG TAB PO SCH (09:51)
[2018-08-04] MEDS: CHOLECALCIFEROL 1000 IU TABLET PO SCH (09:51)
[2018-08-04] MEDS: ACIDOPHILUS/BULGARICUS 1 EACH GRAN.PACK PO SCH ×3 (09:51→20:36)
[2018-08-04] MEDS: Multivitamin Tab 1 TAB PO SCH (09:52)
[2018-08-04] MEDS: AA-Dext 5%-20%/Calcium/Lytes 1,000 ML PRIMARY IV SCH (11:09)
--- NOTE | 2018-08-04 14:43 | PDOC(PROG) ---
Date of Service: 08/04/18 Time of Service: 14:37 Interval History: No complaints of chest pain, short of breath, nausea or vomiting. Patient states that her stools are formed the last 2 days. She states that she would be willing to continue to work towards a facility to work on her eating disorder and malnutrition issues on an outpatient basis. She feels significantly better than admission. Objective : Data - Labs CBC and BMP: 08/03/18 04:35 08/04/18 04:15 Objective : Exam - General General Appearance: No Acute Distress, Cooperative Additional General Exam Details: Vital Signs (24 hrs) 08/03/18 16:03 08/03/18 19:00 08/03/18 20:18 Temperature 97.8 F 97.5 F Pulse Rate [Pulse Oximeter] 74 78 78 Respiratory Rate 18 16 16 Blood Pressure [Left Arm] Blood Pressure [Right Arm] 94/60 96/62 Pulse Ox 97 95 08/04/18 00:05 08/04/18 03:50 08/04/18 07:00 Temperature 98.7 F 98.6 F Pulse Rate [Pulse Oximeter] 76 84 Respiratory Rate 16 16 16 Blood Pressure [Left Arm] 90/58 88/54 Blood Pressure [Right Arm] Pulse Ox 96 95 08/04/18 07:53 08/04/18 11:01 Temperature 98.2 F 98.7 F Pulse Rate [Pulse Oximeter] 85 77 Respiratory Rate 16 16 Blood Pressure [Left Arm] 81/51 84/51 Blood Pressure [Right Arm] Pulse Ox 96 95 - Head Head Exam: Normal Inspection - Eye Eye Exam: No Scleral Icterus - ENT ENT Exam: Mucous Membranes Moist - Respiratory Respiratory Exam: Clear to Auscultation - Bilaterally, Breathing Non Labored - Cardiovascular Cardiovascular Exam: RRR, No Murmur, No Clicks, No Gallops, No Rubs, No JVD - GI/Abdominal GI/Abdominal Exam: Normal Bowel Sounds, Non Tender, Non Distended, Soft, Positive for Ascites - Extremities Extremities Exam: No Clubbing Present, No Edema Present, No Cyanosis Present - Neurological Neurological Exam: Alert, Oriented x 3, No Facial Droop, Speech Intact / Clear, Moves All Extremities Equally - Psychiatric Psychiatric Exam: Flat Affect - Integumentary Integumentary Exam: Normal Color, Warm, Dry, Intact Assessment and Plan - Patient Problems (1) Kwashiorkor Current Visit: Yes Status: Acute Code(s): E40 - Kwashiorkor (2) Ascites Current Visit: Yes Status: Acute Code(s): R18.8 - Other ascites Qualifiers: Ascites type: other type Qualified Code(s): R18.8 - Other ascites (3) Hypokalemia Current Visit: Yes Status: Resolved Code(s): E87.6 - Hypokalemia (4) Body dysmorphic disorder Current Visit: Yes Status: Acute Code(s): F45.22 - Body dysmorphic disorder (5) Spontaneous bacterial peritonitis Current Visit: Yes Status: Resolved Code(s): K65.2 - Spontaneous bacterial peritonitis (6) C. difficile diarrhea Current Visit: Yes Status: Resolved Code(s): A04.72 - Enterocolitis due to Clostridium difficile, not specified as recurrent (7) Vitamin C deficiency Current Visit: Yes Status: Acute Code(s): E54 - Ascorbic acid deficiency (8) Electrolyte abnormality Current Visit: Yes Status: Acute Code(s): E87.8 - Other disorders of electrolyte and fluid balance, not elsewhere classified (9) Vitamin A deficiency Current Visit: Yes Status: Acute Code(s): E50.9 - Vitamin A deficiency, unspecified (10) Anemia Current Visit: Yes Status: Acute Code(s): D64.9 - Anemia, unspecified Qualifiers: Anemia type: other cause Other causes of anemia: nutritional, other megaloblastic Qualified Code(s): D53.1 - Other megaloblastic anemias, not elsewhere classified - Assessment / Plan Additional Assessment/Plan Details: At this point, the patient's nutritional status is improving to some degree on TPN. It is not a permanent solution, however, and I think that we should work towards an outpatient plan while single pair agreements are being negotiated between state Medicaid and potential accepting facilities for eating disorder management and treatment. I'm worried that if she continues to stay here, she could contract hospital acquired infections or antibiotic associated infection such as C. difficile that she's just gotten over. There was a dip in systolic pressure so at this point and been a stop the diuretics. It is too risky to continue those. We can consider intermittent paracentesis for tense ascites or painful ascites as an alternative to diuretics. The patient just got over her acute renal failure and I think that this is just too risky and the patient agreed today. Her mother was present and agreed as well. We are increasing TPN for some increased protein intake over the next couple days and will add protein scoops to her shakes. We will likely consider discharge by Thursday if electrolytes remained stable I will talk to her primary care physician and update him on the plan as well
[2018-08-04] MEDS: ONDANSETRON 4 MG/2 ML VIAL IV PRN (15:34)
--- NOTE | 2018-08-04 15:37 | OT AM DAY ---
Diagnosis : Weakness AM - Occupational Therapy S: The patient reports she is a little overwhelmed today. She did get out of bed so the nurse could change her bedding. The patient states she needs to use the restroom. O: The patient transferred from supine to sit independently. She was able to push her IV pole to the bathroom with stand by assist. She did not want assistance today with walking. The patient was able to sit in chair and complete upper extremity active range of motion for shoulder flexion, abduction , biceps curls, pronation/supination, wrist extension, back stretch into extension, seated marches, knee kick outs, heel lifts, and resisted hip abduction/adduction x10. The patient was observed going to the bathroom with stand by assist. When walking back to bed, nursing needed to weigh her. It took the patient several attempts to step onto the machine secondary to her decreased balance, but she was able to do so. The patient then went back to bed. A: The patient still has balance difficulties and demonstrates weakness. P: Continue seeing patient BID during the week and one time per day over the weekend for upper extremity strengthening, ADLs, and overall functional mobility. MTDD
--- NOTE | 2018-08-04 16:33 | PT.PROG ---
Progress Note Progress Note: S. Patient stated that her back is hurting and doesn't feel up to much exercise. O. Patient performed supine exercises in the form of; heel slides, quad sets, ankle pumps, short arc quads, pillow squeezes, glute sets all x 10 bilaterally. Patient was left in bed with call light and alarm. A. Patient tolerated exercises fair, she continues to be very weak and would continue to benefit from skilled therpay to increase strength and endurance at this time. P. Continue POC.
[2018-08-04] MEDS: NICOTINE 21 MG /DAY PATCH TRANSDERM SCH (19:08)
[2018-08-04] MEDS: VITAMIN D3 PO SCH (20:34)
[2018-08-04] MEDS: [UNRECOGNIZED DRUG - OTHER] PO SCH (20:35)
[2018-08-04] MEDS: Mirtazapine Tab 15 MG TAB PO SCH (20:35)
[2018-08-04] MEDS: FAT EMULSIONS 20% IV SCH (20:36)
[2018-08-05] MEDS: HEPARIN 5000 UNIT/1 ML SUBCUT SCH ×3 (03:30→20:11)
[2018-08-05] MEDS: AA-Dext 5%-20%/Calcium/Lytes 1,000 ML PRIMARY IV SCH ×2 (04:45→08:44)
[2018-08-05 05:43] LABS: BLOOD UREA NITROGEN 29 mg/dL (7-22); BUN/CREATININE RATIO 36.25 (6-20)
[2018-08-05] MEDS: LANSOPRAZOLE 30 MG SOLUTAB PO SCH (07:21)
[2018-08-05] MEDS: MIDODRINE 10 MG PO SCH ×3 (07:21→14:54)
[2018-08-05] MEDS: MAGNESIUM OXIDE 400 MG TABLET PO SCH (07:22)
[2018-08-05] MEDS: HEPARIN 500 UNIT/5 ML SYRINGE FOR CENTRAL LINE IVP PRN (07:25)
[2018-08-05] MEDS: Thiamine Tab 100 MG TAB PO SCH (08:45)
[2018-08-05] MEDS: ACIDOPHILUS/BULGARICUS 1 EACH GRAN.PACK PO SCH ×3 (08:45→20:11)
[2018-08-05] MEDS: Multivitamin Tab 1 TAB PO SCH (08:45)
[2018-08-05] MEDS: oxyCODONE IR Tab 5 MG TAB PO PRN ×3 (08:45→20:10)
[2018-08-05] MEDS: CHOLECALCIFEROL 1000 IU TABLET PO SCH (08:45)
[2018-08-05] MEDS: FOLIC ACID 1 MG TABLET PO SCH (08:45)
[2018-08-05] MEDS: ALPRAZolam Tab 1 MG TABLET PO PRN ×3 (08:46→20:10)
[2018-08-05] MEDS: ASCORBIC ACID Chewable 500 MG TABLET PO SCH (08:49)
[2018-08-05] MEDS: Beta Carot W/Vit E,C,Min Tab 1 TAB TAB PO SCH (14:53)
--- NOTE | 2018-08-05 16:02 | PDOC(PROG) ---
Date of Service: 08/05/18 Time of Service: 15:57 Interval History: No completes of chest pain, shortness breath, nausea or vomiting. She is willing to stay here through the duration of the hospital stay and go to [place] for [facility] in [place]. I spoke with her facility today. There are still some things on the backside in terms of Medicare negotiating some sort of payer agreement with the facility, but when I spoke to [place], , he really felt that it would be best for us to stabilize the patient off of TPN because there is facility is not an acute facility. He would like to have an u pdate on her medical condition at some point in the next week Objective : Data - Labs CBC and BMP: 08/03/18 04:35 08/05/18 04:45 Objective : Exam - General General Appearance: No Acute Distress, Cooperative Additional General Exam Details: Vital Signs - Last Taken Temperature 97.9 F 08/05/18 13:00 Pulse Rate 64 08/05/18 13:00 Respiratory Rate 20 08/05/18 13:00 Blood Pressure 92/56 08/05/18 13:00 Pulse Ox 98 08/05/18 13:00 - Eye Eye Exam: No Scleral Icterus - ENT ENT Exam: Mucous Membranes Moist - Neck Neck Exam: JVP is not Raised - Respiratory Respiratory Exam: Clear to Auscultation - Bilaterally, Breathing Non Labored - Cardiovascular Cardiovascular Exam: RRR, No Murmur, No Clicks, No Gallops, No Rubs, No JVD - GI/Abdominal GI/Abdominal Exam: Normal Bowel Sounds, Non Tender, Non Distended, Positive for Ascites (Not as bad as it was in the past. Not tense ascites) - Extremities Extremities Exam: No Clubbing Present, No Edema Present, No Cyanosis Present - Neurological Neurological Exam: Alert, Oriented x 3, No Facial Droop, Speech Intact / Clear, Moves All Extremities Equally - Psychiatric Psychiatric Exam: Flat Affect Additional Psychiatric Exam Details: smiles more Assessment and Plan - Patient Problems (1) Kwashiorkor Current Visit: Yes Status: Acute Code(s): E40 - Kwashiorkor (2) Ascites Current Visit: Yes Status: Acute Code(s): R18.8 - Other ascites Qualifiers: Ascites type: other type Qualified Code(s): R18.8 - Other ascites (3) Body dysmorphic disorder Current Visit: Yes Status: Acute Code(s): F45.22 - Body dysmorphic disorder (4) C. difficile diarrhea Current Visit: Yes Status: Resolved Code(s): A04.72 - Enterocolitis due to Clostridium difficile, not specified as recurrent (5) Vitamin C deficiency Current Visit: Yes Status: Acute Code(s): E54 - Ascorbic acid deficiency (6) Electrolyte abnormality Current Visit: Yes Status: Resolved Code(s): E87.8 - Other disorders of electrolyte and fluid balance, not elsewhere classified (7) Vitamin A deficiency Current Visit: Yes Status: Acute Code(s): E50.9 - Vitamin A deficiency, unspecified (8) Anemia Current Visit: Yes Status: Acute Code(s): D64.9 - Anemia, unspecified Qualifiers: Anemia type: other cause Other causes of anemia: nutritional, other megaloblastic Qualified Code(s): D53.1 - Other megaloblastic anemias, not elsewhere classified - Assessment / Plan Additional Assessment/Plan Details: C. difficile has resolved. Patient has had normal stools (formed) over the last 3 days. Vancomycin has been discontinued. She is not on any antibiotics. I think her renal failure has been multifactorial. She cannot tolerate diuretics for this ascites. The ascites clearly is improving as her attrition status is improving to some degree. Her renal failure is currently resolved and she is off diuretics. Her creatinine is normal. In discussion with [place] [facility], Jerry Pope, , I agree with his feeling that the patient should be medically stabilized as much as possible prior to any transfer. We will go ahead and start titrating the patient off of TPN. We will leave the PICC line in until discharge. If the patient can tolerate and maintain her nutritional status off of TPN, including her electrolytes, then I would feel more comfortable stating that she is stable from a medical standpoint to proceed with treatment of her body dysmorphic disorder and anorexia. The patient spontaneous bacterial peritonitis has resolved with completed antibiotic therapy. She could not tolerate prophylaxis and is off of all antibiotics at this time. There's been no evidence of recurrence to this point. The plan will be to titrate off of TPN, monitor electrolytes and nutritional status through the next week, and see if the patient can maintain medical stability for the chance to pursue psychiatric therapy for her body dysmorphic disorder, anorexia, and other issues. The patient's skin rash completely resolved and I stopped hydroxyzine.
--- NOTE | 2018-08-05 16:54 | PT.PROG ---
Progress Note Progress Note: S. Patient agreed to do exercises in bed. O. Patient performed supine exercises in the form of; heel slides, quad sets, ankle pumps, short arc quads, pillow squeezes, glute sets all x 10 bilaterally. Patient was left in bed with call light and alarm. A. Patient tolerated exercises fair, she continues to be very weak and would continue to benefit from skilled therpay to increase strength and endurance at this time. P. Continue POC.
[2018-08-05] MEDS: FAT EMULSIONS 20% IV SCH (20:08)
[2018-08-05] MEDS: NICOTINE 21 MG /DAY PATCH TRANSDERM SCH (20:09)
[2018-08-05] MEDS: VITAMIN D3 PO SCH (20:09)
[2018-08-05] MEDS: [UNRECOGNIZED DRUG - OTHER] PO SCH (20:10)
[2018-08-05] MEDS: ONDANSETRON 4 MG/2 ML VIAL IV PRN (20:10)
[2018-08-05] MEDS: Mirtazapine Tab 15 MG TAB PO SCH (20:10)
[2018-08-06] MEDS: AA-Dext 5%-20%/Calcium/Lytes 1,000 ML PRIMARY IV SCH (00:50)
[2018-08-06] MEDS: HEPARIN 5000 UNIT/1 ML SUBCUT SCH ×3 (02:34→20:33)
[2018-08-06 05:00] LABS: BLOOD UREA NITROGEN 28 mg/dL (7-22)
[2018-08-06] MEDS: MAGNESIUM OXIDE 400 MG TABLET PO SCH (08:08)
[2018-08-06] MEDS: MIDODRINE 10 MG PO SCH ×2 (08:09→12:40)
[2018-08-06] MEDS: ONDANSETRON 4 MG/2 ML VIAL IV PRN ×2 (10:06→20:34)
[2018-08-06] MEDS: Beta Carot W/Vit E,C,Min Tab 1 TAB TAB PO SCH (10:07)
[2018-08-06] MEDS: Multivitamin Tab 1 TAB PO SCH (10:07)
[2018-08-06] MEDS: CHOLECALCIFEROL 1000 IU TABLET PO SCH (10:08)
[2018-08-06] MEDS: ALPRAZolam Tab 1 MG TABLET PO PRN ×2 (10:08→18:34)
[2018-08-06] MEDS: oxyCODONE IR Tab 5 MG TAB PO PRN ×2 (10:08→20:34)
[2018-08-06] MEDS: ASCORBIC ACID Chewable 500 MG TABLET PO SCH (10:08)
[2018-08-06] MEDS: ACIDOPHILUS/BULGARICUS 1 EACH GRAN.PACK PO SCH ×3 (10:10→20:33)
[2018-08-06] MEDS: Thiamine Tab 100 MG TAB PO SCH (10:10)
[2018-08-06] MEDS: FOLIC ACID 1 MG TABLET PO SCH (10:10)
[2018-08-06] MEDS: HEPARIN 500 UNIT/5 ML SYRINGE FOR CENTRAL LINE IVP PRN (10:19)
[2018-08-06 11:44] VITALS: BP 91/58; RESP 16; TEMP 98; O2SAT 97
--- NOTE | 2018-08-06 13:37 | PDOC(PROG) ---
Date of Service: 08/06/18 Time of Service: 12:00 Interval History: No chest pain. No shortness of breath. Has a little more nausea today but no vomiting. She is still willing to taper off of TPN and see if she can maintain her electrolytes and medical status prior to potentially going on to a facility specializing in treatment of anorexia and eating disorder as well as other psychiatric issues. She did state to me that she has significant anxiety and panic. This started around the age of 16. The patient states that she was placed on Midrin in the past but she has not noticed any difference and states that she normally runs low blood pressures. I think at this time we will stop it. Objective : Data - Labs CBC and BMP: 08/03/18 04:35 08/06/18 04:17 Objective : Exam - General General Appearance: No Acute Distress, Cooperative Additional General Exam Details: Vital Signs - Last Taken Temperature 98 F 08/06/18 11:15 Pulse Rate 81 08/06/18 11:15 Respiratory Rate 16 08/06/18 11:15 Blood Pressure 91/58 08/06/18 11:15 Pulse Ox 97 08/06/18 11:15 - Eye Eye Exam: No Scleral Icterus - ENT ENT Exam: Mucous Membranes Moist - Neck Neck Exam: JVP is not Raised - Respiratory Respiratory Exam: Clear to Auscultation - Bilaterally, Breathing Non Labored - Cardiovascular Cardiovascular Exam: RRR, No Murmur, No Clicks, No Gallops, No Rubs, No JVD - GI/Abdominal GI/Abdominal Exam: Normal Bowel Sounds, Non Tender, Non Distended, Soft, Positive for Ascites (Mild.) - Extremities Extremities Exam: No Clubbing Present, No Edema Present, No Cyanosis Present - Neurological Neurological Exam: Alert, Oriented x 3, No Facial Droop, Speech Intact / Clear, Moves All Extremities Equally - Psychiatric Psychiatric Exam: Flat Affect - Central Line Examination Central Line Type: PICC Line (Right upper extremity) Assessment and Plan - Patient Problems (1) Kwashiorkor Current Visit: Yes Status: Acute Code(s): E40 - Kwashiorkor (2) Ascites Current Visit: Yes Status: Acute Code(s): R18.8 - Other ascites Qualifiers: Ascites type: other type Qualified Code(s): R18.8 - Other ascites (3) Body dysmorphic disorder Current Visit: Yes Status: Acute Code(s): F45.22 - Body dysmorphic disorder (4) Vitamin C deficiency Current Visit: Yes Status: Acute Code(s): E54 - Ascorbic acid deficiency (5) Vitamin A deficiency Current Visit: Yes Status: Acute Code(s): E50.9 - Vitamin A deficiency, unspecified (6) Anemia Current Visit: Yes Status: Acute Code(s): D64.9 - Anemia, unspecified Qualifiers: Anemia type: other cause Other causes of anemia: nutritional, other megaloblastic Qualified Code(s): D53.1 - Other megaloblastic anemias, not elsewhere classified (7) Agoraphobia with panic attacks Current Visit: Yes Status: Acute Code(s): F40.01 - Agoraphobia with panic disorder - Assessment / Plan Additional Assessment/Plan Details: At this time I'm going to stop the Midrin. Her systolic pressures of been in the 80s and 90s consistently systolic and we can monitor and see if they change. In terms of the nausea, if she still has nausea tomorrow I may add back the proton pump inhibitor but I'd like to avoid that to allow the patient a chance to absorb as many nutrients and minerals from food as possible without proton pump inhibitor and place. I'll have the patient evaluated for swing bed placement. TPN is a half dose today, we'll go to quarter dose tomorrow and then discontinue after Thursday. We'll monitor the patient for electrolyte disturbances, nutritional stability, and continue to talk with [facility] in [place]. We are still waiting on full confirmation of pain or status to hopefully negotiate a situation in which the patient would be eligible for care there.
--- NOTE | 2018-08-06 15:50 | PT.PROG ---
Progress Note Progress Note: S. Patient stated that her back is sore today, however agreed to do exercises in bed. O. Patient performed supine exercises in the form of; heel slides, quad sets, ankle pumps, short arc quads, pillow squeezes, glute sets all x 10 bilaterally. Patient was left in bed with call light and alarm. A. Patient tolerated exercises fair, she continues to be very weak and would continue to benefit from skilled therpay to increase strength and endurance at this time. P. Continue POC.
[2018-08-06] MEDS: FAT EMULSIONS 20% IV SCH (20:32)
[2018-08-06] MEDS: NICOTINE 21 MG /DAY PATCH TRANSDERM SCH (20:32)
[2018-08-06] MEDS: VITAMIN D3 PO SCH (20:33)
[2018-08-06] MEDS: [UNRECOGNIZED DRUG - OTHER] PO SCH (20:33)
[2018-08-06] MEDS: Mirtazapine Tab 15 MG TAB PO SCH (20:34)
[2018-08-07] MEDS: HEPARIN 5000 UNIT/1 ML SUBCUT SCH ×3 (02:05→21:05)
[2018-08-07 05:05] LABS: BLOOD UREA NITROGEN 22 mg/dL (7-22); BUN/CREATININE RATIO 31.42 (6-20)
[2018-08-07] MEDS: ALPRAZolam Tab 1 MG TABLET PO PRN (06:59)
[2018-08-07] MEDS: MAGNESIUM OXIDE 400 MG TABLET PO SCH (06:59)
[2018-08-07] MEDS: oxyCODONE IR Tab 5 MG TAB PO PRN ×2 (07:00→21:06)
[2018-08-07] MEDS: HEPARIN 500 UNIT/5 ML SYRINGE FOR CENTRAL LINE IVP PRN ×2 (07:07→17:49)
[2018-08-07] MEDS: AA-Dext 5%-20%/Calcium/Lytes 1,000 ML PRIMARY IV SCH (08:11)
[2018-08-07] MEDS: ACIDOPHILUS/BULGARICUS 1 EACH GRAN.PACK PO SCH ×3 (09:52→21:05)
[2018-08-07] MEDS: Thiamine Tab 100 MG TAB PO SCH (09:53)
[2018-08-07] MEDS: ASCORBIC ACID Chewable 500 MG TABLET PO SCH (09:53)
[2018-08-07] MEDS: Beta Carot W/Vit E,C,Min Tab 1 TAB TAB PO SCH (09:53)
[2018-08-07] MEDS: FOLIC ACID 1 MG TABLET PO SCH (09:53)
[2018-08-07] MEDS: Multivitamin Tab 1 TAB PO SCH (09:53)
[2018-08-07] MEDS: CHOLECALCIFEROL 1000 IU TABLET PO SCH (09:56)
--- NOTE | 2018-08-07 10:58 | PT.PROG ---
Progress Note Progress Note: S. Patient stated that her back is feeling better today compared to today, however is still having some soreness. O. Patient performed supine exercises in the form of; heel slides, quad sets, ankle pumps, short arc quads, pillow squeezes, glute sets all x 10 bilaterally. Upper extremity exercises in the form of; bicep/ tricep curls, horizontal abduction, rows, shoulder flexion/ extension all x 10 bilaterally with red thera band. Patient was left in bed with call light and alarm. A. Patient tolerated exercises fair, she continues to be very weak and would continue to benefit from skilled therpay to increase strength and endurance at this time. P. Continue POC.
--- NOTE | 2018-08-07 17:13 | PDOC(PROG) ---
Date of Service: 08/07/18 Time of Service: 17:07 Interval History: Patient seen and evaluated earlier today. Overall, the patient is feeling better. She denies any chest pain, shortness breath, nausea or vomiting today. She's been able to eat more per her mother's history. She does state to me that Klonopin works better for her anxiety than Xanax so we will switch that. Objective : Data - Labs CBC and BMP: 08/03/18 04:35 08/07/18 04:18 Objective : Exam - General General Appearance: No Acute Distress, Cooperative, Thin Additional General Exam Details: Vital Signs - Last Taken Temperature 97.8 F 08/07/18 15:57 Pulse Rate 76 08/07/18 15:57 Respiratory Rate 12 08/07/18 15:57 Blood Pressure 91/62 08/07/18 15:57 Pulse Ox 99 08/07/18 15:57 - Eye Eye Exam: No Scleral Icterus - ENT ENT Exam: Mucous Membranes Moist - Respiratory Respiratory Exam: Clear to Auscultation - Bilaterally, Breathing Non Labored - Cardiovascular Cardiovascular Exam: RRR, No Murmur, No Clicks, No Gallops, No Rubs, No JVD - GI/Abdominal GI/Abdominal Exam: Normal Bowel Sounds, Non Tender, Non Distended, Soft Additional GI/Abdominal Exam Details: I think the ascites is less - Extremities Extremities Exam: No Clubbing Present, No Edema Present, No Cyanosis Present - Neurological Neurological Exam: Alert, Oriented x 3, No Facial Droop, Speech Intact / Clear, Moves All Extremities Equally - Central Line Examination Central Line Type: PICC Line (Right upper extremity and no erythema) Assessment and Plan - Patient Problems (1) Kwashiorkor Current Visit: Yes Status: Acute Code(s): E40 - [place]ashiorkor (2) Body dysmorphic disorder Current Visit: Yes Status: Acute Code(s): F45.22 - Body dysmorphic disorder (3) Vitamin C deficiency Current Visit: Yes Status: Acute Code(s): E54 - Ascorbic acid deficiency (4) Vitamin A deficiency Current Visit: Yes Status: Acute Code(s): E50.9 - Vitamin A deficiency, unspecified (5) Anemia Current Visit: Yes Status: Acute Code(s): D64.9 - Anemia, unspecified Qualifiers: Anemia type: other cause Other causes of anemia: nutritional, other megaloblastic Qualified Code(s): D53.1 - Other megaloblastic anemias, not elsewhere classified (6) Agoraphobia with panic attacks Current Visit: Yes Status: Acute Code(s): F40.01 - Agoraphobia with panic disorder (7) Ascites Current Visit: Yes Status: Resolved Comment: The ascites is really starting to resolve. Code(s): R18.8 - Other ascites Qualifiers: Ascites type: other type Qualified Code(s): R18.8 - Other ascites - Assessment / Plan Additional Assessment/Plan Details: The patient is improving from a nutritional standpoint. We will continue to wean TPN and discontinue it as of tomorrow. The plan will then be to watch and see how the patient does from a metabolic standpoint/electrolyte standpoint, and CBC, and hopefully the patient will be medically stabilized enough to qualify to be treated in a facility to handle her body dysmorphic disorder and anorexia, and agoraphobia with panic attacks. TPN set to stop for tomorrow. Change antianxiety medication from Xanax to Klonopin. Very happy that we were able to stop proton pump inhibitor with no return of nausea. This should help in her absorption of nutrients. Very happy that blood pressures or where they are without Midrin. I think she is normally a low blood pressure patient with systolics probably an average in the 80s and 90s, and she really does not require Midrin at this time. Still awaiting definitive answers on Medicaid status and potential single facility agreement for treatment of her psychiatric issues in relation to this malnutrition. C. difficile colitis has completely resolved. She has solid bowel movements now. Ascites is improved and resolving. Peripheral edema has resolved. Electrolytes and kidney function are improved and creatinine is now normalized. Not a good candidate for diuretics at all based on this. Patient has macrocytic anemia, but there is no iron deficiency. This appears to be a nutritional iron deficiency anemia. She does not require blood transfusion at this time. We will continue to keep the PICC line in until the patient is discharged from the hospital.
[2018-08-07] MEDS: ClonazePAM Tab 1 MG TABLET PO PRN (17:22)
[2018-08-07] MEDS: Metoclopramide Inj 10 MG/2 ML VIAL IVP PRN (17:48)
[2018-08-07] MEDS: VITAMIN D3 PO SCH (21:04)
[2018-08-07] MEDS: NICOTINE 21 MG /DAY PATCH TRANSDERM SCH (21:04)
[2018-08-07] MEDS: [UNRECOGNIZED DRUG - OTHER] PO SCH (21:04)
[2018-08-07] MEDS: ONDANSETRON 4 MG/2 ML VIAL IV PRN (21:05)
[2018-08-07] MEDS: Mirtazapine Tab 15 MG TAB PO SCH (21:06)
[2018-08-07] MEDS: FAT EMULSIONS 20% IV SCH (21:07)
[2018-08-08] MEDS: HEPARIN 5000 UNIT/1 ML SUBCUT SCH ×3 (02:00→19:04)
[2018-08-08 05:04] LABS: BLOOD UREA NITROGEN 16 mg/dL (7-22); BUN/CREATININE RATIO 22.85 (6-20)
[2018-08-08] MEDS: HEPARIN 500 UNIT/5 ML SYRINGE FOR CENTRAL LINE IVP PRN ×3 (07:35→11:41)
[2018-08-08] MEDS: ClonazePAM Tab 1 MG TABLET PO PRN ×2 (07:35→16:08)
[2018-08-08] MEDS: MAGNESIUM OXIDE 400 MG TABLET PO SCH (07:35)
[2018-08-08] MEDS: FOLIC ACID 1 MG TABLET PO SCH (08:30)
[2018-08-08] MEDS: Multivitamin Tab 1 TAB PO SCH (08:30)
[2018-08-08] MEDS: CHOLECALCIFEROL 1000 IU TABLET PO SCH (08:30)
[2018-08-08] MEDS: oxyCODONE IR Tab 5 MG TAB PO PRN ×2 (08:30→20:39)
[2018-08-08] MEDS: ASCORBIC ACID Chewable 500 MG TABLET PO SCH (08:30)
[2018-08-08] MEDS: Beta Carot W/Vit E,C,Min Tab 1 TAB TAB PO SCH (08:30)
[2018-08-08] MEDS: ACIDOPHILUS/BULGARICUS 1 EACH GRAN.PACK PO SCH ×3 (08:31→20:39)
[2018-08-08] MEDS: Thiamine Tab 100 MG TAB PO SCH (08:31)
--- NOTE | 2018-08-08 10:34 | PDOC(PROG) ---
Interval History: Patient has no complaints doing well no chest pain nausea or vomiting is able to keep some food down. Daughter applesauce carrots salad Objective : Data - Labs CBC and BMP: 08/03/18 04:35 08/08/18 04:21 Objective : Exam - General General Appearance: Cooperative - Respiratory Respiratory Exam: Clear to Auscultation - Bilaterally, Breathing Non Labored, Normal To Percussion, Normal to Percussion and Palpation - Cardiovascular Cardiovascular Exam: RRR, No Murmur, No Clicks, No Gallops, No Rubs, PMI Non- Displaced - GI/Abdominal GI/Abdominal Exam: Normal Bowel Sounds, Non Tender, Non Distended, Soft, No Masses, No Hepatomegaly, No Splenomegaly, No Organomegaly - Extremities Extremities Exam: No Clubbing Present, No Edema Present Assessment and Plan - Patient Problems (1) Kwashiorkor Current Visit: Yes Status: Acute Comment: TPN is being weaned off will stop tomorrow observe patient's for electrolyte imbalance. She has been approved with the Medicaid awaiting placement for psychiatric care for her agoraphobia and anorexia please see yesterday's notes for details patient agrees and understands discussed with nursing in the room. C. difficile colitis resolved patient is having formed stools. Continue to encourage by mouth intake continue vitamin replacement Code(s): E40 - [place]or (2) Ascites Current Visit: Yes Status: Resolved Code(s): R18.8 - Other ascites Qualifiers: Ascites type: other type Qualified Code(s): R18.8 - Other ascites (3) Body dysmorphic disorder Current Visit: Yes Status: Acute Code(s): F45.22 - Body dysmorphic disorder (4) Vitamin C deficiency Current Visit: Yes Status: Acute Code(s): E54 - Ascorbic acid deficiency (5) Vitamin A deficiency Current Visit: Yes Status: Acute Code(s): E50.9 - Vitamin A deficiency, unspecified (6) Anemia Current Visit: Yes Status: Acute Code(s): D64.9 - Anemia, unspecified Qualifiers: Anemia type: other cause Other causes of anemia: nutritional, other megaloblastic Qualified Code(s): D53.1 - Other megaloblastic anemias, not elsewhere classified (7) Agoraphobia with panic attacks Current Visit: Yes Status: Acute Code(s): F40.01 - Agoraphobia with panic disorder
[2018-08-08] MEDS: AA-Dext 5%-20%/Calcium/Lytes 1,000 ML PRIMARY IV SCH (11:26)
[2018-08-08] MEDS: NICOTINE 21 MG /DAY PATCH TRANSDERM SCH (19:04)
[2018-08-08] MEDS: Mirtazapine Tab 15 MG TAB PO SCH (20:39)
[2018-08-08] MEDS: FAT EMULSIONS 20% IV SCH (20:39)
[2018-08-08] MEDS: VITAMIN D3 PO SCH (20:41)
[2018-08-08] MEDS: [UNRECOGNIZED DRUG - OTHER] PO SCH (20:41)
[2018-08-08] MEDS: ONDANSETRON 4 MG/2 ML VIAL IV PRN (21:25)
[2018-08-09] MEDS: HEPARIN 5000 UNIT/1 ML SUBCUT SCH ×3 (03:36→19:53)
[2018-08-09 05:26] LABS: BLOOD UREA NITROGEN 12 mg/dL (7-22); BUN/CREATININE RATIO 17.14 (6-20); SERUM ALBUMIN 3.1 g/dL (3.5-4.8)
[2018-08-09] MEDS ORDERED: Magnesium Sulfate 2gm (Premix) 2 GM/50 ML BAG IV ONE (07:04)
[2018-08-09] MEDS: MAGNESIUM OXIDE 400 MG TABLET PO SCH (07:28)
[2018-08-09] MEDS: ClonazePAM Tab 1 MG TABLET PO PRN ×3 (07:29→23:30)
[2018-08-09] MEDS: oxyCODONE IR Tab 5 MG TAB PO PRN ×2 (08:35→19:53)
[2018-08-09] MEDS: Thiamine Tab 100 MG TAB PO SCH (08:35)
[2018-08-09] MEDS: Beta Carot W/Vit E,C,Min Tab 1 TAB TAB PO SCH (08:35)
[2018-08-09] MEDS: CHOLECALCIFEROL 1000 IU TABLET PO SCH (08:35)
[2018-08-09] MEDS: ACIDOPHILUS/BULGARICUS 1 EACH GRAN.PACK PO SCH ×3 (08:35→20:01)
[2018-08-09] MEDS: FOLIC ACID 1 MG TABLET PO SCH (08:35)
[2018-08-09] MEDS: Multivitamin Tab 1 TAB PO SCH (08:36)
[2018-08-09] MEDS: ASCORBIC ACID Chewable 500 MG TABLET PO SCH (08:39)
--- NOTE | 2018-08-09 09:50 | PDOC(PROG) ---
Interval History: Patient is doing well has no complaints she is eating minimal amounts of food but she is eating TPN is off and patient is awaiting the placement for her primary psychiatric disorder of anorexia nervosa and agoraphobia Objective : Data - Labs CBC and BMP: 08/03/18 04:35 08/09/18 05:00 Objective : Exam - General General Appearance: Cooperative - Respiratory Respiratory Exam: Clear to Auscultation - Bilaterally, Breathing Non Labored, Normal To Percussion, Normal to Percussion and Palpation - Cardiovascular Cardiovascular Exam: RRR, No Murmur, No Clicks, No Gallops, No Rubs, PMI Non- Displaced - GI/Abdominal GI/Abdominal Exam: Normal Bowel Sounds, Non Tender, Non Distended, Soft, No Masses, No Hepatomegaly, No Splenomegaly, No Organomegaly - Extremities Extremities Exam: No Clubbing Present, No Edema Present, No Cyanosis Present - Neurological Neurological Exam: Alert, Oriented x 3, No Facial Droop, Speech Intact / Clear, Moves All Extremities Equally - Psychiatric Psychiatric Exam: Normal Affect, Normal Mood Assessment and Plan - Patient Problems (1) Kwashiorkor Current Visit: Yes Status: Acute Comment: Patient had a long stretch of TPN and multiple vitamin replacement doing well at present time awaiting for her placement for treatment of her anorexia nervosa and agoraphobia I did put in a referral for [facility] Code(s): E40 - Kwashiorkor (2) Ascites Current Visit: Yes Status: Resolved Code(s): R18.8 - Other ascites Qualifiers: Ascites type: other type Qualified Code(s): R18.8 - Other ascites (3) Body dysmorphic disorder Current Visit: Yes Status: Acute Code(s): F45.22 - Body dysmorphic disorder (4) Vitamin C deficiency Current Visit: Yes Status: Acute Code(s): E54 - Ascorbic acid deficiency (5) Vitamin A deficiency Current Visit: Yes Status: Acute Code(s): E50.9 - Vitamin A deficiency, unspecified (6) Anemia Current Visit: Yes Status: Acute Code(s): D64.9 - Anemia, unspecified Qualifiers: Anemia type: other cause Other causes of anemia: nutritional, other megaloblastic Qualified Code(s): D53.1 - Other megaloblastic anemias, not elsewhere classified (7) Agoraphobia with panic attacks Current Visit: Yes Status: Acute Code(s): F40.01 - Agoraphobia with panic disorder
[2018-08-09] MEDS: HEPARIN 500 UNIT/5 ML SYRINGE FOR CENTRAL LINE IVP PRN (10:30)
--- NOTE | 2018-08-09 11:05 | PT AM DAY ---
Diagnosis : Weakness AM - Physical Therapy S: Nursing states that they were finally able to convince the patient to take a shower and she has been more mobile, has lifted spirits, and is willing to participate with therapy. Nursing states the patient's contact precautions have been lifted. The patient's mother states she seems to be having a good day. O: Today's therapy was done in the patient's room following completion of her shower. She performed therapeutic exercises and functional activities including sit to stands, heel slides, quad sets, modified crunches, modified bridges, straight leg raises, hip abduction/adduction, ankle pumps, and isometric upper extremity holds. A: Great lengths were made to make the patient feel comfortable in her room. She was joking around with both her mother and the therapist and was agreeable to attempt all exercises asked of her. P: Continue seeing patient BID during the week and one time per day over the weekend for transfers, ambulation, and range of motion/strengthening exercises. SHANELL
--- NOTE | 2018-08-09 16:11 | PT.PROG ---
Progress Note Progress Note: S. Patient stated that her back is sore today, however agreed to do exercises in bed. O. Patient performed supine exercises in the form of; heel slides, quad sets, ankle pumps, short arc quads, pillow squeezes, glute sets all x 10 bilaterally. Patient was left in bed with call light and alarm. A. Patient tolerated exercises fair, she continues to be very weak and would continue to benefit from skilled therapy to increase strength and endurance at this time. P. Continue POC.
[2018-08-09] MEDS: NICOTINE 21 MG /DAY PATCH TRANSDERM SCH (19:54)
[2018-08-09] MEDS: Metoclopramide Inj 10 MG/2 ML VIAL IVP PRN (20:00)
[2018-08-09] MEDS: Mirtazapine Tab 15 MG TAB PO SCH (20:00)
[2018-08-09] MEDS: [UNRECOGNIZED DRUG - OTHER] PO SCH (20:01)
[2018-08-09] MEDS: VITAMIN D3 PO SCH (20:01)
[2018-08-10] MEDS: HEPARIN 5000 UNIT/1 ML SUBCUT SCH ×3 (03:29→19:58)
[2018-08-10] MEDS: oxyCODONE IR Tab 5 MG TAB PO PRN ×2 (07:34→20:07)
[2018-08-10] MEDS: ClonazePAM Tab 1 MG TABLET PO PRN ×2 (07:34→16:55)
[2018-08-10] MEDS: MAGNESIUM OXIDE 400 MG TABLET PO SCH (07:34)
[2018-08-10] MEDS: Thiamine Tab 100 MG TAB PO SCH (09:16)
[2018-08-10] MEDS: Beta Carot W/Vit E,C,Min Tab 1 TAB TAB PO SCH (09:17)
[2018-08-10] MEDS: FOLIC ACID 1 MG TABLET PO SCH (09:17)
[2018-08-10] MEDS: Multivitamin Tab 1 TAB PO SCH (09:18)
[2018-08-10] MEDS: CHOLECALCIFEROL 1000 IU TABLET PO SCH (09:18)
[2018-08-10] MEDS: ASCORBIC ACID Chewable 500 MG TABLET PO SCH (09:19)
[2018-08-10] MEDS: ACIDOPHILUS/BULGARICUS 1 EACH GRAN.PACK PO SCH ×3 (09:20→19:59)
[2018-08-10] MEDS ORDERED: Magnesium Sulfate 2gm (Premix) 2 GM/50 ML BAG IV ONE (09:26)
--- NOTE | 2018-08-10 09:26 | PDOC(PROG) ---
Interval History: No change clinically patient is having some by mouth intake no IVs at this point just multivitamins denies chest pain nausea or vomiting Objective : Data - Labs CBC and BMP: 08/03/18 04:35 08/09/18 05:00 Objective : Exam - Respiratory Respiratory Exam: Clear to Auscultation - Bilaterally, Breathing Non Labored, Normal To Percussion, Normal to Percussion and Palpation - Cardiovascular Cardiovascular Exam: RRR, No Murmur, No Clicks, No Gallops, No Rubs, PMI Non-Di splaced - GI/Abdominal GI/Abdominal Exam: Normal Bowel Sounds, Non Tender, Non Distended, Soft, No Masses, No Hepatomegaly, No Splenomegaly, No Organomegaly Assessment and Plan - Patient Problems (1) Kwashiorkor Current Visit: Yes Status: Acute Comment: Continue to encourage by mouth intake and multivitamin replacement. Patient is stable to be transferred to primary [facility] for the treatment of her agoraphobia and anorexia nervosa. Discussed this with nurse and social sciences department chair which are working on insurance and placement. Code(s): E40 - Kwashiorkor (2) Ascites Current Visit: Yes Status: Resolved Code(s): R18.8 - Other ascites Qualifiers: Ascites type: other type Qualified Code(s): R18.8 - Other ascites (3) Body dysmorphic disorder Current Visit: Yes Status: Acute Code(s): F45.22 - Body dysmorphic disorder (4) Vitamin C deficiency Current Visit: Yes Status: Acute Code(s): E54 - Ascorbic acid deficiency (5) Vitamin A deficiency Current Visit: Yes Status: Acute Code(s): E50.9 - Vitamin A deficiency, unspecified (6) Anemia Current Visit: Yes Status: Acute Code(s): D64.9 - Anemia, unspecified Qualifiers: Anemia type: other cause Other causes of anemia: nutritional, other megaloblastic Qualified Code(s): D53.1 - Other megaloblastic anemias, not elsewhere classified (7) Agoraphobia with panic attacks Current Visit: Yes Status: Acute Code(s): F40.01 - Agoraphobia with panic disorder (8) Hypomagnesemia Current Visit: Yes Status: Acute Comment: Replace with 2 g yesterday we'll give 2 more grams today Code(s): E83.42 - Hypomagnesemia
[2018-08-10] MEDS: HEPARIN 500 UNIT/5 ML SYRINGE FOR CENTRAL LINE IVP PRN (13:22)
--- NOTE | 2018-08-10 14:39 | OT AM DAY ---
Diagnosis : Weakness AM - Occupational Therapy S: The patient reports she is feeling a little bit better. Her stools are forming more. She thinks she is almost approved for Medicaid; she did hear back from them and she was excited about that. O: Today the patient was able to sit in chair and perform shoulder flexion, elbow flexion/extension, wrist flexion/extension, marching, knee kick outs, resisted hip abduction/adduction, heel lifts, foam block, and red theraband resisted biceps curls x10 repetitions each. A: The patient was in a better mood than normal. She participated a little bit more and today she increased her abilities by completing theraband exercises. P: Continue seeing patient BID during the week and one time per day over the weekend for upper extremity strengthening, ADLs, and overall functional mobility. MTDD
--- NOTE | 2018-08-10 15:33 | PT.PROG ---
Progress Note Progress Note: S. Patient stated that she is feeling a little better, she reports that her back is sore. O. Patient performed supine exercises in the form of; heel slides, quad sets, ankle pumps, short arc quads, pillow squeezes, glute sets all x 10 bilaterally. Patient was left in bed with call light and alarm. A. Patient tolerated exercises fair, she continues to be very weak and would continue to benefit from skilled therpay to increase strength and endurance at this time. P. Continue POC.
[2018-08-10] MEDS: NICOTINE 21 MG /DAY PATCH TRANSDERM SCH (19:58)
[2018-08-10] MEDS: [UNRECOGNIZED DRUG - OTHER] PO SCH (19:59)
[2018-08-10] MEDS: VITAMIN D3 PO SCH (19:59)
[2018-08-10] MEDS: Mirtazapine Tab 15 MG TAB PO SCH (19:59)
[2018-08-11] MEDS: HEPARIN 5000 UNIT/1 ML SUBCUT SCH ×3 (02:37→19:13)
[2018-08-11] MEDS: HEPARIN 500 UNIT/5 ML SYRINGE FOR CENTRAL LINE IVP PRN ×2 (02:37→08:58)
[2018-08-11 05:32] LABS: BLOOD UREA NITROGEN 8 mg/dL (7-22); BUN/CREATININE RATIO 11.42 (6-20); SERUM ALBUMIN 3.3 g/dL (3.5-4.8)
[2018-08-11] MEDS: Metoclopramide Inj 10 MG/2 ML VIAL IVP PRN (05:39)
[2018-08-11] MEDS: ClonazePAM Tab 1 MG TABLET PO PRN ×3 (07:06→21:43)
[2018-08-11] MEDS: MAGNESIUM OXIDE 400 MG TABLET PO SCH (07:06)
[2018-08-11] MEDS: oxyCODONE IR Tab 5 MG TAB PO PRN ×2 (07:06→14:39)
[2018-08-11] MEDS: ONDANSETRON 4 MG/2 ML VIAL IV PRN (08:57)
[2018-08-11] MEDS: FOLIC ACID 1 MG TABLET PO SCH (09:05)
[2018-08-11] MEDS: Multivitamin Tab 1 TAB PO SCH (09:06)
[2018-08-11] MEDS: CHOLECALCIFEROL 1000 IU TABLET PO SCH (09:06)
[2018-08-11] MEDS: ASCORBIC ACID Chewable 500 MG TABLET PO SCH (09:06)
[2018-08-11] MEDS: Thiamine Tab 100 MG TAB PO SCH (09:06)
[2018-08-11] MEDS: Beta Carot W/Vit E,C,Min Tab 1 TAB TAB PO SCH (09:06)
[2018-08-11] MEDS: ACIDOPHILUS/BULGARICUS 1 EACH GRAN.PACK PO SCH ×3 (09:07→20:46)
--- NOTE | 2018-08-11 09:42 | PDOC(PROG) ---
Interval History: Patient is doing great clinically stable mild by mouth intake denies chest pain nausea and vomiting Objective : Data - Labs CBC and BMP: 08/03/18 04:35 08/11/18 05:00 Objective : Exam - General General Appearance: Cooperative - Respiratory Respiratory Exam: Clear to Auscultation - Bilaterally, Breathing Non Labored, Normal To Percussion, Normal to Percussion and Palpation - Cardiovascular Cardiovascular Exam: RRR, No Murmur, No Clicks, No Gallops, No Rubs, PMI Non- Displaced - GI/Abdominal GI/Abdominal Exam: Normal Bowel Sounds, Non Tender, Non Distended, Soft, No Masses, No Hepatomegaly, No Splenomegaly, No Organomegaly Assessment and Plan - Patient Problems (1) Kwashiorkor Current Visit: Yes Status: Acute Comment: Poor by mouth intake patient is off TPN and IV lipids stable electrolytes replaced awaiting for placement for anorexia nervosa treatment social insurance specialist on the case I did put in a swing bed consult social insurance specialist said that the she does not qualify Code(s): E40 - Kwashiorkor (2) Ascites Current Visit: Yes Status: Resolved Code(s): R18.8 - Other ascites Qualifiers: Ascites type: other type Qualified Code(s): R18.8 - Other ascites (3) Body dysmorphic disorder Current Visit: Yes Status: Acute Code(s): F45.22 - Body dysmorphic disorder (4) Vitamin C deficiency Current Visit: Yes Status: Acute Code(s): E54 - Ascorbic acid deficiency (5) Vitamin A deficiency Current Visit: Yes Status: Acute Code(s): E50.9 - Vitamin A deficiency, unspecified (6) Anemia Current Visit: Yes Status: Acute Code(s): D64.9 - Anemia, unspecified Qualifiers: Anemia type: other cause Other causes of anemia: nutritional, other m egaloblastic Qualified Code(s): D53.1 - Other megaloblastic anemias, not elsewhere classified (7) Agoraphobia with panic attacks Current Visit: Yes Status: Acute Code(s): F40.01 - Agoraphobia with panic disorder (8) Hypomagnesemia Current Visit: Yes Status: Acute Code(s): E83.42 - Hypomagnesemia
--- NOTE | 2018-08-11 13:06 | OT.PROG ---
Progress Note Progress Note: S: pt agreed to therapy and seems fine. O: tx consisted of bed mobility from supine to EOB independently, RTB exercises at EOB in all planes of motion x 10 each, AROM exercises of shoulder rolls, abduction, flexion x10 each, trunk rotations x5, functional ambulation x 15' with SBA for safety, toileting tasks and hygiene independently. A: pt tolerated session well and seems to be in a better mood. P: continue POC
[2018-08-11] MEDS: NICOTINE 21 MG /DAY PATCH TRANSDERM SCH (19:13)
[2018-08-11] MEDS: [UNRECOGNIZED DRUG - OTHER] PO SCH (20:46)
[2018-08-11] MEDS: Mirtazapine Tab 15 MG TAB PO SCH (20:46)
[2018-08-11] MEDS: VITAMIN D3 PO SCH (20:47)
[2018-08-12] MEDS: HEPARIN 5000 UNIT/1 ML SUBCUT SCH ×3 (02:07→19:07)
[2018-08-12] MEDS: MAGNESIUM OXIDE 400 MG TABLET PO SCH (07:47)
--- NOTE | 2018-08-12 08:53 | PT.PROG ---
Progress Note Progress Note: S: Pt states that she is doing pretty well today and is willing to participate with therapy. O: Tx consisted of instruction in 15x each of the following (bilateral): quad sets, heel slides, SAQ, quad set with SLR, bridges, clams with red t-band. A: Pt participated well with exercises and was able to complete 15 repetitions of each. Pt reported that she was fatigued at end of tx. P: Continue per POC.
--- NOTE | 2018-08-12 09:33 | PDOC(PROG) ---
Interval History: Patient is doing well has no complaints still awaiting placement Objective : Data - Labs CBC and BMP: 08/03/18 04:35 08/11/18 05:00 Objective : Exam - Respiratory Respiratory Exam: Clear to Auscultation - Bilaterally, Breathing Non Labored, Normal To Percussion, Normal to Percussion and Palpation - Cardiovascular Cardiovascular Exam: RRR, No Murmur, No Clicks, No Gallops, No Rubs, PMI Non- Displaced - GI/Abdominal GI/Abdominal Exam: Normal Bowel Sounds, Non Tender, Non Distended, Soft, No Masses, No Hepatomegaly, No Splenomegaly, No Organomegaly Assessment and Plan - Patient Problems (1) Kwashiorkor Current Visit: Yes Status: Acute Comment: Doing well continue with light and multivitamin replacement off TPN and lipids continues to eat small amount of foods I did put in a consult for swing bed according to family welfare social work professor this is not possible and still waiting for placement Code(s): E40 - Kwashiorkor (2) Ascites Current Visit: Yes Status: Resolved Code(s): R18.8 - Other ascites Qualifiers: Ascites type: other type Qualified Code(s): R18.8 - Other ascites (3) Body dysmorphic disorder Current Visit: Yes Status: Acute Code(s): F45.22 - Body dysmorphic disorder (4) Vitamin C deficiency Current Visit: Yes Status: Acute Code(s): E54 - Ascorbic acid deficiency (5) Vitamin A deficiency Current Visit: Yes Status: Acute Code(s): E50.9 - Vitamin A deficiency, unspecified (6) Anemia Current Visit: Yes Status: Acute Code(s): D64.9 - Anemia, unspecified Qualifiers: Anemia type: other cause Other causes of anemia: nutritional, other megaloblastic Qualified Code(s): D53.1 - Other megaloblastic anemias, not elsewhere classified (7) Agoraphobia with panic attacks Current Visit: Yes Status: Acute Code(s): F40.01 - Agoraphobia with panic disorder (8) Hypomagnesemia Current Visit: Yes Status: Acute Code(s): E83.42 - Hypomagnesemia
[2018-08-12] MEDS: Thiamine Tab 100 MG TAB PO SCH (10:02)
[2018-08-12] MEDS: ClonazePAM Tab 1 MG TABLET PO PRN ×2 (10:02→21:00)
[2018-08-12] MEDS: Multivitamin Tab 1 TAB PO SCH (10:02)
[2018-08-12] MEDS: FOLIC ACID 1 MG TABLET PO SCH (10:02)
[2018-08-12] MEDS: Beta Carot W/Vit E,C,Min Tab 1 TAB TAB PO SCH (10:02)
[2018-08-12] MEDS: oxyCODONE IR Tab 5 MG TAB PO PRN ×2 (10:03→19:07)
[2018-08-12] MEDS: ACIDOPHILUS/BULGARICUS 1 EACH GRAN.PACK PO SCH ×3 (10:03→21:00)
[2018-08-12] MEDS: ASCORBIC ACID Chewable 500 MG TABLET PO SCH (10:03)
[2018-08-12] MEDS: CHOLECALCIFEROL 1000 IU TABLET PO SCH (10:03)
[2018-08-12] MEDS: ONDANSETRON 4 MG/2 ML VIAL IV PRN (16:27)
[2018-08-12] MEDS: HEPARIN 500 UNIT/5 ML SYRINGE FOR CENTRAL LINE IVP PRN (16:27)
[2018-08-12] MEDS: NICOTINE 21 MG /DAY PATCH TRANSDERM SCH (19:07)
[2018-08-12] MEDS: Mirtazapine Tab 15 MG TAB PO SCH (21:00)
[2018-08-12] MEDS: [UNRECOGNIZED DRUG - OTHER] PO SCH (21:00)
[2018-08-12] MEDS: VITAMIN D3 PO SCH (21:00)
[2018-08-12] MEDS: Metoclopramide Inj 10 MG/2 ML VIAL IVP PRN (21:06)
[2018-08-13] MEDS: HEPARIN 5000 UNIT/1 ML SUBCUT SCH ×3 (03:37→19:16)
[2018-08-13] MEDS: oxyCODONE IR Tab 5 MG TAB PO PRN ×2 (05:10→16:22)
[2018-08-13] MEDS: MAGNESIUM OXIDE 400 MG TABLET PO SCH (07:01)
[2018-08-13] MEDS: ACIDOPHILUS/BULGARICUS 1 EACH GRAN.PACK PO SCH ×3 (09:38→20:55)
[2018-08-13] MEDS: ClonazePAM Tab 1 MG TABLET PO PRN ×2 (09:38→19:16)
[2018-08-13] MEDS: Thiamine Tab 100 MG TAB PO SCH (09:39)
[2018-08-13] MEDS: ASCORBIC ACID Chewable 500 MG TABLET PO SCH (09:39)
[2018-08-13] MEDS: Multivitamin Tab 1 TAB PO SCH (09:39)
[2018-08-13] MEDS: CHOLECALCIFEROL 1000 IU TABLET PO SCH (09:39)
[2018-08-13] MEDS: Beta Carot W/Vit E,C,Min Tab 1 TAB TAB PO SCH (09:39)
[2018-08-13] MEDS: FOLIC ACID 1 MG TABLET PO SCH (09:39)
--- NOTE | 2018-08-13 15:10 | PDOC(PROG) ---
Date of Service: 08/13/18 Time of Service: 15:30 Interval History: Subjective No more diarrhea. Denying new symptoms. She said she is eating more. She is covered under Medicaid now. The social services counselor is working on her [facility] inpatient psych treatment facility in [place]. Objective : Data - Labs CBC and BMP: 08/03/18 04:35 08/11/18 05:00 Objective : Exam - General General Appearance: No Acute Distress, Cooperative Additional General Exam Details: Cachectic - Head Head Exam: Normal Inspection - Eye Eye Exam: Normal Appearance - ENT ENT Exam: Normal Exam - Neck Neck Exam: Normal Inspection - Respiratory Respiratory Exam: Clear to Auscultation - Bilaterally - Cardiovascular Cardiovascular Exam: RRR - GI/Abdominal GI/Abdominal Exam: Normal Bowel Sounds, Non Tender, Soft Additional GI/Abdominal Exam Details: There is a slight distention compared to last time I saw her I don't thinks it significant. - Rectal Rectal Exam: Deferred - External Exam: Deferred - Extremities Extremities Exam: Normal Inspection - Back Back Exam: Normal Inspection - Neurological Neurological Exam: Alert, Oriented x 3, CN II-XII Intact, No Facial Droop, Speech Intact / Clear, Moves All Extremities Equally - Psychiatric Psychiatric Exam: Normal Affect Assessment and Plan - Patient Problems (1) Ascites Current Visit: Yes Status: Resolved Comment: Seems to be stable to may be slightly more than before, but it is not symptomatic. Code(s): R18.8 - Other ascites Qualifiers: Ascites type: other type Qualified Code(s): R18.8 - Other ascites (2) Kwashiorkor Current Visit: Yes Status: Acute Comment: Encourage by mouth intake. Continue multivitamins. Code(s): E40 - Kwashiorkor (3) Body dysmorphic disorder Current Visit: Yes Status: Acute Comment: We'll need inpatient treatment Code(s): F45.22 - Body dysmorphic disorder (4) Vitamin C deficiency Current Visit: Yes Status: Acute Comment: Continue multivitamins and vitamin C Code(s): E54 - Ascorbic acid deficiency (5) Anemia Current Visit: Yes Status: Acute Comment: We'll recheck her hemoglobin tomorrow Code(s): D64.9 - Anemia, unspecified Qualifiers: Anemia type: other cause Other causes of anemia: nutritional, other megaloblastic Qualified Code(s): D53.1 - Other megaloblastic anemias, not elsewhere classified
--- NOTE | 2018-08-13 16:13 | PT.PROG ---
Progress Note Progress Note: S. Patient stated that she is tired this afternoon however agreed to do some exercises at this time. O. Patient performed seated exercises in the form of; long arc quads, marches, heel toe raises, pillow squeezes, resisted knee flexion all x 10 bilaterally, sit to stands x 5. Patient then ambulated 20 feet to the door and back to her bed where she was left with call light. A. Patient tolerated exercise well, she was able to perform seated exercises with no increase in pain or problems. Patient would continue to benefit from skilled therapy to increase strength, endurance and mobility. P. Continue POC.
[2018-08-13] MEDS: HEPARIN 500 UNIT/5 ML SYRINGE FOR CENTRAL LINE IVP PRN (16:22)
[2018-08-13] MEDS: Metoclopramide Inj 10 MG/2 ML VIAL IVP PRN (16:23)
--- NOTE | 2018-08-13 16:42 | OT AM DAY ---
Diagnosis : Weakness AM - Occupational Therapy S: The patient reports she is doing well today. O: Today the patient was able to sit edge of bed and complete upper extremity shoulder flexion, abduction, biceps curls, and wrist flexion/extension. She then participated in red theraband resisted rows and biceps curls x10 repetitions bilaterally, hip abduction/adduction, knee flexion/extension, and ankle flexion/extension. She then performed 5 sit to stands. The therapist assisted the patient's nurse with dressing. The patient did then get on the scale. A: The patient participated well. It would be nice to get her to eat a little more. It sounds like they are working on getting her into treatment in [place] next week. P: Continue seeing patient BID during the week and one time per day over the weekend for upper extremity strengthening, ADLs, and overall functional mobility. MTDD
[2018-08-13] MEDS: NICOTINE 21 MG /DAY PATCH TRANSDERM SCH (19:16)
[2018-08-13] MEDS: Mirtazapine Tab 15 MG TAB PO SCH (20:55)
[2018-08-13] MEDS: [UNRECOGNIZED DRUG - OTHER] PO SCH (20:55)
[2018-08-13] MEDS: VITAMIN D3 PO SCH (20:55)
[2018-08-14] MEDS: HEPARIN 5000 UNIT/1 ML SUBCUT SCH ×3 (03:23→18:51)
[2018-08-14 04:59] LABS: BASOPHILS # (AUTO) 0.02 10*3/UL; BASOPHILS % (AUTO) 0.4 % (0-1); EOSINOPHILS # (AUTO) 0.16 10*3/UL; EOSINOPHILS % (AUTO) 3.1 % (0-8); Hematocrit [HCT] 26.7 % (37.0-47.0); Hemoglobin [HGB] 8.4 g/dL (12.0-16.0); LYMPHOCYTES # (AUTO) 1.34 10*3/uL; MEAN CORPUSCULAR HEMOGLOBIN 32.4 PG (27-31); MEAN CORPUSCULAR HGB CONC 31.5 g/dL (33-37); MEAN CORPUSCULAR VOLUME 103.1 FL (81-99); MEAN PLATELET VOLUME 10.4 FL (7.4-12.2); MONOCYTES # (AUTO) 0.45 10*3/UL (0.3-0.8); MONOCYTES % (AUTO) 8.7 % (5-15); NEUTROPHILS # (AUTO) 3.21 10*3/UL; NEUTROPHILS % (AUTO) 61.9 % (50-80); RED BLOOD COUNT 2.59 10^6/uL (4.20-5.40)
[2018-08-14 05:07] LABS: PLATELET MORPHOLOGY COMMENT NORMAL MORPHOLOGY (NORM); RBC MORPHOLOGY COMMENT NORMAL MORPHOLOGY (NORM); WBC MORPHOLOGY COMMENT NORMAL MORPHOLOGY (NORM)
[2018-08-14 05:14] LABS: BLOOD UREA NITROGEN 7 mg/dL (7-22); SERUM ALBUMIN 2.8 g/dL (3.5-4.8)
[2018-08-14] MEDS: MAGNESIUM OXIDE 400 MG TABLET PO SCH (06:35)
--- NOTE | 2018-08-14 09:53 | PDOC(PROG) ---
Date of Service: 08/14/18 Time of Service: 10:00 Interval History: Subjective Patient denying new symptoms. No diarrhea. No abdominal pain. Objective : Data - Labs CBC and BMP: 08/14/18 04:30 08/14/18 04:30 Objective : Exam - General General Appearance: No Acute Distress, Thin - Head Head Exam: Normal Inspection - Eye Eye Exam: Normal Appearance - ENT ENT Exam: Normal Exam - Neck Neck Exam: Normal Inspection - Respiratory Respiratory Exam: Clear to Auscultation - Bilaterally - Cardiovascular Cardiovascular Exam: RRR - GI/Abdominal GI/Abdominal Exam: Normal Bowel Sounds, Non Tender, Non Distended, Soft, No Organomegaly - Rectal Rectal Exam: Deferred - External Exam: Deferred Exam: Deferred - Extremities Extremities Exam: Normal Inspection - Back Back Exam: Normal Inspection - Neurological Neurological Exam: Alert, Oriented x 3, CN II-XII Intact, Speech Intact / Clear, Moves All Extremities Equally - Psychiatric Psychiatric Exam: Flat Affect Assessment and Plan - Patient Problems (1) Ascites Current Visit: Yes Status: Resolved Comment: Seem to be stable. Code(s): R18.8 - Other ascites Qualifiers: Ascites type: other type Qualified Code(s): R18.8 - Other ascites (2) Kwashiorkor Current Visit: Yes Status: Acute Comment: She continue to increase her oral intake. She said she'll have 3 applesauce today in addition to the shakes that she gets 3 times a day. She will have salad and peanut jelly at lunch. Inpatient treatment so far not approved in [place] Per my discussion with Shwetha. She will Have another discussion with [facility] on Thursday. I think if there is no other inpatient treatment facility that will take her we may end up sending her home. Code(s): E40 - Kwashiorkor (3) Vitamin C deficiency Current Visit: Yes Status: Acute Comment: Continue replacement Code(s): E54 - Ascorbic acid deficiency (4) Anemia Current Visit: Yes Status: Acute Comment: Her hemoglobin is stable Code(s): D64.9 - Anemia, unspecified Qualifiers: Anemia type: other cause Other causes of anemia: nutritional, other megaloblastic Qualified Code(s): D53.1 - Other megaloblastic anemias, not elsewhere classified
[2018-08-14] MEDS: ASCORBIC ACID Chewable 500 MG TABLET PO SCH (10:09)
[2018-08-14] MEDS: Multivitamin Tab 1 TAB PO SCH (10:09)
[2018-08-14] MEDS: oxyCODONE IR Tab 5 MG TAB PO PRN ×2 (10:09→20:51)
[2018-08-14] MEDS: Thiamine Tab 100 MG TAB PO SCH (10:09)
[2018-08-14] MEDS: CHOLECALCIFEROL 1000 IU TABLET PO SCH (10:09)
[2018-08-14] MEDS: Beta Carot W/Vit E,C,Min Tab 1 TAB TAB PO SCH (10:09)
[2018-08-14] MEDS: ClonazePAM Tab 1 MG TABLET PO PRN ×2 (10:10→17:01)
[2018-08-14] MEDS: FOLIC ACID 1 MG TABLET PO SCH (10:10)
[2018-08-14] MEDS: ACIDOPHILUS/BULGARICUS 1 EACH GRAN.PACK PO SCH ×3 (10:11→20:44)
[2018-08-14] MEDS: NICOTINE 21 MG /DAY PATCH TRANSDERM SCH (18:50)
[2018-08-14] MEDS: VITAMIN D3 PO SCH (20:43)
[2018-08-14] MEDS: Mirtazapine Tab 15 MG TAB PO SCH (20:44)
[2018-08-14] MEDS: [UNRECOGNIZED DRUG - OTHER] PO SCH (20:45)
[2018-08-14] MEDS: ONDANSETRON 4 MG/2 ML VIAL IV PRN (20:52)
[2018-08-14] MEDS: HEPARIN 500 UNIT/5 ML SYRINGE FOR CENTRAL LINE IVP PRN (20:52)
[2018-08-15] MEDS: HEPARIN 5000 UNIT/1 ML SUBCUT SCH ×3 (02:38→20:13)
[2018-08-15] MEDS: MAGNESIUM OXIDE 400 MG TABLET PO SCH ×2 (07:01→09:01)
[2018-08-15] MEDS: ClonazePAM Tab 1 MG TABLET PO PRN ×2 (07:01→14:11)
[2018-08-15] MEDS: oxyCODONE IR Tab 5 MG TAB PO PRN ×2 (07:03→14:11)
[2018-08-15] MEDS: ACIDOPHILUS/BULGARICUS 1 EACH GRAN.PACK PO SCH ×3 (08:44→20:13)
[2018-08-15] MEDS: Beta Carot W/Vit E,C,Min Tab 1 TAB TAB PO SCH (08:45)
[2018-08-15] MEDS: FOLIC ACID 1 MG TABLET PO SCH (08:45)
[2018-08-15] MEDS: Thiamine Tab 100 MG TAB PO SCH (08:45)
[2018-08-15] MEDS: Multivitamin Tab 1 TAB PO SCH (08:45)
[2018-08-15] MEDS: CHOLECALCIFEROL 1000 IU TABLET PO SCH (08:45)
[2018-08-15] MEDS: ASCORBIC ACID Chewable 500 MG TABLET PO SCH (08:46)
--- NOTE | 2018-08-15 08:49 | PDOC(PROG) ---
Date of Service: 08/15/18 Time of Service: 09:00 Interval History: Subjective Patient denying new symptoms. She ate better according to the nursing staff yesterday compared to the day before. Objective : Data - Labs CBC and BMP: 08/14/18 04:30 08/14/18 04:30 Objective : Exam - General General Appearance: No Acute Distress, Thin - Head Head Exam: Normal Inspection - Eye Eye Exam: Normal Appearance - ENT ENT Exam: Normal Exam - Neck Neck Exam: Normal Inspection - Respiratory Respiratory Exam: Clear to Auscultation - Bilaterally - Cardiovascular Cardiovascular Exam: RRR - GI/Abdominal GI/Abdominal Exam: Normal Bowel Sounds, Non Tender, Non Distended, Soft, No Organomegaly - Rectal Rectal Exam: Deferred - External Exam: Deferred - Extremities Extremities Exam: Normal Inspection - Back Back Exam: Normal Inspection - Neurological Neurological Exam: Alert, Oriented x 3, CN II-XII Intact, No Facial Droop, Speech Intact / Clear, Moves All Extremities Equally - Psychiatric Psychiatric Exam: Normal Affect - Integumentary Integumentary Exam: Normal Color Assessment and Plan - Patient Problems (1) Ascites Current Visit: Yes Status: Resolved Comment: Seems to be stable. Clinically doesn't seem there is a change. Code(s): R18.8 - Other ascites Qualifiers: Ascites type: other type Qualified Code(s): R18.8 - Other ascites (2) Kwashiorkor Current Visit: Yes Status: Acute Comment: Continue to encourage her oral intake. No inpatient facility will accept the patient so far. We'll talk to the [facility] and mission planner tomorrow and then we'll make a plan. if There is no inpatient facility will take the patient I think probably we'll discharge her home. Code(s): E40 - Kwashiorkor (3) Anemia Current Visit: Yes Status: Acute Comment: Continue multivitamins. Code(s): D64.9 - Anemia, unspecified Qualifiers: Anemia type: other cause Other causes of anemia: nutritional, other megaloblastic Qualified Code(s): D53.1 - Other megaloblastic anemias, not elsewhere classified
--- NOTE | 2018-08-15 10:50 | PT.PROG ---
Progress Note Progress Note: S: Pt. state she is ok. O: treatment consisted of therapeutic exercises: seated marches, laq, bicep curls, IR/ER, sit to stands x 3 and ambulated in her room. A: Pt. is still resistant at times to exercises and refuses to leave her room. P: Continue per POC to increase strength and activity tolerance. Sushma Carl, PROCEDURES TECH
[2018-08-15] MEDS: Metoclopramide Inj 10 MG/2 ML VIAL IVP PRN (14:10)
[2018-08-15] MEDS: NICOTINE 21 MG /DAY PATCH TRANSDERM SCH (20:13)
[2018-08-15] MEDS: [UNRECOGNIZED DRUG - OTHER] PO SCH (20:14)
[2018-08-15] MEDS: Mirtazapine Tab 15 MG TAB PO SCH (20:14)
[2018-08-15] MEDS: VITAMIN D3 PO SCH (20:15)
[2018-08-16] MEDS: HEPARIN 5000 UNIT/1 ML SUBCUT SCH ×2 (03:38→11:07)
--- NOTE | 2018-08-16 07:44 | PT.PROG ---
Progress Note Progress Note: S: Pt. states she is doing well today. O: Treatment consisted of therapeutic exercises: laq, seated marches, 4 way ankle, 10 sit to stands and ambulated approx 60 feet within her room. A: Pt. continues to leave her room for activities. Performs minimal exercises. P: Continue per POC to increase strength and activity tolerance. Sushma Carl, LAB ASSISTANT
[2018-08-16] MEDS: oxyCODONE IR Tab 5 MG TAB PO PRN (09:19)
[2018-08-16] MEDS: Multivitamin Tab 1 TAB PO SCH (09:19)
[2018-08-16] MEDS: CHOLECALCIFEROL 1000 IU TABLET PO SCH (09:19)
[2018-08-16] MEDS: ACIDOPHILUS/BULGARICUS 1 EACH GRAN.PACK PO SCH (09:19)
[2018-08-16] MEDS: ClonazePAM Tab 1 MG TABLET PO PRN (09:19)
[2018-08-16] MEDS: MAGNESIUM OXIDE 400 MG TABLET PO SCH (09:20)
[2018-08-16] MEDS: Beta Carot W/Vit E,C,Min Tab 1 TAB TAB PO SCH (09:20)
[2018-08-16] MEDS: FOLIC ACID 1 MG TABLET PO SCH (09:20)
[2018-08-16] MEDS: Thiamine Tab 100 MG TAB PO SCH (09:20)
--- NOTE | 2018-08-16 10:57 | DCSUMMARY ---
Hospitalization Summary Admit Date: 07/13/2018 Discharge Date: 08/16/18 Hospital Course: Discharge diagnoses 1. C. difficile colitis 2. Alcoholic liver disease with ascites 3. Spontaneous bacterial peritonitis, culture negative 4. Anemia multifactorial needed 2 units of blood 5. Severe protein malnutrition 6. Multiple vitamin deficiencies secondary to malnutrition 7. Anorexia nervosa 8. Agoraphobia 9. Chronic pain syndrome Hospital course This is a 37 years old female with medical history significant for history of alcoholic liver disease with ascites, anorexia nervosa, agoraphobia and severe protein malnutrition who was sent to the ER by her primary care physician. Patient was admitted noted to be severely malnourished with ascites present. She had the electrolyte abnormalities that included hypokalemia. She was admitted to the hospital by Dr. Hoyt please see his note. In addition to correcting the electrolytes she had paracentesis the fluid was sent to analysis and showed spontaneous bacterial Peritonitis but was culture negative. She was treated for that. She had diarrhea and proved to be C. difficile and she was treated with vancomycin for that. She had multiple vitamin deficiencies and these were replaced. Because of her severe malnourishment she was started on TPN. She started also physical therapy. She had a long hospital course to treat the C. difficile affection and to treat the spontaneous bacterial peritonitis. Blood pressure was low and she was initially put on midodrine This was eventually discontinued. She did receive 2 units of blood because of anemia. We maintained her nutrition on TPN until her oral intake started to picker operator. At one point she did have an ileus that was treated medically. We worked on getting the patient medical insurance and she was covered by Medicaid. We were thinking after getting the insurance that we will try to refer her to an inpatient psych treatment for her anorexia and agoraphobia. The land use planner tried multiple facilities in [place] unfortunately none will take her. Her TPN eventually was discontinued and she is on pills only for her anxiety and pain. She is on all multiple vitamins. Since no facilities can take at her to treat her agoraphobia or anorexia and medically she's been stabilized we decided to discharge her home. We did discuss with her home health evaluation including physical therapy however she declined. She will follow-up with [facility] for her before be anorexia. Discharge instruction Diet regular Activity as started Medications Current Medication(s) Medication Instructions Recorded Confirmed Type pantoprazole 40 mg tablet,delayed 40 mg PO DAILY #90 tab 02/12/18 07/13/18 Rx release clonazepam 0.5 mg tablet 0.5 mg PO TID PRN #90 tab 06/29/18 07/13/18 Rx cholecalciferol (vitamin D3) 400 400 unit PO QDAY #30 cap 06/30/18 07/13/18 Rx unit capsule mirtazapine 15 mg tablet 15 mg PO QHS #30 tab 06/30/18 07/13/18 Rx ondansetron 4 mg disintegrating 4 mg SL PRN PRN #30 tab 06/30/18 07/13/18 Rx tablet thiamine HCl (vitamin B1) 100 mg 100 mg PO QDAY #30 tab 06/30/18 07/13/18 Rx tablet zinc oxide (bulk) powder 1 ea PO DAILY #500 g 06/30/18 07/13/18 Rx Acidophilus/Bulgaricus Packet 1 packet PO TID gran.pack 08/16/18 Rx [Lactinex Packet] Folic Acid 1 mg PO DAILY tab 08/16/18 Rx Multivitamin/Iron/Folic Acid 1 each PO DAILY #30 tablet 08/16/18 Rx [Multi Complete-Iron Tablet] Thiamine HCl [Vitamin B-1] 100 mg PO DAILY@0900 tab 08/16/18 Rx Womens Alive 2 tab PO BEDTIME 08/16/18 Rx oxyCODONE IR Tab [OxyIR Tab] 5 mg PO BID PRN tab 08/16/18 Rx Follow-up with PCP 1-2 weeks Condition at discharge was stable for discharge Exam - Vitals Vital Signs: Vital Signs Temperature 98.9 F Temperature Source Temporal Artery Scan Pulse Rate [Apical] 90 Pulse Rate [Telemetry] 87 Pulse Rate [Pulse Oximeter] 92 Pulse Rate [Pulse Oximeter 92 Right] Pulse Rate 109 Respiratory Rate 17 Blood Pressure [Right Arm] 90/54 Blood Pressure [Left Arm] 82/47 Blood Pressure 86/57 Pulse Ox 95 Oxygen Delivery Method Room Air Height 5 ft 6 in Weight 89 lb 12.8 oz - General General Appearance: Thin - Head Head Exam: Normal Inspection - Eye Eye Exam: POSITIVE: Normal Appearance - ENT ENT Exam: POSITIVE: Normal Exam - Neck Neck Exam: Normal Inspection - Respiratory Respiratory Exam: POSITIVE: Clear to Auscultation - Bilaterally - Cardiovascular Cardiovascular Exam: POSITIVE: RRR - GI/Abdominal GI/Abdominal Exam: POSITIVE: Normal Bowel Sounds, Non Tender, Non Distended, Soft, No Organomegaly - Rectal Rectal Exam: POSITIVE: Deferred - External Exam: POSITIVE: Deferred - Extremities Extremities Exam: POSITIVE: Normal Inspection - Back Back Exam: POSITIVE: Normal Inspection - Neurological Neurological Exam: POSITIVE: Alert, Oriented x 3, CN II-XII Intact, No Facial Droop, Speech Intact / Clear, Moves All Extremities Equally - Psychiatric Psychiatric Exam: POSITIVE: Flat Affect Patient Problems - Patient Problem List (1) [place] Status: Acute Code(s): E40 - [place] Category: Medical (2) Anemia Status: Acute Code(s): D64.9 - Anemia, unspecified Qualifiers: Anemia type: other cause Other causes of anemia: nutritional, other megaloblastic Qualified Code(s): D53.1 - Other megaloblastic anemias, not elsewhere classified Category: Medical
--- NOTE | 2018-08-16 14:50 | OT.PROG ---
Progress Note Progress Note: S: pt stated that she was going home today. O: tx consisted of AROM exercises in all planes of motion x 10 each with short rest breaks in between each exercises. LE knee flexion x10, ankle pumps in supine x10 each. A: pt tolerated session well and thinks she may try yoga at home. P: continue POC
== END 2018-08-16 12:38 | disposition home or self-care (01) | DRG 371 ==
LOC: ER 11:58 → ICU 17:06 → MED/SURG 07-16 13:07
PROVIDERS: ADMIT Internal Medicine; ATTEND Internal Medicine

== ENCOUNTER 2019-01-28 22:15 | Inpatient (IN) ==
--- NOTE | 2019-01-28 22:40 | PDOC ---
Seizure HPI - General Chief Complaint: Neurological Complaints Stated Complaint: seizure Date Seen by Provider: 01/28/19 Time Seen by Provider: 22:33 Source: POSITIVE: Patient Exam Limitations: POSITIVE: Clinical condition Nurse's Notes Reviewed & Considered: Yes - History of Present Illness Initial Comments: This is a well-developed, cachectic-appearing, 38-year-old female, who has had 2 seizures today and facial injuries. Patient was recently released from a rehabilitative Hospital for anorexia and comes in today because of an earlier seizure today where she fell injuring her face and now has had a second seizure and is brought in by EMS. She has significant ecchymosis around the left eye, left cheek, in the center of her forehead. Her left eye was swollen almost shut. Pupils are equal and reactive at approximately 4 mm diameter. She is complaining of a headache and states that she was drinking alcohol today. She does have a history of alcoholism. Patient denies any sore throat, no chest pain or shortness of breath, she does have epigastric abdominal pain with nausea, no vomiting, no diarrhea, no hematuria dysuria, no rashes. Body Location Affected: REPORTS: Head, Abdomen Timing: REPORTS: Unknown Duration: Unknown Severity: Severe Quality: REPORTS: "Pain" Preceding Symptoms/Context (specify in comments): REPORTS: None, Other (Patient has been drinking alcohol for the last several days.) Character of Seizure(s): REPORTS: Gen. "Shaking all Over" Post-ictal Symptoms: REPORTS: Speech Difficulty, Headache Any Prior Injuries Related to Current Complaint?: No - Patient Home Medications Home Medications: Home Medications oxycodone 5 mg tablet 5 mg PO .q12 PRN #60 tab 10/07/18 cholecalciferol (vitamin D3) 400 unit capsule 1,000 unit PO QDAY #60 cap 01/25/19 docusate sodium 100 mg capsule 100 mg PO BID #60 cap 01/25/19 furosemide 40 mg tablet 40 mg PO QDAY #14 tab 01/25/19 hydroxyzine HCl 50 mg tablet 50 mg PO TID PRN #90 tab 01/25/19 olanzapine 2.5 mg tablet 2.5 mg PO BID #60 tab 01/25/19 ondansetron 4 mg disintegrating tablet 4 mg SL BID PRN #30 tab 01/25/19 spironolactone 100 mg tablet 100 mg PO QDAY #14 tab 01/25/19 trazodone 50 mg tablet 50 mg PO QHS PRN #14 tab 01/25/19 clonazepam 1 mg tablet 1 mg PO TID PRN #60 tab 01/26/19 - Patient Allergies Allergies/Adverse Reactions: Allergies Allergy/AdvReac Type Severity Reaction Status Date / Time aspirin Allergy Severe NOT Verified 10/05/18 17:11 APPLICABLE Penicillins AdvReac RASH Verified 10/05/18 17:11 Past Medical History - heen HEENT History: Other (please comment) Additional HEENT History: Seasonal alleriges, blurred vision and gets "cross- eyed" a lot. Cardiovascular History: Other (please comment) Additional Cardiovasular History: HEART MURMUR Respiratory History: Denies History Gastrointestinal History: GERD, Peptic Ulcer Disease, Pancreatitis Additional Gastrointestinal History: glabbladder removed in 2009 Genitourinary History: Denies History Endocrine History: Denies History Musculoskeletal History: Muscle Weakness Prosthesis or Implant: No Additional Musculoskeletal History: Increasing weakness in the last month. Neurological History: Denies History Blood Disorders: Anemia Psychiatric History: Anxiety Disorders, Eating Disorders, Other (please comment) Additional Psychiatric History: Agoraphobia. Anorexia and Bolemia (treated for in 2009) History of Sexually Transmitted Diseases: No Cancer History: Denies History History of MDRO: No History of Other Communicable Diseases: No Alcohol Use: Heavy In the Past 12 Months, Have Used or Abuse Any Substance: None Previous Surgical History: No Type / Date of Surgery: 2009 gallbladder removed. EGD. paracentesis x3 (last one 07/2018) Anesthesia Reactions: No Malignant Hyperthermia: No Significant Family History: Cancer, Other (please comment) Additional Family History: Anemia ROS - Limitations ROS Limitations: No Limitations Constitution: REPORTS: Denies Symptoms Cardiovascular: REPORTS: Denies Cardiac Symptoms Respiratory: REPORTS: Denies Resp Symptoms Neurological: REPORTS: Headache, Seizure Activity Gastrointestinal: REPORTS: Abdominal Pain, Nausea Endocrine: REPORTS: Denies Symptoms Musculoskeletal: REPORTS: Denies MS Symptoms Genitourinary: REPORTS: Denies Symptoms Eyes: REPORTS: Denies Symptoms ENT: REPORTS: Denies Symptoms Skin: REPORTS: Excessive Bruising Lympathic: REPORTS: Denies Lympathic Symptoms Immunologic: POSITIVE: Denies Symptoms Psychiatric: POSITIVE: Denies Psych Symptoms Seizure Exam - General Appearance General Appearance: POSITIVE: Alert, Moderate Distress, Confused (post-ictal) - HEENT HEENT: POSITIVE: Eyes Inspection Nml, Ears Inspection Nml, Nose Inspection Nml, Oral/Dental Inspect. Nml, Pharynx Inspect. Nml, PERRL, EOMI, Other (Bruising over the central forehead at the hairline, significant ecchymosis around her left eye and cheek.) - Pupil Size Pupil Size: 4 mm: Bilateral - Neck Neck: POSITIVE: Non Tender, Neck Supple, Trachea Midline, Nexus Criteria Negative - Respiratory Respiratory: POSITIVE: Chest Non Tender, No Ecchymosis, Breath Sounds Normal, No Respiratory Distress - Cardiovascular Cardiovascular: POSITIVE: Regular Rate and Rhythm, Heart Sounds Normal, Equal Pulses, Strong Pulses, No Murmur, No Gallop, No JVD, No Pulse Deficit Peripheral Pulses: Radial (L): 4+ - Abdomen Abdomen: Soft: (All Quadrants), Normal Bowel Sounds: (All Quadrants), Denies Tenderness: (LLQ), (RLQ), No Splenomegaly: (All Quadrants), No Hepatomegaly: (All Quadrants), No Guarding: (All Quadrants), No Rebound: (All Quadrants), No Palpable Pulse: (All Quadrants), No Palpabale Mass: (All Quadrants), No Distention: (All Quadrants), No Rigidity: (All Quadrants), Tenderness Noted: (LUQ), (RUQ) - Skin Skin: POSITIVE: Warm, Dry, No Rash, Other (Excessive bruising) - Extremities Extremity: Non-Tender: (All Extremities), Normal ROM: (All Extremities), Normal Inspection: (All Extremities), Pelvis Stable: (All Extremities) - Observed Seizure Activity Observed Seizure Activity in ED: POSITIVE: Generalized - Neuro / Psych Higher Functions: POSITIVE: Speech Normal, Slow, Confused, Disoriented to Time Cranial Nerves: POSITIVE: Normal As Tested, No Evidence of Acute CVA Cerebellar: POSITIVE: Normal As Tested Sensorimotor: POSITIVE: No Motor Deficits, No Sensory Deficits, Reflexes Normal, Symmetrical Reflexes: Patellar (R): 4+, Patellar (L): 4+, Radial (R): 4+, Radial (L): 4+ Seizure Progress - Results Reviewed by me Xrays/CTs/US Reviewed by me: Yes Discussed with Radiologist: Yes Lab Results Reviewed by Me: Yes Lab Results:: Laboratory Results 01/28/19 01/28/1919 21:59 21:59 21:59 WBC 4.30 L RBC 4.49 Hgb 14.0 Hct 41.5 MCV 92.4 MCH 31.2 H MCHC 33.7 RDW Std Deviation 42.9 RDW Coeff of Kaylin 13.0 Plt Count 86 L MPV 9.8 Immature Gran % (Auto) 0.2 Neut % (Auto) 73.2 Lymph % (Auto) 14.0 [place] % (Auto) 11.9 Eos % (Auto) 0 Baso % (Auto) 0.7 Immature Gran # (Auto) 0.01 Neut # (Auto) 3.15 Lymph # (Auto) 0.60 [place] # (Auto) 0.51 Eos # (Auto) 0 Baso # (Auto) 0.03 WBC Morphology Comment Normal morphology Plt Morphology Comment Normal morphology RBC Morph Comment Normal morphology PT 11.5 INR 1.0 Sodium 140 Potassium 3.7 L Chloride 86 L Carbon Dioxide 17 L Anion Gap 37 H BUN 29 H Creatinine 1.2 Estimated GFR 50 BUN/Creatinine Ratio 24.16 H Glucose 221 H Calculated Osmolality 302.0 H Lactic Acid Calcium 10.3 Magnesium 2.3 Total Bilirubin 1.1 AST 292 H ALT 108 H Alkaline Phosphatase 386 H Total Protein 10.4 H Albumin 5.9 H Globulin 4.5 H Albumin/Globulin Ratio 1.30 Amylase Lipase TSH Salicylates < 1.0 Acetaminophen < 10.0 Serum Alcohol < 10 01/28/19 01/28/19 01/28/19 21:59 21:59 22:41 WBC RBC Hgb Hct MCV MCH MCHC RDW Std Deviation RDW Coeff of Kaylin Plt Count MPV Immature Gran % (Auto) Neut % (Auto) Lymph % (Auto) [place] % (Auto) Eos % (Auto) Baso % (Auto) Immature Gran # (Auto) Neut # (Auto) Lymph # (Auto) [place] # (Auto) Eos # (Auto) Baso # (Auto) WBC Morphology Comment Plt Morphology Comment RBC Morph Comment PT INR Sodium Potassium Chloride Carbon Dioxide Anion Gap BUN Creatinine Estimated GFR BUN/Creatinine Ratio Glucose Calculated Osmolality Lactic Acid 12.0 H Calcium Magnesium Total Bilirubin AST ALT Alkaline Phosphatase Total Protein Albumin Globulin Albumin/Globulin Ratio Amylase 265 H Lipase 2587 H* TSH 1.01 Salicylates Acetaminophen Serum Alcohol CBC and BMP: 01/28/19 21:59 01/28/19 21:59 - Patient's Progress Pain Medication Addressed: POSITIVE: No Re-Examine Time:: 00:53 Status: POSITIVE: Improved MDM / ED Course: Patient was examined, an IV started, blood drawn and sent to lab for studies, chest x-ray, CT of the head, cervical spine, maxillofacial, chest, abdomen and pelvis were obtained. Findings: CBC shows white count low at 4.3 and platelets at 86 with normal hemoglobin and hematocrit. Coags within normal limits. Lactic acid is normal at 12.0. Amylase is 265 and lipase is elevated at 2587. CMP shows dyscrasias with sodium of 140, potassium of 3.7, chloride of 86, CO2 of 17, BUN of 29, creatinine 1.2, calcium of 10.3, glucose of 221, anion gap of 37, total bilirubin 1.1, AST of 292, ALT of 108, alkaline phosphatase is 386, total protein of 10.4, albumin of 5.9. Magnesium is normal at 2.3. TSH is normal at 1.01. Salicylates are less than 1.0, Tylenol less than 10, blood alcohol is less than 10. CT scans of head, cervical spine, maxillofacial, chest are all negative for acute findings. CT of her abdomen shows no acute traumatic findings. Assessment: #1 Acute pancreatitis. #2 renal insufficiency. #3 thro mbocytopenia. #4 hyperglycemia. #5 elevated liver functions. #6 alcohol withdrawal. - Consult Consult (If Yes, Name of Consulting MD & Time Called): Yes (Dr. Rivera at 0100 hrs.) Consulting MD will see pt:: [place] [facility] [place] Counseled: POSITIVE: Patient, Family, RE: Lab Results, RE: Radiology Results, RE: DX, RE: Need for F/U Patient Care Time - Estimated PCT Patient Care Time (In Minutes): 60 Vital Signs - VS Reviewed Vital Signs Reviewed: Yes Discharge Clinical Impression: Alcohol withdrawal, Pancreatitis, Hyperglycemia, Renal insufficiency, Electrolyte abnormality, Elevated LFTs Discharge Disposition: Admit to Inpatient Condition: Stable Follow Up With: ROXANA GOMEZ [Primary Care Provider] - Date Decision to Admit to Inpatient: 01/29/19 Time Decision to Admit to Inpatient: 01:07
[2019-01-28 22:50] LABS: BASOPHILS # (AUTO) 0.03 10*3/UL; BASOPHILS % (AUTO) 0.7 % (0-1); EOSINOPHILS # (AUTO) 0 10*3/UL; EOSINOPHILS % (AUTO) 0 % (0-8); Hematocrit [HCT] 41.5 % (37.0-47.0); MEAN CORPUSCULAR HEMOGLOBIN 31.2 PG (27-31); MEAN CORPUSCULAR HGB CONC 33.7 g/dL (33-37); MEAN CORPUSCULAR VOLUME 92.4 FL (81-99); MEAN PLATELET VOLUME 9.8 FL (7.4-12.2); MONOCYTES # (AUTO) 0.51 10*3/UL (0.3-0.8); MONOCYTES % (AUTO) 11.9 % (5-15); NEUTROPHILS # (AUTO) 3.15 10*3/UL; NEUTROPHILS % (AUTO) 73.2 % (50-80); RED BLOOD COUNT 4.49 10^6/uL (4.20-5.40)
[2019-01-28 22:51] LABS: BLOOD UREA NITROGEN 29 mg/dL (7-22); BUN/CREATININE RATIO 24.16 (6-20); SALICYLATE < 1.0 mg/dl (0-20); SERUM ALBUMIN 5.9 g/dL (3.5-4.8)
--- NOTE | 2019-01-28 22:52 | EKG ---
[address] [address] Measurements Intervals [place] Rate: 107 P: 48 [place]: 176 QRS: 71 QRSD: 94 T: 81 QT: 363 QTc: 426 Interpretive Statements SINUS TACHYCARDIA LEFT ATRIAL ENLARGEMENT SEPTAL MYOCARDIAL INFARCTION OF INDETERMINATE AGE Compared to ECG 09/15/2018 11:14:48 Atrial abnormality now present Myocardial infarct finding now present Sinus rhythm no longer present Sinus arrhythmia no longer present Short [place] interval no longer present T-wave abnormality no longer present Possible ischemia no longer present Electronically Signed On 01-29-19 10:42:54 MDT by Gabriel Altamirano [email or web address]
[2019-01-28 23:07] LABS: PLATELET MORPHOLOGY COMMENT NORMAL MORPHOLOGY (NORM); RBC MORPHOLOGY COMMENT NORMAL MORPHOLOGY (NORM); WBC MORPHOLOGY COMMENT NORMAL MORPHOLOGY (NORM)
[2019-01-28 23:11] LABS: LIPASE 2587 IU/L (23-300)
--- NOTE | 2019-01-29 00:36 | DI ---
EXAM: CT Head Without Intravenous Contrast CLINICAL HISTORY: ITS.REASON Trauma Physician Notes: Tech Comments: TECHNIQUE: Axial computed tomography images of the head/brain without intravenous contrast. COMPARISON: No relevant prior studies available. FINDINGS: Brain: Unremarkable. No acute intracranial hemorrhage. No midline shift or herniation. Ventricles: Unremarkable. No ventriculomegaly. Bones/joints: No acute fracture. Soft tissues: Marked soft tissue swelling involving the midline frontal scalp in the left periorbital preseptal soft tissues. Sinuses: Unremarkable as visualized. Mastoid air cells: Unremarkable as visualized. IMPRESSION: No evidence of acute intracranial hemorrhage or skull fracture.
--- NOTE | 2019-01-29 00:37 | DI ---
EXAM: XR Chest, 1 View CLINICAL HISTORY: ITS.REASON Trauma Physician Notes: Tech Comments: TECHNIQUE: Frontal view of the chest. COMPARISON: Chest x-ray dated 07/15/2018. FINDINGS: Lungs: Unremarkable. The lungs are clear. Pleural space: Unremarkable. No pneumothorax. Heart: Unremarkable. No cardiomegaly. Mediastinum: Unremarkable. Bones/joints: Unremarkable. IMPRESSION: Normal chest x-ray.
--- NOTE | 2019-01-29 00:40 | DI ---
EXAM: CT Cervical Spine Without Intravenous Contrast CLINICAL HISTORY: ITS.REASON Trauma Physician Notes: Tech Comments: TECHNIQUE: Axial computed tomography images of the cervical spine without intravenous contrast. COMPARISON: No relevant prior studies available. FINDINGS: Vertebrae: Mild rightward rotation of C1 on C2 is favored to be positional, less likely type I rotatory subluxation. No acute fracture. Discs/spinal canal/neural foramina: No acute findings. No spinal canal stenosis. Soft tissues: Unremarkable. IMPRESSION: 1. Mild rightward rotation of C1 on C2 is favored to be positional, less likely type I rotatory subluxation. Correlation with exam findings recommended. 2. No evidence of acute fracture or prevertebral soft tissue swelling.
--- NOTE | 2019-01-29 00:43 | DI ---
EXAM: CT Maxillofacial Without Intravenous Contrast CLINICAL HISTORY: ITS.REASON trauma Physician Notes: Tech Comments: TECHNIQUE: Axial computed tomography images of the face without intravenous contrast. COMPARISON: No relevant prior studies available. FINDINGS: Bones/joints: No acute fracture. Soft tissues: Marked soft tissue swelling in the left periorbital preseptal soft tissues with a superimposed more well-defined 1.3 x 2.1 cm hematoma. Orbits: Orbits and globes are intact. Sinuses: Unremarkable. The imaged paranasal sinuses are clear. Other findings: . IMPRESSION: No evidence of acute fracture.
--- NOTE | 2019-01-29 00:55 | DI ---
EXAM: CT Abdomen and Pelvis With Intravenous Contrast CLINICAL HISTORY: ITS.REASON Trauma Physician Notes: Tech Comments: TECHNIQUE: Axial computed tomography images of the abdomen and pelvis with intravenous contrast. COMPARISON: CT dated 07/29/2018. FINDINGS: Lung bases: Unremarkable. No mass. No consolidation. ABDOMEN: Liver: Unremarkable. No mass. Gallbladder and bile ducts: Prior cholecystectomy. No ductal dilation. Pancreas: Unremarkable. No evidence of mass. No ductal dilation. Spleen: Unremarkable. No splenomegaly. Adrenals: Unremarkable. No mass. Kidneys and ureters: Reidentified 9 mm nonobstructing left renal calculus. Reidentified 9 mm presumed cyst in the left kidney, measuring slightly higher Hounsfield units (35) likely related to internal debris or hemorrhage. Stomach and bowel: Unremarkable. No obstruction. No mucosal thickening. PELVIS: Appendix: No findings to suggest acute appendicitis. Bladder: Unremarkable. No evidence of mass. Reproductive: Unremarkable as visualized. ABDOMEN and PELVIS: Intraperitoneal space: Unremarkable. No free air. No significant fluid collection. Bones/joints: No acute fracture. Soft tissues: Unremarkable. Vasculature: Unremarkable. No abdominal aortic aneurysm. Lymph nodes: Unremarkable. No enlarged lymph nodes. IMPRESSION: 1. No evidence of acute traumatic injury. 2. Reidentified 9 mm nonobstructing left renal calculus. 3. Reidentified 9 mm presumed cyst in the left kidney, measuring slightly higher Hounsfield units (35) likely related to internal debris or hemorrhage.
[2019-01-29] MEDS ORDERED: MORPHINE SULFATE 4 MG/1 ML IVP ONE (01:08)
[2019-01-29] MEDS ORDERED: Sodium Chloride 0.9% 1,000 ML, Magnesium Sulfate 2gm (Premix) 50 ML with Multivitamin I... IV SCH ×5 (02:02)
[2019-01-29] MEDS ORDERED: MAGNESIUM 400 MG/5 ML - 30 ML (MILK OF MAGNESIA) PO PRN (02:02)
[2019-01-29] MEDS ORDERED: LIDOCAINE W/ SODIUM BICARB 0.5 ML SYR SUBD PRN (02:02)
[2019-01-29] MEDS ORDERED: traZODone Tab 50 MG TAB PO PRN (02:02)
[2019-01-29] MEDS ORDERED: MAG HYDROX/AL HYDROX/SIMETH 30 ML SUSP PO PRN (02:02)
[2019-01-29] MEDS ORDERED: HYDROmorphone 2 MG/1 ML IVP PRN (02:02)
[2019-01-29] MEDS ORDERED: LORazepam Inj(ETOH withdrawal) 2 MG/ML VIAL IVP PRN (02:02)
[2019-01-29] MEDS ORDERED: ONDANSETRON 4 MG/2 ML VIAL IVP PRN (02:02)
[2019-01-29] MEDS ORDERED: ACETAMINOPHEN 500 MG TABLET PO PRN (02:02)
[2019-01-29] MEDS ORDERED: oxyCODONE IR Tab 5 MG TAB PO PRN (02:02)
[2019-01-29] MEDS ORDERED: Loperamide Tab 2 MG TABLET PO PRN (02:02)
[2019-01-29] MEDS ORDERED: ClonazePAM Tab 1 MG TABLET PO PRN (02:02)
[2019-01-29] MEDS ORDERED: LORazepam 1 mg tab (ETOH withdrawal) PO PRN (02:02)
[2019-01-29] MEDS ORDERED: HYDROXYZINE PAMOATE 25 MG CAPSULE PO PRN (02:30)
[2019-01-29] MEDS ORDERED: MVI, ADULT NO.1 WITH VIT K 10 ML VIAL IV ONE (03:02)
[2019-01-29] MEDS: NICOTINE 21 MG /DAY PATCH TRANSDERM SCH ×2 (03:30→08:14)
[2019-01-29] MEDS: LORazepam Inj(ETOH withdrawal) 2 MG/ML VIAL IVP PRN ×2 (03:35→08:24)
[2019-01-29 08:22] VITALS: BP 114/86; RESP 20; TEMP 98.6
[2019-01-29] MEDS ORDERED: CHOLECALCIFEROL 1000 IU TABLET PO SCH (09:00)
[2019-01-29] MEDS ORDERED: NICOTINE 21 MG /DAY PATCH TRANSDERM SCH (09:00)
[2019-01-29] MEDS ORDERED: OLANZapine Tab 5 MG TAB PO SCH (09:00)
[2019-01-29] MEDS ORDERED: MAGNESIUM OXIDE 400 MG TABLET PO SCH (09:00)
--- NOTE | 2019-01-29 11:14 | PDOC ---
HPI - History of Present Illness Date of Service: 01/29/19 Time of Service: 11:09 Chief Complaint: Seizure History of Present Illness: This a very pleasant 38-year-old female that suffers from malnutrition, severe anxiety disorder, agoraphobia, and possible cirrhosis who presents yesterday via ambulance with the seizures. The patient apparently fell forward and has a significant ecchymosis and bruising around her left orbit without fracture noted on studies. The patient and reported to the emergency room physician that she was drinking alcohol but the patient denies that to me as does her mother. The patient has no recall the seizure events. She did bite her tongue. She states she had urinary incontinence although her mom stated that she did not. The patient has not had any seizure activity since being here. She was not overly fatigued post ictal, but did complain of a headache. The patient's mother states to me that the patient had contracture of her forearms and there were tightened clenched and shaking during the event and it lasted about 2-3 minutes. She states it was the entire time she was on the phone call with the emergency medical services. The patient herself denies any upper respiratory symptoms, fever, chills, or vomiting. She does have some nausea. A head CT scan was negative. Lipase was elevated although the patient has had known elevations and lipases in the past. I'm not clear truly pancreatitis that she has no symptoms of abdominal pain. The CT scan was negative for pancreatic inflammation. Past Medical History Medical History: 1. Chronic anemia, probably related to cirrhosis and malnutrition. Status post EGD and colonoscopy in the past with infrared treatment of her hemorrhoids. 2. agoraphobia. 3. Ascites, although currently well controlled. 4. Kwashiorkor, significantly improved with over 30 pound weight gain. 5. Tobacco abuse. 6. History of alcohol abuse. 7. Chronic anxiety Surgical History: 1. History of cholecystectomy. 2. EGD and colonoscopy as mentioned above she had some inflammatory changes on EGD but no ulcers, and had hemorrhoids on her colonoscopy. Pertinent Family History: Mother describes herself as healthy. Grandfather had peptic ulcer. Father may have had some thyroid problems Past Social History: Patient stopped drinking in the first part of August, although she admits to having an occasional alcoholic beverage. She smokes about a half pack cigarettes per day. She has agoraphobia so she stays mostly at home. She had one son but gave him up for adoption. Tobacco Use: Current Every Day Smoker Do you dip or chew tobacco: No In the Past 12 Months, Have Used or Abuse Any of the Following Substance: None Alcohol Use: Occasionally Medication / Allergies Home Medications: Home Medications Medication Instructions Recorded Confirmed oxycodone 5 mg tablet 5 mg PO .q12 PRN #60 tab 10/07/18 01/28/19 cholecalciferol (vitamin D3) 400 1,000 unit PO QDAY #60 cap 01/25/19 01/28/19 unit capsule docusate sodium 100 mg capsule 100 mg PO BID #60 cap 01/25/19 01/28/19 furosemide 40 mg tablet 40 mg PO QDAY #14 tab 01/25/19 01/28/19 hydroxyzine HCl 50 mg tablet 50 mg PO TID PRN #90 tab 01/25/19 01/28/19 olanzapine 2.5 mg tablet 2.5 mg PO BID #60 tab 01/25/19 01/28/19 ondansetron 4 mg disintegrating 4 mg SL BID PRN #30 tab 01/25/19 01/28/19 tablet spironolactone 100 mg tablet 100 mg PO QDAY #14 tab 01/25/19 01/28/19 trazodone 50 mg tablet 50 mg PO QHS PRN #14 tab 01/25/19 01/28/19 clonazepam 1 mg tablet 1 mg PO TID PRN #60 tab 01/26/19 01/28/19 Allergies/Adverse Reactions: Allergies Allergy/AdvReac Type Severity Reaction Status Date / Time aspirin Allergy Severe NOT Verified 01/29/19 04:03 APPLICABLE Penicillins AdvReac RASH Verified 01/29/19 04:03 Review of Systems - Constitutional Constitutional: REPORTS: Weight Gain - Integumentary Integumentary: REPORTS: Negative System Review - Respiratory Respiratory: REPORTS: Negative System Review - Cardiovascular Cardiovascular: REPORTS: Negative System Review - Gastrointestinal Gastrointestinal / Abdominal: REPORTS: Nausea - Genitourinary Genitourinary: REPORTS: Negative System Review - Musculoskeletal Musculoskeletal: REPORTS: Negative System Review - Neurological Neurologic: REPORTS: Headache, Seizures, See HPI - Psychiatric Psychiatric: REPORTS: Anxiety Exam - Vitals Vital Signs: Vital Signs Temperature 98.6 F Temperature Source Temporal Artery Scan Pulse Rate [Apical] 111 Pulse Rate [Pulse Oximeter] 103 Pulse Rate [right finger] 93 Pulse Rate 111 Respiratory Rate 20 Blood Pressure [Left Arm] 118/80 Blood Pressure 114/86 Pulse Ox [right finger] 93 Pulse Ox 95 Oxygen Flow Rate [right finger 2 ] Oxygen Flow Rate 2 Oxygen Delivery Method [right Room Air finger] Oxygen Delivery Method Nasal Cannula Height 5 ft 7 in Weight 107 lb - General General Appearance: No Acute Distress, Cooperative - Head Head Exam: Normocephalic, Ecchymosis (Left orbit. She also has some bruising on the medial part of her forehead.) - Eye Eye Exam: POSITIVE: No Scleral Icterus, Periorbital Swelling - ENT ENT Exam: POSITIVE: Mucous Membranes Moist - Neck Neck Exam: Normal Inspection, No Tenderness, No Lymphadenopathy, No Thyromegaly, JVP is not Raised - Respiratory Respiratory Exam: POSITIVE: Clear to Auscultation - Bilaterally, Breathing Non Labored - Cardiovascular Cardiovascular Exam: POSITIVE: RRR, No Clicks, No Gallops, No Rubs, Systolic Murmur, No JVD - GI/Abdominal GI/Abdominal Exam: POSITIVE: Normal Bowel Sounds, Non Tender, Non Distended, Soft - Rectal Rectal Exam: POSITIVE: Deferred - External Exam: POSITIVE: Deferred Exam: POSITIVE: Deferred - Extremities Extremities Exam: POSITIVE: No Clubbing Present, No Edema Present, No Cyanosis Present - Back Back Exam: POSITIVE: Normal Inspection, No CVA Tenderness - Neurological Neurological Exam: POSITIVE: Alert, Oriented x 3, No Facial Droop, Speech Intact / Clear, Moves All Extremities Equally - Psychiatric Psychiatric Exam: POSITIVE: Flat Affect - Integumentary Integumentary Exam: POSITIVE: Normal Color, Warm, Dry, Intact Additional Integumentary Exam Details: This is all with exception of ecchymosis and bruising on the forehead and left orbit. Results - Labs CBC and BMP: 01/28/19 21:59 01/28/19 21:59 Additional Lab Results: Laboratory Results 01/28/19 01/28/19 01/28/19 21:59 21:59 21:59 WBC 4.30 L RBC 4.49 Hgb 14.0 Hct 41.5 MCV 92.4 MCH 31.2 H MCHC 33.7 RDW Std Deviation 42.9 RDW Coeff of Kaylin 13.0 Plt Count 86 L MPV 9.8 Immature Gran % (Auto) 0.2 Neut % (Auto) 73.2 Lymph % (Auto) 14.0 [place] % (Auto) 11.9 Eos % (Auto) 0 Baso % (Auto) 0.7 Immature Gran # (Auto) 0.01 Neut # (Auto) 3.15 Lymph # (Auto) 0.60 [place] # (Auto) 0.51 Eos # (Auto) 0 Baso # (Auto) 0.03 WBC Morphology Comment Normal morphology Plt Morphology Comment Normal morphology RBC Morph Comment Normal morphology PT 11.5 INR 1.0 Sodium 140 Potassium 3.7 L Chloride 86 L Carbon Dioxide 17 L Anion Gap 37 H BUN 29 H Creatinine 1.2 Estimated GFR 50 BUN/Creatinine Ratio 24.16 H Glucose 221 H Calculated Osmolality 302.0 H Lactic Acid Calcium 10.3 Magnesium 2.3 Total Bilirubin 1.1 AST 292 H ALT 108 H Alkaline Phosphatase 386 H Total Protein 10.4 H Albumin 5.9 H Globulin 4.5 H Albumin/Globulin Ratio 1.30 Amylase Lipase TSH Salicylates < 1.0 Acetaminophen < 10.0 Serum Alcohol < 10 01/28/19 01/28/19 01/28/19 21:59 21:59 22:41 WBC RBC Hgb Hct MCV MCH MCHC RDW Std Deviation RDW Coeff of [place]lin Plt Count MPV Immature Gran % (Auto) Neut % (Auto) Lymph % (Auto) [place] % (Auto) Eos % (Auto) Baso % (Auto) Immature Gran # (Auto) Neut # (Auto) Lymph # (Auto) [place] # (Auto) Eos # (Auto) Baso # (Auto) WBC Morphology Comment Plt Morphology Comment RBC Morph Comment PT INR Sodium Potassium Chloride Carbon Dioxide Anion Gap BUN Creatinine Estimated GFR BUN/Creatinine Ratio Glucose Calculated Osmolality Lactic Acid 12.0 H Calcium Magnesium Total Bilirubin AST ALT Alkaline Phosphatase Total Protein Albumin Globulin Albumin/Globulin Ratio Amylase 265 H Lipase 2587 H* TSH 1.01 Salicylates Acetaminophen Serum Alcohol - Imaging Status: Image Reviewed by Me (Chest x-ray is negative on my view. Head CT scan is negative for acute bleed. I read the radiology reports regarding the other films including the CT scan of the neck, and the maxillofacial CT scan.), Report Reviewed by Me (I looked at the CT scan report of the abdomen and pelvis, and reviewed the film as well. No evidence of pancreatitis on the film) Assessment and Plan - Patient Problems (1) Seizure Current Visit: Yes Status: Acute Code(s): R56.9 - Unspecified convulsions (2) Elevated lipase Current Visit: Yes Status: Acute Code(s): R74.8 - Abnormal levels of other serum enzymes (3) Hypokalemia Current Visit: Yes Status: Acute Code(s): E87.6 - Hypokalemia (4) Ascites Current Visit: Yes Status: Acute Code(s): R18.8 - Other ascites Qualifiers: Ascites type: other type Qualified Code(s): R18.8 - Other ascites (5) Kwashiorkor Current Visit: Yes Status: Acute Code(s): E40 - Kwashiorkor (6) Body dysmorphic disorder Current Visit: Yes Status: Acute Code(s): F45.22 - Body dysmorphic disorder (7) Agoraphobia with panic attacks Current Visit: Yes Status: Acute Code(s): F40.01 - Agoraphobia with panic disorder (8) Tobacco abuse Current Visit: Yes Status: Acute Code(s): Z72.0 - Tobacco use (9) History of alcohol abuse Current Visit: Yes Status: Acute Code(s): F10.11 - Alcohol abuse, in remission - Assessment / Plan Additional Assessment/Plan Details: For now, seizure precautions. I think the patient should be transferred to a facility that is capable of doing MRI scan as well as having a neurologic evaluation and possibly an EEG study. I placed the patient initially on CIWA protocol, but there is no evidence of withdrawal on examination today, no tremors, no physical signs or symptoms otherwise. The history is not consistent with that this morning. Alcohol withdrawal that is. Resume home medications and advance diet to regular diet. Offer ice packs for ecchymosis around the orbit No fevers, and no upper respiratory or other infectious symptoms, so I will hold off on an LP at this point If any seizures start here, benzodiazepines and start Keppra Plan above discussed with patient and her mother and they agree.
[2019-01-29] MEDS ORDERED: FUROSEMIDE 40 MG TABLET PO SCH (11:15)
[2019-01-29] MEDS ORDERED: Spironolactone Tab 50 MG TAB PO SCH (11:30)
[2019-01-29 11:38] VITALS: O2SAT 97
[2019-01-29] MEDS ORDERED: levETIRAcetam Inj 500 MG/5 ML VIAL IV ONE (12:06)
--- NOTE | 2019-01-29 12:09 | DCSUMMARY ---
Hospitalization Summary Admit Date: 01/29/2019 Discharge Date: 01/29/19 Primary Diagnosis:: seizure Hospital Course: This very pleasant 38-year-old female that was admitted in the early hours of the morning with a seizure at home because significant soft tissue injury with a fall on her face at her home. The patient and her mother tell me that the patient was not drinking alcohol and has not had any recently, and seizures were described as grand mal like seizure activity and the patient had no memory or recall of events. She did better time. The episode lasted about 2-3 minutes. She is not overly fatigued and tired. Nutritionally she is probably the best th ey've seen her in the last year with her current weight gain of a little over 30 pounds since September of this year. She has questionable cirrhosis, but I think overall she had portal hypertension from paracentesis in July 2018 and hepatomegaly at that time that I think was all driven by malnutrition. Her liver is actually normal on CT scan an outside of hepatomegaly on prior CT scans of her abdomen and pelvis, she has never had anything suggestive of cirrhosis. She has not had a liver biopsy to my knowledge. The patient has agoraphobia with panic attacks and anxiety disorder. She has a body dysmorphic disorder. This is probably the best, again, I seen her in terms of her weight since July and August 2018. She had an extensive course of treatment at a facility in [place]. She has elevated lipase on admission here, but no symptoms to suggest pancreatitis and the pancreas looks normal on CT scan of the abdomen and pelvis. She's had elevated lipases in the past that I think are really related to her malnutrition state. Her potassium is been replaced. We gave her a banana bag here as initial history suggest that she could have alcohol withdrawal but she does not exhibit any symptoms of alcohol withdrawal this morning and she denies recent alcohol use and her mother denies recent alcohol use as well. Overall, this appears to be a patient with new onset seizure of unclear etiology, she has no infectious symptoms to suggest meningitis. An LP has not been done at this point. She has no fever and no upper respiratory symptoms. Her chest x-ray is negative for any infection. I spoke with neurologist in [place] along with her hospitalist and they agreed to accept the patient. It was requested that we place the patient on Keppra. And we'll give her thousand milligrams prior to discharge. I think the patient needs an MRI scan of her brain, possible EEG studying, and neurologic evaluation for this seizure, particularly if the history is to be trusted, and I have no reason to not. The patient denies chest pain, shortness breath, headaches, or vomiting but does complain of nausea. Assessment and Plan: 1. As per discharge assessments noted 2. Disposition: Patient is discharged to [facility] 3. Condition on discharge, stable and improved. Given the nature of the presenting problem, patient's condition could deteriorate 4. Diet: regular diet 5. Activities: As per physician's in [place] 6. Follow-Up: 1. Dr. May 7 days post discharge 2. 7. Medications at the Time of Discharge: Active Medications Generic Name Dose Route Start Last Admin Trade Name Freq PRN Reason Stop Dose Admin Acetaminophen 500 mg 01/29/19 02:02 Tylenol PO Q4H PRN Pain or Fever Al Hydroxide/Mg Hydroxide 30 ml 01/29/19 02:02 Mylanta Liquid PO Q2H PRN GI Upset Cholecalciferol 1,000 iu 01/29/19 09:00 01/29/19 08:14 Vitamin D3 PO 1,000 iu DAILY SERGE Administration Clonazepam 1 mg 01/29/19 02:02 01/29/19 08:17 Klonopin PO 1 mg TID PRN Administration anxiety Docusate Sodium 100 mg 01/29/19 21:00 Colace PO BID SERGE Furosemide 40 mg 01/29/19 11:15 Lasix PO DAILY@0700 SERGE Hydromorphone HCl 1 mg 01/29/19 02:02 Dilaudid Inj IVP Q4H PRN Pain Hydroxyzine Pamoate 50 mg 01/29/19 02:30 Vistaril Cap PO TID PRN Allergies Multivitamins/Minerals 10 ml/ 1,061.2 mls @ 125 mls/hr 01/29/19 02:02 01/29/19 03:08 Thiamine HCl 100 mg/ Folic IV 01/31/19 10:32 125 mls/hr Acid 1 mg/ Sodium Chloride/ Q24H SERGE Administration Magnesium Sulfate Sodium Chloride 25 mls @ 200 mls/hr 01/29/19 02:02 Normal Saline 0.9% IV .Post Infusion PRN Flush Potassium Chloride/Sodium Chloride 1,000 mls @ 125 mls/hr 01/29/19 02:02 01/29/19 03:52 Pot Chl 20meq + Ns PRIMARY IV Not Given .Q8H SERGE Lidocaine HCl 0.5 ml 01/29/19 02:02 Lidocaine Buffered Inj SUBD ONCE PRN IV Starts Loperamide HCl 2 - 4 mg 01/29/19 02:02 Imodium PO .See Instructions PRN Loose Stool Lorazepam 1 - 4 mg 01/29/19 02:02 01/29/19 08:24 Ativan Inj (Etoh Withdrawal) IVP 2 mg .PER CIWA-AR PRN Administration CIWA-Ar score >8 Lorazepam 1 - 4 mg 01/29/19 02:02 Ativan Inj (Etoh Withdrawal) IVP .PER CIWA-AR PRN CIWA-Ar score >8 Lorazepam 1 - 4 mg 01/29/19 02:02 Ativan Tab(Etoh Withdrawal) PO .PER CIWA-AR PRN CIWA-Ar >8 Magnesium Hydroxide 30 ml 01/29/19 02:02 Milk Of Magnesia Susp PO Q12H PRN Constipation Magnesium Oxide 400 mg 01/29/19 09:00 01/29/19 08:14 Mag-Ox PO 02/02/19 08:59 400 mg BID SERGE Administration Nicotine 1 patch 01/29/19 03:00 01/29/19 08:14 Nicoderm Cq 21mg Patch TRANSDERM 1 patch DAILY SERGE Administration Olanzapine 2.5 mg 01/29/19 09:00 01/29/19 08:14 Zyprexa Tab PO 2.5 mg BID SERGE Administration Ondansetron HCl 4 - 8 mg 01/29/19 02:02 Zofran Inj IVP Q6H PRN Nausea/Vomiting Oxycodone HCl 5 mg 01/29/19 02:02 Oxyir Tab PO Q12H PRN pain Spironolactone 100 mg 01/29/19 11:30 Aldactone PO DAILY SERGE Trazodone HCl 50 mg 01/29/19 02:02 Desyrel Tab PO BEDTIME PRN insomnia 8. Time, care, counseling and coordination of care for this discharge is greater than 30 minutes. Exam - Vitals Vital Signs: Vital Signs Temperature 98.6 F Temperature Source Temporal Artery Scan Pulse Rate [Apical] 111 Pulse Rate [Pulse Oximeter] 103 Pulse Rate [right finger] 77 Pulse Rate 77 Respiratory Rate 20 Blood Pressure [Left Arm] 118/80 Blood Pressure 114/86 Pulse Ox [right finger] 97 Pulse Ox 95 Oxygen Flow Rate [right finger 2 ] Oxygen Flow Rate 2 Oxygen Delivery Method [right Nasal Cannula finger] Oxygen Delivery Method Nasal Cannula Height 5 ft 7 in Weight 107 lb - General General Appearance: No Acute Distress, Cooperative - Head Head Exam: Normocephalic, Ecchymosis - Eye Eye Exam: POSITIVE: No Scleral Icterus - ENT ENT Exam: POSITIVE: Mucous Membranes Moist - Neck Neck Exam: JVP is not Raised - Respiratory Respiratory Exam: POSITIVE: Clear to Auscultation - Bilaterally, Breathing Non Labored - Cardiovascular Cardiovascular Exam: POSITIVE: RRR, No Clicks, No Gallops, No Rubs, Systolic Murmur, No JVD - GI/Abdominal GI/Abdominal Exam: POSITIVE: Normal Bowel Sounds, Non Tender, Non Distended, Soft - Extremities Extremities Exam: POSITIVE: No Clubbing Present, No Edema Present, No Cyanosis Present - Neurological Neurological Exam: POSITIVE: Alert, Oriented x 3, No Facial Droop, Speech Intact / Clear, Moves All Extremities Equally Additional Neurological Exam Details: No tremors to suggest alcohol withdrawal. - Psychiatric Psychiatric Exam: POSITIVE: Flat Affect Data Peritnent Studies: Laboratory Results 01/28/19 01/28/19 01/28/19 21:59 21:59 21:59 WBC 4.30 L RBC 4.49 Hgb 14.0 Hct 41.5 MCV 92.4 MCH 31.2 H MCHC 33.7 RDW Std Deviation 42.9 RDW Coeff of Kaylin 13.0 Plt Count 86 L MPV 9.8 Immature Gran % (Auto) 0.2 Neut % (Auto) 73.2 Lymph % (Auto) 14.0 Blanco % (Auto) 11.9 Eos % (Auto) 0 Baso % (Auto) 0.7 Immature Gran # (Auto) 0.01 Neut # (Auto) 3.15 Lymph # (Auto) 0.60 Blanco # (Auto) 0.51 Eos # (Auto) 0 Baso # (Auto) 0.03 WBC Morphology Comment Normal morphology Plt Morphology Comment Normal morphology RBC Morph Comment Normal morphology PT 11.5 INR 1.0 Sodium 140 Potassium 3.7 L Chloride 86 L Carbon Dioxide 17 L Anion Gap 37 H BUN 29 H Creatinine 1.2 Estimated GFR 50 BUN/Creatinine Ratio 24.16 H Glucose 221 H Calculated Osmolality 302.0 H Lactic Acid Calcium 10.3 Magnesium 2.3 Total Bilirubin 1.1 AST 292 H ALT 108 H Alkaline Phosphatase 386 H Total Protein 10.4 H Albumin 5.9 H Globulin 4.5 H Albumin/Globulin Ratio 1.30 Amylase Lipase TSH Salicylates < 1.0 Acetaminophen < 10.0 Serum Alcohol < 10 01/28/19 01/28/19 01/28/19 21:59 21:59 22:41 WBC RBC Hgb Hct MCV MCH MCHC RDW Std Deviation RDW Coeff of Kaylin Plt Count MPV Immature Gran % (Auto) Neut % (Auto) Lymph % (Auto) Blanco % (Auto) Eos % (Auto) Baso % (Auto) Immature Gran # (Auto) Neut # (Auto) Lymph # (Auto) Blanco # (Auto) Eos # (Auto) Baso # (Auto) WBC Morphology Comment Plt Morphology Comment RBC Morph Comment PT INR Sodium Potassium Chloride Carbon Dioxide Anion Gap BUN Creatinine Estimated GFR BUN/Creatinine Ratio Glucose Calculated Osmolality Lactic Acid 12.0 H Calcium Magnesium Total Bilirubin AST ALT Alkaline Phosphatase Total Protein Albumin Globulin Albumin/Globulin Ratio Amylase 265 H Lipase 2587 H* TSH 1.01 Salicylates Acetaminophen Serum Alcohol EKG appears sinus tachycardia on my view. Procedures: [address] [facility] [facility] [place] [address] PH: DD: [phone] FAX: [phone] ~DIAGNOSTIC IMAGING REPORT~ Patient: Darlin Orona: 1980 Sex: F Age: 38 Exam Name: CT Maxfacial WO/con Face Sinus Exam Date: 01/28/19 Report # : [id number] CPT Code: 65288 EMR/MR #: [id number] Ordering: GildardoDavid Surinder Admiting: Primary: Raymond Cardenas MD Attending: Signed EXAM: CT Maxillofacial Without Intravenous Contrast CLINICAL HISTORY: ITS.REASON trauma Physician Notes: Tech Comments: TECHNIQUE: Axial computed tomography images of the face without intravenous contrast. COMPARISON: No relevant prior studies available. FINDINGS: Bones/joints: No acute fracture. Soft tissues: Marked soft tissue swelling in the left periorbital preseptal soft tissues with a superimposed more well-defined 1.3 x 2.1 cm hematoma. Orbits: Orbits and globes are intact. Sinuses: Unremarkable. The imaged paranasal sinuses are clear. Other findings: . IMPRESSION: No evidence of acute fracture. Dictated By: Carlos Del Valle MD Signed By: 01/29/19 0043 Carlos Del Valle MD [address] [facility] [place] [address] PH: DD: [phone] FAX: [phone] ~DIAGNOSTIC IMAGING REPORT~ Patient: Darlin Orona : 1980 Sex: F Age: 38 Exam Name: CT Abdomen/Pelvis W Contrast Exam Date: 01/28/19 Report # : [id number] CPT Code: 65677 EMR/MR #: [id number] Ordering: David Ewing Admiting: Primary: Raymond Cardenas MD Attending: -------- Signed EXAM: CT Abdomen and Pelvis With Intravenous Contrast CLINICAL HISTORY: ITS.REASON Trauma Physician Notes: Tech Comments: TECHNIQUE: Axial computed tomography images of the abdomen and pelvis with intravenous contrast. COMPARISON: CT dated 07/29/2018. FINDINGS: Lung bases: Unremarkable. No mass. No consolidation. ABDOMEN: Liver: Unremarkable. No mass. Gallbladder and bile ducts: Prior cholecystectomy. No ductal dilation. Pancreas: Unremarkable. No evidence of mass. No ductal dilation. Spleen: Unremarkable. No splenomegaly. Adrenals: Unremarkable. No mass. Kidneys and ureters: Reidentified 9 mm nonobstructing left renal calculus. Reidentified 9 mm presumed cyst in the left kidney, measuring slightly higher Hounsfield units (35) likely related to internal debris or hemorrhage. Stomach and bowel: Unremarkable. No obstruction. No mucosal thickening. PELVIS: Appendix: No findings to suggest acute appendicitis. Bladder: Unremarkable. No evidence of mass. Reproductive: Unremarkable as visualized. ABDOMEN and PELVIS: Intraperitoneal space: Unremarkable. No free air. No significant fluid collection. Bones/joints: No acute fracture. Soft tissues: Unremarkable. Vasculature: Unremarkable. No abdominal aortic aneurysm. Lymph nodes: Unremarkable. No enlarged lymph nodes. IMPRESSION: 1. No evidence of acute traumatic injury. 2. Reidentified 9 mm nonobstructing left renal calculus. 3. Reidentified 9 mm presumed cyst in the left kidney, measuring slightly higher Hounsfield units (35) likely related to internal debris or hemorrhage. Dictated By: Carlos Del Valle MD Signed By: 01/29/19 0055 Carlos Del Valle MD [address] [facility] [place] [address] PH: DD: [phone] FAX: [phone] ~DIAGNOSTIC IMAGING REPORT~ Patient: Darlin Orona : 1980 Sex: F Age: 38 Exam Name: CT Head WO Contrast Exam Date: 01/28/19 Report # : [id number] CPT Code: 82993 EMR/MR #: [id number] Ordering: David Ewing Admiting: Primary: Raymond Cardenas MD Attending: Signed EXAM: CT Head Without Intravenous Contrast CLINICAL HISTORY: ITS.REASON Trauma Physician Notes: Tech Comments: TECHNIQUE: Axial computed tomography images of the head/brain without intravenous contrast. COMPARISON: No relevant prior studies available. FINDINGS: Brain: Unremarkable. No acute intracranial hemorrhage. No midline shift or herniation. Ventricles: Unremarkable. No ventriculomegaly. Bones/joints: No acute fracture. Soft tissues: Marked soft tissue swelling involving the midline frontal scalp in the left periorbital preseptal soft tissues. Sinuses: Unremarkable as visualized. Mastoid air cells: Unremarkable as visualized. IMPRESSION: No evidence of acute intracranial hemorrhage or skull fracture. Dictated By: Carlos Del Valle MD Signed By: 01/29/19 0036 Carlos Del Valle MD [address] [facility] [place] [address] PH: DD: [phone] FAX: [phone] ~DIAGNOSTIC IMAGING REPORT~ Patient: Darlin Orona : 1980 Sex: F Age: 38 Exam Name: CT Cervical Spine WO Contrast Exam Date: 01/28/19 Report # : [id number] CPT Code: 73553 EMR/MR #: [id number] Ordering: David Ewing Admiting: Primary: Raymond Cardenas MD Attending: ----- Signed EXAM: CT Cervical Spine Without Intravenous Contrast CLINICAL HISTORY: ITS.REASON Trauma Physician Notes: Tech Comments: TECHNIQUE: Axial computed tomography images of the cervical spine without intravenous contrast. COMPARISON: No relevant prior studies available. FINDINGS: Vertebrae: Mild rightward rotation of C1 on C2 is favored to be positional, less likely type I rotatory subluxation. No acute fracture. Discs/spinal canal/neural foramina: No acute findings. No spinal canal stenosis. Soft tissues: Unremarkable. IMPRESSION: 1. Mild rightward rotation of C1 on C2 is favored to be positional, less likely type I rotatory subluxation. Correlation with exam findings recommended. 2. No evidence of acute fracture or prevertebral soft tissue swelling. Dictated By: Carlos Del Valle MD Signed By: 01/29/19 0040 Carlos Del Valle MD [address] [place] [address] PH: DD: [phone] FAX: [phone] ~DIAGNOSTIC IMAGING REPORT~ Patient: Darlin Orona : 1980 Sex: F Age: 38 Exam Name: XR CXR 1VW Exam Date: 01/28/19 Report # : [id number] CPT Code: 95166 EMR/MR #: [id number] Ordering: David Ewing Admiting: Primary: Raymond Cardenas MD Attending: Signed EXAM: XR Chest, 1 View CLINICAL HISTORY: ITS.REASON Trauma Physician Notes: Tech Comments: TECHNIQUE: Frontal view of the chest. COMPARISON: Chest x-ray dated 07/15/2018. FINDINGS: Lungs: Unremarkable. The lungs are clear. Pleural space: Unremarkable. No pneumothorax. Heart: Unremarkable. No cardiomegaly. Mediastinum: Unremarkable. Bones/joints: Unremarkable. IMPRESSION: Normal chest x-ray. Dictated By: Carlos Del Valle MD Signed By: 01/29/19 0037 Carlos Del Valle MD Patient Problems - Patient Problem List (1) Seizure Current Visit: Yes Status: Acute Code(s): R56.9 - Unspecified convulsions Category: Medical (2) Elevated lipase Current Visit: Yes Status: Acute Code(s): R74.8 - Abnormal levels of other serum enzymes Category: Medical (3) Hypokalemia Current Visit: Yes Status: Acute Code(s): E87.6 - Hypokalemia Category: Medical (4) Ascites Current Visit: Yes Status: Acute Code(s): R18.8 - Other ascites Qualifiers: Ascites type: other type Qualified Code(s): R18.8 - Other ascites Category: Medical (5) [place] Current Visit: Yes Status: Acute Code(s): E40 - [place] Category: Medical (6) Body dysmorphic disorder Current Visit: Yes Status: Acute Code(s): F45.22 - Body dysmorphic disorder Category: Medical (7) Agoraphobia with panic attacks Current Visit: Yes Status: Acute Code(s): F40.01 - Agoraphobia with panic disorder Category: Medical (8) Tobacco abuse Current Visit: Yes Status: Acute Code(s): Z72.0 - Tobacco use Category: Medical (9) History of alcohol abuse Current Visit: Yes Status: Acute Code(s): F10.11 - Alcohol abuse, in remission Category: Medical
[2019-01-29 12:18] LABS: BLOOD UREA NITROGEN 23 mg/dL (7-22); SERUM ALBUMIN 4.6 g/dL (3.5-4.8)
[2019-01-29 12:21] LABS: AMPHETAMINE SCREEN NEGATIVE (NEG); CANNABINOID SCREEN,URINE NEGATIVE (NEG); COCAINE SCREEN NEGATIVE (NEG); METHADONE URINE SCREEN NEGATIVE (NEG); METHAMPHETAMINES SCREEN,URINE NEGATIVE (NEG); OPIATE SCREEN,URINE POSITIVE (NEG); URINE SAMPLE TYPE CLEAN CATCH URINE; URINE SPECIFIC GRAVITY - MAN 1.027
[2019-01-29] MEDS ORDERED: DOCUSATE 100 MG CAPSULE PO SCH (21:00)
== END 2019-01-29 12:46 | disposition short-term general hospital (02) | DRG 100 ==
LOC: ER 22:15 → MED/SURG 01-29 01:47
PROVIDERS: ADMIT Family Medicine; ATTEND Family Medicine

== ENCOUNTER 2019-06-21 15:36 | Inpatient (IN) ==
[2019-06-21] MEDS ORDERED: Sodium Chloride 0.9% 1,000 ML PRIMARY IV ONE (15:50)
[2019-06-21 16:42] LABS: Hematocrit [HCT] 24.7 % (37.0-47.0); Hemoglobin [HGB] 7.5 g/dL (12.0-16.0); MEAN CORPUSCULAR HGB CONC 30.4 g/dL (33-37); MEAN CORPUSCULAR VOLUME 99.6 FL (81-99); RED BLOOD COUNT 2.48 10^6/uL (4.20-5.40)
[2019-06-21 16:43] LABS: BASOPHILS # (AUTO) 0.01 10*3/UL; BASOPHILS % (AUTO) 0.3 % (0-1); EOSINOPHILS # (AUTO) 0.01 10*3/UL; EOSINOPHILS % (AUTO) 0.3 % (0-8); MEAN PLATELET VOLUME 10.5 FL (7.4-12.2); MONOCYTES # (AUTO) 0.21 10*3/UL (0.3-0.8); MONOCYTES % (AUTO) 6.5 % (5-15); NEUTROPHILS # (AUTO) 2.39 10*3/UL; PLATELET MORPHOLOGY COMMENT NORMAL MORPHOLOGY (NORM); RBC MORPHOLOGY COMMENT NORMAL MORPHOLOGY (NORM); WBC MORPHOLOGY COMMENT NORMAL MORPHOLOGY (NORM)
[2019-06-21 17:12] LABS: BUN/CREATININE RATIO 25.83 (6-20); SERUM ALBUMIN 2.9 g/dL (3.5-4.8)
[2019-06-21] MEDS ORDERED: Magnesium Sulfate 1gm (Premix) 1 GM/100 ML BAG IV ONE (17:21)
[2019-06-21 17:22] LABS: Erythrocyte Sediment Rate 29 MM/HR (0-20)
[2019-06-21] MEDS ORDERED: ClonazePAM Tab 1 MG TABLET PO ONE (17:57)
[2019-06-21 18:26] LABS: BILIRUBIN,URINE LARGE (NEG); CLARITY,URINE CLEAR (CLEAR); COLOR,URINE BROWN (Y); GLUCOSE, URINE (UA) NEGATIVE (NEG); OCCULT BLOOD,URINE NEGATIVE (NEG); PH,URINE 5.5 (5.0-8.5); PROTEIN,URINE 30 mg/dl (NEG); UROBILINOGEN,URINE >8.0 EU/dL (0.2)
[2019-06-21 18:33] LABS: BACTERIA,URINE MANY; RENAL EPITHELIAL CELLS,URINE MODERATE; SQUAMOUS EPITHELIAL CELL,UR MODERATE; URINE CASTS RARE; URINE SAMPLE TYPE VOIDED SPECIMEN; WBC,URINE >100
[2019-06-21] MEDS ORDERED: Ondansetron ODT Tab 8 MG TAB PO PRN (20:22)
[2019-06-21] MEDS ORDERED: LIDOCAINE W/ SODIUM BICARB 0.5 ML SYR SUBD PRN (20:22)
[2019-06-21] MEDS ORDERED: DOCUSATE 100 MG CAPSULE PO PRN (20:22)
[2019-06-21] MEDS ORDERED: ONDANSETRON 4 MG/2 ML VIAL IVP PRN (20:22)
[2019-06-21] MEDS ORDERED: CALCIUM CARBONATE 500 MG (TUMS) CHEWABLE TABLET PO PRN (20:22)
[2019-06-21 20:56] LABS: VENOUS PCO2 44.8 mmHg (45-55); VENOUS PH 7.48 (7.32-7.42)
[2019-06-21] MEDS: NICOTINE 21 MG /DAY PATCH TRANSDERM SCH (21:02)
[2019-06-21] MEDS: MORPHINE SULFATE 2 MG/1 ML IVP PRN (21:02)
[2019-06-21] MEDS ORDERED: oxyCODONE IR Tab 5 MG TAB PO PRN (22:55)
[2019-06-22] MEDS: MORPHINE SULFATE 2 MG/1 ML IVP PRN ×2 (00:56→08:38)
[2019-06-22] MEDS: LORazepam 2 MG/1 ML VIAL IVP PRN ×2 (01:36→08:38)
[2019-06-22] MEDS ORDERED: Sodium Chloride 0.9% 500 ML PRIMARY IV ONE ×2 (13:13→16:55)
[2019-06-22] MEDS ORDERED: LIDOCAINE 2% 20 MG/ML - 20 ML VIAL SUBCUT PRN (13:14)
[2019-06-22] MEDS ORDERED: Lidocaine 1% 10 MG/ML - 20 ML VIAL SUBCUT PRN (13:14)
[2019-06-22] MEDS ORDERED: HEPARIN 500 UNIT/5 ML SYRINGE FOR CENTRAL LINE IVP PRN (13:14)
[2019-06-22] MEDS: Patch Removal PATCH TRANSDERM SCH (13:35)
[2019-06-22] MEDS: NICOTINE 21 MG /DAY PATCH TRANSDERM SCH (13:39)
[2019-06-22] MEDS ORDERED: Potassium Phoshate Inj 30 MMOL in D5W 500 ML IV ONE (21:39)
[2019-06-22] MEDS ORDERED: Magnesium Sulfate 2gm (Premix) 2 GM/50 ML BAG IV ONE (21:40)
[2019-06-23] MEDS: cefTRIAXone Inj 2 GM in Sodium Chloride 0.9% 100 ML IV SCH ×2 (01:01→21:21)
[2019-06-23] MEDS: Patch Removal PATCH TRANSDERM SCH (09:20)
[2019-06-23] MEDS: NICOTINE 21 MG /DAY PATCH TRANSDERM SCH (09:54)
[2019-06-23] MEDS: CHOLECALCIFEROL 1000 IU TABLET PO SCH (09:54)
[2019-06-23 10:09] LABS: Hemoglobin [HGB] 10.5 g/dL (12.0-16.0); MEAN CORPUSCULAR HGB CONC 32.8 g/dL (33-37); MEAN CORPUSCULAR VOLUME 90.1 FL (81-99); RED BLOOD COUNT 3.55 10^6/uL (4.20-5.40)
[2019-06-23 10:10] LABS: BASOPHILS % (AUTO) 0.3 % (0-1); EOSINOPHILS # (AUTO) 0.05 10*3/UL; EOSINOPHILS % (AUTO) 1.5 % (0-8); LYMPHOCYTES # (AUTO) 1.21 10*3/uL; MONOCYTES # (AUTO) 0.34 10*3/UL (0.3-0.8); MONOCYTES % (AUTO) 9.9 % (5-15); NEUTROPHILS # (AUTO) 1.78 10*3/UL
[2019-06-23 10:11] LABS: BASOPHILS # (AUTO) 0.01 10*3/UL; PLATELET MORPHOLOGY COMMENT NORMAL MORPHOLOGY (NORM); RBC MORPHOLOGY COMMENT NORMAL MORPHOLOGY (NORM); WBC MORPHOLOGY COMMENT NORMAL MORPHOLOGY (NORM)
[2019-06-23 10:18] LABS: BUN/CREATININE RATIO 34.28 (6-20); SERUM ALBUMIN 2.5 g/dL (3.5-4.8)
[2019-06-23] MEDS ORDERED: TPN - PHA to Dose IV PRN (10:33)
[2019-06-23] MEDS: ClonazePAM Tab 1 MG TABLET PO PRN (11:42)
[2019-06-23] MEDS: Sodium Chloride 0.9% 250 ML IV SCH ×2 (12:18→21:36)
[2019-06-23] MEDS ORDERED: CALCIUM PRIMARY IV SCH (14:30)
[2019-06-23] MEDS ORDERED: LYTES PRIMARY IV SCH (14:30)
[2019-06-23] MEDS ORDERED: AA DEXT PRIMARY IV SCH (14:30)
[2019-06-23 15:30] LABS: BUN/CREATININE RATIO 34.61 (6-20)
[2019-06-24] MEDS ORDERED: Sodium Chloride 0.9% 500 ML PRIMARY IV ONE (00:04)
[2019-06-24] MEDS ORDERED: Sodium Chloride 0.9% 250 ML PRIMARY IV ONE (00:09)
[2019-06-24] MEDS ORDERED: Sodium Chloride 0.9% 0 ML ONE (00:19)
[2019-06-24] MEDS ORDERED: Sodium Chloride 0.9% 250 ML ONE (00:32)
[2019-06-24] MEDS: ClonazePAM Tab 1 MG TABLET PO PRN ×2 (00:36→14:04)
[2019-06-24 04:58] LABS: Hemoglobin [HGB] 9.6 g/dL (12.0-16.0)
[2019-06-24 04:59] LABS: BASOPHILS # (AUTO) 0.01 10*3/UL; BASOPHILS % (AUTO) 0.3 % (0-1); EOSINOPHILS # (AUTO) 0.03 10*3/UL; Hematocrit [HCT] 29.4 % (37.0-47.0); LYMPHOCYTES # (AUTO) 1.09 10*3/uL; MEAN CORPUSCULAR HGB CONC 32.7 g/dL (33-37); MEAN CORPUSCULAR VOLUME 91.9 FL (81-99); MEAN PLATELET VOLUME 10.7 FL (7.4-12.2); MONOCYTES # (AUTO) 0.31 10*3/UL (0.3-0.8); MONOCYTES % (AUTO) 10.4 % (5-15); NEUTROPHILS # (AUTO) 1.53 10*3/UL; NEUTROPHILS % (AUTO) 51.1 % (50-80); PLATELET MORPHOLOGY COMMENT NORMAL MORPHOLOGY (NORM); RBC MORPHOLOGY COMMENT NORMAL MORPHOLOGY (NORM); WBC MORPHOLOGY COMMENT NORMAL MORPHOLOGY (NORM)
[2019-06-24 05:04] LABS: SERUM ALBUMIN 2.2 g/dL (3.5-4.8)
[2019-06-24] MEDS: NICOTINE 21 MG /DAY PATCH TRANSDERM SCH (08:00)
[2019-06-24] MEDS: CHOLECALCIFEROL 1000 IU TABLET PO SCH (08:01)
[2019-06-24] MEDS: Patch Removal PATCH TRANSDERM SCH (08:02)
[2019-06-24] MEDS ORDERED: AA-Dext 5%-20%/Calcium/Lytes 1,000 ML PRIMARY IV SCH (09:30)
[2019-06-24 11:38] LABS: BUN/CREATININE RATIO 30.9 (6-20)
[2019-06-24] MEDS ORDERED: Magnesium Sulfate 2gm (Premix) 2 GM/50 ML BAG IV ONE (13:28)
[2019-06-24 16:15] VITALS: BP 78/47; RESP 12; TEMP 97.9; O2SAT 94
== END 2019-06-24 17:33 | DRG 640 ==
LOC: ER 15:36 → MED/SURG 19:12
PROVIDERS: ADMIT Internal Medicine; ATTEND Internal Medicine